=== PATIENT | male | born 1945 | race Caucasian/White ===

== ENCOUNTER → 2018-08-14 16:54 | Outpatient (CLI) | payer MEDICARE, OTHER, SELFPAY ==
--- NOTE | 2018-08-14 | IMM_PTH ---
PATIENT: JULISA CARSON LOC: [facility] U#:[id number] AGE/SX: 79/M ROOM: RE08/14/[address]: Dr. Steve Farmer MD : 1945 BED: DIS: SPEC #: [id number] RECD: 08/18/18 14:07 STATUS: ABDIAS CHATA #: [id number] DON: 08/14/18 00:[address]: Steve Farmer DEPT: IMMUNOHISTOCHEMISTRY RECD BY: Elinor Zarco Tissues: A - PROSTATE RIGHT B - PROSTATE RIGHT E - PROSTATE LEFT Procedures: 34BE12 (add) P40 (add) 34BE12 (initial) PHYSICIAN & [place] [id number] SPECIMEN INFORMATION: Tissue Source: A - Right prostate apex, B - Right prostate mid, E - Left prostate mid Clinical Info: Elevated PSA Specimen Number: [id number] A, B & E CPT code: 69900, 08006 x5 METHODOLOGY: Deparaffinized sections of prefer/formalin-fixed tissue or PAP/DQ stained slides are incubated with monoclonal/polyclonal antibodies/oligonucleotide probes. Localization is made via biotin free immunoperoxidase method. Appropriate controls are performed and reacted as expected. Results on target cell population are indicated in the following table: RESULTS: ANTIBODY / CLONE RESULT Block A P40 (BC28) positive 34BE12 (34BE12) positive Block B P40 (BC28) negative 34BE12 (34BE12) negative Block E P40 (BC28) positive 34BE12 (34BE12) positive These tests were developed and their performance characteristics determined by [facility]. They may not have been cleared or approved by the U.S. Food and Drug Administration. The FDA has determined that such clearance or approval is not necessary. INTERPRETATION: A. Right prostate, apex, core biopsy: Focal high-grade prostatic intraepithelial neoplasia (HGPIN). B. Right prostate, mid, core biopsy: Adenocarcinoma. E. Left prostate, mid, core biopsy: Focal high-grade prostatic intraepithelial neoplasia (HGPIN). AM:cadence 08/19/18
--- NOTE | 2018-08-14 | PROSBIL_PTH ---
PATIENT: JULISA CARSON LOC: [facility] U#:[id number] AGE/SX: 79/M ROOM: RE08/14/[address]: Dr. Steve Farmer MD : 1945 BED: DIS: SPEC #: [id number] RECD: 08/14/18 16:54 STATUS: ABDIAS CERVANT[place]olis #: [id number] DON: 08/14/18 00:[address]: Steve Farmer DEPT: SURGICAL PATHOLOGY RECD BY: Mayur Mcguire Tissues: A - PROSTATE RIGHT B - PROSTATE RIGHT C - PROSTATE RIGHT D - PROSTATE LEFT E - PROSTATE LEFT F - PROSTATE LEFT Procedures: PROSTATE BX HEADER OPERATION: Prostate biopsy PRE-OP DIAGNOSIS: Elevated PSA TISSUE SUBMITTED: A - Right apex, B - Right mid, C - Right base, D - Left apex, E - Left mid, F - Left base MICROSCOPIC DIAGNOSIS A. Right prostate, apex, core biopsy: Focal high-grade prostatic intraepithelial neoplasia (HGPIN). Mild glandular atrophy and minimal chronic inflammation. See comment. B. Right prostate, mid, core biopsy: Adenocarcinoma: [place] grade: 10 (5+5) Cores involved: 2 out of 2 Tissue involved: 50% Greatest tumor length: 9 mm Perineural invasion - present See comment. C. Right prostate, base, core biopsy: Adenocarcinoma: [place] grade: 9 (4+5) Cores involved: 2 out of 2 Tissue involved: 75% Greatest tumor length: 8 mm Perineural invasion - present D. Left prostate, apex, core biopsy: Glandular atrophy and mild chronic inflammation. E. Left prostate, mid, core biopsy: Focal high-grade prostatic intraepithelial neoplasia (HGPIN). Glandular atrophy and mild chronic inflammation. See comment. F. Left prostate, base, core biopsy: Focal high-grade prostatic intraepithelial neoplasia (HGPIN). Glandular atrophy and mild chronic inflammation. AM:cadence 08/18/18 COMMENT A, B & E - Immunohistochemistry ([id number]) supports the above diagnosis. MICROSCOPIC DESCRIPTION Slides are reviewed. GROSS DESCRIPTION A - Received is one container designated prostate, right apex. The specimen consists of two elongated fragments of light bowles-white soft tissue measuring 1.2 to 1.4 cm in length and 0.1 cm in diameter. The specimen is totally submitted in one cassette. B - Received is one container designated prostate, right mid. The specimen consists of two elongated fragments of light bowles-white soft tissue measuring 1.1 to 1.4 cm in length and 0.1 cm in diameter. The specimen is totally submitted in one cassette. C - Received is one container designated prostate, right base. The specimen consists of two elongated fragments of light bowles-white soft tissue measuring 1 to 1.4 cm in length and 0.1 cm in diameter. The specimen is totally submitted in one cassette. D - Received is one container designated prostate, left apex. The specimen consists of two elongated fragments of light bowles-white soft tissue measuring 1 to 1.1 cm in length and 0.1 cm in diameter. The specimen is totally submitted in one cassette. E - Received is one container designated prostate, left mid. The specimen consists of two elongated fragments of light bowles-white soft tissue measuring 1.2 to 1.5 cm in length and 0.1 cm in diameter. The specimen is totally submitted in one cassette. F - Received is one container designated prostate, left base. The specimen consists of two elongated fragments of light bowles-white soft tissue measuring 1.1 to 1.3 cm in length and 0.1 cm in diameter. The specimen is totally submitted in one cassette. / CE:cadence 08/15/18 TC:0 CPT: G0146
== END ==
PROVIDERS: Referring Provider Urology; Visit Provider Urology
DX: D07.5 Carcinoma in situ of prostate (principal); R97.20 Elevated prostate specific antigen [PSA]
CPT/HCPCS: 88305; 88341; 88342; G0416

== ENCOUNTER 2018-08-21 00:52 | Inpatient (IN) | payer MEDICARE, OTHER, SELFPAY ==
[2018-08-21] VITALS (45 sets, daily range): BP systolic 87–150; BP diastolic 38–61; PULSE 49–74; RESP 11–29; TEMP 36.6–38.8; O2SAT 95–100; BMI 23.2; BMI 60.0
--- NOTE | 2018-08-21 01:32 | PCM.HP.STD ---
Problem List (1) Acute on recurrent pancreatitis Status: Acute (2) Prostatic cancer Status: Chronic (3) Bladder outlet obstruction Status: Chronic (4) CHRONIC SMOKER Status: Chronic (5) GERD (gastroesophageal reflux disease) Status: Chronic History of Present Illness Date of Admission: 08/21/18 Chief Complaint: Severe abdominal pain The patient is a 72 year old M with history of recurrent pancreatitis for about 15 years had detailed evaluation in [facility] with MRCP and biliary stent about 10 years ago that was removed after 6 months came as direct admission from [facility] ER for acute on recurrent pancreatitis. Patient has severe epigastric abdominal pain, started about 3 days ago on 08/18 but got worse yesterday which led to ER visit. Patient had mild chills but no recorded fever. Patient has mild constipation for last 3 to 4 days. Denies GI bleed. Patient received 3 L of IV fluid normal saline bolus, 25 mcg fentanyl, IV Zosyn, and, vancomycin still blood pressure is 85/42. Heart rate is 71. Patient temperature in the ER 38.8. and was given Tylenol. Patient had right femoral central venous catheter inserted in the ER. As per the ER physician, patient CT scan does not show pancreatic edema/mass or abscess but there is no report in the medical record. Past Medical History Past Medical History (Chronic Problems): Chronic Problems Prostatic cancer (Chronic) Bladder outlet obstruction (Chronic) CHRONIC SMOKER (Chronic) GERD (gastroesophageal reflux disease) (Chronic) Allergies No Known Allergies Allergy (Verified 08/21/18 01:14) Home Medications: Ambulatory Orders Medication Instructions Recorded Lipase/Protease/Amylase [Creon Dr 1 each PO TID 03/02/13 24,000 Units Capsule] Sertraline HCl [Zoloft] 50 mg PO DAILY 03/02/13 Aspirin [Aspir 81] 81 mg PO DAILY 08/21/18 Finasteride 5 mg PO DAILY 08/21/18 Omeprazole 20 mg PO DAILY 08/21/18 Vitamin B12 1,000 mg PO DAILY 08/21/18 Smoking Status: Current every day smoker Tobacco Use: Cigarettes - He smokes about half pack per day started in the age of 19s - *Family History Sibling History Items: No pertinent history - No history of pink otitis in first-degree relative. Review of Systems Constitutional: Reports: Anorexia, Chills, Weakness HEENT: Denies: Head Aches, Sinus Congestion, Sinus Drainage Cardiovascular: Denies: Chest Pain, Palpitations Respiratory: Denies: Cough, Shortness of breath at rest, Sputum production Gastrointestinal: Reports: Abdominal Pain, Constipation, Nausea. Denies: Hematemesis, Hematochezia, Melena, Vomiting Genitourinary: Denies: Dysuria Musculoskeletal: Denies: Joint Pain, Joint Tenderness Skin: Denies: Rash, Wounds Neurological: Denies: Numbness, Tingling, Focal weakness Psychiatric: Denies: Anxiety, Depression, Homicidal Ideations, Suicidal Ideations Hematologic/ Lymphatic: Denies: Easy Bruising, Easy Bleeding VTE Information - Inpt Only VTE Present on Admission: No VTE Mechan Device Prophylaxis: None VTE Pharm Prophylaxis ordered?: Yes Patient Problems: Active and Suspected Problems Acute on recurrent pancreatitis (Acute) - Physical Exam General: Alert, Oriented x3, Cooperative HEENT: Atraumatic, PERRLA, EOMI, Normocephalic Neck: Supple, No JVD, Negative Carotid Bruits Lungs: Clear to auscultation, Normal air movement, No rhonchi, No wheeze, No rales Cardiovascular: Regular rate, Regular Rhythm, Normal S1, Normal S2, No murmurs Abdomen: Bowel Sounds Present, Soft, Tender - Tenderness present predominantly over epigastric and right upper quadrant region. Mild guarding present. Extremities: No edema, Capillary Refill Less than 3 Seconds Skin: No rashes, No breakdown Musculoskeletal: No Tenderness to Palpation of Joints or Extremities, Arthritic Changes Neurological: Cranial nerves II-XII grossly intact, Deep Tendon Reflexes 2+/4 and Symmetrical, Neuro grossly intact, Motor Exam 5/5 strength throughout Psych/Mental Status: Normal Affect, Appropriate Vital Signs Pulse 71 08/21/ 00:53 Weight: 171 lb 8.314 oz Body Mass Index (BMI) 23.2 Assessment/Plan All Active Problems Acute on recurrent pancreatitis (Acute) The patient is a 72 year old M with history of recurrent pancreatitis for about 15 years status post biliary stent about 10 years ago and subsequently removed is directly admitted from [facility] ER for severe abdominal pain, chills, hypotension and elevated lactic acid consistent with acute on recurrent pancreatitis. Patient blood pressure was 95/50 but dropped to 87/52 but no tachycardia or hypoxia even with adequate 3 L normal saline bolus. 1. Acute on recurrent pancreatitis, etiology unknown: Patient denies alcohol intake and had cholecystectomy in the past. We will try to get CT scan report from the [facility] ER. IV fluid normal saline, intake and output monitoring, pain control ordered. Patient has Salazar catheter. Right upper quadrant sonogram tomorrow morning. Repeat CBC, CMP and electrolytes tomorrow a.m. 2. Hypovolemic shock, predominantly from third spacing: Less likely septic shock: Patient is started on IV Levophed drip. [employer]ist consulted. Patient had empirically IV vancomycin and Zosyn department ER. Blood cultures x2 ordered. 3. Other chronic comorbidities include GERD, prostate cancer and chronic smoker: Smoking cessation advised. Patient is on PPI. Hold other oral medications including baby aspirin and finasteride. DVT prophylaxis: On Lovenox 40 mg subcu daily. Code Visit Inpatient E&M: 43828 Init Hosp L3
--- NOTE | 2018-08-21 01:41 | HP.PCM_ITS ---
Problem List (1) Acute on recurrent pancreatitis Status: Acute (2) Prostatic cancer Status: Chronic (3) Bladder outlet obstruction Status: Chronic (4) CHRONIC SMOKER Status: Chronic (5) GERD (gastroesophageal reflux disease) Status: Chronic History of Present Illness Date of Admission: 08/21/18 Chief Complaint: Severe abdominal pain The patient is a 72 year old M with history of recurrent pancreatitis for about 15 years had detailed evaluation in [facility] with MRCP and biliary stent about 10 years ago that was removed after 6 months came as direct admission from [facility] ER for acute on recurrent pancreatitis. Patient has severe epigastric abdominal pain, started about 3 days ago on 08/18 but got worse yesterday which led to ER visit. Patient had mild chills but no recorded fever. Patient has mild constipation for last 3 to 4 days. Denies GI bleed. Patient received 3 L of IV fluid normal saline bolus, 25 mcg fentanyl, IV Zosyn, and, vancomycin still blood pressure is 85/42. Heart rate is 71. Patient temperature in the ER 38.8. and was given Tylenol. Patient had right femoral central venous catheter inserted in the ER. As per the ER physician, patient CT scan does not show pancreatic edema/mass or abscess but there is no report in the medical record. Past Medical History Past Medical History (Chronic Problems): Chronic Problems Prostatic cancer (Chronic) Bladder outlet obstruction (Chronic) CHRONIC SMOKER (Chronic) GERD (gastroesophageal reflux disease) (Chronic) Allergies No Known Allergies Allergy (Verified 08/21/18 01:14) Home Medications: Ambulatory Orders Medication Instructions Recorded Lipase/Protease/Amylase [Creon Dr 1 each PO TID 03/02/13 24,000 Units Capsule] Sertraline HCl [Zoloft] 50 mg PO DAILY 03/02/13 Aspirin [Aspir 81] 81 mg PO DAILY 08/21/18 Finasteride 5 mg PO DAILY 08/21/18 Omeprazole 20 mg PO DAILY 08/21/18 Vitamin B12 1,000 mg PO DAILY 08/21/18 Smoking Status: Current every day smoker Tobacco Use: Cigarettes - He smokes about half pack per day started in the age of 19s - *Family History Sibling History Items: No pertinent history - No history of pink otitis in first-degree relative. Review of Systems Constitutional: Reports: Anorexia, Chills, Weakness HEENT: Denies: Head Aches, Sinus Congestion, Sinus Drainage Cardiovascular: Denies: Chest Pain, Palpitations Respiratory: Denies: Cough, Shortness of breath at rest, Sputum production Gastrointestinal: Reports: Abdominal Pain, Constipation, Nausea. Denies: Jc temesis, Hematochezia, Melena, Vomiting Genitourinary: Denies: Dysuria Musculoskeletal: Denies: Joint Pain, Joint Tenderness Skin: Denies: Rash, Wounds Neurological: Denies: Numbness, Tingling, Focal weakness Psychiatric: Denies: Anxiety, Depression, Homicidal Ideations, Suicidal Ideations Hematologic/ Lymphatic: Denies: Easy Bruising, Easy Bleeding VTE Information - Inpt Only VTE Present on Admission: No VTE Mechan Device Prophylaxis: None VTE Pharm Prophylaxis ordered?: Yes Patient Problems: Active and Suspected Problems Acute on recurrent pancreatitis (Acute) - Physical Exam General: Alert, Oriented x3, Cooperative HEENT: Atraumatic, PERRLA, EOMI, Normocephalic Neck: Supple, No JVD, Negative Carotid Bruits Lungs: Clear to auscultation, Normal air movement, No rhonchi, No wheeze, No rales Cardiovascular: Regular rate, Regular Rhythm, Normal S1, Normal S2, No murmurs Abdomen: Bowel Sounds Present, Soft, Tender - Tenderness present predominantly over epigastric and right upper quadrant region. Mild guarding present. Extremities: No edema, Capillary Refill Less than 3 Seconds Skin: No rashes, No breakdown Musculoskeletal: No Tenderness to Palpation of Joints or Extremities, Arthritic Changes Neurological: Cranial nerves II-XII grossly intact, Deep Tendon Reflexes 2+/4 and Symmetrical, Neuro grossly intact, Motor Exam 5/5 strength throughout Psych/Mental Status: Normal Affect, Appropriate Vital Signs Pulse 71 // 00:53 Weight: 171 lb 8.314 oz Body Mass Index (BMI) 23.2 Assessment/Plan All Active Problems Acute on recurrent pancreatitis (Acute) The patient is a 72 year old M with history of recurrent pancreatitis for about 15 years status post biliary stent about 10 years ago and subsequently removed is directly admitted from [facility] ER for severe abdominal pain, chills, hypotension and elevated lactic acid consistent with acute on recurrent pancreatitis. Patient blood pressure was 95/50 but dropped to 87/52 but no tachycardia or hypoxia even with adequate 3 L normal saline bolus. 1. Acute on recurrent pancreatitis, etiology unknown: Patient denies alcohol intake and had cholecystectomy in the past. We will try to get CT scan report from the [facility] ER. IV fluid normal saline, intake and output monitoring, pain control ordered. Patient has Salazar catheter. Right upper quadrant sonogram tomorrow morning. Repeat CBC, CMP and electrolytes tomorrow a.m. 2. Hypovolemic shock, predominantly from third spacing: Less likely septic shock: Patient is started on IV Levophed drip. Corn Miller consulted. Patient had empirically IV vancomycin and Zosyn department ER. Blood cultures x2 ordered. 3. Other chronic comorbidities include GERD, prostate cancer and chronic smoker: Smoking cessation advised. Patient is on PPI. Hold other oral med ications including baby aspirin and finasteride. DVT prophylaxis: On Lovenox 40 mg subcu daily. Code Visit Inpatient E&M: 09122 Init Hosp L3
--- NOTE | 2018-08-21 01:41 | RAD_ITS ---
STUDY: X-RAY CHEST REASON FOR EXAM: Male, 72 years old. Hypotension TECHNIQUE: 1 view COMPARISON: None. FINDINGS: The lungs are clear and expanded. There is no demonstrated pleural abnormality. Normal size heart. Normal mediastinum and huang. Normal visualized pulmonary arteries. Normal visualized aortic arch and descending thoracic aorta. Normal visualized thoracic spine. Normal visualized ribs, clavicles, and shoulders. There is no demonstrated abnormality of the visualized soft tissue structures of the upper abdomen. RAD/Chest 1 View (Portable) IMPRESSION: Normal x-ray examination of the chest. No acute findings in the lungs Electronically Signed: Ashok Vallecillo MD at 6:38 EDT Tel , Service support ,
[2018-08-21] MEDS: Enoxaparin 40 MG/0.4 ML Syringe SC (02:04)
[2018-08-21] MEDS: 0.9% Normal Saline 1,000 ML 150 ML IV (02:11)
[2018-08-21 02:15] LABS: Bedside Glucose 116 mg/dL (70-110)
[2018-08-21 02:35] LABS: Lactic Acid 1.1 mmol/L (0.4-2.0)
[2018-08-21 05:53] LABS: International Normalized Ratio 1.2; Prothrombin Time (Protime)PT. 15.3 SECONDS (11.7-14.9)
--- NOTE | 2018-08-21 05:55 | US_ITS ---
STUDY: ABDOMINAL ULTRASOUND - RIGHT UPPER QUADRANT REASON FOR VISIT: Male, 72 years old. Pancreatitis. TECHNIQUE: Ultrasound evaluation of the right upper quadrant was performed with real-time and static sandhu-scale imaging. TECHNICAL QUALITY: Adequate. COMPARISON: None. FINDINGS: Liver: The liver is enlarged and measures 20.4 cm. There is normal echogenicity of the liver. The bile ducts are within normal limits. There is hepatic color flow. The direction of portal flow is hepatopetal. There is no demonstrated mass lesion. Gallbladder: The patient is status post cholecystectomy. Common Bile Duct (C.B.D.): The common bile duct measures 3.0 mm. Pancreas: Normal size of the head, body and tail of the pancreas. There is increased echogenicity of the pancreas. There is no demonstrated pancreatic mass or cyst. Right Kidney: Normal size of the right kidney. The right kidney measures 11.8 cm x 6.3 cm x 4.6 cm. Normal renal cortex. The right cortex measures 1.2 cm. There is no demonstrated renal mass or cyst. There is no right hydronephrosis. US/Abdomen Limited IMPRESSION: Hepatomegaly. Status post cholecystectomy. Electronically Signed: Cabrera Kamara, at 13:12 EDT , Service support ,
[2018-08-21 06:10] LABS: ALB/GLOB Ratio 0.8 RATIO (0.9-2.4); AST(SGOT) 153 U/L (15-37); Alanine Aminotransfer ALT/SGPT 107 U/L (16-61); Albumin, Serum 2.4 g/dL (3.2-5.0); Alkaline Phosphatase 194 U/L (45-117); Anion Gap 6 (5-15); BUN 15 mg/dL (7-18); BUN/Creat Ratio 12.5 RATIO (10-20); Bilirubin, Direct 0.26 mg/dL (0.00-0.30); Chloride 111 mmol/L (98-107); EST Glomerular Filtration Rate 63 mL/min (>60); Est Glom Filt Rate - Afr Amer 76 mL/min (>60); Estimated Creatinine Clearance 60.18 ml/min; Globulin 3.2 g/dL (2.2-4.2); Glucose 106 mg/dL (74-106); Magnesium 1.5 mg/dL (1.6-2.6); Phosphorus 3.4 mg/dL (2.5-4.9); Potassium 3.5 mmol/L (3.5-5.1); Protein, Total 5.6 g/dL (6.4-8.2); Sodium Level 141 mmol/L (136-145); Thyroid Stim Hormone (TSH) 0.73 uIU/mL (0.358-3.74)
--- NOTE | 2018-08-21 07:02 | CON.PCM_ITS ---
Reason for Consult Date of Consultation: 08/21/18 Reason for Consultation: Acute on chronic pancreatitis History of Present Illness: The patient is a 72-year-old male, with a history as outlined below, who presented as a direct admit from [facility] ED, after initially presenting with complaints of abdominal pain. The patient has a history of chronic pancreatitis. The patient reports that he developed rather acute onset upper abdominal/epigastric pain, which was nonradiating in nature. The patient does have a smoking history of approximately 10 cigarettes/day. He does not currently utilize supplemental oxygen at his baseline, nor is he reliant on any baseline inhalers. He denies any nausea, vomiting or diarrhea. He denies feeling short of breath or experiencing a productive cough. On presentation to the outside hospital emergency department, the patient was noted to be afebrile with a blood pressure of 98/42 and 93% on room air. Initial laboratory evaluation revealed no evidence of a leukocytosis. There was evidence of normocytic anemia. Hepatic function profile revealed an elevated ALT to 155, AST of 376, alkaline phosphatase of 274 and total bili of 1.5. Lactate was initially elevated to 2.9. Initial lipase was only noted to be 22. Urinalysis was negative for leukocyte esterase and nitrites. Rapid influenza screen was negative. At the outside hospital emergency department, the patient was provided with supplemental IV fluid hydration and did receive both vancomycin and Zosyn. CT abdomen/pelvis with IV contrast only, dated August 20, revealed sequelae of chronic pancreatitis with chronic pancreatic duct dilation. There was mild periportal edema along with evidence of bladder outlet obstruction secondary to enlarged prostate. In total, the patient received 3 L of supplemental IV fluids at the outside emergency department. Prior to his transfer, a femoral central venous catheter was placed. Upon arrival to our ICU, the patient was started on levophed to maintain hemodynamic stability. The patient's antibiotics were discontinued on admission. Recent prostate biopsy (by Dr. 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 Past Medical History Past Medical History (Chronic Problems): Chronic Problems Prostatic cancer (Chronic) Bladder outlet obstruction (Chronic) CHRONIC SMOKER (Chronic) GERD (gastroesophageal reflux disease) (Chronic) Allergies No Known Allergies Allergy (Verified 08/21/18 01:14) Home Medications: Ambulatory Orders Medication Instructions Recorded Lipase/Protease/Amylase [Keven Rodriguez 1 each PO TID 03/02/13 24,000 Units Capsule] Sertraline HCl [Zoloft] 50 mg PO DAILY 03/02/13 Aspirin [Aspir 81] 81 mg PO DAILY 08/21/18 Finasteride 5 mg PO DAILY 08/21/18 Omeprazole 20 mg PO DAILY 08/21/18 Vitamin B12 1,000 mg PO DAILY 08/21/18 Smoking Status: Current every day smoker Tobacco Use: Cigarettes - He smokes about half pack per day started in the age of 19s - *Family History Sibling History Items: No pertinent history - No history of pink otitis in first-degree relative. Review of Systems Constitutional: Reports: Weight Change Eyes: Denies: Blurred vision, Double vision HEENT: Denies: Head Aches, Sinus Congestion, Sinus Drainage Cardiovascular: Denies: Chest Pain, Palpitations Respiratory: Denies: Cough, Shortness of breath at rest, Sputum production Gastrointestinal: Reports: Abdominal Pain. Denies: Diarrhea, Nausea, Vomiting Genitourinary: Denies: Dysuria Musculoskeletal: Denies: Joint Pain, Joint Tenderness Skin: Denies: Rash, Wounds Neurological: Denies: Numbness, Tingling, Focal weakness Psychiatric: Denies: Anxiety, Depression, Homicidal Ideations, Suicidal Ideations Hematologic/ Lymphatic: Reports: Anemia Patient Problems: Active and Suspected Problems Acute on recurrent pancreatitis (Acute) Objective: The patient's most recent lab work, culture data and imaging studies have all been personally reviewed. Blood cultures are currently pending. - Physical Exam General: Alert, Cooperative, No apparent distress HEENT: Atraumatic, PERRLA, Normocephalic Oral: No Gingival or Mucosal Lesions/ Ulcerations Neck: Supple, No Nodes, Trachea Midline Lungs: Normal air movement, No rhonchi, No wheeze, No rales Cardiovascular: Normal S1, Normal S2, No murmurs, Bradycardic Abdomen: Bowel Sounds Present, Soft, - - There is tenderness to palpation over the upper abdomen/epigastrium Extremities: No clubbing, No cyanosis, No edema Skin: No breakdown Musculoskeletal: No Tenderness to Palpation of Joints or Extremities Lymphatic: No Cervical, Supraclavicular, or Inguinal Adenopathy Neurological: Cranial nerves II-XII grossly intact, Neuro grossly intact Psych/Mental Status: Alert and oriented to time, place, person, mood and affect Vital Signs Temp Pulse Resp BP Pulse Ox 98.1 F 61 15 103/55 L 100 08/21/18 04:00 08/21/18 06:00 08/21/18 06:00 08/21/18 06:00 08/21/18 06:00 Oxygen Delivery Method Room Air Weight: 171 lb 8.314 oz Body Mass Index (BMI) 23.2 Intake and Output for Last 24 Hours 08/19/18 08/20/18 08/21/18 23:59 23:59 23:59 Intake Total 709.4 / 709.4 Output Total 750 / 750 Balance -40.6 / -40.6 Laboratory Tests Past 24 Hrs 08/21/18 08/21/18 08/21/18 01:55 05:30 05:30 WBC RBC Hgb Hct MCV MCH MCHC RDW RDW Differential Plt Count Neut % (Auto) Absolute Neuts (auto) Total Counted PT 15.3 H INR 1.2 Sodium 141 Potassium 3.5 Chloride 111 H Carbon Dioxide 24.0 Anion Gap 6 BUN 15 Creatinine 1.20 Estim Creat Clear Calc 60.18 Est GFR (MDRD) Af Amer 76 Est GFR (MDRD) Non-Af 63 BUN/Creatinine Ratio 12.5 Glucose 106 Lactic Acid 1.1 Calcium 7.0 L Phosphorus 3.4 Magnesium 1.5 L Total Bilirubin 1.20 H Direct Bilirubin 0.26 AST 153 H ALT 107 H Alkaline Phosphatase 194 H Total Protein 5.6 L Albumin 2.4 L Globulin 3.2 Albumin/Globulin Ratio 0.8 L TSH 0.73 08/21/18 06:35 WBC Pending RBC Pending Hgb Pending Hct Pending MCV Pending MCH Pending MCHC Pending RDW Pending RDW Differential Pending Plt Count Pending Neut % (Auto) Pending Absolute Neuts (auto) Pending Total Counted Pending PT INR Sodium Potassium Chloride Carbon Dioxide Anion Gap BUN Creatinine Estim Creat Clear Calc Est GFR (MDRD) Af Amer Est GFR (MDRD) Non-Af BUN/Creatinine Ratio Glucose Lactic Acid Calcium Phosphorus Magnesium Total Bilirubin Direct Bilirubin AST ALT Alkaline Phosphatase Total Protein Albumin Globulin Albumin/Globulin Ratio TSH POC Glucose 08/21/18 02:10 POC Glucose 116 H Clinical Impression(s) from Imaging Studies Chest X-Ray 08/21/18 01:41 IMPRESSION: Normal x-ray examination of the chest. No acute findings in the lungs Electronically Signed: Ashok Vallecillo MD at 6:38 EDT Tel , Service support , Assessment/Plan Active and Suspected Problems Acute on recurrent pancreatitis (Acute) RECOMMENDATIONS: 1. Remove femoral central venous catheter in place PICC line. 2. Resume empiric antimicrobials. Blood cultures are pending. Will check urine culture as well. 3. Abdominal ultrasound is pending. 4. Recheck lipase. 5. Transition from normal saline to lactated Ringer's for supplemental IV fluid hydration. 6. Obtain urology consultation. 7. Wean levophed to maintain a mean arterial pressure at or above 65 mmHg. 8. As needed pain control with morphine. IMPRESSIONS: 1. Septic shock Although the patient's antibiotics were discontinued upon admission to the ICU, I am concerned for underlying sepsis as compared to acute on chronic pancreatitis, as the patient has a normal lipase level and now has an elevated white blood cell count along with continued need for vasopressor support, despite adequate volume resuscitation. In addition, the patient's CT abdomen completed at the outside hospital prior to transfer only revealed sequelae of chronic pancreatitis. My concern would be for some form of intra-abdominal infectious process, potentially urinary (prostatitis) or biliary in nature. I did restart the patient's antibiotics this morning. We will plan to obtain a urine culture as well. Abdominal ultrasound is currently pending. The patient will be continued on vasopressor support in an attempt to maintain a mean arterial pressure at or above 65 mmHg. 2. Recently diagnosed prostate cancer CT abdomen did report concerns for bladder outlet obstruction. Therefore, I have asked that urology evaluate the patient as well. 3. Hypomagnesemia Aggressive electrolyte repletion as ordered. Recheck levels in the morning. 4. Personal history of chronic pancreatitis Continue IV fluid supplementation. We will hold off on advancing the patient's diet until the abdominal ultrasound has been completed. 5. Anemia/thrombocytopenia/GERD/tobacco dependency Complicates care, management, recovery and prognosis. Okay to continue PPI therapy. The patient does not wish to have any form of nicotine replacement therapy ordered. Smoking cessation is advisable. TIME: 45 minutes of critical care time, independent of procedures, was spent addressing the patient's septic shock, recently diagnosed prostate cancer, hypomagnesemia, chronic pancreatitis, review of all data and collaboration with the care team. ([id number]) Code Visit 9xxxx: [id number] Critical care first hour
[2018-08-21 07:06] LABS: Absolute Lymphocyte Count 0.86 X10^3/ul (0.83-4.51); Basophil# 0.02 X10^3/uL; Basophil% 0.1 % (0-1); Differential Indicated SCAN CRITERIA MET; Eosinophil# 0.03 X10^3/uL; Eosinophils% 0.1 % (0-5); Hematocrit 29.7 % (40-54); Hemoglobin 9.4 g/dl (13.0-16.5); Lymphocyte # 0.86 X10^3/ul (4.0); Lymphocyte % 3.9 % (19-41); Mean Corp Hgb Conc 31.6 g/gl (32-36); Mean Corpuscular Hgb 29.7 pg (27.0-32.0); Mean Platelet Vol. 13.2 fl (6.2-12.0); Monocyte# 0.84 X10^3/uL; Monocyte% 3.9 % (0-10); Neutrophil % 91.7 % (47-70); POSITIVE COUNT NO; POSITIVE DIFFERENTIAL NO; POSITIVE MORPHOLOGY YES; Platelet Count 141 K/mm3 (150-450); RBC Distribution Width CV 13.7 % (11.6-14.6); RBC Distribution Width SD 45.4 fl (35.1-43.9); Red Blood Count 3.16 M/mm3 (4.6-6.2); White Blood Count 21.8 K/mm3 (4.4-11.0)
[2018-08-21 07:23] LABS: Lipase 19 U/L (73-393)
[2018-08-21] MEDS: Morphine 2 MG/ML Syringe IV ×3 (08:13→17:38)
[2018-08-21] MEDS: 0.9% NaCl Peripheral Flush Adult/Peds IV ×3 (08:14→21:32)
--- NOTE | 2018-08-21 08:55 | PCM.PN.HOSP ---
Patient Problems: Active and Suspected Problems Acute on recurrent pancreatitis (Acute) Subjective: Patient is a 72-year-old male was admitted directly from [facility] ED after he presented there with a complaint of abdominal pain. He was found to have acute on chronic pancreatitis. He was also found to have severely low blood pressure requiring vasopressor administration. He is being managed for acute on chronic pancreatitis, and hypovolemic shock. Patient seen and examined. Abdominal pain had improved a bit. He denied any fever or chills, nausea vomiting or diarrhea. Review of systems otherwise negative. He is still on Levophed. Labs and vitals reviewed. Vitals/I&O's: Vital Signs Temp Pulse Resp BP Pulse Ox 97.8 F 52 L 18 110/51 L 100 08/21/18 08:00 08/21/18 08:00 08/21/18 08:00 08/21/18 08:00 08/21/18 08:00 Oxygen Delivery Method Room Air Weight: 171 lb 8.314 oz Body Mass Index (BMI) 23.2 Intake and Output for Last 24 Hours 08/19/18 08/20/18 08/21/18 23:59 23:59 23:59 Intake Total 709.4 / 709.4 Output Total 750 / 750 Balance -40.6 / -40.6 General: Alert, Oriented x3, Cooperative, No apparent distress HEENT: Atraumatic, PERRLA, EOMI, Normocephalic Oral: Dry Mucosa Neck: Supple, No JVD, Negative Carotid Bruits Lungs: Clear to auscultation, Normal air movement, No rhonchi, No wheeze, No rales Cardiovascular: Regular rate, Regular Rhythm, Normal S1, Normal S2, No murmurs Abdomen: Bowel Sounds Present, Soft, Tender - mild epigastric and RUQ tenderness, no guarding or rebound tenderness Extremities: No clubbing, No cyanosis, No edema, Capillary Refill Less than 3 Seconds Skin: No rashes, No breakdown Musculoskeletal: No Tenderness to Palpation of Joints or Extremities Lymphatic: No Cervical, Supraclavicular, or Inguinal Adenopathy Neurological: Cranial nerves II-XII grossly intact, Neuro grossly intact, Motor Exam 5/5 strength throughout Psych/Mental Status: Normal Affect, Appropriate, Alert and oriented to time, place, person, mood and affect Laboratory Results 08/21/18 01:55: Lactic Acid 1.1 08/21/18 02:10: POC Glucose 116 H 08/21/18 05:30: Sodium 141, Potassium 3.5, Chloride 111 H, Carbon Dioxide 24.0, Anion Gap 6, BUN 15, Creatinine 1.20, Estim Creat Clear Calc 60.18, Est GFR (MDRD) Af Amer 76, Est GFR (MDRD) Non-Af 63, BUN/Creatinine Ratio 12.5, Glucose 106, Calcium 7.0 L, Phosphorus 3.4, Magnesium 1.5 L, Total Bilirubin 1.20 H, Direct Bilirubin 0.26, AST 153 H, ALT 107 H, Alkaline Phosphatase 194 H, Total Protein 5.6 L, Albumin 2.4 L, Globulin 3.2, Albumin/Globulin Ratio 0.8 L, TSH 0.73 08/21/18 05:30: PT 15.3 H, INR 1.2 08/21/18 05:30: Lipase 19 L 08/21/18 06:35: WBC 21.8 H, RBC 3.16 L, Hgb 9.4 L, Hct 29.7 L, MCV 94.0, MCH 29.7, MCHC 31.6 L, RDW 13.7, RDW Differential 45.4 H, Plt Count 141 L, MPV 13.2 H, Immature Gran % (Auto) 0.300, Neut % (Auto) 91.7 H, Lymph % (Auto) 3.9 L, [place] % (Auto) 3.9, Eos % (Auto) 0.1, Baso % (Auto) 0.1, Absolute Neuts (auto) 20.0 H, Absolute Lymphs (auto) 0.86, Total Counted Not Reportable 08/21/18 08:20: MRSA (PCR) Pending Diagnostic Data Chest X-Ray 08/21/18 01:41 IMPRESSION: Normal x-ray examination of the chest. No acute findings in the lungs Electronically Signed: Ashok Vallecillo MD at 6:38 EDT Tel , Service support , Current Medications Dextrose (D50w Syringe) 0 gm IV X1 PRN; Protocol PRN Reason: Hypoglycemia Enoxaparin Sodium (Lovenox) 40 mg SC DAILY [facility] Last Admin: 08/21/18 02:04 Dose: 40 mg Glucagon () 1 mg IM .X1 PRN PRN Reason: Hypoglycemia Hydromorphone HCl (Dilaudid Inj) 1 mg IV Q4H PRN PRN PRN Reason: Severe pain (7-10/10) Sodium Chloride () 250 mls @ 15 mls/hr IV .[id number] PRN PRN Reason: SALINE FLUSH Pantoprazole Sodium 40 mg/ (Sodium Chloride) 110 mls @ 330 mls/hr IV Q24 TRUPTI Norepinephrine Bitartrate 8 mg (/ Sodium Chloride) 250 mls @ 9.38 mls/hr CONT INF .[id number] [facility] Last Admin: 08/21/18 02:04 Dose: 9.38 mls/hr Piperacillin Sod/Tazobactam (Sod 3.375 gm/ Sodium Chloride) 50 mls @ 12.5 mls/hr IV Q8 TRUPTI Magnesium Sulfate 2 gm/ Sodium (Chloride) 104 mls @ 52 mls/hr IV X1 ONE Stop: 08/21/18 10:30 Potassium Chloride 20 meq/ (Lactated Ringer's) 1,010 mls @ 150 mls/hr IV .[id number] [facility] Morphine Sulfate () 2 mg IV Q3H PRN PRN PRN Reason: Severe pain (7-10/10) Last Admin: 08/21/18 08:13 Dose: 2 mg Senna/Docusate Sodium (Senokot-S, [place]-Colace) 2 tablet PO BID PRN PRN PRN Reason: Constipation Sodium Chloride () 5 - 15 ml IV UD PRN PRN Reason: SALINE FLUSH Last Admin: 08/21/18 08:14 Dose: 10 ml Sodium Chloride () 10 - 40 ml IV UD PRN PRN Reason: MULTILUMEN/HICMAN CATH FLUSH Last Admin: 08/21/18 02:12 Dose: 30 ml Medical Necessity - Tobacco Use Smoking Status: Current every day smoker Tobacco Use: Cigarettes - He smokes about half pack per day started in the age of 19s Assessment/Plan All Active Problems Acute on recurrent pancreatitis (Acute) 1. Hypovolemic shock due to acute pancreatitis has had recurrent pancreatitis for the past 15 years; says no cause has been found he denies any alcohol intake and is s/p cholecystectomy. has no hyperlipidemia. I am not sure if he has been tested for autoimmune pancreatitis currently on IVF NS and levophed. 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 There is no clear source of infection, and I think the hypovolemic shock is due to hypovolemia. wbc is elevated, though this may be reactive on Creon 2. Acute on chronic pancreatitis as under 1. 3. Hypomagnesemia: Magnesium is 1.5 today. We will replace and monitor. 4.Elevated liver enzymes: total bilirubin is 1.2, AST/ALT is 153/107. ALP is 194 5. Asymptimatic bradycardia: HR is in the 50s. paitent is stable. Will monitor 6. Anemia: Hb is 9.4. no baseline available. Will hceck iron panel. In light of recent cancaer diagnosis, may be related to it. 7. Thrombocytopenia: Platelets are 141. WIll monitor 8. GERD: on IV pantoprazole 9. History of prostate cancer: to follow up with urology on outpatient basis 10. Nicotine abuse: counseled to quit DVT prophylaxis: lovenox Code Visit Inpatient E&M: 87530 Subs Hosp L3
--- NOTE | 2018-08-21 09:00 | PN_ITS ---
Patient Problems: Active and Suspected Problems Acute on recurrent pancreatitis (Acute) Subjective: Patient is a 72-year-old male was admitted directly from [facility] ED after he presented there with a complaint of abdominal pain. He was found to have acute on chronic pancreatitis. He was also found to have severely low blood pressure requiring vasopressor administration. He is being managed for acute on chronic pancreatitis, and hypovolemic shock. Patient seen and examined. Abdominal pain had improved a bit. He denied any fever or chills, nausea vomiting or diarrhea. Review of systems otherwise negative. He is still on Levophed. Labs and vitals reviewed. Vitals/I&O's: Vital Signs Temp Pulse Resp BP Pulse Ox 97.8 F 52 L 18 110/51 L 100 08/21/18 08:00 08/21/18 08:00 08/21/18 08:00 08/21/18 08:00 08/21/18 08:00 Oxygen Delivery Method Room Air Weight: 171 lb 8.314 oz Body Mass Index (BMI) 23.2 Intake and Output for Last 24 Hours 08/19/18 08/20/18 08/21/18 23:59 23:59 23:59 Intake Total 709.4 / 709.4 Output Total 750 / 750 Balance -40.6 / -40.6 General: Alert, Oriented x3, Cooperative, No apparent distress HEENT: Atraumatic, PERRLA, EOMI, Normocephalic Oral: Dry Mucosa Neck: Supple, No JVD, Negative Carotid Bruits Lungs: Clear to auscultation, Normal air movement, No rhonchi, No wheeze, No rales Cardiovascular: Regular rate, Regular Rhythm, Normal S1, Normal S2, No murmurs Abdomen: Bowel Sounds Present, Soft, Tender - mild epigastric and RUQ tenderness, no guarding or rebound tenderness Extremities: No clubbing, No cyanosis, No edema, Capillary Refill Less than 3 Seconds Skin: No rashes, No breakdown Musculoskeletal: No Tenderness to Palpation of Joints or Extremities Lymphatic: No Cervical, Supraclavicular, or Inguinal Adenopathy Neurological: Cranial nerves II-XII grossly intact, Neuro grossly intact, Motor Exam 5/5 strength throughout Psych/Mental Status: Normal Affect, Appropriate, Alert and oriented to time, place, person, mood and affect Laboratory Results 08/21/18 01:55: Lactic Acid 1.1 08/21/18 02:10: POC Glucose 116 H 08/21/18 05:30: Sodium 141, Potassium 3.5, Chloride 111 H, Carbon Dioxide 24.0, Anion Gap 6, BUN 15, Creatinine 1.20, Estim Creat Clear Calc 60.18, Est GFR (MDRD) Af Amer 76, Est GFR (MDRD) Non-Af 63, BUN/Creatinine Ratio 12.5, Glucose 106, Calcium 7.0 L, Phosphorus 3.4, Magnesium 1.5 L, Total Bilirubin 1.20 H, Direct Bilirubin 0.26, AST 153 H, ALT 107 H, Alkaline Phosphatase 194 H, Total Protein 5.6 L, Albumin 2.4 L, Globulin 3.2, Albumin/Globulin Ratio 0.8 L, TSH 0.73 08/21/18 05:30: PT 15.3 H, INR 1.2 08/21/18 05:30: Lipase 19 L 08/21/18 06:35: WBC 21.8 H, RBC 3.16 L, Hgb 9.4 L, Hct 29.7 L, MCV 94.0, MCH 29.7, MCHC 31.6 L, RDW 13.7, RDW Differential 45.4 H, Plt Count 141 L, MPV 13.2 H, Immature Gran % (Auto) 0.300, Neut % (Auto) 91.7 H, Lymph % (Auto) 3.9 L, [place] % (Auto) 3.9, Eos % (Auto) 0.1, Baso % (Auto) 0.1, Absolute Neuts (auto) 20.0 H, Absolute Lymphs (auto) 0.86, Total Counted Not Reportable 08/21/18 08:20: MRSA (PCR) Pending Diagnostic Data Chest X-Ray 08/21/18 01:41 IMPRESSION: Normal x-ray examination of the chest. No acute findings in the lungs Electronically Signed: Ashok Vallecillo MD at 6:38 EDT Tel , Service support , Current Medications Dextrose (D50w Syringe) 0 gm IV X1 PRN; Protocol PRN Reason: Hypoglycemia Enoxaparin Sodium (Lovenox) 40 mg SC DAILY [facility] Last Admin: 08/21/18 02:04 Dose: 40 mg Glucagon () 1 mg IM .X1 PRN PRN Reason: Hypoglycemia Hydromorphone HCl (Dilaudid Inj) 1 mg IV Q4H PRN PRN PRN Reason: Severe pain (7-10/10) Sodium Chloride () 250 mls @ 15 mls/hr IV .[id number] PRN PRN Reason: SALINE FLUSH Pantoprazole Sodium 40 mg/ (Sodium Chloride) 110 mls @ 330 mls/hr IV Q24 TRUPTI Norepinephrine Bitartrate 8 mg (/ Sodium Chloride) 250 mls @ 9.38 mls/hr CONT INF .[id number] [facility] Last Admin: 08/21/18 02:04 Dose: 9.38 mls/hr Piperacillin Sod/Tazobactam (Sod 3.375 gm/ Sodium Chloride) 50 mls @ 12.5 mls/hr IV Q8 TRUPTI Magnesium Sulfate 2 gm/ Sodium (Chloride) 104 mls @ 52 mls/hr IV X1 ONE Stop: 08/21/18 10:30 Potassium Chloride 20 meq/ (Lactated Ringer's) 1,010 mls @ 150 mls/hr IV .[id number] [facility] Morphine Sulfate () 2 mg IV Q3H PRN PRN PRN Reason: Severe pain (7-10/10) Last Admin: 08/21/18 08:13 Dose: 2 mg Senna/Docusate Sodium (Senokot-S, [place]-Colace) 2 tablet PO BID PRN PRN PRN Reason: Constipation Sodium Chloride () 5 - 15 ml IV UD PRN PRN Reason: SALINE FLUSH Last Admin: 08/21/18 08:14 Dose: 10 ml Sodium Chloride () 10 - 40 ml IV UD PRN PRN Reason: MULTILUMEN/HICMAN CATH FLUSH Last Admin: 08/21/18 02:12 Dose: 30 ml Medical Necessity - Tobacco Use Smoking Status: Current every day smoker Tobacco Use: Cigarettes - He smokes about half pack per day started in the age of 19s Assessment/Plan All Active Problems Acute on recurrent pancreatitis (Acute) 1. Hypovolemic shock due to acute pancreatitis * has had recurrent pancreatitis for the past 15 years; says no cause has been found * he denies any alcohol intake and is s/p cholecystectomy. has no hyperlipidemia. I am not sure if he has been tested for autoimmune pancreatitis * currently on IVF NS and levophed. 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 There is no clear source of infection, and I think the hypovolemic shock is due to hypovolemia. wbc is elevated, though this may be reactive * on Creon * 2. Acute on chronic pancreatitis * as under 1. * 3. Hypomagnesemia: Magnesium is 1.5 today. We will replace and monitor. 4.Elevated liver enzymes: total bilirubin is 1.2, AST/ALT is 153/107. ALP is 194 5. Asymptimatic bradycardia: HR is in the 50s. paitent is stable. Will monitor 6. Anemia: Hb is 9.4. no baseline available. Will hceck iron panel. In light of recent cancaer diagnosis, may be related to it. 7. Thrombocytopenia: Platelets are 141. WIll monitor 8. GERD: on IV pantoprazole 9. History of prostate cancer: to follow up with urology on outpatient basis 10. Nicotine abuse: counseled to quit DVT prophylaxis: lovenox Code Visit Inpatient E&M: 29097 Subs Hosp L3
[2018-08-21 09:49] LABS: M R Staph aureus DNA By PCR Negative (Negative)
[2018-08-21 09:50] LABS: Probe Check PASS; Specimen Processing Control PASS
--- NOTE | 2018-08-21 11:33 | EKG12_ITS ---
Test Reason : ARRYTHMIA Blood Pressure : / mmHG Vent. Rate : 054 BPM Atrial Rate : 054 BPM P-R Int : 176 ms QRS Dur : 092 ms QT Int : 452 ms P-R-T Axes : -15 -35 -09 degrees QTc Int : 428 ms Sinus bradycardia Left axis deviation Abnormal ECG No previous ECGs available Confirmed by GUERA ROOT ([id number]), clinical editor FELIZ MAZARIEGOS ([id number]) on 08/27/2018 12:55:07 PM Referred By: Noah Garber Confirmed By:RAFAEL ROOT
--- NOTE | 2018-08-21 12:40 | CASEMGMT ---
RN CM SHOP HELPER CM to room to meet with patient for initial transition planning/care coordination assessment. RN DWAIN introduced self and role at [facility]. Pt voices understanding and consents to assessment at this time. Pt resting in bed in no distress at this time. @ bedside. Pt is A/O at this time and answers all questions appropriately. Care providers, pharmacy, and demographics verified at this time. PCP: Donita Ramires Specialists: Marleny Andrade Pharmacy: [facility] Insurance: [facility], MMO Prescription Benefit: Yes Living Will/HPOA: states they have filled out paperwork for LW and HCPOA, but that they just need to get it notarized. Made aware SW can assist with completing paperwork if they need further help. LNOK: Living Arrangements: Lives with in one-story home. 2 steps to enter. Independent w/ADL's. and pt share home mgmt tasks. Transportation: Pt states drives self and states no transportation concerns at this time. able to drive pt home on d/c DME: Denies using any DME and denies needs. Has a cane and shower chair but do no use them. HHC/SNF: No history of either. No needs identified. Pt states does not feel that he will need any additional therapy or HHC. Pt wishes to return home and states has no concerns with going home at time of discharge. CM to follow for any discharge planning/needs. Pt voices no further concerns/needs at this time. Advised pt to ask for CM if any further questions/concerns/needs arise. Voices understanding. PLAN: Home w/spousal support and discharge plans in place. PT/OT evals pending. Keerthi MICHAUD RN, CM
[2018-08-21] MEDS: Acetaminophen 325 MG Tablet 650 MG PO (13:17)
--- NOTE | 2018-08-21 13:44 | CHAPLAIN ---
Type of Pastoral Visit _x__ Initial Visit ___ Follow-up Visit ___ On-call Visit ___ General Patient Visit ___ Spiritual Assessment ___ Family Conference ___ Bereavement ___ Rapid Response ___ Code Blue ___ Other (describe below) Pastoral Care Referral From _x__ Patient _x__ Family ___ Nurse ___ Physician ___ Animation Artist ___ Supreme Court Judge ___ Other (describe below) Sacrament/Intervention _x__ Active listening ___ Anointing ___ Pentecostal ___ Bereavement ___ Communion ___ [place] exploration ___ _x__ Life review _x__ Prayer ___ Reconciliation ___ Sacrament of Sick _x__ Supportive presence ___ Wedding ___ Other (describe below) Pastoral Comments
[2018-08-21] MEDS: Ibuprofen 400 MG Tablet PO (21:23)
[2018-08-21] MEDS: Vancomycin IV 500 MG/100 ML BAG 100 MG IV (21:29)
--- NOTE | 2018-08-21 21:34 | PCM.RX.CS ---
Consult Pharmacy has been consulted to manage selected antiobiotic: Vancomycin Type of Consult: New start Labs: Sodium 141 mmol/L (136-145) 08/21/18 05:30 Potassium 3.5 mmol/L (3.5-5.1) 08/21/18 05:30 Chloride 111 mmol/L (98-107) H 08/21/18 05:30 Carbon Dioxide 24.0 mmol/L (21.0-32.0) 08/21/18 05:30 Anion Gap 6 (5-15) 08/21/18 05:30 BUN 15 mg/dL (7-18) 08/21/18 05:30 Creatinine 1.20 mg/dL (0.70-1.30) 08/21/18 05:30 Est GFR (MDRD) Af Amer 76 mL/min (>60) 08/21/18 05:30 Est GFR (MDRD) Non-Af 63 mL/min (>60) 08/21/18 05:30 BUN/Creatinine Ratio 12.5 RATIO (10-20) 08/21/18 05:30 Glucose 106 mg/dL (74-106) 08/21/18 05:30 Weight used for dosin.8 kg Estimated Creatinine Clearance: 48.18 Goal Trough: 10-15 mcg/mL Pharmacy Plan for Drug Dosing: Pharmacy Service will continue to monitor and adjust dosing as required. Medications Vancomycin HCl () 500 mg in 100 mls @ 100 mls/hr IV Q12H [id number] Last Admin: 08/21/18 21:29 Dose: 100 mls/hr DOSE OF 1000MG GIVEN YESTERDAY AROUND 2100 Follow-Up Labs: Trough Vancomycin Labs to be done on [date and time ordered]: 08/23 @ 0900
[2018-08-22] VITALS (67 sets, daily range): BP systolic 77–155; BP diastolic 30–93; PULSE 46–81; RESP 13–29; TEMP 36.6–38.8; O2SAT 93–100
[2018-08-22] MEDS: Ibuprofen 400 MG Tablet PO ×2 (04:34→16:16)
[2018-08-22 04:37] LABS: Absolute Lymphocyte Count 0.43 X10^3/ul (0.83-4.51); Absolute Neutrophil Count 6.9 X10^3/uL (2.0-7.7); Basophil# 0.01 X10^3/uL; Basophil% 0.1 % (0-1); Eosinophil# 0.02 X10^3/uL; Eosinophils% 0.3 % (0-5); Hematocrit 26.4 % (40-54); Hemoglobin 8.6 g/dl (13.0-16.5); Lymphocyte # 0.43 X10^3/ul (4.0); Lymphocyte % 5.6 % (19-41); Mean Corp Hgb Conc 32.6 g/gl (32-36); Mean Corpuscular Hgb 30.6 pg (27.0-32.0); Monocyte# 0.21 X10^3/uL; Monocyte% 2.7 % (0-10); Neutrophil # 6.93 X10^3/uL (2.7-7.7); Neutrophil % 90.8 % (47-70); Platelet Count 70 K/mm3 (150-450); RBC Distribution Width CV 13.4 % (11.6-14.6); Red Blood Count 2.81 M/mm3 (4.6-6.2); White Blood Count 7.6 K/mm3 (4.4-11.0)
[2018-08-22 04:39] LABS: Differential Indicated SCAN CRITERIA MET; POSITIVE COUNT NO; POSITIVE DIFFERENTIAL YES; POSITIVE MORPHOLOGY NO
[2018-08-22 04:52] LABS: ALB/GLOB Ratio 0.7 RATIO (0.9-2.4); AST(SGOT) 48 U/L (15-37); Alanine Aminotransfer ALT/SGPT 70 U/L (16-61); Albumin, Serum 2.1 g/dL (3.2-5.0); Alkaline Phosphatase 142 U/L (45-117); Anion Gap 6 (5-15); BUN 12 mg/dL (7-18); BUN/Creat Ratio 11.7 RATIO (10-20); Calcium,Total 7.4 mg/dL (8.5-10.1); Chloride 112 mmol/L (98-107); Creatinine, Serum 1.03 mg/dL (0.70-1.30); EST Glomerular Filtration Rate 75 mL/min (>60); Est Glom Filt Rate - Afr Amer 91 mL/min (>60); Estimated Creatinine Clearance 70.11 ml/min; Glucose 101 mg/dL (74-106); Magnesium 1.8 mg/dL (1.6-2.6); Potassium 5.4 mmol/L (3.5-5.1); Protein, Total 5.1 g/dL (6.4-8.2); Sodium Level 140 mmol/L (136-145)
[2018-08-22] MEDS: Lactated Ringers 1,000 ML 150 ML IV (05:02)
--- NOTE | 2018-08-22 06:45 | PCM.PN.INT ---
Subjective: The patient was seen and examined at the bedside this morning. Events from the last 24 hours have been reviewed. The patient did develop fevers overnight. T-max was noted to be 101.9 ?F. I did speak personally with the overnight hospitalist regarding the patient's status. Vancomycin was added to his antibiotic regimen. His vasopressor requirement was able to be weaned off completely at 0330 this morning. Nevertheless, at 0700 his levophed had to be restarted due to hemodynamic instability. The patient has been tolerating clear liquids. Hemoglobin is down to 8.6 from 9.4 yesterday. The patient's platelet count has also dropped from 141,000 yesterday to 70,000 this morning. Potassium is a bit elevated at 5.4 this morning. All supplemental fluids were subsequently discontinued this morning. Transaminase levels and alkaline phosphatase are improving. The patient is currently overall net +1.8 L for the admission here at [facility]. The patient did receive 3 L of supplemental IV fluids prior to his transfer here. Evaluation by urology is still pending. The patient does report feeling relatively well this morning. He denies any significant abdominal pain, nausea or vomiting. Preliminary blood culture results from [facility], dated 08/20, were positive for gram negative rods. Objective: The patient's most recent lab work, culture data and imaging studies have all been personally reviewed. Blood and urine cultures are pending. General: Alert, Oriented x3, Cooperative, No apparent distress, - - Sitting in bedside recliner. HEENT: Atraumatic, PERRLA, Normocephalic Oral: No Gingival or Mucosal Lesions/ Ulcerations Neck: Supple, No Nodes, Trachea Midline Lungs: Normal air movement, No rhonchi, No wheeze, No rales Cardiovascular: Normal S1, Normal S2, No murmurs, Bradycardic Abdomen: Bowel Sounds Present, Soft, Non-Distended Extremities: No clubbing, No cyanosis, No edema Skin: - - No significant change from previous. Musculoskeletal: No Tenderness to Palpation of Joints or Extremities Lymphatic: No Cervical, Supraclavicular, or Inguinal Adenopathy Neurological: Cranial nerves II-XII grossly intact, Neuro grossly intact Psych/Mental Status: Alert and oriented to time, place, person, mood and affect Vital Signs Temp Pulse Resp BP Pulse Ox 101.0 F H 67 22 H 117/48 L 97 08/22/18 05:30 08/22/18 06:00 08/22/18 06:00 08/22/18 06:00 08/22/18 06:00 Oxygen Delivery Method Room Air Weight: 176 lb 9.444 oz Body Mass Index (BMI) 23.2 Intake and Output for Last 24 Hours 08/20/18 08/21/18 08/22/18 23:59 23:59 23:59 Intake Total 4091.1 / 4091.1 1629.3 / 1629.3 Output Total 2900 / 2900 1000 / 1000 Balance 1191.1 / 1191.1 629.3 / 629.3 Labs (Last 48 Hours) 08/21/18 08/21/18 08/21/18 01:55 02:10 05:30 WBC RBC Hgb Hct MCV MCH MCHC RDW RDW Differential Plt Count MPV Immature Gran % (Auto) Neut % (Auto) Lymph % (Auto) [place] % (Auto) Eos % (Auto) Baso % (Auto) Absolute Neuts (auto) Absolute Lymphs (auto) Total Counted PT INR Sodium 141 Potassium 3.5 Chloride 111 H Carbon Dioxide 24.0 Anion Gap 6 BUN 15 Creatinine 1.20 Estim Creat Clear Calc 60.18 Est GFR (MDRD) Af Amer 76 Est GFR (MDRD) Non-Af 63 BUN/Creatinine Ratio 12.5 Glucose 106 Lactic Acid 1.1 Calcium 7.0 L Phosphorus 3.4 Magnesium 1.5 L Total Bilirubin 1.20 H Direct Bilirubin 0.26 AST 153 H ALT 107 H Alkaline Phosphatase 194 H Total Protein 5.6 L Albumin 2.4 L Globulin 3.2 Albumin/Globulin Ratio 0.8 L Lipase TSH 0.73 MRSA (PCR) POC Glucose 116 H 08/21/18 08/21/18 08/21/18 05:30 05:30 06:35 WBC 21.8 H RBC 3.16 L Hgb 9.4 L Hct 29.7 L MCV 94.0 MCH 29.7 MCHC 31.6 L RDW 13.7 RDW Differential 45.4 H Plt Count 141 L MPV 13.2 H Immature Gran % (Auto) 0.300 Neut % (Auto) 91.7 H Lymph % (Auto) 3.9 L [place] % (Auto) 3.9 Eos % (Auto) 0.1 Baso % (Auto) 0.1 Absolute Neuts (auto) 20.0 H Absolute Lymphs (auto) 0.86 Total Counted Not Reportable PT 15.3 H INR 1.2 Sodium Potassium Chloride Carbon Dioxide Anion Gap BUN Creatinine Estim Creat Clear Calc Est GFR (MDRD) Af Amer Est GFR (MDRD) Non-Af BUN/Creatinine Ratio Glucose Lactic Acid Calcium Phosphorus Magnesium Total Bilirubin Direct Bilirubin AST ALT Alkaline Phosphatase Total Protein Albumin Globulin Albumin/Globulin Ratio Lipase 19 L TSH MRSA (PCR) POC Glucose 08/21/18 08/22/18 08/22/18 08:20 04:30 04:30 WBC 7.6 RBC 2.81 L Hgb 8.6 L Hct 26.4 L MCV 94.0 MCH 30.6 MCHC 32.6 RDW 13.4 RDW Differential 44.0 H Plt Count 70 L MPV 13.0 H Immature Gran % (Auto) 0.500 Neut % (Auto) 90.8 H Lymph % (Auto) 5.6 L [place] % (Auto) 2.7 Eos % (Auto) 0.3 Baso % (Auto) 0.1 Absolute Neuts (auto) 6.9 Absolute Lymphs (auto) 0.43 L Total Counted Not Reportable PT INR Sodium 140 Potassium 5.4 H Chloride 112 H Carbon Dioxide 22.0 Anion Gap 6 BUN 12 Creatinine 1.03 Estim Creat Clear Calc 70.11 Est GFR (MDRD) Af Amer 91 Est GFR (MDRD) Non-Af 75 BUN/Creatinine Ratio 11.7 Glucose 101 Lactic Acid Calcium 7.4 L Phosphorus Magnesium 1.8 Total Bilirubin 0.90 Direct Bilirubin AST 48 H ALT 70 H Alkaline Phosphatase 142 H Total Protein 5.1 L Albumin 2.1 L Globulin 3.0 Albumin/Globulin Ratio 0.7 L Lipase TSH MRSA (PCR) Negative POC Glucose Clinical Impression(s) from Imaging Studies Chest X-Ray 08/21/18 01:41 IMPRESSION: Normal x-ray examination of the chest. No acute findings in the lungs Electronically Signed: Ashok Vallecillo MD at 6:38 EDT Tel , Service support , Abdomen Ultrasound 08/21/18 05:55 IMPRESSION: Hepatomegaly. Status post cholecystectomy. Electronically Signed: Cabrera Kamara, at 13:12 EDT , Service support , Medical Necessity - Tobacco Use Smoking Status: Current every day smoker Tobacco Use: Cigarettes Assessment/Plan All Active Problems Acute on recurrent pancreatitis (Acute) RECOMMENDATIONS: 1. With fevers, will obtain repeat CXR this AM. 2. Continue broad spectrum antimicrobials. 3. Consultation placed to infectious diseases. 4. Continue levophed with goal to maintain a MAP greater than or equal to 65 mmHg. 5. Continue supplemental IV fluid hydration. 6. Send type and screen. 7. Monitor CBC daily. Transfuse if hemoglobin is less than 7 g/dL. 8. If platelet count continues to drop, will need to consider discontinuation of Lovenox. IMPRESSIONS: 1. Gram Negative Septic shock Although the patient's antibiotics were discontinued upon admission to the ICU, I was concerned for underlying sepsis as compared to acute on chronic pancreatitis, as the patient had a normal lipase level, along with an elevated white blood cell count and continued need for vasopressor support, despite adequate volume resuscitation. In addition, the patient's CT abdomen completed at the outside hospital prior to transfer only revealed sequelae of chronic pancreatitis. My concern would be for some form of intra-abdominal infectious process, potentially urinary (prostatitis given recent biopsy) or biliary in nature. Subsequent preliminary blood culture results from [facility], dated 08/20, were positive from gram negative rods. The patient was initially maintained on Zosyn monotherapy with vancomycin being added on the morning of August 22, due to fevers. Repeat cultures are pending. The patient will be continued on vasopressor support in an attempt to maintain a mean arterial pressure at or above 65 mmHg. Infectious diseases consultation is pending. 2. Recently diagnosed prostate cancer CT abdomen did report concerns for bladder outlet obstruction. Urology was consulted with only outpatient follow-up recommended. 3. Anemia/Thrombocytopenia Continue to monitor CBC daily. Send type and screen. Plan to transfuse for Hgb less than 7 g/dL. If platelet count continues to drop, will need to consider discontinuation of Lovenox. Iron studies are also currently pending. 4. Personal history of chronic pancreatitis Continue IV fluid supplementation. Abdominal ultrasound was largely unrevealing. The patient has been tolerating clear liquids without issue. 5. GERD/tobacco dependency Complicates care, management, recovery and prognosis. Okay to continue PPI therapy. The patient does not wish to have any form of nicotine replacement therapy ordered. Smoking cessation is advisable. TIME: 40 minutes of critical care time, independent of procedures, was spent addressing the patient's septic shock, recently diagnosed prostate cancer, anemia, thrombocytopenia, chronic pancreatitis, review of all data and collaboration with the care team. ([id number]) Code Visit 9xxxx: [id number] Critical care first hour
--- NOTE | 2018-08-22 06:49 | RAD_ITS ---
STUDY: X-RAY CHEST REASON FOR EXAM: Male, 72 years old. History of fever. TECHNIQUE: Single AP portable view of the chest. COMPARISON: Comparison is made with prior study dated August 21, 2018. FINDINGS: A right-sided PICC line catheter is seen with the tip at the junction of the superior vena cava and right atrium. EKG electrodes are seen. Mild increased markings in the left midlung as well as in the right infrahilar region. This may represent either atelectasis and/or early infiltrate. Follow-up is recommended. There is no demonstrated pleural abnormality. Normal size heart. Normal mediastinum and huang. Normal visualized pulmonary arteries. There is atherosclerotic calcification of the aortic arch with tortuosity. Normal visualized thoracic spine. Normal visualized ribs, clavicles, and shoulders. There is no demonstrated abnormality of the visualized soft tissue structures of the upper abdomen. RAD/Chest 1 View (Portable) IMPRESSION: Mild increased markings in the right frontal region and left midlung. Follow-up is recommended. Electronically Signed: Cabrera Kamara, at 8:17 EDT , Service support ,
--- NOTE | 2018-08-22 06:49 | PN_ITS ---
Subjective: The patient was seen and examined at the bedside this morning. Events from the last 24 hours have been reviewed. The patient did develop fevers overnight. T- max was noted to be 101.9 ?F. I did speak personally with the overnight hospitalist regarding the patient's status. Vancomycin was added to his antibiotic regimen. His vasopressor requirement was able to be weaned off completely at 0330 this morning. Nevertheless, at 0700 his levophed had to be restarted due to hemodynamic instability. The patient has been tolerating clear liquids. Hemoglobin is down to 8.6 from 9.4 yesterday. The patient's platelet count has also dropped from 141,000 yesterday to 70,000 this morning. Potassium is a bit elevated at 5.4 this morning. All supplemental fluids were subsequently discontinued this morning. Transaminase levels and alkaline phosphatase are improving. The patient is currently overall net +1.8 L for the admission here at [facility]. The patient did receive 3 L of supplemental IV fluids prior to his transfer here. Evaluation by urology is still pending. The patient does report feeling relatively well this morning. He denies any significant abdominal pain, nausea or vomiting. Preliminary blood culture results from [facility], dated 08/20, were positive for gram negative rods. Objective: The patient's most recent lab work, culture data and imaging studies have all been personally reviewed. Blood and urine cultures are pending. General: Alert, Oriented x3, Cooperative, No apparent distress, - - Sitting in bedside recliner. HEENT: Atraumatic, PERRLA, Normocephalic Oral: No Gingival or Mucosal Lesions/ Ulcerations Neck: Supple, No Nodes, Trachea Midline Lungs: Normal air movement, No rhonchi, No wheeze, No rales Cardiovascular: Normal S1, Normal S2, No murmurs, Bradycardic Abdomen: Bowel Sounds Present, Soft, Non-Distended Extremities: No clubbing, No cyanosis, No edema Skin: - - No significant change from previous. Musculoskeletal: No Tenderness to Palpation of Joints or Extremities Lymphatic: No Cervical, Supraclavicular, or Inguinal Adenopathy Neurological: Cranial nerves II-XII grossly intact, Neuro grossly intact Psych/Mental Status: Alert and oriented to time, place, person, mood and affect Vital Signs Temp Pulse Resp BP Pulse Ox 101.0 F H 67 22 H 117/48 L 97 08/22/18 05:30 08/22/18 06:00 08/22/18 06:00 08/22/18 06:00 08/22/18 06:00 Oxygen Delivery Method Room Air Weight: 176 lb 9.444 oz Body Mass Index (BMI) 23.2 Intake and Output for Last 24 Hours 08/20/18 08/21/18 08/22/18 23:59 23:59 23:59 Intake Total 4091.1 / 4091.1 1629.3 / 1629.3 Output Total 2900 / 2900 1000 / 1000 Balance 1191.1 / 1191.1 629.3 / 629.3 Labs (Last 48 Hours) 08/21/18 08/21/18 08/21/18 01:55 02:10 05:30 WBC RBC Hgb Hct MCV MCH MCHC RDW RDW Differential Plt Count MPV Immature Gran % (Auto) Neut % (Auto) Lymph % (Auto) [place] % (Auto) Eos % (Auto) Baso % (Auto) Absolute Neuts (auto) Absolute Lymphs (auto) Total Counted PT INR Sodium 141 Potassium 3.5 Chloride 111 H Carbon Dioxide 24.0 Anion Gap 6 BUN 15 Creatinine 1.20 Estim Creat Clear Calc 60.18 Est GFR (MDRD) Af Amer 76 Est GFR (MDRD) Non-Af 63 BUN/Creatinine Ratio 12.5 Glucose 106 Lactic Acid 1.1 Calcium 7.0 L Phosphorus 3.4 Magnesium 1.5 L Total Bilirubin 1.20 H Direct Bilirubin 0.26 AST 153 H ALT 107 H Alkaline Phosphatase 194 H Total Protein 5.6 L Albumin 2.4 L Globulin 3.2 Albumin/Globulin Ratio 0.8 L Lipase TSH 0.73 MRSA (PCR) POC Glucose 116 H 08/21/18 08/21/18 08/21/18 05:30 05:30 06:35 WBC 21.8 H RBC 3.16 L Hgb 9.4 L Hct 29.7 L MCV 94.0 MCH 29.7 MCHC 31.6 L RDW 13.7 RDW Differential 45.4 H Plt Count 141 L MPV 13.2 H Immature Gran % (Auto) 0.300 Neut % (Auto) 91.7 H Lymph % (Auto) 3.9 L [place] % (Auto) 3.9 Eos % (Auto) 0.1 Baso % (Auto) 0.1 Absolute Neuts (auto) 20.0 H Absolute Lymphs (auto) 0.86 Total Counted Not Reportable PT 15.3 H INR 1.2 Sodium Potassium Chloride Carbon Dioxide Anion Gap BUN Creatinine Estim Creat Clear Calc Est GFR (MDRD) Af Amer Est GFR (MDRD) Non-Af BUN/Creatinine Ratio Glucose Lactic Acid Calcium Phosphorus Magnesium Total Bilirubin Direct Bilirubin AST ALT Alkaline Phosphatase Total Protein Albumin Globulin Albumin/Globulin Ratio Lipase 19 L TSH MRSA (PCR) POC Glucose 08/21/18 08/22/18 08/22/18 08:20 04:30 04:30 WBC 7.6 RBC 2.81 L Hgb 8.6 L Hct 26.4 L MCV 94.0 MCH 30.6 MCHC 32.6 RDW 13.4 RDW Differential 44.0 H Plt Count 70 L MPV 13.0 H Immature Gran % (Auto) 0.500 Neut % (Auto) 90.8 H Lymph % (Auto) 5.6 L [place] % (Auto) 2.7 Eos % (Auto) 0.3 Baso % (Auto) 0.1 Absolute Neuts (auto) 6.9 Absolute Lymphs (auto) 0.43 L Total Counted Not Reportable PT INR Sodium 140 Potassium 5.4 H Chloride 112 H Carbon Dioxide 22.0 Anion Gap 6 BUN 12 Creatinine 1.03 Estim Creat Clear Calc 70.11 Est GFR (MDRD) Af Amer 91 Est GFR (MDRD) Non-Af 75 BUN/Creatinine Ratio 11.7 Glucose 101 Lactic Acid Calcium 7.4 L Phosphorus Magnesium 1.8 Total Bilirubin 0.90 Direct Bilirubin AST 48 H ALT 70 H Alkaline Phosphatase 142 H Total Protein 5.1 L Albumin 2.1 L Globulin 3.0 Albumin/Globulin Ratio 0.7 L Lipase TSH MRSA (PCR) Negative POC Glucose Clinical Impression(s) from Imaging Studies Chest X-Ray 08/21/18 01:41 IMPRESSION: Normal x-ray examination of the chest. No acute findings in the lungs Electronically Signed: Ashok Vallecillo MD at 6:38 EDT Tel , Service support , Abdomen Ultrasound 08/21/18 05:55 IMPRESSION: Hepatomegaly. Status post cholecystectomy. Electronically Signed: Cabrera Kamara, at 13:12 EDT , Service support , Medical Necessity - Tobacco Use Smoking Status: Current every day smoker Tobacco Use: Cigarettes Assessment/Plan All Active Problems Acute on recurrent pancreatitis (Acute) RECOMMENDATIONS: 1. With fevers, will obtain repeat CXR this AM. 2. Continue broad spectrum antimicrobials. 3. Consultation placed to infectious diseases. 4. Continue levophed with goal to maintain a MAP greater than or equal to 65 mmHg. 5. Continue supplemental IV fluid hydration. 6. Send type and screen. 7. Monitor CBC daily. Transfuse if hemoglobin is less than 7 g/dL. 8. If platelet count continues to drop, will need to consider discontinuation of Lovenox. IMPRESSIONS: 1. Gram Negative Septic shock Although the patient's antibiotics were discontinued upon admission to the ICU, I was concerned for underlying sepsis as compared to acute on chronic pancreatitis, as the patient had a normal lipase level, along with an elevated white blood cell count and continued need for vasopressor support, despite adequate volume resuscitation. In addition, the patient's CT abdomen completed at the outside hospital prior to transfer only revealed sequelae of chronic pancreatitis. My concern would be for some form of intra-abdominal infectious process, potentially urinary (prostatitis given recent biopsy) or biliary in nature. Subsequent preliminary blood culture results from [facility], dated 08/20, were positive from gram negative rods. The patient was initially maintained on Zosyn monotherapy with vancomycin being added on the morning of August 22, due to fevers. Repeat cultures are pending. The patient will be continued on vasopressor support in an attempt to maintain a mean arterial pressure at or above 65 mmHg. Infectious diseases consultation is pending. 2. Recently diagnosed prostate cancer CT abdomen did report concerns for bladder outlet obstruction. Urology was consulted with only outpatient follow-up recommended. 3. Anemia/Thrombocytopenia Continue to monitor CBC daily. Send type and screen. Plan to transfuse for Hgb less than 7 g/dL. If platelet count continues to drop, will need to consider discontinuation of Lovenox. Iron studies are also currently pending. 4. Personal history of chronic pancreatitis Continue IV fluid supplementation. Abdominal ultrasound was largely unrevealing. The patient has been tolerating clear liquids without issue. 5. GERD/tobacco dependency Complicates care, management, recovery and prognosis. Okay to continue PPI therapy. The patient does not wish to have any form of nicotine replacement therapy ordered. Smoking cessation is advisable. TIME: 40 minutes of critical care time, independent of procedures, was spent addr essing the patient's septic shock, recently diagnosed prostate cancer, anemia, thrombocytopenia, chronic pancreatitis, review of all data and collaboration with the care team. ([id number]) Code Visit [id number]: [id number] Critical care first hour
--- NOTE | 2018-08-22 07:44 | PCM.CONS.U ---
Reason for Consult Date of Consultation: 08/21/18 Reason for Consultation: Prostate cancer status post biopsy History of Present Illness: The patient is a 72 year old male with a history of chronic prostatitis who underwent a prostate biopsy in the office biopsy came back positive with Pickton 9 and Pickton 10 prostate cancer. I spoke to the patient the other day regarding the diagnosis. He has been set up for a bone scan and a CAT scan as an outpatient. He then presented to the hospital with worsening abdominal pain and re-flareup of his chronic prostatitis unclear if this is even related to the biopsy, could be coincidence?. Urine cultures and blood cultures are pending his white count was fairly elevated on admission now the white count back to normal. He is in the ICU but clinically stable. Past Medical History Past Medical History (Chronic Problems): Chronic Problems Prostatic cancer (Chronic) Bladder outlet obstruction (Chronic) CHRONIC SMOKER (Chronic) GERD (gastroesophageal reflux disease) (Chronic) Allergies No Known Allergies Allergy (Verified 08/21/18 01:14) Home Medications: Ambulatory Orders Medication Instructions Recorded Lipase/Protease/Amylase [Creon Dr 1 each PO TID 03/02/13 24,000 Units Capsule] Sertraline HCl [Zoloft] 50 mg PO DAILY 03/02/13 Aspirin [Aspir 81] 81 mg PO DAILY 08/21/18 Finasteride 5 mg PO DAILY 08/21/18 Omeprazole 20 mg PO DAILY 08/21/18 Vitamin B12 1,000 mg PO DAILY 08/21/18 Surgical History: no surgical history Smoking Status: Current every day smoker Tobacco Use: Cigarettes - He smokes about half pack per day started in the age of 19s - *Family History Sibling History Items: No pertinent history - No history of pink otitis in first-degree relative. Review of Systems Constitutional: Reports: Chills, Fever. Denies: Weight Change HEENT: Denies: Head Aches, Sinus Congestion, Sinus Drainage Cardiovascular: Denies: Chest Pain, Palpitations Respiratory: Denies: Cough, Shortness of breath at rest, Sputum production Gastrointestinal: Denies: Abdominal Pain, Nausea, Vomiting Genitourinary: Denies: Dysuria Musculoskeletal: Denies: Joint Pain, Joint Tenderness Skin: Denies: Rash, Wounds Neurological: Denies: Numbness, Tingling, Focal weakness Psychiatric: Denies: Anxiety, Depression, Homicidal Ideations, Suicidal Ideations Hematologic/ Lymphatic: Denies: Easy Bruising, Easy Bleeding Physical Exam - Physical Exam Vital Signs Temp 101.0 F H 08/22/18 05:30 Pulse 60 08/22/18 07:09 Resp 20 H 08/22/18 07:00 BP 77/32 L 08/22/18 07:15 Pulse Ox 97 08/22/18 07:00 Intake & Output 08/20/18 08/21/18 08/22/18 23:59 23:59 23:59 Intake Total 4091.1 / 4091.1 1629.3 / 1629.3 Output Total 2900 / 2900 1000 / 1000 Balance 1191.1 / 1191.1 629.3 / 629.3 Weight: 77.8 kg 80.1 kg Intake: Oral 810 / 810 640 / 640 IV fluid/meds 3281.1 / 3281.1 989.3 / 989.3 Output: Urine 2900 / 2900 1000 / 1000 General: Alert, Oriented x3 HEENT: Atraumatic Oral: Moist Mucosa Neck: Supple Lungs: Normal air movement Cardiovascular: Regular rate Laboratory Tests Past 24 Hrs 08/21/18 08/22/18 08/22/18 08:20 04:30 04:30 WBC 7.6 RBC 2.81 L Hgb 8.6 L Hct 26.4 L MCV 94.0 MCH 30.6 MCHC 32.6 RDW 13.4 RDW Differential 44.0 H Plt Count 70 L MPV 13.0 H Immature Gran % (Auto) 0.500 Neut % (Auto) 90.8 H Lymph % (Auto) 5.6 L [place] % (Auto) 2.7 Eos % (Auto) 0.3 Baso % (Auto) 0.1 Absolute Neuts (auto) 6.9 Absolute Lymphs (auto) 0.43 L Total Counted Not Reportable Sodium 140 Potassium 5.4 H Chloride 112 H Carbon Dioxide 22.0 Anion Gap 6 BUN 12 Creatinine 1.03 Estim Creat Clear Calc 70.11 Est GFR (MDRD) Af Amer 91 Est GFR (MDRD) Non-Af 75 BUN/Creatinine Ratio 11.7 Glucose 101 Calcium 7.4 L Magnesium 1.8 Total Bilirubin 0.90 AST 48 H ALT 70 H Alkaline Phosphatase 142 H Total Protein 5.1 L Albumin 2.1 L Globulin 3.0 Albumin/Globulin Ratio 0.7 L MRSA (PCR) Negative Assessment/Plan All Active Problems Acute on recurrent pancreatitis (Acute) I spoke to the patient regarding the treatment options for high risk prostate cancer, certainly a bone scan and a CAT scan will need to be performed to see if there is any metastatic disease he has a schedule as an outpatient he can continue with this as an outpatient when he is discharged he can follow-up in my office to further discuss the treatment options. Today we talked about the options of treatment which include radiation therapy to the prostate plus hormone deprivation therapy. Also we discussed the options of surgical removal of the prostate with radical prostatectomy. We talked about the risks of the surgery including incontinence lack of erections risk of anesthesia bleeding infection blood loss. Also we talked about the risk of radiation fistula formation rectal injury bladder injury ideation cystitis radiation proctitis inflammation severe pain, after all this was discussed with the patient I think we need further information before any definitive plans are made plus he is resolving from his chronic prostatitis flareup and he will follow-up with me as an outpatient, any question let me know
[2018-08-22] MEDS: 0.45% Normal Saline 1,000 ML 125 ML IV ×3 (07:56→20:59)
[2018-08-22 08:11] LABS: Ferritin 62 ng/mL (26-388); Iron 8 ug/dL (65-175); Iron Binding Capacity,Total 256 ug/dL (250-450); PERCENT IRON SATURATION 3.1 % (15.0-55.0)
--- NOTE | 2018-08-22 09:10 | CASEMGMT ---
NICOLAS PRAKASH NOTE: Received Preliminary Blood Culture results from [facility] showing Gram Negative Rods. Dr Ventura notified. Participated in inter-disciplinary rounds. Pt, , and daughter present. I.D. consult pending. PT/OT evals pending. CM to follow for discharge planning needs. Keerthi ANGN NICOLAS CM
--- NOTE | 2018-08-22 09:18 | PCM.PN.HOSP ---
Patient Problems: Active and Suspected Problems Acute on recurrent pancreatitis (Acute) Septic shock (Acute) Subjective: Patient seen and examined. He had no complaints and felt well. Review of systems otherwise negative. He was successfully weaned off Levophed overnight but had to be restarted on it this morning his blood pressure went low. Systolic went down to the 70s this morning. Hemoglobin also noted to have dropped from 9.4-8.6 today. He denies any melena like stools or any blood in his stools or coffee-ground emesis. He states he had a colonoscopy 5 years ago which was normal. Vitals/I&O's: Vital Signs Temp Pulse Resp BP Pulse Ox 101.0 F H 60 20 H 77/32 L 97 08/22/18 05:30 08/22/18 07:09 08/22/18 07:00 08/22/18 07:15 08/22/18 07:00 Oxygen Delivery Method Room Air Weight: 176 lb 9.444 oz Body Mass Index (BMI) 23.2 Intake and Output for Last 24 Hours 08/20/18 08/21/18 08/22/18 23:59 23:59 23:59 Intake Total 4091.1 / 4091.1 1629.3 / 1629.3 Output Total 2900 / 2900 1000 / 1000 Balance 1191.1 / 1191.1 629.3 / 629.3 General: Alert, Oriented x3, Cooperative, No apparent distress HEENT: Atraumatic, PERRLA, EOMI, Normocephalic Oral: Dry Mucosa Neck: Supple, No JVD, Negative Carotid Bruits Lungs: Clear to auscultation, Normal air movement, No rhonchi, No wheeze, No rales Cardiovascular: Regular rate, Regular Rhythm, Normal S1, Normal S2, No murmurs Abdomen: Bowel Sounds Present, Soft, Tender - mild epigastric and RUQ tenderness, no guarding or rebound tenderness Extremities: No clubbing, No cyanosis, No edema, Capillary Refill Less than 3 Seconds Skin: No rashes, No breakdown Musculoskeletal: No Tenderness to Palpation of Joints or Extremities Lymphatic: No Cervical, Supraclavicular, or Inguinal Adenopathy Neurological: Cranial nerves II-XII grossly intact, Neuro grossly intact, Motor Exam 5/5 strength throughout Psych/Mental Status: Normal Affect, Appropriate, Alert and oriented to time, place, person, mood and affect Laboratory Results 08/21/18 08:20: MRSA (PCR) Negative 08/22/18 04:30: WBC 7.6, RBC 2.81 L, Hgb 8.6 L, Hct 26.4 L, MCV 94.0, MCH 30.6, MCHC 32.6, RDW 13.4, RDW Differential 44.0 H, Plt Count 70 L, MPV 13.0 H, Immature Gran % (Auto) 0.500, Neut % (Auto) 90.8 H, Lymph % (Auto) 5.6 L, [place] % (Auto) 2.7, Eos % (Auto) 0.3, Baso % (Auto) 0.1, Absolute Neuts (auto) 6.9, Absolute Lymphs (auto) 0.43 L, Total Counted Not Reportable 08/22/18 04:30: Sodium 140, Potassium 5.4 H, Chloride 112 H, Carbon Dioxide 22.0, Anion Gap 6, BUN 12, Creatinine 1.03, Estim Creat Clear Calc 70.11, Est GFR (MDRD) Af Amer 91, Est GFR (MDRD) Non-Af 75, BUN/Creatinine Ratio 11.7, Glucose 101, Calcium 7.4 L, Magnesium 1.8, Total Bilirubin 0.90, AST 48 H, ALT 70 H, Alkaline Phosphatase 142 H, Total Protein 5.1 L, Albumin 2.1 L, Globulin 3.0, Albumin/Globulin Ratio 0.7 L 08/22/18 04:30: Iron 8 L, TIBC 256, Iron Saturation 3.1 L, Ferritin 62 08/22/18 07:45: Blood Type Pending, Antibody Screen Pending Current Medications Dextrose (D50w Syringe) 0 gm IV X1 PRN; Protocol PRN Reason: Hypoglycemia Enoxaparin Sodium (Lovenox) 40 mg SC DAILY [facility] Last Admin: 08/21/18 02:04 Dose: 40 mg Glucagon () 1 mg IM .X1 PRN PRN Reason: Hypoglycemia Sodium Chloride () 250 mls @ 15 mls/hr IV .[id number] PRN PRN Reason: SALINE FLUSH Pantoprazole Sodium 40 mg/ (Sodium Chloride) 110 mls @ 330 mls/hr IV Q24 [id number] Last Admin: 08/21/18 11:38 Dose: 330 mls/hr Norepinephrine Bitartrate 8 mg (/ Sodium Chloride) 250 mls @ 9.38 mls/hr CONT INF .[id number] [facility] Last Admin: 08/22/18 04:05 Dose: Not Given Piperacillin Sod/Tazobactam (Sod 3.375 gm/ Sodium Chloride) 50 mls @ 12.5 mls/hr IV Q8 [facility] Last Admin: 08/22/18 05:35 Dose: 12.5 mls/hr Vancomycin IV Pharmacy to Dose (1 ea/ Sodium Chloride) 500 mls @ 250 mls/hr IV DAILY PRN; Protocol Vancomycin HCl () 500 mg in 100 mls @ 100 mls/hr IV Q12H [facility] Last Admin: 08/21/18 21:29 Dose: 100 mls/hr Sodium Chloride () 1,000 mls @ 125 mls/hr IV .Q8H [facility] Last Admin: 08/22/18 07:56 Dose: 125 mls/hr Ibuprofen (Motrin) 400 mg PO Q6H PRN PRN PRN Reason: MILD PAIN (1-3/10) Last Admin: 08/22/18 04:34 Dose: 400 mg Morphine Sulfate () 2 mg IV Q3H PRN PRN PRN Reason: Severe pain (7-10/10) Last Admin: 08/21/18 17:38 Dose: 2 mg Senna/Docusate Sodium (Senokot-S, [place]-Colace) 2 tablet PO BID PRN PRN PRN Reason: Constipation Sodium Chloride () 5 - 15 ml IV UD PRN PRN Reason: SALINE FLUSH Last Admin: 08/21/18 21:32 Dose: 10 ml Sodium Chloride () 10 - 40 ml IV UD PRN PRN Reason: MULTILUMEN/HICMAN CATH FLUSH Last Admin: 08/22/18 05:35 Dose: 20 ml Medical Necessity - Tobacco Use Smoking Status: Current every day smoker Tobacco Use: Cigarettes Assessment/Plan All Active Problems Acute on recurrent pancreatitis (Acute) Septic shock (Acute) 1. Septic shock due to acute pancreatitis was weaned off levophed overnight, but had to be restarted on it again this morning. currently on IV lefophed shock originally thought to be due to hypovolemia from third spacing due to acute pancreatitis. 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 Tolerating clear diet; to advance as tolerated preliminary blood cultures from [facility] for gram negative rods (08/20/18) continue IV vancomycin adn zosyn. blood cultures pending from here. continue Creon 2. Acute on chronic pancreatitis as under 1. 3. Hypomagnesemia:resolved. 4. Hyperkalemia: likely due to potassium in fluids. IVF dc's. K is 5.4 today. Will monitor 4.Elevated liver enzymes: resolving. liver enzymes have trended down. 5. Asymptimatic bradycardia: HR goes into 50s during the night. Now stable. Will monitor. 6. Iron deficiency Anemia: Hb has dropped to 8.6, from 9,4 on admission. No baseline available, though says it was normal a few weeks ago. Iron panel shows iron deficiency anemia. last colonoscopy was in 2012, and was normal. Dr Laguerre consulted. Will await rec's 7. Thrombocytopenia: platelets dropped from 141 to 70. Will monitor very closely. IF there is any further drop, will stop lovenox. 8. GERD: on IV pantoprazole 9. History of prostate cancer: to follow up with urology on outpatient basis 10. Nicotine abuse: counseled to quit DVT prophylaxis: lovenox Code Visit Inpatient E&M: [id number] [facility] Hosp L3
--- NOTE | 2018-08-22 09:24 | PN_ITS ---
Patient Problems: Active and Suspected Problems Acute on recurrent pancreatitis (Acute) Septic shock (Acute) Subjective: Patient seen and examined. He had no complaints and felt well. Review of systems otherwise negative. He was successfully weaned off Levophed overnight but had to be restarted on it this morning his blood pressure went low. Systolic went down to the 70s this morning. Hemoglobin also noted to have dropped from 9.4-8.6 today. He denies any melena like stools or any blood in his stools or coffee-ground emesis. He states he had a colonoscopy 5 years ago which was normal. Vitals/I&O's: Vital Signs Temp Pulse Resp BP Pulse Ox 101.0 F H 60 20 H 77/32 L 97 08/22/18 05:30 08/22/18 07:09 08/22/18 07:00 08/22/18 07:15 08/22/18 07:00 Oxygen Delivery Method Room Air Weight: 176 lb 9.444 oz Body Mass Index (BMI) 23.2 Intake and Output for Last 24 Hours 08/20/18 08/21/18 08/22/18 23:59 23:59 23:59 Intake Total 4091.1 / 4091.1 1629.3 / 1629.3 Output Total 2900 / 2900 1000 / 1000 Balance 1191.1 / 1191.1 629.3 / 629.3 General: Alert, Oriented x3, Cooperative, No apparent distress HEENT: Atraumatic, PERRLA, EOMI, Normocephalic Oral: Dry Mucosa Neck: Supple, No JVD, Negative Carotid Bruits Lungs: Clear to auscultation, Normal air movement, No rhonchi, No wheeze, No rales Cardiovascular: Regular rate, Regular Rhythm, Normal S1, Normal S2, No murmurs Abdomen: Bowel Sounds Present, Soft, Tender - mild epigastric and RUQ tenderness, no guarding or rebound tenderness Extremities: No clubbing, No cyanosis, No edema, Capillary Refill Less than 3 Seconds Skin: No rashes, No breakdown Musculoskeletal: No Tenderness to Palpation of Joints or Extremities Lymphatic: No Cervical, Supraclavicular, or Inguinal Adenopathy Neurological: Cranial nerves II-XII grossly intact, Neuro grossly intact, Motor Exam 5/5 strength throughout Psych/Mental Status: Normal Affect, Appropriate, Alert and oriented to time, place, person, mood and affect Laboratory Results 08/21/18 08:20: MRSA (PCR) Negative 08/22/18 04:30: WBC 7.6, RBC 2.81 L, Hgb 8.6 L, Hct 26.4 L, MCV 94.0, MCH 30.6, MCHC 32.6, RDW 13.4, RDW Differential 44.0 H, Plt Count 70 L, MPV 13.0 H, Immature Gran % (Auto) 0.500, Neut % (Auto) 90.8 H, Lymph % (Auto) 5.6 L, [place] % (Auto) 2.7, Eos % (Auto) 0.3, Baso % (Auto) 0.1, Absolute Neuts (auto) 6.9, Absolute Lymphs (auto) 0.43 L, Total Counted Not Reportable 08/22/18 04:30: Sodium 140, Potassium 5.4 H, Chloride 112 H, Carbon Dioxide 22.0, Anion Gap 6, BUN 12, Creatinine 1.03, Estim Creat Clear Calc 70.11, Est GFR (MDRD) Af Amer 91, Est GFR (MDRD) Non-Af 75, BUN/Creatinine Ratio 11.7, Glucose 101, Calcium 7.4 L, Magnesium 1.8, Total Bilirubin 0.90, AST 48 H, ALT 70 H, Alkaline Phosphatase 142 H, Total Protein 5.1 L, Albumin 2.1 L, Globulin 3.0, Albumin/Globulin Ratio 0.7 L 08/22/18 04:30: Iron 8 L, TIBC 256, Iron Saturation 3.1 L, Ferritin 62 08/22/18 07:45: Blood Type Pending, Antibody Screen Pending Current Medications Dextrose (D50w Syringe) 0 gm IV X1 PRN; Protocol PRN Reason: Hypoglycemia Enoxaparin Sodium (Lovenox) 40 mg SC DAILY [facility] Last Admin: 08/21/18 02:04 Dose: 40 mg Glucagon () 1 mg IM .X1 PRN PRN Reason: Hypoglycemia Sodium Chloride () 250 mls @ 15 mls/hr IV .[id number] PRN PRN Reason: SALINE FLUSH Pantoprazole Sodium 40 mg/ (Sodium Chloride) 110 mls @ 330 mls/hr IV Q24 [id number] Last Admin: 08/21/18 11:38 Dose: 330 mls/hr Norepinephrine Bitartrate 8 mg (/ Sodium Chloride) 250 mls @ 9.38 mls/hr CONT INF .[id number] [facility] Last Admin: 08/22/18 04:05 Dose: Not Given Piperacillin Sod/Tazobactam (Sod 3.375 gm/ Sodium Chloride) 50 mls @ 12.5 mls/hr IV Q8 [facility] Last Admin: 08/22/18 05:35 Dose: 12.5 mls/hr Vancomycin IV Pharmacy to Dose (1 ea/ Sodium Chloride) 500 mls @ 250 mls/hr IV DAILY PRN; Protocol Vancomycin HCl () 500 mg in 100 mls @ 100 mls/hr IV Q12H [facility] Last Admin: 08/21/18 21:29 Dose: 100 mls/hr Sodium Chloride () 1,000 mls @ 125 mls/hr IV .Q8H [facility] Last Admin: 08/22/18 07:56 Dose: 125 mls/hr Ibuprofen (Motrin) 400 mg PO Q6H PRN PRN PRN Reason: MILD PAIN (1-3/10) Last Admin: 08/22/18 04:34 Dose: 400 mg Morphine Sulfate () 2 mg IV Q3H PRN PRN PRN Reason: Severe pain (7-10/10) Last Admin: 08/21/18 17:38 Dose: 2 mg Senna/Docusate Sodium (Senokot-S, [place]-Colace) 2 tablet PO BID PRN PRN PRN Reason: Constipation Sodium Chloride () 5 - 15 ml IV UD PRN PRN Reason: SALINE FLUSH Last Admin: 08/21/18 21:32 Dose: 10 ml Sodium Chloride () 10 - 40 ml IV UD PRN PRN Reason: MULTILUMEN/HICMAN CATH FLUSH Last Admin: 08/22/18 05:35 Dose: 20 ml Medical Necessity - Tobacco Use Smoking Status: Current every day smoker Tobacco Use: Cigarettes Assessment/Plan All Active Problems Acute on recurrent pancreatitis (Acute) Septic shock (Acute) 1. Septic shock due to acute pancreatitis * was weaned off levophed overnight, but had to be restarted on it again this morning. * currently on IV lefophed * shock originally thought to be due to hypovolemia from third spacing due to acute pancreatitis. 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 Tolerating clear diet; to advance as tolerated * preliminary blood cultures from [facility] for gram negative rods (08/20/18) * continue IV vancomycin adn zosyn. * blood cultures pending from here. * continue Creon * * 2. Acute on chronic pancreatitis * as under 1. * 3. Hypomagnesemia:resolved. 4. Hyperkalemia: likely due to potassium in fluids. IVF dc's. K is 5.4 today. Will monitor 4.Elevated liver enzymes: resolving. liver enzymes have trended down. 5. Asymptimatic bradycardia: HR goes into 50s during the night. Now stable. Will monitor. 6. Iron deficiency Anemia: * Hb has dropped to 8.6, from 9,4 on admission. No baseline available, though says it was normal a few weeks ago. * Iron panel shows iron deficiency anemia. * last colonoscopy was in 2012, and was normal. Dr Laguerre consulted. Will await rec's 7. Thrombocytopenia: platelets dropped from 141 to 70. Will monitor very closely. IF there is any further drop, will stop lovenox. 8. GERD: on IV pantoprazole 9. History of prostate cancer: to follow up with urology on outpatient basis 10. Nicotine abuse: counseled to quit DVT prophylaxis: lovenox Code Visit Inpatient E&M: [id number] [facility] Hosp L3
[2018-08-22] MEDS: Vancomycin IV 500 MG/100 ML BAG 100 MG IV (10:24)
[2018-08-22] MEDS: Enoxaparin 40 MG/0.4 ML Syringe SC (10:25)
--- NOTE | 2018-08-22 11:15 | PCM.HP.ID ---
Problem List (1) Septic shock Status: Acute Reason for Consult: septic shock Consulted by: Dr. Ventura History of Present Illness: The patient is a 72 year old M with chronic pancreatitis who presented yesterday with one day of severe constant upper abd pain, loss of appetite, nausea, confusion, fever, and rigors. Sx similar to past pancreatitis, but fever and shakes were new. He had prostate bx done by Dr. Farmer about 1.5 weeks ago, no issues after the procedure. Minimal blood in urine which cleared, no dysuria, no change in urine frequency. Came to [place] ED, bcx sent, UA done, CT abd/pelvis w/IV contrast done. Given vanc/zosyn, transferred to [place]. Abx initially held here, started on zosyn in AM, then vanc added in evening due to ongoing fever and shock. Currently remains on low dose pressor, feeling better, abd pain improved. Salazar in place. Full ROS performed and neg except as noted above. Family provided additional history. - Medical History Past Medical History (Chronic Problems): Chronic Problems Prostatic cancer (Chronic) Bladder outlet obstruction (Chronic) CHRONIC SMOKER (Chronic) GERD (gastroesophageal reflux disease) (Chronic) Allergies/Adverse Reactions: Allergies No Known Allergies Allergy (Verified 08/21/18 01:14) Home Medications: Ambulatory Orders Medication Instructions Recorded Lipase/Protease/Amylase [Keven Rodriguez 1 each PO TID 03/02/13 24,000 Units Capsule] Sertraline HCl [Zoloft] 50 mg PO DAILY 03/02/13 Aspirin [Aspir 81] 81 mg PO DAILY 08/21/18 Finasteride 5 mg PO DAILY 08/21/18 Omeprazole 20 mg PO DAILY 08/21/18 Vitamin B12 1,000 mg PO DAILY 08/21/18 - Social History Tobacco Use: cigarettes Vital Signs Temp Pulse Resp BP Pulse Ox 98.1 F 53 L 25 H 136/52 H 100 08/22/18 10:00 08/22/18 11:00 08/22/18 11:00 08/22/18 11:00 08/22/18 11:00 Oxygen Delivery Method Room Air Weight: 80.1 kg Body Mass Index (BMI) 23.2 Laboratory Tests Past 24 Hrs 08/22/18 08/22/18 08/22/18 04:30 04:30 04:30 WBC 7.6 RBC 2.81 L Hgb 8.6 L Hct 26.4 L MCV 94.0 MCH 30.6 MCHC 32.6 RDW 13.4 RDW Differential 44.0 H Plt Count 70 L MPV 13.0 H Immature Gran % (Auto) 0.500 Neut % (Auto) 90.8 H Lymph % (Auto) 5.6 L [place] % (Auto) 2.7 Eos % (Auto) 0.3 Baso % (Auto) 0.1 Absolute Neuts (auto) 6.9 Absolute Lymphs (auto) 0.43 L Total Counted Not Reportable Sodium 140 Potassium 5.4 H Chloride 112 H Carbon Dioxide 22.0 Anion Gap 6 BUN 12 Creatinine 1.03 Estim Creat Clear Calc 70.11 Est GFR (MDRD) Af Amer 91 Est GFR (MDRD) Non-Af 75 BUN/Creatinine Ratio 11.7 Glucose 101 Calcium 7.4 L Magnesium 1.8 Iron 8 L TIBC 256 Iron Saturation 3.1 L Ferritin 62 Total Bilirubin 0.90 AST 48 H ALT 70 H Alkaline Phosphatase 142 H Total Protein 5.1 L Albumin 2.1 L Globulin 3.0 Albumin/Globulin Ratio 0.7 L Blood Type Antibody Screen 08/22/18 07:45 WBC RBC Hgb Hct MCV MCH MCHC RDW RDW Differential Plt Count MPV Immature Gran % (Auto) Neut % (Auto) Lymph % (Auto) [place] % (Auto) Eos % (Auto) Baso % (Auto) Absolute Neuts (auto) Absolute Lymphs (auto) Total Counted Sodium Potassium Chloride Carbon Dioxide Anion Gap BUN Creatinine Estim Creat Clear Calc Est GFR (MDRD) Af Amer Est GFR (MDRD) Non-Af BUN/Creatinine Ratio Glucose Calcium Magnesium Iron TIBC Iron Saturation Ferritin Total Bilirubin AST ALT Alkaline Phosphatase Total Protein Albumin Globulin Albumin/Globulin Ratio Blood Type A NEGATIVE Antibody Screen NEGATIVE - Other Studies Radiology: [] reviewed Other Studies: [] Route of nutrition/ use of supplements: [] Nutritional Intake: [] IV Site: [] Salazar Catheter: [] - Physical Exam General: Alert, Oriented x3, Cooperative, No apparent distress HEENT: Atraumatic, PERRLA, EOMI Neck: Supple, No Nodes Lungs: Clear to auscultation, Normal air movement Cardiovascular: Regular Rhythm, No murmurs, Bradycardic Abdomen: Soft, Non-Distended, Tender - minimal RUQ tenderness Extremities: No edema IV Site: PICC, without redness Musculoskeletal: No Tenderness to Palpation of Joints or Extremities Neurological: Cranial nerves II-XII grossly intact - Assessment/Plan Antibiotics: [] Assessment/Plan: [] Active and Suspected Problems Acute on recurrent pancreatitis (Acute) septic shock due to GNR bacteremia from acute on chronic pancreatitis - had recent prostate bx done, but UA at [place] was neg and no new urinary/prostate sx that would indicate infection. CT did not show any abscess in prostate. Bcx x2 at [place] now showing GNR. Source seems consistent with pancreas given his symptoms. CT did not show any necrosis or abscess, so ok to continue with zosyn. Will stop vanc. If he worsens, would change zosyn to meropenem and check MRCP with contrast. Will follow, thank you, d/w Dr. Ventura.
--- NOTE | 2018-08-22 11:55 | PCM.CONS.B ---
- Consult Date of Consult: 08/22/18 - Reason for Consult Chief Complaint: acute pancreatitis with hypotensive sepsis, anemia History of Present Illness: I was asked to see patient by hospitalist service for consideration of GI workup for possible blood loss resulting in patient's anemia. 72 y/o WM admitted to hospital for abdominal pain. Found to have acute pancreatitis and presented with septic shock, has had multiple episodes of pancreatitis of unknown etiology. Has had workup for intermittent pancreatitis, s/p ERCP with sphincterotomy 2006. Still with recurrent bouts. On levophed drip to maintain BP. Was also noted to have Hgb of 8.6. Denies emesis. Has had occasional BRBPR, he states due to hemorrhoids, several episodes per week. I had done colonoscopy for screening for colon cancer in 2012. Patient recently diagnosed with prostate cancer, had prostate biopsy 08/14/18. Denies ETOH use, denies recent medication changes, denies chronic use of steroids. No colon cancer known in family. Past Medical History: prostate cancer - recently diagnosed Past Surgical History: Cholecystectomy 10 y ago Left hand surgery September 2017 Medications: Allergies: Has no known drug allergies Social history: TOB use Review of Systems: General - denies fevers, denies weight loss, denies anorexia Cardiovascular denies chest pain, denies history of heart attack Pulmonary denies shortness of breath, denies coughing up blood Gastrointestinal as per HPI, denies acid indigestion/heartburn, denies history of peptic ulcers, denies swallowing problems Neurological denies numbness/weakness of extremities, denies seizures, denies history of stroke Genitourinary denies burning with urination, denies blood in urine Hematological had normal CBC a couple of months ago, denies spontaneous/prolonged bleeding Skin denies open non healing wounds Musculoskeletal denies excessive use of NSAIDs Endocrine denies diabetes Psychological denies hallucinations Physical examination: Vital signs Temp 98.3F (was 101 earlier) BP 141/61 HR 53 RR 20 General WD/WN WM in no apparent distress, alert and oriented, not septic appearing HEENT Normocephalic. EOM intact with sclera clear and no icterus noted. Neck is supple with no jugular venous distention noted. Trachea is midline. Lungs clear to auscultation. Normal breath sounds in all lung benton. No rales/rhonchi/wheezing noted. No labored breathing noted, such as retractions. No cough heard. Heart normal S1 and S2 auscultated. No rubs/clicks/murmurs noted. Normal size and location by auscultation. Abdomen soft but tender in the hypogastrium, no peritoneal signs noted, hypoactive bowel sounds Extremities no calf tenderness noted. No pitting edema noted. Genitourinary/Rectal deferred Skin normal skin integrity. Neurological non focal. Psychological normal affect, patient is calm and appropriate Impression: anemia - rule out GI source Discussion/Plan: I have discussed the above with the patient. Recommend blood transfusions as you see fit. Given that he has had no major blood in stools and hematemesis, will plan for colon cleansing preparation for adequate visualization - would plan upper and lower endoscopy simultaneously. This can be scheduled for Saturday if patient is still inpatient. If patient is to be discharged this , I can schedule patient for outpatient upper and lower endoscopy next week. I have explained the procedure to the patient. I have counseled the patient as to the risks of the procedure, including but not limited to: infection, bleeding, injury to any intraabdominal organs such as liver/spleen, perforation of the GI tract, inability to complete the procedure, complications of anesthesia, etc. the patient understands. He agrees to proceed. I have answered all questions to the patient?s satisfaction and the patient has no further questions.
[2018-08-22] MEDS: Morphine 2 MG/ML Syringe IV (12:35)
[2018-08-22] MEDS: 0.9% NaCl Peripheral Flush Adult/Peds IV (12:35)
[2018-08-23] VITALS (47 sets, daily range): BP systolic 86–176; BP diastolic 33–84; PULSE 38–70; RESP 10–31; TEMP 36.6–38.8; O2SAT 90–100
[2018-08-23] MEDS: Morphine 2 MG/ML Syringe IV (02:11)
[2018-08-23] MEDS: Ibuprofen 400 MG Tablet PO ×3 (02:11→20:42)
[2018-08-23 04:41] LABS: Absolute Lymphocyte Count 0.27 X10^3/ul (0.83-4.51); Absolute Neutrophil Count 3.5 X10^3/uL (2.0-7.7); Basophil# 0.02 X10^3/uL; Basophil% 0.5 % (0-1); Eosinophil# 0.02 X10^3/uL; Eosinophils% 0.5 % (0-5); Hemoglobin 8.2 g/dl (13.0-16.5); Lymphocyte # 0.27 X10^3/ul (4.0); Lymphocyte % 6.9 % (19-41); Mean Corp Hgb Conc 31.5 g/gl (32-36); Mean Corpuscular Hgb 29.5 pg (27.0-32.0); Mean Corpuscular Volume 93.5 fL (80-94); Mean Platelet Vol. 13.9 fl (6.2-12.0); Monocyte% 2.6 % (0-10); Neutrophil # 3.49 X10^3/uL (2.7-7.7); Neutrophil % 89.5 % (47-70); Platelet Count 64 K/mm3 (150-450); RBC Distribution Width CV 13.8 % (11.6-14.6); RBC Distribution Width SD 45.6 fl (35.1-43.9); Red Blood Count 2.78 M/mm3 (4.6-6.2); White Blood Count 3.9 K/mm3 (4.4-11.0)
[2018-08-23 04:42] LABS: Differential Indicated SCAN CRITERIA MET; POSITIVE COUNT NO; POSITIVE DIFFERENTIAL YES; POSITIVE MORPHOLOGY NO
[2018-08-23 04:44] LABS: ALB/GLOB Ratio 0.7 RATIO (0.9-2.4); AST(SGOT) 19 U/L (15-37); Alanine Aminotransfer ALT/SGPT 48 U/L (16-61); Albumin, Serum 2.1 g/dL (3.2-5.0); Alkaline Phosphatase 116 U/L (45-117); Anion Gap 8 (5-15); BUN 8 mg/dL (7-18); BUN/Creat Ratio 6.2 RATIO (10-20); Calcium,Total 7.3 mg/dL (8.5-10.1); Chloride 111 mmol/L (98-107); Creatinine, Serum 1.28 mg/dL (0.70-1.30); EST Glomerular Filtration Rate 58 mL/min (>60); Est Glom Filt Rate - Afr Amer 71 mL/min (>60); Estimated Creatinine Clearance 56.41 ml/min; Globulin 3.1 g/dL (2.2-4.2); Glucose 206 mg/dL (74-106); Magnesium 1.8 mg/dL (1.6-2.6); Potassium 3.3 mmol/L (3.5-5.1); Protein, Total 5.2 g/dL (6.4-8.2); Sodium Level 141 mmol/L (136-145)
[2018-08-23] MEDS: 0.9% NaCl IVPB Med Flush (250 mL) 15 ML IV (05:26)
--- NOTE | 2018-08-23 06:48 | PCM.PN.INT ---
Subjective: The patient was seen and examined at the bedside this morning. Events from the last 24 hours have been reviewed. The patient was intermittently febrile overnight with a T-max of 101.9 ?F. While the patient was able to be weaned off of vasopressor support yesterday, he did have to be placed back on Levophed last evening from 1900 to 2300 hours. The patient was evaluated by infectious diseases yesterday. While upon my initial conversation with them they asked that a repeat CT abdomen/pelvis be obtained, upon their evaluation of the patient at the bedside, they indicated that repeat imaging would not be indicated. Therefore, orders for the patient's repeat CT abdomen were discontinued. Vancomycin was subsequently discontinued by ID. The patient remains on Zosyn. The patient is now pancytopenic with a platelet count this morning of 64,000. Potassium is low at 3.3. The patient's elevated transaminase and alkaline phosphatase level has normalized. The patient has been tolerating a regular diet. The patient has remained bradycardic with heart rates in the 40s. He is currently sitting upright in bed eating breakfast without complaints. Objective: The patient's most recent lab work, culture data and imaging studies have all been personally reviewed. Preliminary blood culture results from [facility], dated 08/20, were positive for gram negative rods. Urine culture has demonstrated no growth to date. Repeat blood cultures are currently pending. Stool for occult blood was negative. Abdominal ultrasound dated August 21 revealed hepatomegaly. General: Alert, Cooperative, No apparent distress HEENT: Atraumatic, PERRLA, Normocephalic Oral: No Gingival or Mucosal Lesions/ Ulcerations Neck: Supple, No Nodes, Trachea Midline Lungs: Normal air movement, No rhonchi, No wheeze, No rales Cardiovascular: Normal S1, Normal S2, No murmurs, Bradycardic Abdomen: Bowel Sounds Present, Soft, Non-Distended Extremities: No clubbing, No cyanosis, No edema Skin: No breakdown Musculoskeletal: No Tenderness to Palpation of Joints or Extremities Lymphatic: No Cervical, Supraclavicular, or Inguinal Adenopathy Neurological: Cranial nerves II-XII grossly intact, Neuro grossly intact Psych/Mental Status: Normal Affect, Appropriate Vital Signs Temp Pulse Resp BP Pulse Ox 98.6 F 49 L 14 102/51 L 98 08/23/18 04:00 08/23/18 06:00 08/23/18 06:00 08/23/18 06:00 08/23/18 06:00 Oxygen Delivery Method Room Air Weight: 177 lb 11.081 oz Body Mass Index (BMI) 23.2 Intake and Output for Last 24 Hours 08/21/18 08/22/18 08/23/18 23:59 23:59 23:59 Intake Total 4091.1 / 4091.1 4284.3 / 4284.3 2051 Output Total 2900 / 2900 3550 / 3550 2150 / 2150 Balance 1191.1 / 1191.1 734.3 / 734.3 -98 / -98 Labs (Last 48 Hours) 08/21/18 08/21/18 08/21/18 05:30 06:35 08:20 WBC 21.8 H RBC 3.16 L Hgb 9.4 L Hct 29.7 L MCV 94.0 MCH 29.7 MCHC 31.6 L RDW 13.7 RDW Differential 45.4 H Plt Count 141 L MPV 13.2 H Immature Gran % (Auto) 0.300 Neut % (Auto) 91.7 H Lymph % (Auto) 3.9 L Carver % (Auto) 3.9 Eos % (Auto) 0.1 Baso % (Auto) 0.1 Absolute Neuts (auto) 20.0 H Absolute Lymphs (auto) 0.86 Total Counted Not Reportable Sodium Potassium Chloride Carbon Dioxide Anion Gap BUN Creatinine Estim Creat Clear Calc Est GFR (MDRD) Af Amer Est GFR (MDRD) Non-Af BUN/Creatinine Ratio Glucose Calcium Magnesium Iron TIBC Iron Saturation Ferritin Total Bilirubin AST ALT Alkaline Phosphatase Total Protein Albumin Globulin Albumin/Globulin Ratio Lipase 19 L MRSA (PCR) Negative Blood Type Antibody Screen 08/22/18 08/22/18 08/22/18 04:30 04:30 04:30 WBC 7.6 RBC 2.81 L Hgb 8.6 L Hct 26.4 L MCV 94.0 MCH 30.6 MCHC 32.6 RDW 13.4 RDW Differential 44.0 H Plt Count 70 L MPV 13.0 H Immature Gran % (Auto) 0.500 Neut % (Auto) 90.8 H Lymph % (Auto) 5.6 L Carver % (Auto) 2.7 Eos % (Auto) 0.3 Baso % (Auto) 0.1 Absolute Neuts (auto) 6.9 Absolute Lymphs (auto) 0.43 L Total Counted Not Reportable Sodium 140 Potassium 5.4 H Chloride 112 H Carbon Dioxide 22.0 Anion Gap 6 BUN 12 Creatinine 1.03 Estim Creat Clear Calc 70.11 Est GFR (MDRD) Af Amer 91 Est GFR (MDRD) Non-Af 75 BUN/Creatinine Ratio 11.7 Glucose 101 Calcium 7.4 L Magnesium 1.8 Iron 8 L TIBC 256 Iron Saturation 3.1 L Ferritin 62 Total Bilirubin 0.90 AST 48 H ALT 70 H Alkaline Phosphatase 142 H Total Protein 5.1 L Albumin 2.1 L Globulin 3.0 Albumin/Globulin Ratio 0.7 L Lipase MRSA (PCR) Blood Type Antibody Screen 08/22/18 08/23/18 08/23/18 07:45 04:00 04:00 WBC 3.9 L RBC 2.78 L Hgb 8.2 L Hct 26.0 L MCV 93.5 MCH 29.5 MCHC 31.5 L RDW 13.8 RDW Differential 45.6 H Plt Count 64 L MPV 13.9 H Immature Gran % (Auto) 0.000 Neut % (Auto) 89.5 H Lymph % (Auto) 6.9 L Carver % (Auto) 2.6 Eos % (Auto) 0.5 Baso % (Auto) 0.5 Absolute Neuts (auto) 3.5 Absolute Lymphs (auto) 0.27 L Total Counted Not Reportable Sodium 141 Potassium 3.3 L Chloride 111 H Carbon Dioxide 22.0 Anion Gap 8 BUN 8 Creatinine 1.28 Estim Creat Clear Calc 56.41 Est GFR (MDRD) Af Amer 71 Est GFR (MDRD) Non-Af 58 L BUN/Creatinine Ratio 6.2 L Glucose 206 H Calcium 7.3 L Magnesium 1.8 Iron TIBC Iron Saturation Ferritin Total Bilirubin 0.50 AST 19 ALT 48 Alkaline Phosphatase 116 Total Protein 5.2 L Albumin 2.1 L Globulin 3.1 Albumin/Globulin Ratio 0.7 L Lipase MRSA (PCR) Blood Type A NEGATIVE Antibody Screen NEGATIVE Microbiology 08/22/18 13:00 Stool Stool Occult Blood (JAYDON) - Final 08/21/18 08:04 Urine Catheter - Salaazr Urine Culture - Preliminary Culture exhibits no growth. Clinical Impression(s) from Imaging Studies Chest X-Ray 08/21/18 01:41 IMPRESSION: Normal x-ray examination of the chest. No acute findings in the lungs Electronically Signed: Ashok Vallecillo MD at 6:38 EDT Tel , Service support , Abdomen Ultrasound 08/21/18 05:55 IMPRESSION: Hepatomegaly. Status post cholecystectomy. Electronically Signed: Cabrera Asad, at 13:12 EDT , Service support , Chest X-Ray 08/22/18 06:49 IMPRESSION: Mild increased markings in the right frontal region and left midlung. Follow-up is recommended. Electronically Signed: Cabrera Kamara, at 8:17 EDT , Service support , Medical Necessity - Tobacco Use Smoking Status: Current every day smoker Tobacco Use: Cigarettes Assessment/Plan All Active Problems Acute on recurrent pancreatitis (Acute) Septic shock (Acute) Bradycardia (Acute) RECOMMENDATIONS: 1. Discontinue morphine and supplemental IV fluids. 2. Recommend discontinuation of Lovenox. Place SCDs instead. 3. Continue antimicrobial coverage, per infectious diseases recommendations. If the patient does not improve clinically, broaden to meropenem. 4. Monitor CBC daily. Transfuse if hemoglobin is less than 7 g/dL. 5. Electrolyte repletion 6. Continue to monitor in ICU setting yet today. IMPRESSIONS: 1. Gram Negative Septic shock Although the patient's antibiotics were discontinued upon admission to the ICU, I was concerned for underlying sepsis as compared to acute on chronic pancreatitis, as the patient had a normal lipase level, along with an elevated white blood cell count and continued need for vasopressor support, despite adequate volume resuscitation. In addition, the patient's CT abdomen completed at the outside hospital prior to transfer only revealed sequelae of chronic pancreatitis. My concern would be for some form of intra-abdominal infectious process. Subsequent preliminary blood culture results from [facility], dated 08/20, were positive from gram negative rods. The patient has been maintained on Zosyn. The patient was evaluated by infectious diseases who recommended broadening to meropenem, if the patient decompensates clinically. 2. Recently diagnosed prostate cancer CT abdomen did report concerns for bladder outlet obstruction. Urology was consulted with only outpatient follow-up recommended. 3. Anemia/Thrombocytopenia Continue to monitor CBC daily. Plan to transfuse for Hgb less than 7 g/dL. Given that the patient's platelet count has continued to drop over the course of the hospital admission, we will plan to discontinue Lovenox and place him on SCDs. The patient was evaluated by general surgery due to iron deficiency anemia. There are plans for both upper and lower endoscopy early next week if the patient is still admitted to the hospital. 4. Personal history of chronic pancreatitis Abdominal ultrasound was largely unrevealing. The patient's diet has been advanced without issue. Continue Creon. 5. Hypokalemia Electrolyte repletion as ordered. Recheck levels in the morning. 6. GERD/tobacco dependency Complicates care, management, recovery and prognosis. Okay to continue PPI therapy. The patient does not wish to have any form of nicotine replacement therapy ordered. Smoking cessation is advisable. This note was generated with [employer] dictation software. It may contain incorrect words, spelling, and punctuation that were not noted in checking the note before signing. Code Visit Inpatient E&M: 78397 Subs Hosp L3
--- NOTE | 2018-08-23 06:53 | PN_ITS ---
Subjective: The patient was seen and examined at the bedside this morning. Events from the last 24 hours have been reviewed. The patient was intermittently febrile overnight with a T-max of 101.9 ?F. While the patient was able to be weaned off of vasopressor support yesterday, he did have to be placed back on Levophed last evening from 1900 to 2300 hours. The patient was evaluated by infectious diseases yesterday. While upon my initial conversation with them they asked that a repeat CT abdomen/pelvis be obtained, upon their evaluation of the patient at the bedside, they indicated that repeat imaging would not be indicated. Therefore, orders for the patient's repeat CT abdomen were discontinued. Vancomycin was subsequently discontinued by ID. The patient remains on Zosyn. The patient is now pancytopenic with a platelet count this morning of 64,000. Potassium is low at 3.3. The patient's elevated transaminase and alkaline phosphatase level has normalized. The patient has been tolerating a regular diet. The patient has remained bradycardic with heart rates in the 40s. He is currently sitting upright in bed eating breakfast without complaints. Objective: The patient's most recent lab work, culture data and imaging studies have all been personally reviewed. Preliminary blood culture results from [facility], dated 08/20, were positive for gram negative rods. Urine culture has demonstrated no growth to date. Repeat blood cultures are currently pending. Stool for occult blood was negative. Abdominal ultrasound dated August 21 revealed hepatomegaly. General: Alert, Cooperative, No apparent distress HEENT: Atraumatic, PERRLA, Normocephalic Oral: No Gingival or Mucosal Lesions/ Ulcerations Neck: Supple, No Nodes, Trachea Midline Lungs: Normal air movement, No rhonchi, No wheeze, No rales Cardiovascular: Normal S1, Normal S2, No murmurs, Bradycardic Abdomen: Bowel Sounds Present, Soft, Non-Distended Extremities: No clubbing, No cyanosis, No edema Skin: No breakdown Musculoskeletal: No Tenderness to Palpation of Joints or Extremities Lymphatic: No Cervical, Supraclavicular, or Inguinal Adenopathy Neurological: Cranial nerves II-XII grossly intact, Neuro grossly intact Psych/Mental Status: Normal Affect, Appropriate Vital Signs Temp Pulse Resp BP Pulse Ox 98.6 F 49 L 14 102/51 L 98 08/23/18 04:00 08/23/18 06:00 08/23/18 06:00 08/23/18 06:00 08/23/18 06:00 Oxygen Delivery Method Room Air Weight: 177 lb 11.081 oz Body Mass Index (BMI) 23.2 Intake and Output for Last 24 Hours 08/21/18 08/22/18 08/23/18 23:59 23:59 23:59 Intake Total 4091.1 / 4091.1 4284.3 / 4284.3 2051 Output Total 2900 / 2900 3550 / 3550 2150 / 2150 Balance 1191.1 / 1191.1 734.3 / 734.3 -98 / -98 Labs (Last 48 Hours) 08/21/18 08/21/18 08/21/18 05:30 06:35 08:20 WBC 21.8 H RBC 3.16 L Hgb 9.4 L Hct 29.7 L MCV 94.0 MCH 29.7 MCHC 31.6 L RDW 13.7 RDW Differential 45.4 H Plt Count 141 L MPV 13.2 H Immature Gran % (Auto) 0.300 Neut % (Auto) 91.7 H Lymph % (Auto) 3.9 L Ritchie % (Auto) 3.9 Eos % (Auto) 0.1 Baso % (Auto) 0.1 Absolute Neuts (auto) 20.0 H Absolute Lymphs (auto) 0.86 Total Counted Not Reportable Sodium Potassium Chloride Carbon Dioxide Anion Gap BUN Creatinine Estim Creat Clear Calc Est GFR (MDRD) Af Amer Est GFR (MDRD) Non-Af BUN/Creatinine Ratio Glucose Calcium Magnesium Iron TIBC Iron Saturation Ferritin Total Bilirubin AST ALT Alkaline Phosphatase Total Protein Albumin Globulin Albumin/Globulin Ratio Lipase 19 L MRSA (PCR) Negative Blood Type Antibody Screen 08/22/18 08/22/18 08/22/18 04:30 04:30 04:30 WBC 7.6 RBC 2.81 L Hgb 8.6 L Hct 26.4 L MCV 94.0 MCH 30.6 MCHC 32.6 RDW 13.4 RDW Differential 44.0 H Plt Count 70 L MPV 13.0 H Immature Gran % (Auto) 0.500 Neut % (Auto) 90.8 H Lymph % (Auto) 5.6 L Ritchie % (Auto) 2.7 Eos % (Auto) 0.3 Baso % (Auto) 0.1 Absolute Neuts (auto) 6.9 Absolute Lymphs (auto) 0.43 L Total Counted Not Reportable Sodium 140 Potassium 5.4 H Chloride 112 H Carbon Dioxide 22.0 Anion Gap 6 BUN 12 Creatinine 1.03 Estim Creat Clear Calc 70.11 Est GFR (MDRD) Af Amer 91 Est GFR (MDRD) Non-Af 75 BUN/Creatinine Ratio 11.7 Glucose 101 Calcium 7.4 L Magnesium 1.8 Iron 8 L TIBC 256 Iron Saturation 3.1 L Ferritin 62 Total Bilirubin 0.90 AST 48 H ALT 70 H Alkaline Phosphatase 142 H Total Protein 5.1 L Albumin 2.1 L Globulin 3.0 Albumin/Globulin Ratio 0.7 L Lipase MRSA (PCR) Blood Type Antibody Screen 08/22/18 08/23/18 08/23/18 07:45 04:00 04:00 WBC 3.9 L RBC 2.78 L Hgb 8.2 L Hct 26.0 L MCV 93.5 MCH 29.5 MCHC 31.5 L RDW 13.8 RDW Differential 45.6 H Plt Count 64 L MPV 13.9 H Immature Gran % (Auto) 0.000 Neut % (Auto) 89.5 H Lymph % (Auto) 6.9 L Ritchie % (Auto) 2.6 Eos % (Auto) 0.5 Baso % (Auto) 0.5 Absolute Neuts (auto) 3.5 Absolute Lymphs (auto) 0.27 L Total Counted Not Reportable Sodium 141 Potassium 3.3 L Chloride 111 H Carbon Dioxide 22.0 Anion Gap 8 BUN 8 Creatinine 1.28 Estim Creat Clear Calc 56.41 Est GFR (MDRD) Af Amer 71 Est GFR (MDRD) Non-Af 58 L BUN/Creatinine Ratio 6.2 L Glucose 206 H Calcium 7.3 L Magnesium 1.8 Iron TIBC Iron Saturation Ferritin Total Bilirubin 0.50 AST 19 ALT 48 Alkaline Phosphatase 116 Total Protein 5.2 L Albumin 2.1 L Globulin 3.1 Albumin/Globulin Ratio 0.7 L Lipase MRSA (PCR) Blood Type A NEGATIVE Antibody Screen NEGATIVE Microbiology 08/22/18 13:00 Stool Stool Occult Blood (JAYDON) - Final 08/21/18 08:04 Urine Catheter - Salazar Urine Culture - Preliminary Culture exhibits no growth. Clinical Impression(s) from Imaging Studies Chest X-Ray 08/21/18 01:41 IMPRESSION: Normal x-ray examination of the chest. No acute findings in the lungs Electronically Signed: Ashok Vallecillo MD at 6:38 EDT Tel , Service support , Abdomen Ultrasound 08/21/18 05:55 IMPRESSION: Hepatomegaly. Status post cholecystectomy. Electronically Signed: Cabrera Asad, at 13:12 EDT , Service support , Chest X-Ray 08/22/18 06:49 IMPRESSION: Mild increased markings in the right frontal region and left midlung. Follow-up is recommended. Electronically Signed: Cabrera Kamara, at 8:17 EDT , Service support , Medical Necessity - Tobacco Use Smoking Status: Current every day smoker Tobacco Use: Cigarettes Assessment/Plan All Active Problems Acute on recurrent pancreatitis (Acute) Septic shock (Acute) Bradycardia (Acute) RECOMMENDATIONS: 1. Discontinue morphine and supplemental IV fluids. 2. Recommend discontinuation of Lovenox. Place SCDs instead. 3. Continue antimicrobial coverage, per infectious diseases recommendations. If the patient does not improve clinically, broaden to meropenem. 4. Monitor CBC daily. Transfuse if hemoglobin is less than 7 g/dL. 5. Electrolyte repletion 6. Continue to monitor in ICU setting yet today. IMPRESSIONS: 1. Gram Negative Septic shock Although the patient's antibiotics were discontinued upon admission to the ICU, I was concerned for underlying sepsis as compared to acute on chronic pancreatitis, as the patient had a normal lipase level, along with an elevated white blood cell count and continued need for vasopressor support, despite adequate volume resuscitation. In addition, the patient's CT abdomen completed at the outside hospital prior to transfer only revealed sequelae of chronic pancreatitis. My concern would be for some form of intra-abdominal infectious process. Subsequent preliminary blood culture results from [facility], dated 08/20, were positive from gram negative rods. The patient has been maintained on Zosyn. The patient was evaluated by infectious diseases who recommended broadening to meropenem, if the patient decompensates clinically. 2. Recently diagnosed prostate cancer CT abdomen did report concerns for bladder outlet obstruction. Urology was consulted with only outpatient follow-up recommended. 3. Anemia/Thrombocytopenia Continue to monitor CBC daily. Plan to transfuse for Hgb less than 7 g/dL. Given that the patient's platelet count has continued to drop over the course of the hospital admission, we will plan to discontinue Lovenox and place him on SCDs. The patient was evaluated by general surgery due to iron deficiency anemia. There are plans for both upper and lower endoscopy early next week if the patient is still admitted to the hospital. 4. Personal history of chronic pancreatitis Abdominal ultrasound was largely unrevealing. The patient's diet has been advanced without issue. Continue Creon. 5. Hypokalemia Electrolyte repletion as ordered. Recheck levels in the morning. 6. GERD/tobacco dependency Complicates care, management, recovery and prognosis. Okay to continue PPI therapy. The patient does not wish to have any form of nicotine replacement therapy ordered. Smoking cessation is advisable. This note was generated with [employer] dictation software. It may contain incorrect words, spelling, and punctuation that were not noted in checking the note before signing. Code Visit Inpatient E&M: 63399 Subs Hosp L3
[2018-08-23] MEDS: Potassium Chloride 10mEq/100mL 10 MEQ/100 ML IV.SOLN. 100 MEQ IV BOLUS ×4 (08:17→11:45)
--- NOTE | 2018-08-23 09:23 | CM.UR ---
Participated in inter-disciplinary rounds. Pt, , and son present. PT evaluated yesterday. Walked 200 feet, slightly unsteady and guarded. Anticipating no additional need for therapy at DC. Patient is bradycardiac running in 50s. Dr. Ventura states he is dropping into 30s during sleep. Cardio consulted. Patient is asymptomatic. Plan is to return home. No need anticipated. Will remain in ICU another day in case need for levo returns. CM to continue to follow. Jessica Mason RN, CCM.
--- NOTE | 2018-08-23 09:26 | PCM.PN.HOSP ---
Patient Problems: Active and Suspected Problems Acute on recurrent pancreatitis (Acute) Septic shock (Acute) Subjective: Patient seen and examined. He had no complaints. Review of systems otherwise negative. Labs and vitals reviewed. Levophed was weaned off during the night. Blood pressure stable. Patient noted to be bradycardic down to the 30s overnight. He is totally asymptomatic. He was reviewed by general surgery yesterday on account of iron deficiency anemia and plan is for him to have EGD and colonoscopy on Saturday if he still in the hospital, or have it on an outpatient basis. Vitals/I&O's: Vital Signs Temp Pulse Resp BP Pulse Ox 98.6 F 49 L 16 97/44 L 100 08/23/18 04:00 08/23/18 09:00 08/23/18 09:00 08/23/18 09:00 08/23/18 09:00 Oxygen Delivery Method Room Air Weight: 177 lb 11.081 oz Body Mass Index (BMI) 23.2 Intake and Output for Last 24 Hours 08/21/18 08/22/18 08/23/18 23:59 23:59 23:59 Intake Total 4091.1 / 4091.1 4284.3 / 4284.3 2051 / 2051 Output Total 2900 / 2900 3550 / 3550 2150 / 2150 Balance 1191.1 / 1191.1 734.3 / 734.3 -98 / -98 General: Alert, Oriented x3, Cooperative, No apparent distress HEENT: Atraumatic, PERRLA, EOMI, Normocephalic Oral: moist mucosa Neck: Supple, No JVD, Negative Carotid Bruits Lungs: Clear to auscultation, Normal air movement, No rhonchi, No wheeze, No rales Cardiovascular: Regular rate, Regular Rhythm, Normal S1, Normal S2, No murmurs Abdomen: Bowel Sounds Present, Soft, nontender; no guarding or rebound tenderness Extremities: No clubbing, No cyanosis, No edema, Capillary Refill Less than 3 Seconds Skin: No rashes, No breakdown Musculoskeletal: No Tenderness to Palpation of Joints or Extremities Lymphatic: No Cervical, Supraclavicular, or Inguinal Adenopathy Neurological: Cranial nerves II-XII grossly intact, Neuro grossly intact, Motor Exam 5/5 strength throughout Psych/Mental Status: Normal Affect, Appropriate, Alert and oriented to time, place, person, mood and affect Microbiology Past 72 Hours 08/21/18 02:45 Blood Culture (Wb) - Left Forearm Blood Culture - Preliminary No growth in 48 hours. 08/21/18 02:35 Blood Culture (Wb) - Central Line Blood Culture - Preliminary No growth in 48 hours. 08/22/18 13:00 Stool Stool Occult Blood (JAYDON) - Final 08/21/18 08:04 Urine Catheter - Salazar Urine Culture - Preliminary Culture exhibits no growth. Laboratory Results 08/22/18 07:45: Blood Type A NEGATIVE, Antibody Screen NEGATIVE 08/23/18 04:00: WBC 3.9 L, RBC 2.78 L, Hgb 8.2 L, Hct 26.0 L, MCV 93.5, MCH 29.5, MCHC 31.5 L, RDW 13.8, RDW Differential 45.6 H, Plt Count 64 L, MPV 13.9 H, Immature Gran % (Auto) 0.000, Neut % (Auto) 89.5 H, Lymph % (Auto) 6.9 L, [place] % (Auto) 2.6, Eos % (Auto) 0.5, Baso % (Auto) 0.5, Absolute Neuts (auto) 3.5, Absolute Lymphs (auto) 0.27 L, Total Counted Not Reportable 08/23/18 04:00: Sodium 141, Potassium 3.3 L, Chloride 111 H, Carbon Dioxide 22.0, Anion Gap 8, BUN 8, Creatinine 1.28, Estim Creat Clear Calc 56.41, Est GFR (MDRD) Af Amer 71, Est GFR (MDRD) Non-Af 58 L, BUN/Creatinine Ratio 6.2 L, Glucose 206 H, Calcium 7.3 L, Magnesium 1.8, Total Bilirubin 0.50, AST 19, ALT 48, Alkaline Phosphatase 116, Total Protein 5.2 L, Albumin 2.1 L, Globulin 3.1, Albumin/Globulin Ratio 0.7 L Diagnostic Data Abdomen Ultrasound 08/21/18 05:55 IMPRESSION: Hepatomegaly. Status post cholecystectomy. Electronically Signed: Cabrera Kamara, at 13:12 EDT , Service support , Chest X-Ray 08/22/18 06:49 IMPRESSION: Mild increased markings in the right frontal region and left midlung. Follow-up is recommended. Electronically Signed: Cabrera Kamara, at 8:17 EDT , Service support , Current Medications Dextrose (D50w Syringe) 0 gm IV X1 PRN; Protocol PRN Reason: Hypoglycemia Glucagon () 1 mg IM .X1 PRN PRN Reason: Hypoglycemia Sodium Chloride () 250 mls @ 15 mls/hr IV .[id number] PRN PRN Reason: SALINE FLUSH Last Admin: 08/23/18 05:26 Dose: 15 mls/hr Pantoprazole Sodium 40 mg/ (Sodium Chloride) 110 mls @ 330 mls/hr IV Q24 TRUPTI Last Admin: 08/22/18 10:24 Dose: 330 mls/hr Piperacillin Sod/Tazobactam (Sod 3.375 gm/ Sodium Chloride) 50 mls @ 12.5 mls/hr IV Q8 TRUPTI Last Admin: 08/23/18 05:26 Dose: 12.5 mls/hr Potassium Chloride () 10 meq in 100 mls @ 100 mls/hr IV BOLUS Q1H TRUPTI Stop: 08/23/18 10:59 Last Admin: 08/23/18 08:17 Dose: 100 mls/hr Ibuprofen (Motrin) 400 mg PO Q6H PRN PRN PRN Reason: MILD PAIN (1-3/10) Last Admin: 08/23/18 02:11 Dose: 400 mg Pancrelipase (Creon Dr 12,000 Unit Capsule) 2 capsule PO TIDCM TRUPTI Last Admin: 08/23/18 08:16 Dose: 2 capsule Senna/Docusate Sodium (Senokot-S, [place]-Colace) 2 tablet PO BID PRN PRN PRN Reason: Constipation Sodium Chloride () 5 - 15 ml IV UD PRN PRN Reason: SALINE FLUSH Last Admin: 08/22/18 12:35 Dose: 10 ml Sodium Chloride () 10 - 40 ml IV UD PRN PRN Reason: MULTILUMEN/HICMAN CATH FLUSH Last Admin: 08/22/18 05:35 Dose: 20 ml Medical Necessity - Tobacco Use Smoking Status: Current every day smoker Tobacco Use: Cigarettes Assessment/Plan All Active Problems Acute on recurrent pancreatitis (Acute) Septic shock (Acute) 1. Septic shock due to acute pancreatitis was weaned off levophed overnight, shock originally thought to be due to hypovolemia from third spacing due to acute pancreatitis. However, with positive preliminary blood cultures, it fits the picture of septic shock . Tolerating clear diet; to advance as tolerated preliminary blood cultures from [facility] for gram negative rods (08/20/18) continue IV vancomycin adn zosyn. blood cultures here negative x 48 hours continue Creon 2. Acute on chronic pancreatitis as under 1. 3. Bradycardia HR went down to 30s overnight, and has been in 40s mainly patient is asymptomatic will consult cardiology 2D echo 4. Hypomagnesemia:resolved. 5. Hyperkalemia: resolved. 6. Hypokalemia: K is 3.3 today; will replace and monitor. l 7.Elevated liver enzymes: resolving. liver enzymes have trended down. 8. Iron deficiency Anemia: Hb has dropped to 8.2 from 9,4 on admission. No baseline available, though says it was normal a few weeks ago. Iron panel shows iron deficiency anemia. last colonoscopy was in 2012, and was normal. Dr Laguerre consulted- to have EGD and colonoscopy on Saturday if patient is still in hospital; if otherwise, to follow-up with general surgery in outpatient basis. 9. Thrombocytopenia and leucocytosis platelets dropped from 141 to 64 today; platelets were 70 yesterday. has picture of pancytopenia; cause not clear, though this could be related to his cancer. Will dc lovenox and start SCDs and monitor platelets. If platelets fall some more or patient becomes symptomatic, will screen for HIT. 10. GERD: on IV pantoprazole 9. History of prostate cancer: recently diagnosed. to follow up with urology on outpatient basis 10. Nicotine abuse: counseled to quit DVT prophylaxis:SCDs Code Visit Inpatient E&M: 95888 Subs Hosp L3
--- NOTE | 2018-08-23 09:30 | PN_ITS ---
Patient Problems: Active and Suspected Problems Acute on recurrent pancreatitis (Acute) Septic shock (Acute) Subjective: Patient seen and examined. He had no complaints. Review of systems otherwise negative. Labs and vitals reviewed. Levophed was weaned off during the night. Blood pressure stable. Patient noted to be bradycardic down to the 30s overnight. He is totally asymptomatic. He was reviewed by general surgery yesterday on account of iron deficiency anemia and plan is for him to have EGD and colonoscopy on Saturday if he still in the hospital, or have it on an outpatient basis. Vitals/I&O's: Vital Signs Temp Pulse Resp BP Pulse Ox 98.6 F 49 L 16 97/44 L 100 08/23/18 04:00 08/23/18 09:00 08/23/18 09:00 08/23/18 09:00 08/23/18 09:00 Oxygen Delivery Method Room Air Weight: 177 lb 11.081 oz Body Mass Index (BMI) 23.2 Intake and Output for Last 24 Hours 08/21/18 08/22/18 08/23/18 23:59 23:59 23:59 Intake Total 4091.1 / 4091.1 4284.3 / 4284.3 2051 / 2051 Output Total 2900 / 2900 3550 / 3550 2150 / 2150 Balance 1191.1 / 1191.1 734.3 / 734.3 -98 / -98 General: Alert, Oriented x3, Cooperative, No apparent distress HEENT: Atraumatic, PERRLA, EOMI, Normocephalic Oral: moist mucosa Neck: Supple, No JVD, Negative Carotid Bruits Lungs: Clear to auscultation, Normal air movement, No rhonchi, No wheeze, No rales Cardiovascular: Regular rate, Regular Rhythm, Normal S1, Normal S2, No murmurs Abdomen: Bowel Sounds Present, Soft, nontender; no guarding or rebound tenderness Extremities: No clubbing, No cyanosis, No edema, Capillary Refill Less than 3 Seconds Skin: No rashes, No breakdown Musculoskeletal: No Tenderness to Palpation of Joints or Extremities Lymphatic: No Cervical, Supraclavicular, or Inguinal Adenopathy Neurological: Cranial nerves II-XII grossly intact, Neuro grossly intact, Motor Exam 5/5 strength throughout Psych/Mental Status: Normal Affect, Appropriate, Alert and oriented to time, place, person, mood and affect Microbiology Past 72 Hours 08/21/18 02:45 Blood Culture (Wb) - Left Forearm Blood Culture - Preliminary No growth in 48 hours. 08/21/18 02:35 Blood Culture (Wb) - Central Line Blood Culture - Preliminary No growth in 48 hours. 08/22/18 13:00 Stool Stool Occult Blood (JAYDON) - Final 08/21/18 08:04 Urine Catheter - Salazar Urine Culture - Preliminary Culture exhibits no growth. Laboratory Results 08/22/18 07:45: Blood Type A NEGATIVE, Antibody Screen NEGATIVE 08/23/18 04:00: WBC 3.9 L, RBC 2.78 L, Hgb 8.2 L, Hct 26.0 L, MCV 93.5, MCH 29.5, MCHC 31.5 L, RDW 13.8, RDW Differential 45.6 H, Plt Count 64 L, MPV 13.9 H , Immature Gran % (Auto) 0.000, Neut % (Auto) 89.5 H, Lymph % (Auto) 6.9 L, [place] % (Auto) 2.6, Eos % (Auto) 0.5, Baso % (Auto) 0.5, Absolute Neuts (auto) 3.5, Absolute Lymphs (auto) 0.27 L, Total Counted Not Reportable 08/23/18 04:00: Sodium 141, Potassium 3.3 L, Chloride 111 H, Carbon Dioxide 22.0, Anion Gap 8, BUN 8, Creatinine 1.28, Estim Creat Clear Calc 56.41, Est GFR (MDRD) Af Amer 71, Est GFR (MDRD) Non-Af 58 L, BUN/Creatinine Ratio 6.2 L, Glucose 206 H, Calcium 7.3 L, Magnesium 1.8, Total Bilirubin 0.50, AST 19, ALT 48, Alkaline Phosphatase 116, Total Protein 5.2 L, Albumin 2.1 L, Globulin 3.1, Albumin/Globulin Ratio 0.7 L Diagnostic Data Abdomen Ultrasound 08/21/18 05:55 IMPRESSION: Hepatomegaly. Status post cholecystectomy. Electronically Signed: Cabrera Kamara, at 13:12 EDT , Service support , Chest X-Ray 08/22/18 06:49 IMPRESSION: Mild increased markings in the right frontal region and left midlung. Follow-up is recommended. Electronically Signed: Cabrera Kamara, at 8:17 EDT , Service support , Current Medications Dextrose (D50w Syringe) 0 gm IV X1 PRN; Protocol PRN Reason: Hypoglycemia Glucagon () 1 mg IM .X1 PRN PRN Reason: Hypoglycemia Sodium Chloride () 250 mls @ 15 mls/hr IV .[id number] PRN PRN Reason: SALINE FLUSH Last Admin: 08/23/18 05:26 Dose: 15 mls/hr Pantoprazole Sodium 40 mg/ (Sodium Chloride) 110 mls @ 330 mls/hr IV Q24 TRUPTI Last Admin: 08/22/18 10:24 Dose: 330 mls/hr Piperacillin Sod/Tazobactam (Sod 3.375 gm/ Sodium Chloride) 50 mls @ 12.5 mls/hr IV Q8 TRUPTI Last Admin: 08/23/18 05:26 Dose: 12.5 mls/hr Potassium Chloride () 10 meq in 100 mls @ 100 mls/hr IV BOLUS Q1H TRUPTI Stop: 08/23/18 10:59 Last Admin: 08/23/18 08:17 Dose: 100 mls/hr Ibuprofen (Motrin) 400 mg PO Q6H PRN PRN PRN Reason: MILD PAIN (1-3/10) Last Admin: 08/23/18 02:11 Dose: 400 mg Pancrelipase (Creon Dr 12,000 Unit Capsule) 2 capsule PO TIDCM TRUPTI Last Admin: 08/23/18 08:16 Dose: 2 capsule Senna/Docusate Sodium (Senokot-S, [place]-Colace) 2 tablet PO BID PRN PRN PRN Reason: Constipation Sodium Chloride () 5 - 15 ml IV UD PRN PRN Reason: SALINE FLUSH Last Admin: 08/22/18 12:35 Dose: 10 ml Sodium Chloride () 10 - 40 ml IV UD PRN PRN Reason: MULTILUMEN/HICMAN CATH FLUSH Last Admin: 08/22/18 05:35 Dose: 20 ml Medical Necessity - Tobacco Use Smoking Status: Current every day smoker Tobacco Use: Cigarettes Assessment/Plan All Active Problems Acute on recurrent pancreatitis (Acute) Septic shock (Acute) 1. Septic shock due to acute pancreatitis * was weaned off levophed overnight, * shock originally thought to be due to hypovolemia from third spacing due to acute pancreatitis. However, with positive preliminary blood cultures, it fits the picture of septic shock * . Tolerating clear diet; to advance as tolerated * preliminary blood cultures from [facility] for gram negative rods (08/20/18) * continue IV vancomycin adn zosyn. * blood cultures here negative x 48 hours * continue Creon * * 2. Acute on chronic pancreatitis * as under 1. * 3. Bradycardia * HR went down to 30s overnight, and has been in 40s mainly * patient is asymptomatic * will consult cardiology * 2D echo * 4. Hypomagnesemia:resolved. 5. Hyperkalemia: resolved. 6. Hypokalemia: K is 3.3 today; will replace and monitor. l 7.Elevated liver enzymes: resolving. liver enzymes have trended down. 8. Iron deficiency Anemia: * Hb has dropped to 8.2 from 9,4 on admission. No baseline available, though says it was normal a few weeks ago. * Iron panel shows iron deficiency anemia. * last colonoscopy was in 2012, and was normal. * Dr Laguerre consulted- to have EGD and colonoscopy on Saturday if patient is still in hospital; if otherwise, to follow-up with general surgery in outpatient basis. 9. Thrombocytopenia and leucocytosis * platelets dropped from 141 to 64 today; platelets were 70 yesterday. * has picture of pancytopenia; cause not clear, though this could be related to his cancer. * Will dc lovenox and start SCDs and monitor platelets. * If platelets fall some more or patient becomes symptomatic, will screen for HIT. * 10. GERD: on IV pantoprazole 9. History of prostate cancer: recently diagnosed. to follow up with urology on outpatient basis 10. Nicotine abuse: counseled to quit DVT prophylaxis:SCDs Code Visit Inpatient E&M: 37935 Subs Hosp L3
[2018-08-23 10:14] LABS: LDH 184 U/L (87-241)
--- NOTE | 2018-08-23 12:02 | PCM.PN.SRG ---
Patient Problems: Active and Suspected Problems Acute on recurrent pancreatitis (Acute) Septic shock (Acute) Subjective: Patient with still slight abdominal pain, but he feels improved has not had a bowel movement, has not had emesis since hospitalization - Physical Exam General: Alert, Oriented x3 HEENT: Atraumatic Oral: Moist Mucosa Neck: Supple Lungs: Normal air movement Abdomen: Soft Vital Signs Temp Pulse Resp BP Pulse Ox 97.9 F 48 L 20 H 86/33 L 99 08/23/18 10:00 08/23/18 11:00 08/23/18 11:00 08/23/18 11:00 08/23/18 11:00 Oxygen Delivery Method Room Air Weight: 80.6 kg Body Mass Index (BMI) 23.2 Intake and Output for Last 24 Hours 08/21/18 08/22/18 08/23/18 23:59 23:59 23:59 Intake Total 4091.1 / 4091.1 4284.3 / 4284.3 2051 / 2051 Output Total 2900 / 2900 3550 / 3550 2150 / 2150 Balance 1191.1 / 1191.1 734.3 / 734.3 -98 / -98 Microbiology Past 72 Hours 08/21/18 08:04 Urine Culture - Final Urine Catheter - Salazar Culture exhibits no growth. 08/21/18 02:45 Blood Culture - Preliminary Blood Culture (Wb) - Left Forearm No growth in 48 hours. 08/21/18 02:35 Blood Culture - Preliminary Blood Culture (Wb) - Central Line No growth in 48 hours. 08/22/18 13:00 Stool Occult Blood (JAYDON) - Final Stool Laboratory Tests Past 24 Hrs 08/23/18 08/23/18 08/23/18 04:00 04:00 04:00 WBC 3.9 L RBC 2.78 L Hgb 8.2 L Hct 26.0 L MCV 93.5 MCH 29.5 MCHC 31.5 L RDW 13.8 RDW Differential 45.6 H Plt Count 64 L MPV 13.9 H Immature Gran % (Auto) 0.000 Neut % (Auto) 89.5 H Lymph % (Auto) 6.9 L [place] % (Auto) 2.6 Eos % (Auto) 0.5 Baso % (Auto) 0.5 Absolute Neuts (auto) 3.5 Absolute Lymphs (auto) 0.27 L Total Counted Not Reportable Differential Comment Sodium 141 Potassium 3.3 L Chloride 111 H Carbon Dioxide 22.0 Anion Gap 8 BUN 8 Creatinine 1.28 Estim Creat Clear Calc 56.41 Est GFR (MDRD) Af Amer 71 Est GFR (MDRD) Non-Af 58 L BUN/Creatinine Ratio 6.2 L Glucose 206 H Calcium 7.3 L Magnesium 1.8 Total Bilirubin 0.50 AST 19 ALT 48 Alkaline Phosphatase 116 Lactate Dehydrogenase 184 Total Protein 5.2 L Albumin 2.1 L Globulin 3.1 Albumin/Globulin Ratio 0.7 L Medical Necessity - Tobacco Use Smoking Status: Current every day smoker Tobacco Use: Cigarettes Assessment/Plan All Active Problems Acute on recurrent pancreatitis (Acute) Septic shock (Acute) Impression: episode of septic shock Plan: with regard to GI evaluation for anemia, this can be done as an outpatient and I will set up patient for this. His Hgb has been relatively stable, and he has not had bowel movements or emesis that would indicate ongoing GIB
--- NOTE | 2018-08-23 13:16 | PCM.CONS.C ---
Problem List (1) Bradycardia Status: Acute Reason for Consult Date of Consultation: 08/23/18 History of Present Illness: The patient is a 72 year old M with history of recurrent pancreatitis. He has been admitted this time again with an acute flareup of his pancreatitis. He was also noted to be hypotensive on admission with septic shock. His shock subsequently improved and his vasopressor medications was discontinued. Last night he was noted to have sinus bradycardia while he was asleep. We have been asked for evaluation. Patient denies any previous cardiac history. Denies any history of palpitations. Denies any history of lightheadedness or dizziness. He recalls one syncopal episode about 2 years ago where and he was changing clothes and then passed out. No other details available. No symptoms of lightheadedness dizziness syncope or presyncope since then. [] Past Medical History Allergies/Adverse Reactions: Allergies No Known Allergies Allergy (Verified 08/21/18 01:14) Home Medications: Ambulatory Orders Medication Instructions Recorded Lipase/Protease/Amylase [Creon Dr 1 each PO TID 03/02/13 24,000 Units Capsule] Sertraline HCl [Zoloft] 50 mg PO DAILY 03/02/13 Aspirin [Aspir 81] 81 mg PO DAILY 08/21/18 Finasteride 5 mg PO DAILY 08/21/18 Omeprazole 20 mg PO DAILY 08/21/18 Vitamin B12 1,000 mg PO DAILY 08/21/18 Past Medical History (Chronic Problems): Chronic Problems Prostatic cancer (Chronic) Bladder outlet obstruction (Chronic) CHRONIC SMOKER (Chronic) GERD (gastroesophageal reflux disease) (Chronic) Surgical History: no surgical history - *Family History Sibling History Items: No pertinent history - No history of pink otitis in first-degree relative. Smoking Status: Current every day smoker Tobacco Use: Cigarettes Review of Systems - Review of Systems Cardiovascular: Reports: Shortness of Breath, Syncope - See history of presenting illness. Denies: Chest Discomfort, Chest Discomfort at Rest, Chest Discomfort with Exertion, Shortness of Breath at Rest, Shortness of Breath with Exertion, Orthopnea, PND, Peripheral Edema, Palpitations, Lightheadedness, Dizziness, Near Syncope Respiratory: Denies: Cough Gastrointestinal: Reports: Abdominal Discomfort Neurological: Denies: History of TIA, History of CVA Hematologic/ Lymphatic: Denies: Easy Brusing, Easy Bleeding Subjectve: Appears sick. Sitting up in a recliner Objective: Vital Signs Temp Pulse Resp BP Pulse Ox 97.9 F 56 L 23 H 121/48 H 100 08/23/18 10:00 08/23/18 12:45 08/23/18 12:45 08/23/18 12:45 08/23/18 12:45 Oxygen Delivery Method Room Air Weight: 80.6 kg Body Mass Index (BMI) 23.2 Intake and Output for Last 24 Hours 08/21/18 08/22/18 08/23/18 23:59 23:59 23:59 Intake Total 4091.1 / 4091.1 4284.3 / 4284.3 3255 / 3255 Output Total 2900 / 2900 3550 / 3550 2700 / 2700 Balance 1191.1 / 1191.1 734.3 / 734.3 555 / 555 General: Awake, Alert, Oriented x 3, Cooperative, Lethargic HEENT: Atraumatic Oral: Moist Mucosa Neck: Supple Lungs: Clear to auscultation Cardiovascular: Regular Rhythm, Normal S1, Normal S2, No Murmurs Abdomen: Soft Extremities: No edema Neurological: No Focal Motor or Sensory Deficit, CN II-XII Intact Psych/Mental Status: Appropriate 08/23/18 04:00: WBC 3.9 L, RBC 2.78 L, Hgb 8.2 L, Hct 26.0 L, MCV 93.5, MCH 29.5, MCHC 31.5 L, RDW 13.8, RDW Differential 45.6 H, Plt Count 64 L, MPV 13.9 H, Immature Gran % (Auto) 0.000, Neut % (Auto) 89.5 H, Lymph % (Auto) 6.9 L, [place] % (Auto) 2.6, Eos % (Auto) 0.5, Baso % (Auto) 0.5, Absolute Neuts (auto) 3.5, Total Counted Not Reportable 08/23/18 04:00: Sodium 141, Potassium 3.3 L, Chloride 111 H, Carbon Dioxide 22.0, Anion Gap 8, BUN 8, Creatinine 1.28, Est GFR (MDRD) Af Amer 71, Est GFR (MDRD) Non-Af 58 L, BUN/Creatinine Ratio 6.2 L, Glucose 206 H, Calcium 7.3 L, Magnesium 1.8, Total Bilirubin 0.50 Rhythm: Normal sinus rhythm presently. Telemetry strips from last night shows sinus bradycardia at 30/min EKG: Normal sinus rhythm. ECHO: Stress Test: Cardiac Cath: PCI: CT Surgery: Holter monitor: EPS: PPM: CXR: Chest CT Scan: Assessment/Plan 1. Episode of sinus bradycardia without hemodynamic compromise during sleep. Continue to monitor. Avoid negative chronotropic agents. Next 2. Admitted with acute pancreatitis. Improving. 3. Septic shock resolved. 4. Thrombocytopenia with anemia. Pancytopenia. 5. Hypokalemia. Potassium replaced by hospitalist.
[2018-08-23 15:40] LABS: Lactic Acid 1.8 mmol/L (0.4-2.0)
[2018-08-24] VITALS (27 sets, daily range): BP systolic 100–148; BP diastolic 37–62; PULSE 36–59; RESP 13–26; TEMP 36.3–36.6; O2SAT 96–100
[2018-08-24 04:22] LABS: Absolute Lymphocyte Count 0.61 X10^3/ul (0.83-4.51); Absolute Neutrophil Count 1.9 X10^3/uL (2.0-7.7); Eosinophil# 0.15 X10^3/uL; Eosinophils% 5.2 % (0-5); Hematocrit 25.9 % (40-54); Hemoglobin 8.5 g/dl (13.0-16.5); Lymphocyte # 0.61 X10^3/ul (4.0); Lymphocyte % 21.1 % (19-41); Mean Corp Hgb Conc 32.8 g/gl (32-36); Mean Corpuscular Hgb 30.4 pg (27.0-32.0); Mean Corpuscular Volume 92.5 fL (80-94); Mean Platelet Vol. 13.4 fl (6.2-12.0); Monocyte# 0.23 X10^3/uL; Neutrophil # 1.89 X10^3/uL (2.7-7.7); Neutrophil % 65.4 % (47-70); Platelet Count 68 K/mm3 (150-450); RBC Distribution Width SD 47.4 fl (35.1-43.9); White Blood Count 2.9 K/mm3 (4.4-11.0)
[2018-08-24 04:27] LABS: POSITIVE COUNT NO; POSITIVE DIFFERENTIAL NO; POSITIVE MORPHOLOGY NO
[2018-08-24 04:36] LABS: ALB/GLOB Ratio 0.6 RATIO (0.9-2.4); AST(SGOT) 17 U/L (15-37); Alanine Aminotransfer ALT/SGPT 41 U/L (16-61); Alkaline Phosphatase 105 U/L (45-117); Anion Gap 5 (5-15); BUN 6 mg/dL (7-18); BUN/Creat Ratio 6.9 RATIO (10-20); Calcium,Total 7.6 mg/dL (8.5-10.1); Chloride 116 mmol/L (98-107); Creatinine, Serum 0.87 mg/dL (0.70-1.30); EST Glomerular Filtration Rate 91 mL/min (>60); Est Glom Filt Rate - Afr Amer 110 mL/min (>60); Globulin 3.3 g/dL (2.2-4.2); Glucose 98 mg/dL (74-106); Potassium 3.7 mmol/L (3.5-5.1); Protein, Total 5.3 g/dL (6.4-8.2); Sodium Level 145 mmol/L (136-145)
[2018-08-24] MEDS: Ibuprofen 400 MG Tablet PO ×3 (05:26→21:26)
--- NOTE | 2018-08-24 06:39 | PCM.PN.INT ---
Subjective: The patient was seen and examined at the bedside this morning. Events from the last 24 hours have been reviewed. The patient was last noted to be febrile last evening with a temperature of 100.4 ?F. He once again became hypotensive yesterday afternoon, requiring the need to restart levophed. However, the patient's vasopressor support was able to be weaned off at 930 last evening. The patient remains hemodynamically stable this morning on room air. The patient remains pancytopenic. Due to the need to restart the patient's vasopressor support yesterday, his Zosyn was discontinued and he was broadened to meropenem. This morning, the patient reports feeling well. He only reports a mild degree of residual abdominal pain. Objective: The patient's most recent lab work, culture data and imaging studies have all been personally reviewed. Preliminary blood culture results from [facility], dated 08/20, were positive for gram negative rods. Urine culture has demonstrated no growth to date. Repeat blood cultures are currently pending. Stool for occult blood was negative. Abdominal ultrasound dated August 21 revealed hepatomegaly. General: Alert, Oriented x3, Cooperative, No apparent distress HEENT: Atraumatic, PERRLA, Normocephalic Oral: No Gingival or Mucosal Lesions/ Ulcerations Neck: Supple, No Nodes, Trachea Midline Lungs: Normal air movement, No rhonchi, No wheeze, No rales Cardiovascular: Normal S1, Normal S2, No murmurs, Bradycardic Abdomen: Bowel Sounds Present, Soft, - - Mild abdominal tenderness. No rebound, guarding or rigidity. Extremities: No clubbing, No cyanosis, No edema Skin: No breakdown Musculoskeletal: No Tenderness to Palpation of Joints or Extremities Lymphatic: No Cervical, Supraclavicular, or Inguinal Adenopathy Neurological: Cranial nerves II-XII grossly intact, Neuro grossly intact Psych/Mental Status: Alert and oriented to time, place, person, mood and affect Vital Signs Temp Pulse Resp BP Pulse Ox 97.9 F 39 L 14 121/50 H 99 08/24/18 02:00 08/24/18 06:00 08/24/18 06:00 08/24/18 06:00 08/24/18 06:00 Oxygen Delivery Method Room Air Weight: 177 lb 14.609 oz Body Mass Index (BMI) 23.2 Intake and Output for Last 24 Hours 08/22/18 08/23/18 08/24/18 23:59 23:59 23:59 Intake Total 4284.3 / 4284.3 3471 / 3471 860.1 / 860.1 Output Total 3550 / 3550 3100 / 3100 1600 / 1600 Balance 734.3 / 734.3 371 / 371 -739.9 / -739.9 Labs (Last 48 Hours) 08/22/18 08/22/18 08/23/18 04:30 07:45 04:00 WBC 3.9 L RBC 2.78 L Hgb 8.2 L Hct 26.0 L MCV 93.5 MCH 29.5 MCHC 31.5 L RDW 13.8 RDW Differential 45.6 H Plt Count 64 L MPV 13.9 H Immature Gran % (Auto) 0.000 Neut % (Auto) 89.5 H Lymph % (Auto) 6.9 L [place] % (Auto) 2.6 Eos % (Auto) 0.5 Baso % (Auto) 0.5 Absolute Neuts (auto) 3.5 Absolute Lymphs (auto) 0.27 L Total Counted Not Reportable Differential Comment Sodium Potassium Chloride Carbon Dioxide Anion Gap BUN Creatinine Estim Creat Clear Calc Est GFR (MDRD) Af Amer Est GFR (MDRD) Non-Af BUN/Creatinine Ratio Glucose Lactic Acid Calcium Magnesium Iron 8 L TIBC 256 Iron Saturation 3.1 L Ferritin 62 Total Bilirubin AST ALT Alkaline Phosphatase Lactate Dehydrogenase Total Protein Albumin Globulin Albumin/Globulin Ratio Blood Type A NEGATIVE Antibody Screen NEGATIVE 08/23/18 08/23/18 08/23/18 04:00 04:00 14:55 WBC RBC Hgb Hct MCV MCH MCHC RDW RDW Differential Plt Count MPV Immature Gran % (Auto) Neut % (Auto) Lymph % (Auto) [place] % (Auto) Eos % (Auto) Baso % (Auto) Absolute Neuts (auto) Absolute Lymphs (auto) Total Counted Differential Comment Sodium 141 Potassium 3.3 L Chloride 111 H Carbon Dioxide 22.0 Anion Gap 8 BUN 8 Creatinine 1.28 Estim Creat Clear Calc 56.41 Est GFR (MDRD) Af Amer 71 Est GFR (MDRD) Non-Af 58 L BUN/Creatinine Ratio 6.2 L Glucose 206 H Lactic Acid 1.8 Calcium 7.3 L Magnesium 1.8 Iron TIBC Iron Saturation Ferritin Total Bilirubin 0.50 AST 19 ALT 48 Alkaline Phosphatase 116 Lactate Dehydrogenase 184 Total Protein 5.2 L Albumin 2.1 L Globulin 3.1 Albumin/Globulin Ratio 0.7 L Blood Type Antibody Screen 08/24/18 08/24/18 04:05 04:05 WBC 2.9 L RBC 2.80 L Hgb 8.5 L Hct 25.9 L MCV 92.5 MCH 30.4 MCHC 32.8 RDW 14.0 RDW Differential 47.4 H Plt Count 68 L MPV 13.4 H Immature Gran % (Auto) 0.300 Neut % (Auto) 65.4 Lymph % (Auto) 21.1 [place] % (Auto) 8.0 Eos % (Auto) 5.2 H Baso % (Auto) 0.0 Absolute Neuts (auto) 1.9 L Absolute Lymphs (auto) 0.61 L Total Counted Not Reportable Differential Comment Sodium 145 Potassium 3.7 Chloride 116 H Carbon Dioxide 24.0 Anion Gap 5 BUN 6 L Creatinine 0.87 Estim Creat Clear Calc 83.00 Est GFR (MDRD) Af Amer 110 Est GFR (MDRD) Non-Af 91 BUN/Creatinine Ratio 6.9 L Glucose 98 Lactic Acid Calcium 7.6 L Magnesium 2.0 Iron TIBC Iron Saturation Ferritin Total Bilirubin 0.40 AST 17 ALT 41 Alkaline Phosphatase 105 Lactate Dehydrogenase Total Protein 5.3 L Albumin 2.0 L Globulin 3.3 Albumin/Globulin Ratio 0.6 L Blood Type Antibody Screen Microbiology 08/21/18 08:04 Urine Catheter - Salazar Urine Culture - Final Culture exhibits no growth. 08/21/18 02:45 Blood Culture (Wb) - Left Forearm Blood Culture - Preliminary No growth in 48 hours. 08/21/18 02:35 Blood Culture (Wb) - Central Line Blood Culture - Preliminary No growth in 48 hours. 08/22/18 13:00 Stool Stool Occult Blood (JAYDON) - Final Clinical Impression(s) from Imaging Studies Chest X-Ray 08/21/18 01:41 IMPRESSION: Normal x-ray examination of the chest. No acute findings in the lungs Electronically Signed: Ashok Vallecillo MD at 6:38 EDT Tel , Service support , Abdomen Ultrasound 08/21/18 05:55 IMPRESSION: Hepatomegaly. Status post cholecystectomy. Electronically Signed: Cabrera Kamara, at 13:12 EDT , Service support , Chest X-Ray 08/22/18 06:49 IMPRESSION: Mild increased markings in the right frontal region and left midlung. Follow-up is recommended. Electronically Signed: Cabrera Kamara, at 8:17 EDT , Service support , Medical Necessity - Tobacco Use Smoking Status: Current every day smoker Tobacco Use: Cigarettes Assessment/Plan All Active Problems Acute on recurrent pancreatitis (Acute) Septic shock (Acute) Bradycardia (Acute) RECOMMENDATIONS: 1. Continue lower extremity SCDs, in lieu of heparin containing products, given thrombocytopenia. 2. Continue meropenem as ordered. 3. If the patient once again requires vasopressor support in the next 24 hours, would need to consider obtaining MRCP per ID recommendations. 4. Continue to monitor CBC daily, with plans to transfuse if hemoglobin is less than 7 g/dL. 5. Continue to monitor in the intensive care setting yet today. IMPRESSIONS: 1. Gram Negative Septic shock Although the patient's antibiotics were discontinued upon admission to the ICU, I was concerned for underlying sepsis as compared to acute on chronic pancreatitis, as the patient had a normal lipase level, along with an elevated white blood cell count and continued need for vasopressor support, despite adequate volume resuscitation. In addition, the patient's CT abdomen completed at the outside hospital prior to transfer only revealed sequelae of chronic pancreatitis. My concern would be for some form of intra-abdominal infectious process. Subsequent preliminary blood culture results from [facility], dated 08/20, were positive from gram negative rods. The patient has been maintained on antibiotics with the assistance of infectious diseases. 2. Recently diagnosed prostate cancer CT abdomen did report concerns for bladder outlet obstruction. Urology was consulted with only outpatient follow-up recommended. 3. Anemia/Thrombocytopenia Continue to monitor CBC daily. Plan to transfuse for Hgb less than 7 g/dL. Given that the patient's platelet count dropped over the course of the hospital admission, his Lovenox was discontinued and he was placed on SCDs. The patient was evaluated by general surgery due to iron deficiency anemia. There are plans for both upper and lower endoscopy early next week if the patient is still admitted to the hospital. 4. Personal history of chronic pancreatitis Abdominal ultrasound was largely unrevealing. The patient's diet has been advanced without issue. Continue Creon. 5. GERD/tobacco dependency Complicates care, management, recovery and prognosis. Okay to continue PPI therapy. The patient does not wish to have any form of nicotine replacement therapy ordered. Smoking cessation is advisable. This note was generated with [employer] dictation software. It may contain incorrect words, spelling, and punctuation that were not noted in checking the note before signing. Code Visit Inpatient E&M: 12068 Subs Hosp L3
--- NOTE | 2018-08-24 06:42 | PN_ITS ---
Subjective: The patient was seen and examined at the bedside this morning. Events from the last 24 hours have been reviewed. The patient was last noted to be febrile last evening with a temperature of 100.4 ?F. He once again became hypotensive yesterday afternoon, requiring the need to restart levophed. However, the patient's vasopressor support was able to be weaned off at 930 last evening. The patient remains hemodynamically stable this morning on room air. The patient remains pancytopenic. Due to the need to restart the patient's vasopressor support yesterday, his Zosyn was discontinued and he was broadened to meropenem. This morning, the patient reports feeling well. He only reports a mild degree of residual abdominal pain. Objective: The patient's most recent lab work, culture data and imaging studies have all been personally reviewed. Preliminary blood culture results from [facility], dated 08/20, were positive for gram negative rods. Urine culture has demonstrated no growth to date. Repeat blood cultures are currently pending. Stool for occult blood was negative. Abdominal ultrasound dated August 21 revealed hepatomegaly. General: Alert, Oriented x3, Cooperative, No apparent distress HEENT: Atraumatic, PERRLA, Normocephalic Oral: No Gingival or Mucosal Lesions/ Ulcerations Neck: Supple, No Nodes, Trachea Midline Lungs: Normal air movement, No rhonchi, No wheeze, No rales Cardiovascular: Normal S1, Normal S2, No murmurs, Bradycardic Abdomen: Bowel Sounds Present, Soft, - - Mild abdominal tenderness. No rebound, guarding or rigidity. Extremities: No clubbing, No cyanosis, No edema Skin: No breakdown Musculoskeletal: No Tenderness to Palpation of Joints or Extremities Lymphatic: No Cervical, Supraclavicular, or Inguinal Adenopathy Neurological: Cranial nerves II-XII grossly intact, Neuro grossly intact Psych/Mental Status: Alert and oriented to time, place, person, mood and affect Vital Signs Temp Pulse Resp BP Pulse Ox 97.9 F 39 L 14 121/50 H 99 08/24/18 02:00 08/24/18 06:00 08/24/18 06:00 08/24/18 06:00 08/24/18 06:00 Oxygen Delivery Method Room Air Weight: 177 lb 14.609 oz Body Mass Index (BMI) 23.2 Intake and Output for Last 24 Hours 08/22/18 08/23/18 08/24/18 23:59 23:59 23:59 Intake Total 4284.3 / 4284.3 3471 / 3471 860.1 / 860.1 Output Total 3550 / 3550 3100 / 3100 1600 / 1600 Balance 734.3 / 734.3 371 / 371 -739.9 / -739.9 Labs (Last 48 Hours) 08/22/18 08/22/18 08/23/18 04:30 07:45 04:00 WBC 3.9 L RBC 2.78 L Hgb 8.2 L Hct 26.0 L MCV 93.5 MCH 29.5 MCHC 31.5 L RDW 13.8 RDW Differential 45.6 H Plt Count 64 L MPV 13.9 H Immature Gran % (Auto) 0.000 Neut % (Auto) 89.5 H Lymph % (Auto) 6.[address] [place] % (Auto) 2.6 Eos % (Auto) 0.5 Baso % (Auto) 0.5 Absolute Neuts (auto) 3.5 Absolute Lymphs (auto) 0.27 L Total Counted Not Reportable Differential Comment Sodium Potassium Chloride Carbon Dioxide Anion Gap BUN Creatinine Estim Creat Clear Calc Est GFR (MDRD) Af Amer Est GFR (MDRD) Non-Af BUN/Creatinine Ratio Glucose Lactic Acid Calcium Magnesium Iron 8 L TIBC 256 Iron Saturation 3.1 L Ferritin 62 Total Bilirubin AST ALT Alkaline Phosphatase Lactate Dehydrogenase Total Protein Albumin Globulin Albumin/Globulin Ratio Blood Type A NEGATIVE Antibody Screen NEGATIVE 08/23/18 08/23/18 08/23/18 04:00 04:00 14:55 WBC RBC Hgb Hct MCV MCH MCHC RDW RDW Differential Plt Count MPV Immature Gran % (Auto) Neut % (Auto) Lymph % (Auto) [place] % (Auto) Eos % (Auto) Baso % (Auto) Absolute Neuts (auto) Absolute Lymphs (auto) Total Counted Differential Comment Sodium 141 Potassium 3.3 L Chloride 111 H Carbon Dioxide 22.0 Anion Gap 8 BUN 8 Creatinine 1.28 Estim Creat Clear Calc 56.41 Est GFR (MDRD) Af Amer 71 Est GFR (MDRD) Non-Af 58 L BUN/Creatinine Ratio 6.2 L Glucose 206 H Lactic Acid 1.8 Calcium 7.3 L Magnesium 1.8 Iron TIBC Iron Saturation Ferritin Total Bilirubin 0.50 AST 19 ALT 48 Alkaline Phosphatase 116 Lactate Dehydrogenase 184 Total Protein 5.2 L Albumin 2.1 L Globulin 3.1 Albumin/Globulin Ratio 0.7 L Blood Type Antibody Screen 08/24/18 08/24/18 04:05 04:05 WBC 2.9 L RBC 2.80 L Hgb 8.5 L Hct 25.9 L MCV 92.5 MCH 30.4 MCHC 32.8 RDW 14.0 RDW Differential 47.4 H Plt Count 68 L MPV 13.4 H Immature Gran % (Auto) 0.300 Neut % (Auto) 65.4 Lymph % (Auto) 21.1 [place] % (Auto) 8.0 Eos % (Auto) 5.2 H Baso % (Auto) 0.0 Absolute Neuts (auto) 1.9 L Absolute Lymphs (auto) 0.61 L Total Counted Not Reportable Differential Comment Sodium 145 Potassium 3.7 Chloride 116 H Carbon Dioxide 24.0 Anion Gap 5 BUN 6 L Creatinine 0.87 Estim Creat Clear Calc 83.00 Est GFR (MDRD) Af Amer 110 Est GFR (MDRD) Non-Af 91 BUN/Creatinine Ratio 6.9 L Glucose 98 Lactic Acid Calcium 7.6 L Magnesium 2.0 Iron TIBC Iron Saturation Ferritin Total Bilirubin 0.40 AST 17 ALT 41 Alkaline Phosphatase 105 Lactate Dehydrogenase Total Protein 5.3 L Albumin 2.0 L Globulin 3.3 Albumin/Globulin Ratio 0.6 L Blood Type Antibody Screen Microbiology 08/21/18 08:04 Urine Catheter - Salazar Urine Culture - Final Culture exhibits no growth. 08/21/18 02:45 Blood Culture (Wb) - Left Forearm Blood Culture - Preliminary No growth in 48 hours. 08/21/18 02:35 Blood Culture (Wb) - Central Line Blood Culture - Preliminary No growth in 48 hours. 08/22/18 13:00 Stool Stool Occult Blood (JAYDON) - Final Clinical Impression(s) from Imaging Studies Chest X-Ray 08/21/18 01:41 IMPRESSION: Normal x-ray examination of the chest. No acute findings in the lungs Electronically Signed: Ashok Vallecillo MD at 6:38 EDT Tel , Service support , Abdomen Ultrasound 08/21/18 05:55 IMPRESSION: Hepatomegaly. Status post cholecystectomy. Electronically Signed: Cabrera Kamara, at 13:12 EDT , Service support , Chest X-Ray 08/22/18 06:49 IMPRESSION: Mild increased markings in the right frontal region and left midlung. Follow-up is recommended. Electronically Signed: Cabrera Kamara, at 8:17 EDT , Service support , Medical Necessity - Tobacco Use Smoking Status: Current every day smoker Tobacco Use: Cigarettes Assessment/Plan All Active Problems Acute on recurrent pancreatitis (Acute) Septic shock (Acute) Bradycardia (Acute) RECOMMENDATIONS: 1. Continue lower extremity SCDs, in lieu of heparin containing products, given thrombocytopenia. 2. Continue meropenem as ordered. 3. If the patient once again requires vasopressor support in the next 24 hours, would need to consider obtaining MRCP per ID recommendations. 4. Continue to monitor CBC daily, with plans to transfuse if hemoglobin is less than 7 g/dL. 5. Continue to monitor in the intensive care setting yet today. IMPRESSIONS: 1. Gram Negative Septic shock Although the patient's antibiotics were discontinued upon admission to the ICU, I was concerned for underlying sepsis as compared to acute on chronic pancreatitis, as the patient had a normal lipase level, along with an elevated white blood cell count and continued need for vasopressor support, despite adequate volume resuscitation. In addition, the patient's CT abdomen completed at the outside hospital prior to transfer only revealed sequelae of chronic pancreatitis. My concern would be for some form of intra-abdominal infectious process. Subsequent preliminary blood culture results from [facility] 08[facility], were positive from gram negative rods. The patient has been maintained on antibiotics with the assistance of infectious diseases. 2. Recently diagnosed prostate cancer CT abdomen did report concerns for bladder outlet obstruction. Urology was consulted with only outpatient follow-up recommended. 3. Anemia/Thrombocytopenia Continue to monitor CBC daily. Plan to transfuse for Hgb less than 7 g/dL. Given that the patient's platelet count dropped over the course of the hospital admission, his Lovenox was discontinued and he was placed on SCDs. The patient was evaluated by general surgery due to iron deficiency anemia. There are plans for both upper and lower endoscopy early next week if the patient is still admitted to the hospital. 4. Personal history of chronic pancreatitis Abdominal ultrasound was largely unrevealing. The patient's diet has been advanced without issue. Continue Creon. 5. GERD/tobacco dependency Complicates care, management, recovery and prognosis. Okay to continue PPI therapy. The patient does not wish to have any form of nicotine replacement therapy ordered. Smoking cessation is advisable. This note was generated with [employer] dictation software. It may contain incorrect words, spelling, and punctuation that were not noted in checking the note before signing. Code Visit Inpatient E&M: 79817 Subs Hosp L3
--- NOTE | 2018-08-24 09:33 | PCM.PN.HOSP ---
Patient Problems: Active and Suspected Problems Acute on recurrent pancreatitis (Acute) Septic shock (Acute) Bradycardia (Acute) Subjective: Patient seen and examined. He had no complaints. REview of systems was otherwise negative. Labs and vitals reviewed. Patient noted to be bradycardic and heart rate goes down as low as the 30s. He is asymptomatic though he must be stated that he has pretty much been lying in bed since he was admitted. Cartilage on board. He had to go back on Levophed last night and had a bit of fever so antibiotics were broadened to IV meropenem. He is now off of Levophed. Vitals/I&O's: Vital Signs Temp Pulse Resp BP Pulse Ox 97.8 F 43 L 17 116/52 L 97 08/24/18 08:00 08/24/18 08:00 08/24/18 08:00 08/24/18 08:00 08/24/18 08:00 Oxygen Delivery Method Room Air Weight: 177 lb 14.609 oz Body Mass Index (BMI) 23.2 Intake and Output for Last 24 Hours 08/22/18 08/23/18 08/24/18 23:59 23:59 23:59 Intake Total 4284.3 / 4284.3 3471 / 3471 860.1 / 860.1 Output Total 3550 / 3550 3100 / 3100 1600 / 1600 Balance 734.3 / 734.3 371 / 371 -739.9 / -739.9 General: Alert, Oriented x3, Cooperative, No apparent distress HEENT: Atraumatic, PERRLA, EOMI, Normocephalic Oral: moist mucosa Neck: Supple, No JVD, Negative Carotid Bruits Lungs: Clear to auscultation, Normal air movement, No rhonchi, No wheeze, No rales Cardiovascular: Regular Rhythm, bradycardia Normal S1, Normal S2, No murmurs Abdomen: Bowel Sounds Present, Soft, nontender; no guarding or rebound tenderness Extremities: No clubbing, No cyanosis, No edema, Capillary Refill Less than 3 Seconds Skin: No rashes, No breakdown Musculoskeletal: No Tenderness to Palpation of Joints or Extremities; PICC line in RUE Lymphatic: No Cervical, Supraclavicular, or Inguinal Adenopathy Neurological: Cranial nerves II-XII grossly intact, Neuro grossly intact, Motor Exam 5/5 strength throughout Psych/Mental Status: Normal Affect, Appropriate, Alert and oriented to time, place, person, mood and affect Microbiology Past 72 Hours 08/21/18 08:04 Urine Catheter - Salazar Urine Culture - Final Culture exhibits no growth. 08/21/18 02:45 Blood Culture (Wb) - Left Forearm Blood Culture - Preliminary No growth in 48 hours. 08/21/18 02:35 Blood Culture (Wb) - Central Line Blood Culture - Preliminary No growth in 48 hours. 08/22/18 13:00 Stool Stool Occult Blood (JAYDON) - Final Laboratory Results 08/23/18 04:00: Differential Comment 08/23/18 04:00: Lactate Dehydrogenase 184 08/23/18 14:55: Lactic Acid 1.8 08/24/18 04:05: WBC 2.9 L, RBC 2.80 L, Hgb 8.5 L, Hct 25.9 L, MCV 92.5, MCH 30.4, MCHC 32.8, RDW 14.0, RDW Differential 47.4 H, Plt Count 68 L, MPV 13.4 H, Immature Gran % (Auto) 0.300, Neut % (Auto) 65.4, Lymph % (Auto) 21.1, [place] % (Auto) 8.0, Eos % (Auto) 5.2 H, Baso % (Auto) 0.0, Absolute Neuts (auto) 1.9 L, Absolute Lymphs (auto) 0.61 L, Total Counted Not Reportable 08/24/18 04:05: Sodium 145, Potassium 3.7, Chloride 116 H, Carbon Dioxide 24.0, Anion Gap 5, BUN 6 L, Creatinine 0.87, Estim Creat Clear Calc 83.00, Est GFR (MDRD) Af Amer 110, Est GFR (MDRD) Non-Af 91, BUN/Creatinine Ratio 6.9 L, Glucose 98, Calcium 7.6 L, Magnesium 2.0, Total Bilirubin 0.40, AST 17, ALT 41, Alkaline Phosphatase 105, Total Protein 5.3 L, Albumin 2.0 L, Globulin 3.3, Albumin/Globulin Ratio 0.6 L Current Medications Dextrose (D50w Syringe) 0 gm IV X1 PRN; Protocol PRN Reason: Hypoglycemia Glucagon () 1 mg IM .X1 PRN PRN Reason: Hypoglycemia Sodium Chloride () 250 mls @ 15 mls/hr IV .[id number] PRN PRN Reason: SALINE FLUSH Last Admin: 08/23/18 05:26 Dose: 15 mls/hr Pantoprazole Sodium 40 mg/ (Sodium Chloride) 110 mls @ 330 mls/hr IV Q24 [facility] Last Admin: 08/24/18 09:27 Dose: 330 mls/hr Meropenem 1 gm/ Sodium (Chloride) 120 mls @ 33 mls/hr IV Q8 [facility] Last Admin: 08/24/18 05:25 Dose: 33 mls/hr Norepinephrine Bitartrate 8 mg (/ Sodium Chloride) 250 mls @ 9.38 mls/hr CONT INF .[id number] [facility] Last Admin: 08/23/18 22:57 Dose: Not Given Ibuprofen (Motrin) 400 mg PO Q6H PRN PRN PRN Reason: MILD PAIN (1-3) Last Admin: 08/24/18 05:26 Dose: 400 mg Pancrelipase (Creon Dr 12,000 Unit Capsule) 2 capsule PO TIDCM [facility] Last Admin: 08/24/18 08:39 Dose: 2 capsule Senna/Docusate Sodium (Senokot-S, [place]-Colace) 2 tablet PO BID PRN PRN PRN Reason: Constipation Sodium Chloride () 5 - 15 ml IV UD PRN PRN Reason: SALINE FLUSH Last Admin: 08/22/18 12:35 Dose: 10 ml Sodium Chloride () 10 - 40 ml IV UD PRN PRN Reason: MULTILUMEN/HICMAN CATH FLUSH Last Admin: 08/22/18 05:35 Dose: 20 ml Medical Necessity - Tobacco Use Smoking Status: Current every day smoker Tobacco Use: Cigarettes Assessment/Plan All Active Problems Acute on recurrent pancreatitis (Acute) Septic shock (Acute) Bradycardia (Acute) 1. Septic shock due to acute pancreatitis had to go back on levophed last night; now off levophed this morning antibiotics broadened to IV meropenem preliminary blood cultures from [facility] for gram negative rods (08/20/18) continue IV vancomycin adn zosyn. blood cultures here negative x 48 hours continue Creon repeat blood cultures pending 2. Acute on chronic pancreatitis as under 1. 3. Sinus Bradycardia HR has remained down in 40s and 30s cardiology consulted. Per cadrdiology rec's, since patient is asymptomatic, to monitor closely. patient is asymptomatic will consult cardiology 4. Hypomagnesemia:resolved. 5. Hyperkalemia: resolved. 6. Hypokalemia: resolved. 7.Elevated liver enzymes: resolving. liver enzymes have trended down. 8. Iron deficiency Anemia: Hb dropped to 8.2 from 9,4 on admission. Hb is now 8.5. Has remained stable. No baseline available, though says it was normal a few weeks ago. Iron panel shows iron deficiency anemia. last colonoscopy was in 2012, and was normal. Dr Laguerre consulted- to have EGD and colonoscopy on Saturday if patient is still in hospital; if otherwise, to follow-up with general surgery in outpatient basis. 9. Pancytopenia anemia as under 8. Platelets are 68 today, and wbc is down to 2.9 will monitor. On SCDs. 10. GERD: on IV pantoprazole 9. History of prostate cancer: recently diagnosed. to follow up with urology on outpatient basis 10. Nicotine abuse: counseled to quit DVT prophylaxis:SCDs Code Visit Inpatient E&M: 93400 Subs Hosp L3
--- NOTE | 2018-08-24 09:39 | PN_ITS ---
Patient Problems: Active and Suspected Problems Acute on recurrent pancreatitis (Acute) Septic shock (Acute) Bradycardia (Acute) Subjective: Patient seen and examined. He had no complaints. REview of systems was otherwise negative. Labs and vitals reviewed. Patient noted to be bradycardic and heart rate goes down as low as the 30s. He is asymptomatic though he must be stated that he has pretty much been lying in bed since he was admitted. Cartilage on board. He had to go back on Levophed last night and had a bit of fever so antibiotics were broadened to IV meropenem. He is now off of Levophed. Vitals/I&O's: Vital Signs Temp Pulse Resp BP Pulse Ox 97.8 F 43 L 17 116/52 L 97 08/24/18 08:00 08/24/18 08:00 08/24/18 08:00 08/24/18 08:00 08/24/18 08:00 Oxygen Delivery Method Room Air Weight: 177 lb 14.609 oz Body Mass Index (BMI) 23.2 Intake and Output for Last 24 Hours 08/22/18 08/23/18 08/24/18 23:59 23:59 23:59 Intake Total 4284.3 / 4284.3 3471 / 3471 860.1 / 860.1 Output Total 3550 / 3550 3100 / 3100 1600 / 1600 Balance 734.3 / 734.3 371 / 371 -739.9 / -739.9 General: Alert, Oriented x3, Cooperative, No apparent distress HEENT: Atraumatic, PERRLA, EOMI, Normocephalic Oral: moist mucosa Neck: Supple, No JVD, Negative Carotid Bruits Lungs: Clear to auscultation, Normal air movement, No rhonchi, No wheeze, No rales Cardiovascular: Regular Rhythm, bradycardia Normal S1, Normal S2, No murmurs Abdomen: Bowel Sounds Present, Soft, nontender; no guarding or rebound tenderness Extremities: No clubbing, No cyanosis, No edema, Capillary Refill Less than 3 Seconds Skin: No rashes, No breakdown Musculoskeletal: No Tenderness to Palpation of Joints or Extremities; PICC line in RUE Lymphatic: No Cervical, Supraclavicular, or Inguinal Adenopathy Neurological: Cranial nerves II-XII grossly intact, Neuro grossly intact, Motor Exam 5/5 strength throughout Psych/Mental Status: Normal Affect, Appropriate, Alert and oriented to time, place, person, mood and affect Microbiology Past 72 Hours 08/21/18 08:04 Urine Catheter - Salazar Urine Culture - Final Culture exhibits no growth. 08/21/18 02:45 Blood Culture (Wb) - Left Forearm Blood Culture - Preliminary No growth in 48 hours. 08/21/18 02:35 Blood Culture (Wb) - Central Line Blood Culture - Preliminary No growth in 48 hours. 08/22/18 13:00 Stool Stool Occult Blood (JAYDON) - Final Laboratory Results 08/23/18 04:00: Differential Comment 08/23/18 04:00: Lactate Dehydrogenase 184 08/23/18 14:55: Lactic Acid 1.8 08/24/18 04:05: WBC 2.9 L, RBC 2.80 L, Hgb 8.5 L, Hct 25.9 L, MCV 92.5, MCH 30.4, MCHC 32.8, RDW 14.0, RDW Differential 47.4 H, Plt Count 68 L, MPV 13.4 H, Immature Gran % (Auto) 0.300, Neut % (Auto) 65.4, Lymph % (Auto) 21.1, [place] % (Auto) 8.0, Eos % (Auto) 5.2 H, Baso % (Auto) 0.0, Absolute Neuts (auto) 1.9 L, Absolute Lymphs (auto) 0.61 L, Total Counted Not Reportable 08/24/18 04:05: Sodium 145, Potassium 3.7, Chloride 116 H, Carbon Dioxide 24.0, Anion Gap 5, BUN 6 L, Creatinine 0.87, Estim Creat Clear Calc 83.00, Est GFR (MDRD) Af Amer 110, Est GFR (MDRD) Non-Af 91, BUN/Creatinine Ratio 6.9 L, Glucose 98, Calcium 7.6 L, Magnesium 2.0, Total Bilirubin 0.40, AST 17, ALT 41, Alkaline Phosphatase 105, Total Protein 5.3 L, Albumin 2.0 L, Globulin 3.3, Albumin/Globulin Ratio 0.6 L Current Medications Dextrose (D50w Syringe) 0 gm IV X1 PRN; Protocol PRN Reason: Hypoglycemia Glucagon () 1 mg IM .X1 PRN PRN Reason: Hypoglycemia Sodium Chloride () 250 mls @ 15 mls/hr IV .[id number] PRN PRN Reason: SALINE FLUSH Last Admin: 08/23/18 05:26 Dose: 15 mls/hr Pantoprazole Sodium 40 mg/ (Sodium Chloride) 110 mls @ 330 mls/hr IV Q24 [facility] [place] Last Admin: 08/24/18 09:27 Dose: 330 mls/hr Meropenem 1 gm/ Sodium (Chloride) 120 mls @ 33 mls/hr IV Q8 [facility] Last Admin: 08/24/18 05:25 Dose: 33 mls/hr Norepinephrine Bitartrate 8 mg (/ Sodium Chloride) 250 mls @ 9.38 mls/hr CONT INF .[id number] [facility] [place] Last Admin: 08/23/18 22:57 Dose: Not Given Ibuprofen (Motrin) 400 mg PO Q6H PRN PRN PRN Reason: MILD PAIN (1-310) Last Admin: 08/24/18 05:26 Dose: 400 mg Pancrelipase (Creon Dr 12,000 Unit Capsule) 2 capsule PO TIDCM [facility] [place] Last Admin: 08/24/18 08:39 Dose: 2 capsule Senna/Docusate Sodium (Senokot-S, [place]-Colace) 2 tablet PO BID PRN PRN PRN Reason: Constipation Sodium Chloride () 5 - 15 ml IV UD PRN PRN Reason: SALINE FLUSH Last Admin: 08/22/18 12:35 Dose: 10 ml Sodium Chloride () 10 - 40 ml IV UD PRN PRN Reason: MULTILUMEN/HICMAN CATH FLUSH Last Admin: 08/22/18 05:35 Dose: 20 ml Medical Necessity - Tobacco Use Smoking Status: Current every day smoker Tobacco Use: Cigarettes Assessment/Plan All Active Problems Acute on recurrent pancreatitis (Acute) Septic shock (Acute) Bradycardia (Acute) 1. Septic shock due to acute pancreatitis * had to go back on levophed last night; now off levophed this morning * antibiotics broadened to IV meropenem * preliminary blood cultures from [facility] for gram negative rods (08/20/18) * continue IV vancomycin adn zosyn. * blood cultures here negative x 48 hours * continue Creon * repeat blood cultures pending * 2. Acute on chronic pancreatitis * as under 1. * 3. Sinus Bradycardia * HR has remained down in 40s and 30s * cardiology consulted. Per cadrdiology rec's, since patient is asymptomatic, to monitor closely. * patient is asymptomatic * will consult cardiology * 4. Hypomagnesemia:resolved. 5. Hyperkalemia: resolved. 6. Hypokalemia: resolved. 7.Elevated liver enzymes: resolving. liver enzymes have trended down. 8. Iron deficiency Anemia: * Hb dropped to 8.2 from 9,4 on admission. Hb is now 8.5. Has remained stable. No baseline available, though says it was normal a few weeks ago. * Iron panel shows iron deficiency anemia. * last colonoscopy was in 2012, and was normal. * Dr Laguerre consulted- to have EGD and colonoscopy on Saturday if patient is still in hospital; if otherwise, to follow-up with general surgery in outpatient basis. 9. Pancytopenia * anemia as under 8. Platelets are 68 today, and wbc is down to 2.9 * will monitor. On SCDs. * 10. GERD: on IV pantoprazole 9. History of prostate cancer: recently diagnosed. to follow up with urology on outpatient basis 10. Nicotine abuse: counseled to quit DVT prophylaxis:SCDs Code Visit Inpatient E&M: 97371 Subs Hosp L3
--- NOTE | 2018-08-24 12:51 | PCM.PN.BLA ---
Progress Note Heart rate in the high 30s last night while asleep. Presently in the high 40s to 50s. Sinus bradycardia. Continue to monitor. Check 2D echocardiogram with Doppler. If patient remains in sinus bradycardia, will recommend 48-hour Holter after discharge home.
--- NOTE | 2018-08-24 12:53 | ECHOD_ITS ---
Reason For Study: Arrhythmia Procedure This was a 2D Doppler, Color Flow transthoracic echocardiogram. Exam performed portable in ICU/CCU. Left Ventricle Normal LV size. Left ventricular systolic function is normal. The estimated ejection fraction is 55 %. Stage 1 diastolic dysfunction. No regional wall motion abnormalities noted. Right Ventricle Normal RV size. Normal systolic function. Atria Normal left atrium. The right atrium is mildly enlarged. Mitral Valve Normal mitral valve. Mild (1+) eccentric mitral valve insufficiency. Tricuspid Valve Normal tricuspid valve. Mild tricuspid valve insufficiency. Aortic Valve Normal aortic valve. Trisinus/trileaflet aortic valve. Mild (1+) aortic valve insufficiency. Pulmonic Valve Normal pulmonic valve. Great Vessels Normal aortic root. The pulmonary artery is normal size. Normal inferior vena cava. Pericardium/Pleural No pericardial effusion. MMode/2D Measurements & Calculations LVIDd: 4.9 cm IVSd: 1.2 cm Ao root diam: 3.7 cm LVIDs: 2.9 cm LVPWd: 1.1 cm RVDd: 3.8 cm FS: 41.7 % LAV(MOD-bp): 48.9 ml LVAd ap4: 38.5 cm2 SV(MOD-sp4): 87.9 ml LAV(MOD-bp) Indexed: 24.1 ml/m2 EDV(MOD-sp4): 135.0 ml LAV(MOD-sp2): 44.9 ml EDV(sp4-el): 139.2 ml LAV(MOD-sp4): 49.9 ml LVAs ap4: 20.7 cm2 ESV(MOD-sp4): 47.0 ml ESV(sp4-el): 47.9 ml EF(MOD-sp4): 65.2 % EF(sp4-el): 65.6 % SV(sp4-el): 91.3 ml LA A4 area: 19.5 cm2 LA dimension(2D): 3.3 cm RA A4 area: 22.5 cm2 Doppler Measurements & Calculations MV E max lane: 90.7 cm/sec Lat Peak E' Lane: 12.2 cm/sec Med Peak E' Lane: 9.8 cm/sec MV A max lane: 109.5 cm/sec E/E' lat: 7.4 E/E' med: 9.3 MV E/A: 0.83 Ao V2 max: 137.7 cm/sec AI max lane: 354.1 cm/sec LV V1 max: 124.2 cm/sec Ao max P.6 mmHg AI max P.2 mmHg LV V1 max P.2 mmHg AI dec slope: 138.8 cm/sec2 AI P1/2t: 747.3 msec PA V2 max: 121.2 cm/sec Interpretation Summary Normal LV size. Left ventricular systolic function is normal. The estimated ejection fraction is 55 %. No regional wall motion abnormalities noted. Stage 1 diastolic dysfunction. Mild (1+) eccentric mitral valve insufficiency. Mild (1+) aortic valve insufficiency. Ordering Physician: Solo Estrada Referring Physician: Noah Garber Performed By: Esperanza Pulliam RDCS
[2018-08-24] MEDS: 0.9% NaCl IVPB Med Flush (250 mL) 15 ML IV (21:27)
[2018-08-25] VITALS (19 sets, daily range): BP systolic 112–150; BP diastolic 44–67; PULSE 41–64; RESP 10–26; TEMP 36.2–37.4; O2SAT 96–100
[2018-08-25] MEDS: MELATONIN 3 MG TABLET PO (02:03)
[2018-08-25] MEDS: Alteplase 2 MG/2 ML Vial IV (02:06)
--- NOTE | 2018-08-25 02:25 | NURSING ---
Cathflo instilled into clogged lumen at 2:10.
--- NOTE | 2018-08-25 06:40 | PN_ITS ---
Subjective: Patient did well overnight. No acute issues were reported. Patient reports abdominal pain, but states this is not significantly different from previous episodes of pancreatitis. Patient denies any nausea or vomiting. Patient able to sit in the bedside chair without difficulty. General: Alert, Oriented x3, Cooperative, No apparent distress, Well developed, Well nourished, - - No conversational dyspnea. HEENT: Atraumatic, PERRLA, EOMI, Normocephalic, - - No scleral icterus or injection noted. Oral: Moist Mucosa, No Gingival or Mucosal Lesions/ Ulcerations Neck: Supple, No JVD, No Nodes, Trachea Midline Lungs: No rhonchi, No wheeze, No rales, Diminished, - - Symmetric expansion. No dullness to percussion. Cardiovascular: Regular rate, Regular Rhythm, Normal S1, Normal S2, No murmurs, No rub noted, No Gallop Abdomen: Bowel Sounds Present, Soft, Non Tender, Non-Distended Extremities: No clubbing, No cyanosis, No edema, Capillary Refill Less than 3 Seconds Skin: No rashes, No breakdown Musculoskeletal: No Tenderness to Palpation of Joints or Extremities Lymphatic: No Cervical, Supraclavicular, or Inguinal Adenopathy Neurological: Cranial nerves II-XII grossly intact, Neuro grossly intact, Motor Exam 5/5 strength throughout Psych/Mental Status: Alert and oriented to time, place, person, mood and affect Vital Signs Temp Pulse Resp BP Pulse Ox 36.5 C L 48 L 13 128/64 H 98 08/25/18 04:00 08/25/18 06:00 08/25/18 06:00 08/25/18 06:00 08/25/18 06:00 Oxygen Delivery Method Room Air Weight: 80.2 kg Body Mass Index (BMI) 23.2 Intake and Output for Last 24 Hours 08/23/18 08/24/18 08/25/18 23:59 23:59 23:59 Intake Total 3471 / 3471 2089.1 / 2089.1 78.1 / 78.1 Output Total 3100 / 3100 1900 / 1900 200 / 200 Balance 371 / 371 189.1 / 189.1 -121.9 / -121.9 Labs (Last 48 Hours) 08/23/18 08/23/18 08/23/18 04:00 04:00 14:55 WBC RBC Hgb Hct MCV MCH MCHC RDW RDW Differential Plt Count MPV Immature Gran % (Auto) Neut % (Auto) Lymph % (Auto) [place] % (Auto) Eos % (Auto) Baso % (Auto) Absolute Neuts (auto) Absolute Lymphs (auto) Total Counted Differential Comment Sodium Potassium Chloride Carbon Dioxide Anion Gap BUN Creatinine Estim Creat Clear Calc Est GFR (MDRD) Af Amer Est GFR (MDRD) Non-Af BUN/Creatinine Ratio Glucose Lactic Acid 1.8 Calcium Magnesium Total Bilirubin AST ALT Alkaline Phosphatase Lactate Dehydrogenase 184 Total Protein Albumin Globulin Albumin/Globulin Ratio 08/24/18 08/24/18 04:05 04:05 WBC 2.9 L RBC 2.80 L Hgb 8.5 L Hct 25.9 L MCV 92.5 MCH 30.4 MCHC 32.8 RDW 14.0 RDW Differential 47.4 H Plt Count 68 L MPV 13.4 H Immature Gran % (Auto) 0.300 Neut % (Auto) 65.4 Lymph % (Auto) 21.1 [place] % (Auto) 8.0 Eos % (Auto) 5.2 H Baso % (Auto) 0.0 Absolute Neuts (auto) 1.9 L Absolute Lymphs (auto) 0.61 L Total Counted Not Reportable Differential Comment Sodium 145 Potassium 3.7 Chloride 116 H Carbon Dioxide 24.0 Anion Gap 5 BUN 6 L Creatinine 0.87 Estim Creat Clear Calc 83.00 Est GFR (MDRD) Af Amer 110 Est GFR (MDRD) Non-Af 91 BUN/Creatinine Ratio 6.9 L Glucose 98 Lactic Acid Calcium 7.6 L Magnesium 2.0 Total Bilirubin 0.40 AST 17 ALT 41 Alkaline Phosphatase 105 Lactate Dehydrogenase Total Protein 5.3 L Albumin 2.0 L Globulin 3.3 Albumin/Globulin Ratio 0.6 L Microbiology 08/21/18 08:04 Urine Catheter - Salazar Urine Culture - Final Culture exhibits no growth. 08/21/18 02:45 Blood Culture (Wb) - Left Forearm Blood Culture - Preliminary No growth in 48 hours. 08/21/18 02:35 Blood Culture (Wb) - Central Line Blood Culture - Preliminary No growth in 48 hours. Medical Necessity - Tobacco Use Smoking Status: Current every day smoker Tobacco Use: Cigarettes Assessment/Plan All Active Problems Acute on recurrent pancreatitis (Acute) Septic shock (Acute) Bradycardia (Acute) RECOMMENDATIONS: 1. Continue lower extremity SCDs, in lieu of heparin containing products, given thrombocytopenia. 2. Continue meropenem as ordered until evaluated by infectious disease 3. Okay to leave the intensive care unit from my perspective 4. Continue to monitor CBC daily, with plans to transfuse if hemoglobin is less than 7 g/dL. 5. Defer to infectious disease on MRCP. IMPRESSIONS: 1. Gram Negative Septic shock Patient appears to have responded well over the last 24 hours. No pressors have been required. Patient does currently receive meropenem, but cultures have been negative to this point. Some concern for spontaneous bacterial peritonitis. Patient reportedly did have gram-negative rods noted in blood culture at outside facility. We will continue with current antibiotics until seen by infectious disease. 2. Recently diagnosed prostate cancer CT abdomen did report concerns for bladder outlet obstruction. Urology was consulted with only outpatient follow-up recommended. 3. Anemia/Thrombocytopenia Continue to monitor CBC daily. Plan to transfuse for Hgb less than 7 g/dL. Given that the patient's platelet count dropped over the course of the hospital admission, his Lovenox was discontinued and he was placed on SCDs. The patient was evaluated by general surgery due to iron deficiency anemia. There are plans for both upper and lower endoscopy early next week if the patient is still admitted to the hospital. 4. Personal history of chronic pancreatitis Abdominal ultrasound was largely unrevealing. The patient's diet has been advanced without issue. Continue Creon. 5. GERD/tobacco dependency Complicates care, management, recovery and prognosis. Okay to continue PPI therapy. The patient does not wish to have any form of nicotine replacement therapy ordered. Smoking cessation is advisable. Code Visit Inpatient E&M: 12087 Subs Hosp L2
[2018-08-25 07:57] LABS: Absolute Lymphocyte Count 0.69 X10^3/ul (0.83-4.51); Absolute Neutrophil Count 2.3 X10^3/uL (2.0-7.7); Basophil# 0.01 X10^3/uL; Basophil% 0.3 % (0-1); Eosinophil# 0.14 X10^3/uL; Hematocrit 28.2 % (40-54); Hemoglobin 8.9 g/dl (13.0-16.5); Lymphocyte # 0.69 X10^3/ul (4.0); Lymphocyte % 19.8 % (19-41); Mean Corp Hgb Conc 31.6 g/gl (32-36); Mean Corpuscular Hgb 29.4 pg (27.0-32.0); Mean Corpuscular Volume 93.1 fL (80-94); Mean Platelet Vol. 12.7 fl (6.2-12.0); Monocyte# 0.32 X10^3/uL; Monocyte% 9.2 % (0-10); Neutrophil # 2.31 X10^3/uL (2.7-7.7); Neutrophil % 66.1 % (47-70); Platelet Count 88 K/mm3 (150-450); RBC Distribution Width CV 13.8 % (11.6-14.6); RBC Distribution Width SD 45.1 fl (35.1-43.9); Red Blood Count 3.03 M/mm3 (4.6-6.2); White Blood Count 3.5 K/mm3 (4.4-11.0)
[2018-08-25 08:03] LABS: POSITIVE COUNT NO; POSITIVE DIFFERENTIAL NO; POSITIVE MORPHOLOGY NO
[2018-08-25 08:13] LABS: ALB/GLOB Ratio 0.7 RATIO (0.9-2.4); AST(SGOT) 16 U/L (15-37); Alanine Aminotransfer ALT/SGPT 34 U/L (16-61); Albumin, Serum 2.2 g/dL (3.2-5.0); Alkaline Phosphatase 103 U/L (45-117); Anion Gap 5 (5-15); BUN 8 mg/dL (7-18); BUN/Creat Ratio 9.4 RATIO (10-20); Calcium,Total 7.9 mg/dL (8.5-10.1); Chloride 111 mmol/L (98-107); Creatinine, Serum 0.85 mg/dL (0.70-1.30); EST Glomerular Filtration Rate 94 mL/min (>60); Est Glom Filt Rate - Afr Amer 114 mL/min (>60); Estimated Creatinine Clearance 84.95 ml/min; Globulin 3.3 g/dL (2.2-4.2); Glucose 90 mg/dL (74-106); Potassium 3.7 mmol/L (3.5-5.1); Protein, Total 5.5 g/dL (6.4-8.2); Sodium Level 141 mmol/L (136-145)
--- NOTE | 2018-08-25 09:08 | PCM.PN.HOSP ---
Patient Problems: Active and Suspected Problems Acute on recurrent pancreatitis (Acute) Septic shock (Acute) Bradycardia (Acute) Subjective: Patient seen and examined. He had no complaints this morning. He still remains bradycardic especially at night. Review of systems otherwise negative. Labs and vitals reviewed. He is to have EGD and colonoscopy tomorrow. He has been off levophed since 08/23/18. Vitals/I&O's: Vital Signs Temp Pulse Resp BP Pulse Ox 97.7 F L 48 L 13 128/64 H 98 08/25/18 04:00 08/25/18 06:00 08/25/18 06:00 08/25/18 06:00 08/25/18 06:00 Oxygen Delivery Method Room Air Weight: 176 lb 12.972 oz Body Mass Index (BMI) 23.2 Intake and Output for Last 24 Hours 08/23/18 08/24/18 08/25/18 23:59 23:59 23:59 Intake Total 3471 / 3471 2089.1 / 2089.1 78.1 / 78.1 Output Total 3100 / 3100 1900 / 1900 200 / 200 Balance 371 / 371 189.1 / 189.1 -121.9 / -121.9 General: Alert, Oriented x3, Cooperative, No apparent distress HEENT: Atraumatic, PERRLA, EOMI, Normocephalic Oral: moist mucosa Neck: Supple, No JVD, Negative Carotid Bruits Lungs: Clear to auscultation, Normal air movement, No rhonchi, No wheeze, No rales Cardiovascular: Regular Rhythm, bradycardia Normal S1, Normal S2, No murmurs Abdomen: Bowel Sounds Present, Soft, nontender; no guarding or rebound tenderness Extremities: No clubbing, No cyanosis, No edema, Capillary Refill Less than 3 Seconds Skin: No rashes, No breakdown Musculoskeletal: No Tenderness to Palpation of Joints or Extremities; PICC line in RUE Lymphatic: No Cervical, Supraclavicular, or Inguinal Adenopathy Neurological: Cranial nerves II-XII grossly intact, Neuro grossly intact, Motor Exam 5/5 strength throughout Psych/Mental Status: Normal Affect, Appropriate, Alert and oriented to time, place, person, mood and affect Microbiology Past 72 Hours 08/21/18 08:04 Urine Catheter - Salazar Urine Culture - Final Culture exhibits no growth. 08/21/18 02:45 Blood Culture (Wb) - Left Forearm Blood Culture - Preliminary No growth in 48 hours. 08/21/18 02:35 Blood Culture (Wb) - Central Line Blood Culture - Preliminary No growth in 48 hours. 08/22/18 13:00 Stool Stool Occult Blood (JAYDON) - Final Laboratory Results 08/25/18 07:50: WBC 3.5 L, RBC 3.03 L, Hgb 8.9 L, Hct 28.2 L, MCV 93.1, MCH 29.4, MCHC 31.6 L, RDW 13.8, RDW Differential 45.1 H, Plt Count 88 L, MPV 12.7 H, Immature Gran % (Auto) 0.600, Neut % (Auto) 66.1, Lymph % (Auto) 19.8, [place] % (Auto) 9.2, Eos % (Auto) 4.0, Baso % (Auto) 0.3, Absolute Neuts (auto) 2.3, Absolute Lymphs (auto) 0.69 L, Total Counted Not Reportable 08/25/18 07:50: Sodium 141, Potassium 3.7, Chloride 111 H, Carbon Dioxide 25.0, Anion Gap 5, BUN 8, Creatinine 0.85, Estim Creat Clear Calc 84.95, Est GFR (MDRD) Af Amer 114, Est GFR (MDRD) Non-Af 94, BUN/Creatinine Ratio 9.4 L, Glucose 90, Calcium 7.9 L, Total Bilirubin 0.40, AST 16, ALT 34, Alkaline Phosphatase 103, Total Protein 5.5 L, Albumin 2.2 L, Globulin 3.3, Albumin/Globulin Ratio 0.7 L Current Medications Dextrose (D50w Syringe) 0 gm IV X1 PRN; Protocol PRN Reason: Hypoglycemia Glucagon () 1 mg IM .X1 PRN PRN Reason: Hypoglycemia Sodium Chloride () 250 mls @ 15 mls/hr IV .[id number] PRN PRN Reason: SALINE FLUSH Last Admin: 08/24/18 21:27 Dose: 15 mls/hr Pantoprazole Sodium 40 mg/ (Sodium Chloride) 110 mls @ 330 mls/hr IV Q24 [id number] Last Admin: 08/24/18 09:27 Dose: 330 mls/hr Meropenem 1 gm/ Sodium (Chloride) 120 mls @ 33 mls/hr IV Q8 [facility] Last Admin: 08/25/18 06:46 Dose: 33 mls/hr Norepinephrine Bitartrate 8 mg (/ Sodium Chloride) 250 mls @ 9.38 mls/hr CONT INF .[id number] [facility] Last Admin: 08/24/18 21:42 Dose: Not Given Ibuprofen (Motrin) 400 mg PO Q6H PRN PRN PRN Reason: MILD PAIN (1-3/10) Last Admin: 08/24/18 21:26 Dose: 400 mg Melatonin (Melatonin) 3 mg PO QHS PRN PRN PRN Reason: SLEEP Last Admin: 08/25/18 02:03 Dose: 3 mg Pancrelipase (Creon Dr 12,000 Unit Capsule) 2 capsule PO TIDCM [facility] Last Admin: 08/25/18 07:57 Dose: 2 capsule Senna/Docusate Sodium (Senokot-S, [place]-Colace) 2 tablet PO BID PRN PRN PRN Reason: Constipation Sodium Chloride () 5 - 15 ml IV UD PRN PRN Reason: SALINE FLUSH Last Admin: 08/22/18 12:35 Dose: 10 ml Sodium Chloride () 10 - 40 ml IV UD PRN PRN Reason: MULTILUMEN/HICMAN CATH FLUSH Last Admin: 08/22/18 05:35 Dose: 20 ml Medical Necessity - Tobacco Use Smoking Status: Current every day smoker Tobacco Use: Cigarettes Assessment/Plan All Active Problems Acute on recurrent pancreatitis (Acute) Septic shock (Acute) Bradycardia (Acute) 1. Septic shock due to gram negative bacteremia off levophed since 08/23/18 on IV meropenem preliminary blood cultures from [facility] for gram negative rods (08/20/18) blood cultures here negative x 48 hours continue Creon repeat blood cultures pending ID consulted; await rec's 2. Acute on chronic pancreatitis as under 1. 3. Sinus Bradycardia HR has remained down in 40s and 30s cardiology consulted. Per cadrdiology rec's, since patient is asymptomatic, to monitor closely. for 2D echo today 4. Hypomagnesemia:resolved. 5. Hyperkalemia: resolved. 6. Hypokalemia: resolved. 7.Elevated liver enzymes: resolved. liver enzymes have trended down. 8. Iron deficiency Anemia: Hb is 8.9 today. Iron panel shows iron deficiency anemia. last colonoscopy was in 2012, and was normal. Dr Laguerre consulted- to have EGD and colonoscopy on Saturday if patient is still in hospital; if otherwise, to follow-up with general surgery in outpatient basis. will keep NPO past midnight today 9. Pancytopenia anemia as under 8. Platelets are up to 88 today. wbc is now up to 3.5. will monitor. On SCDs. 10. GERD: on IV pantoprazole 9. History of prostate cancer: recently diagnosed. to follow up with urology on outpatient basis 10. Nicotine abuse: counseled to quit DVT prophylaxis:SCDs Disposition: transfer to PCU today Code Visit Inpatient E&M: 65052 Subs Hosp L3
--- NOTE | 2018-08-25 09:12 | PN_ITS ---
Patient Problems: Active and Suspected Problems Acute on recurrent pancreatitis (Acute) Septic shock (Acute) Bradycardia (Acute) Subjective: Patient seen and examined. He had no complaints this morning. He still remains bradycardic especially at night. Review of systems otherwise negative. Labs and vitals reviewed. He is to have EGD and colonoscopy tomorrow. He has been off levophed since 08/23/18. Vitals/I&O's: Vital Signs Temp Pulse Resp BP Pulse Ox 97.7 F L 48 L 13 128/64 H 98 08/25/18 04:00 08/25/18 06:00 08/25/18 06:00 08/25/18 06:00 08/25/18 06:00 Oxygen Delivery Method Room Air Weight: 176 lb 12.972 oz Body Mass Index (BMI) 23.2 Intake and Output for Last 24 Hours 08/23/18 08/24/18 08/25/18 23:59 23:59 23:59 Intake Total 3471 / 3471 2089.1 / 2089.1 78.1 / 78.1 Output Total 3100 / 3100 1900 / 1900 200 / 200 Balance 371 / 371 189.1 / 189.1 -121.9 / -121.9 General: Alert, Oriented x3, Cooperative, No apparent distress HEENT: Atraumatic, PERRLA, EOMI, Normocephalic Oral: moist mucosa Neck: Supple, No JVD, Negative Carotid Bruits Lungs: Clear to auscultation, Normal air movement, No rhonchi, No wheeze, No rales Cardiovascular: Regular Rhythm, bradycardia Normal S1, Normal S2, No murmurs Abdomen: Bowel Sounds Present, Soft, nontender; no guarding or rebound tenderness Extremities: No clubbing, No cyanosis, No edema, Capillary Refill Less than 3 Seconds Skin: No rashes, No breakdown Musculoskeletal: No Tenderness to Palpation of Joints or Extremities; PICC line in RUE Lymphatic: No Cervical, Supraclavicular, or Inguinal Adenopathy Neurological: Cranial nerves II-XII grossly intact, Neuro grossly intact, Motor Exam 5/5 strength throughout Psych/Mental Status: Normal Affect, Appropriate, Alert and oriented to time, place, person, mood and affect Microbiology Past 72 Hours 08/21/18 08:04 Urine Catheter - Salazar Urine Culture - Final Culture exhibits no growth. 08/21/18 02:45 Blood Culture (Wb) - Left Forearm Blood Culture - Preliminary No growth in 48 hours. 08/21/18 02:35 Blood Culture (Wb) - Central Line Blood Culture - Preliminary No growth in 48 hours. 08/22/18 13:00 Stool Stool Occult Blood (JAYDON) - Final Laboratory Results 08/25/18 07:50: WBC 3.5 L, RBC 3.03 L, Hgb 8.9 L, Hct 28.2 L, MCV 93.1, MCH 29.4, MCHC 31.6 L, RDW 13.8, RDW Differential 45.1 H, Plt Count 88 L, MPV 12.7 H , Immature Gran % (Auto) 0.600, Neut % (Auto) 66.1, Lymph % (Auto) 19.8, [place] % (Auto) 9.2, Eos % (Auto) 4.0, Baso % (Auto) 0.3, Absolute Neuts (auto) 2.3, Absolute Lymphs (auto) 0.69 L, Total Counted Not Reportable 08/25/18 07:50: Sodium 141, Potassium 3.7, Chloride 111 H, Carbon Dioxide 25.0, Anion Gap 5, BUN 8, Creatinine 0.85, Estim Creat Clear Calc 84.95, Est GFR (MDRD) Af Amer 114, Est GFR (MDRD) Non-Af 94, BUN/Creatinine Ratio 9.4 L, Glucose 90, Calcium 7.9 L, Total Bilirubin 0.40, AST 16, ALT 34, Alkaline Phosphatase 103, Total Protein 5.5 L, Albumin 2.2 L, Globulin 3.3, Albumin/Globulin Ratio 0.7 L Current Medications Dextrose (D50w Syringe) 0 gm IV X1 PRN; Protocol PRN Reason: Hypoglycemia Glucagon () 1 mg IM .X1 PRN PRN Reason: Hypoglycemia Sodium Chloride () 250 mls @ 15 mls/hr IV .[id number] PRN PRN Reason: SALINE FLUSH Last Admin: 08/24/18 21:27 Dose: 15 mls/hr Pantoprazole Sodium 40 mg/ (Sodium Chloride) 110 mls @ 330 mls/hr IV Q24 TRUPTI Last Admin: 08/24/18 09:27 Dose: 330 mls/hr Meropenem 1 gm/ Sodium (Chloride) 120 mls @ 33 mls/hr IV Q8 [facility] Last Admin: 08/25/18 06:46 Dose: 33 mls/hr Norepinephrine Bitartrate 8 mg (/ Sodium Chloride) 250 mls @ 9.38 mls/hr CONT INF .[id number] [facility] Last Admin: 08/24/18 21:42 Dose: Not Given Ibuprofen (Motrin) 400 mg PO Q6H PRN PRN PRN Reason: MILD PAIN (1-310) Last Admin: 08/24/18 21:26 Dose: 400 mg Melatonin (Melatonin) 3 mg PO QHS PRN PRN PRN Reason: SLEEP Last Admin: 08/25/18 02:03 Dose: 3 mg Pancrelipase (Creon Dr 12,000 Unit Capsule) 2 capsule PO TIDCM [facility] Last Admin: 08/25/18 07:57 Dose: 2 capsule Senna/Docusate Sodium (Senokot-S, [place]-Colace) 2 tablet PO BID PRN PRN PRN Reason: Constipation Sodium Chloride () 5 - 15 ml IV UD PRN PRN Reason: SALINE FLUSH Last Admin: 08/22/18 12:35 Dose: 10 ml Sodium Chloride () 10 - 40 ml IV UD PRN PRN Reason: MULTILUMEN/HICMAN CATH FLUSH Last Admin: 08/22/18 05:35 Dose: 20 ml Medical Necessity - Tobacco Use Smoking Status: Current every day smoker Tobacco Use: Cigarettes Assessment/Plan All Active Problems Acute on recurrent pancreatitis (Acute) Septic shock (Acute) Bradycardia (Acute) 1. Septic shock due to gram negative bacteremia * off levophed since 08/23/18 * on IV meropenem * preliminary blood cultures from [facility] for gram negative rods (08/20/18) * blood cultures here negative x 48 hours * continue Creon * repeat blood cultures pending * ID consulted; await rec's * 2. Acute on chronic pancreatitis * as under 1. * 3. Sinus Bradycardia * HR has remained down in 40s and 30s * cardiology consulted. Per cadrdiology rec's, since patient is asymptomatic, to monitor closely. * for 2D echo today 4. Hypomagnesemia:resolved. 5. Hyperkalemia: resolved. 6. Hypokalemia: resolved. 7.Elevated liver enzymes: resolved. liver enzymes have trended down. 8. Iron deficiency Anemia: * Hb is 8.9 today. * Iron panel shows iron deficiency anemia. * last colonoscopy was in 2012, and was normal. * Dr Laguerre consulted- to have EGD and colonoscopy on Saturday if patient is still in hospital; if otherwise, to follow-up with general surgery in outpatient basis. * will keep NPO past midnight today 9. Pancytopenia * anemia as under 8. Platelets are up to 88 today. wbc is now up to 3.5. * will monitor. On SCDs. * 10. GERD: on IV pantoprazole 9. History of prostate cancer: recently diagnosed. to follow up with urology on outpatient basis 10. Nicotine abuse: counseled to quit DVT prophylaxis:SCDs Disposition: transfer to PCU today Code Visit Inpatient E&M: 98520 Subs Hosp L3
[2018-08-25] MEDS: 0.9% NaCl Peripheral Flush Adult/Peds IV ×2 (14:34→22:37)
[2018-08-25] MEDS: Electrolyte Solution/Peg's 4000 ML 2000 ML PO (17:13)
[2018-08-26] VITALS (13 sets, daily range): BP systolic 114–157; BP diastolic 55–70; PULSE 42–55; RESP 14–18; TEMP 36.6–37.4; O2SAT 97–100; BMI 23.8
--- NOTE | 2018-08-26 | IMM_PTH ---
PATIENT: JULISA CARSON LOC: [facility] U#:[id number] AGE/SX: 72/M ROOM: [facility] RE08/21/[address]: Dr. Zully Ferreira MD : [id number] BED: 1 DIS: 08/27/2018 SPEC #: [id number] RECD: 08/28/18 10:43 STATUS: SOUNidia REQ #: [id number] DON: 08/26/18 00:[address]: Mariah Laguerre DEPT: IMMUNOHISTOCHEMISTRY RECD BY: Elinor Zarco ENTERED: 08/28/18 10:44 SP TYPE: IMMUNO OTHR DR: MD Dr. Ricki Zavala DO Dr. Juan Miguel Proano, MD Dr. Nana Yaa Koram, MD Dr. Prakash Chand, MD Dr. Robert Leininger, MD Jessica Witmer, [employer]-C Tissues: A - Stomach, NOS Procedures: H Pylori (initial) PHYSICIAN & [address] [address] SPECIMEN INFORMATION: Tissue Source: A - Fundus of stomach biopsy Clinical Info: Dav Specimen Number: [id number] CPT code: 16670 METHODOLOGY: Deparaffinized sections of prefer/formalin-fixed tissue or PAP/DQ stained slides are incubated with monoclonal/polyclonal antibodies/oligonucleotide probes. Localization is made via biotin free immunoperoxidase method. Appropriate controls are performed and reacted as expected. Results on target cell population are indicated in the following table: RESULTS: ANTIBODY / CLONE RESULT Block A H Pylori (polyclonal) negative These tests were developed and their performance characteristics determined by [facility]. They may not have been cleared or approved by the U.S. Food and Drug Administration. The FDA has determined that such clearance or approval is not necessary. INTERPRETATION: Fundus of stomach, biopsy: Negative for Helicobacter pylori organisms. AM:cadence 08/29/18
[2018-08-26] MEDS: Electrolyte Solution/Peg's 4000 ML 2000 ML PO (05:12)
[2018-08-26] MEDS: 0.9% NaCl Peripheral Flush Adult/Peds IV ×3 (05:20→05:22)
[2018-08-26 05:50] LABS: ALB/GLOB Ratio 0.6 RATIO (0.9-2.4); AST(SGOT) 16 U/L (15-37); Alanine Aminotransfer ALT/SGPT 33 U/L (16-61); Albumin, Serum 2.2 g/dL (3.2-5.0); Alkaline Phosphatase 105 U/L (45-117); Anion Gap 7 (5-15); BUN 7 mg/dL (7-18); BUN/Creat Ratio 8.3 RATIO (10-20); Calcium,Total 7.9 mg/dL (8.5-10.1); Chloride 110 mmol/L (98-107); Creatinine, Serum 0.84 mg/dL (0.70-1.30); EST Glomerular Filtration Rate 95 mL/min (>60); Est Glom Filt Rate - Afr Amer 115 mL/min (>60); Estimated Creatinine Clearance 85.97 ml/min; Globulin 3.5 g/dL (2.2-4.2); Glucose 94 mg/dL (74-106); Potassium 3.6 mmol/L (3.5-5.1); Protein, Total 5.7 g/dL (6.4-8.2); Sodium Level 144 mmol/L (136-145)
[2018-08-26 06:27] LABS: Absolute Lymphocyte Count 1.07 X10^3/ul (0.83-4.51); Absolute Neutrophil Count 2.5 X10^3/uL (2.0-7.7); Basophil# 0.02 X10^3/uL; Basophil% 0.5 % (0-1); Eosinophil# 0.14 X10^3/uL; Eosinophils% 3.4 % (0-5); Hematocrit 27.8 % (40-54); Lymphocyte # 1.07 X10^3/ul (4.0); Lymphocyte % 26.2 % (19-41); Mean Corp Hgb Conc 32.4 g/gl (32-36); Mean Corpuscular Hgb 29.9 pg (27.0-32.0); Mean Corpuscular Volume 92.4 fL (80-94); Mean Platelet Vol. 13.2 fl (6.2-12.0); Monocyte# 0.35 X10^3/uL; Monocyte% 8.6 % (0-10); Neutrophil # 2.46 X10^3/uL (2.7-7.7); Neutrophil % 60.1 % (47-70); Platelet Count 106 K/mm3 (150-450); RBC Distribution Width CV 13.6 % (11.6-14.6); RBC Distribution Width SD 44.4 fl (35.1-43.9); Red Blood Count 3.01 M/mm3 (4.6-6.2); White Blood Count 4.1 K/mm3 (4.4-11.0)
[2018-08-26 06:32] LABS: Differential Indicated SCAN CRITERIA MET; POSITIVE COUNT NO; POSITIVE DIFFERENTIAL NO; POSITIVE MORPHOLOGY YES
[2018-08-26 07:09] LABS: Differential Comment SCANNED
--- NOTE | 2018-08-26 08:00 | PN_ITS ---
Subjective: Patient transferred out of the intensive care unit. Patient continues to do well on room air. No pressors or fluid boluses were required overnight. Patient is denying any new pain. Patient still has dull abdominal pain, which he states is expected after exacerbations. General: Alert, Oriented x3, Cooperative, No apparent distress, Well developed, Well nourished, - - Speaking in full sentences. HEENT: Atraumatic, PERRLA, EOMI, Normocephalic, - - No scleral icterus or injection noted. Oral: Moist Mucosa, No Gingival or Mucosal Lesions/ Ulcerations Neck: Supple, No JVD, No Nodes, Trachea Midline Lungs: No rhonchi, No wheeze, No rales, Diminished, - - Symmetric expansion. No dullness to percussion. Cardiovascular: Regular Rhythm, Normal S1, Normal S2, No murmurs, Bradycardic, No rub noted, No Gallop Abdomen: Bowel Sounds Present, Soft, Non Tender, Non-Distended Extremities: No clubbing, No cyanosis, No edema Skin: No rashes, No breakdown Lymphatic: No Cervical, Supraclavicular, or Inguinal Adenopathy Neurological: Cranial nerves II-XII grossly intact, Neuro grossly intact, Motor Exam 5/5 strength throughout Psych/Mental Status: Alert and oriented to time, place, person, mood and affect Vital Signs Temp Pulse Resp BP Pulse Ox 37.0 C 42 L 16 114/70 97 08/26/18 03:00 08/26/18 06:58 08/26/18 03:00 08/26/18 03:00 08/26/18 03:00 Oxygen Delivery Method Room Air Weight: 80 kg Body Mass Index (BMI) 23.2 Intake and Output for Last 24 Hours 08/24/18 08/25/18 08/26/18 23:59 23:59 23:59 Intake Total 2089.1 / 2089.1 738.1 / 738.1 117.7 / 117.7 Output Total 1900 / 1900 1200 / 1200 Balance 189.1 / 189.1 -461.9 / -461.9 117.7 / 117.7 Labs (Last 48 Hours) 08/25/18 08/25/18 08/26/18 07:50 07:50 05:20 WBC 3.5 L 4.1 L RBC 3.03 L 3.01 L Hgb 8.9 L 9.0 L Hct 28.2 L 27.8 L MCV 93.1 92.4 MCH 29.4 29.9 MCHC 31.6 L 32.4 RDW 13.8 13.6 RDW Differential 45.1 H 44.4 H Plt Count 88 L 106 L MPV 12.7 H 13.2 H Immature Gran % (Auto) 0.600 1.200 H Neut % (Auto) 66.1 60.1 Lymph % (Auto) 19.8 26.2 [place] % (Auto) 9.2 8.6 Eos % (Auto) 4.0 3.4 Baso % (Auto) 0.3 0.5 Absolute Neuts (auto) 2.3 2.5 Absolute Lymphs (auto) 0.69 L 1.07 Total Counted Not Reportable Not Reportable Differential Comment SCANNED Sodium 141 Potassium 3.7 Chloride 111 H Carbon Dioxide 25.0 Anion Gap 5 BUN 8 Creatinine 0.85 Estim Creat Clear Calc 84.95 Est GFR (MDRD) Af Amer 114 Est GFR (MDRD) Non-Af 94 BUN/Creatinine Ratio 9.4 L Glucose 90 Calcium 7.9 L Total Bilirubin 0.40 AST 16 ALT 34 Alkaline Phosphatase 103 Total Protein 5.5 L Albumin 2.2 L Globulin 3.3 Albumin/Globulin Ratio 0.7 L 08/26/18 05:20 WBC RBC Hgb Hct MCV MCH MCHC RDW RDW Differential Plt Count MPV Immature Gran % (Auto) Neut % (Auto) Lymph % (Auto) [place] % (Auto) Eos % (Auto) Baso % (Auto) Absolute Neuts (auto) Absolute Lymphs (auto) Total Counted Differential Comment Sodium 144 Potassium 3.6 Chloride 110 H Carbon Dioxide 27.0 Anion Gap 7 BUN 7 Creatinine 0.84 Estim Creat Clear Calc 85.97 Est GFR (MDRD) Af Amer 115 Est GFR (MDRD) Non-Af 95 BUN/Creatinine Ratio 8.3 L Glucose 94 Calcium 7.9 L Total Bilirubin 0.40 AST 16 ALT 33 Alkaline Phosphatase 105 Total Protein 5.7 L Albumin 2.2 L Globulin 3.5 Albumin/Globulin Ratio 0.6 L Microbiology 08/21/18 02:35 Blood Culture (Wb) - Central Line Blood Culture - Final No growth in 5 days. 08/21/18 02:45 Blood Culture (Wb) - Left Forearm Blood Culture - Final No growth in 5 days. 08/23/18 14:55 Blood Culture (Wb) - Pic Blood Culture - Preliminary No growth in 48 hours. Medical Necessity - Tobacco Use Smoking Status: Current every day smoker Tobacco Use: Cigarettes Assessment/Plan All Active Problems Acute on recurrent pancreatitis (Acute) Septic shock (Acute) Bradycardia (Acute) RECOMMENDATIONS: 1. Continue lower extremity SCDs, in lieu of heparin containing products, given thrombocytopenia. 2. Continue meropenem as ordered until evaluated by infectious disease 3. Hemodynamically stable on room air. Will sign off from a critical care perspective. 4. Continue to monitor CBC daily, with plans to transfuse if hemoglobin is less than 7 g/dL. 5. Defer to infectious disease on MRCP. IMPRESSIONS: 1. Gram Negative Septic shock Patient appears to have responded well over the last 24 hours. No pressors have been required. Patient does currently receive meropenem, but cultures have been negative to this point. Some concern for spontaneous bacterial peritonitis, but infectious disease is following. Patient reportedly did have gram-negative rods noted in blood culture at outside facility. Continue with current antibiotics until seen by infectious disease. 2. Recently diagnosed prostate cancer CT abdomen did report concerns for bladder outlet obstruction. Urology was consulted with only outpatient follow-up recommended. 3. Anemia/Thrombocytopenia Continue to monitor CBC daily. Plan to transfuse for Hgb less than 7 g/dL. Given that the patient's platelet count dropped over the course of the hospital admission, his Lovenox was discontinued and he was placed on SCDs. The patient was evaluated by general surgery due to iron deficiency anemia. There are plans for both upper and lower endoscopy early next week if the patient is still admitted to the hospital. 4. Personal history of chronic pancreatitis Abdominal ultrasound was largely unrevealing. The patient's diet has been advanced without issue. Continue Creon. 5. GERD/tobacco dependency Complicates care, management, recovery and prognosis. Okay to continue PPI therapy. The patient does not wish to have any form of nicotine replacement therapy ordered. Smoking cessation is advisable. Patient can be evaluated as an outpatient for COPD if requested. Code Visit Inpatient E&M: 96440 Subs Hosp L2
[2018-08-26] MEDS: 0.9% NaCl IVPB Med Flush (250 mL) 15 ML IV (10:50)
--- NOTE | 2018-08-26 11:26 | PN.ID_ITS ---
Patient Problems: Active and Suspected Problems Acute on recurrent pancreatitis (Acute) Septic shock (Acute) Bradycardia (Acute) Subjective: Feeling better, no fever, out of icu, no abd pain, no n/v/d. - Physical Exam General: Alert, Cooperative, No apparent distress Lungs: Clear to auscultation, Normal air movement Cardiovascular: Regular rate, Regular Rhythm Abdomen: Soft, Non Tender, Non-Distended Skin: No rashes Vital Signs Temp Pulse Resp BP Pulse Ox 98.2 F 45 L 14 126/56 H 98 08/26/18 08:00 08/26/18 08:00 08/26/18 08:00 08/26/18 08:00 08/26/18 08:00 Oxygen Delivery Method Room Air Weight: 80 kg Body Mass Index (BMI) 23.2 Intake and Output for Last 24 Hours 08/24/18 08/25/18 08/26/18 23:59 23:59 23:59 Intake Total 2089.1 / 2089.1 738.1 / 738.1 117.7 / 117.7 Output Total 1900 / 1900 1200 / 1200 Balance 189.1 / 189.1 -461.9 / -461.9 117.7 / 117.7 Microbiology Past 72 Hours 08/21/18 02:35 Blood Culture - Final Blood Culture (Wb) - Central Line No growth in 5 days. 08/21/18 02:45 Blood Culture - Final Blood Culture (Wb) - Left Forearm No growth in 5 days. 08/23/18 14:55 Blood Culture - Preliminary Blood Culture (Wb) - Pic No growth in 48 hours. 08/21/18 08:04 Urine Culture - Final Urine Catheter - Salazar Culture exhibits no growth. Laboratory Tests Past 24 Hrs 08/26/18 08/26/18 05:20 05:20 WBC 4.1 L RBC 3.01 L Hgb 9.0 L Hct 27.8 L MCV 92.4 MCH 29.9 MCHC 32.4 RDW 13.6 RDW Differential 44.4 H Plt Count 106 L MPV 13.2 H Immature Gran % (Auto) 1.200 H Neut % (Auto) 60.1 Lymph % (Auto) 26.2 [place] % (Auto) 8.6 Eos % (Auto) 3.4 Baso % (Auto) 0.5 Absolute Neuts (auto) 2.5 Absolute Lymphs (auto) 1.07 Total Counted Not Reportable Differential Comment SCANNED Sodium 144 Potassium 3.6 Chloride 110 H Carbon Dioxide 27.0 Anion Gap 7 BUN 7 Creatinine 0.84 Estim Creat Clear Calc 85.97 Est GFR (MDRD) Af Amer 115 Est GFR (MDRD) Non-Af 95 BUN/Creatinine Ratio 8.3 L Glucose 94 Calcium 7.9 L Total Bilirubin 0.40 AST 16 ALT 33 Alkaline Phosphatase 105 Total Protein 5.7 L Albumin 2.2 L Globulin 3.5 Albumin/Globulin Ratio 0.6 L Medical Necessity - Tobacco Use Smoking Status: Current every day smoker Tobacco Use: Cigarettes Route of nutrition/ use of supplements: [] Nutritional Intake: [] IV Site: [] Salazar Catheter: [] - Assessment/Plan Antibiotics: [] Assessment/Plan: [] Active and Suspected Problems Acute on recurrent pancreatitis (Acute) septic shock due to ecoli bacteremia from acute on chronic pancreatitis - had recent prostate bx done, but UA at [facility] was neg and no new urinary/prostate sx that would indicate infection. CT did not show any abscess in prostate. Bcx x2 at [facility] with ecoli, R to ampicillin and bactrim, I to cefazolin. Overall much improved, out of icu, off pressors, abd pain resolved. Narrow meropenem to unasyn, ok for d/c home on augmentin 875mg bid po for 4 more days. Will follow, d/w Dr. Paez
--- NOTE | 2018-08-26 13:29 | PCM.PN.HOSP ---
Patient Problems: Active and Suspected Problems Acute on recurrent pancreatitis (Acute) Septic shock (Acute) Bradycardia (Acute) Subjective: Patient seen and examined. He has no complaints. Review of systems otherwise negative. Labs and vitals reviewed. Vitals/I&O's: Vital Signs Temp Pulse Resp BP Pulse Ox 98.3 F 48 L 14 129/69 H 98 08/26/18 12:50 08/26/18 12:50 08/26/18 12:50 08/26/18 12:50 08/26/18 12:50 Oxygen Delivery Method Room Air Weight: 176 lb 5.917 oz Body Mass Index (BMI) 23.8 Intake and Output for Last 24 Hours 08/24/18 08/25/18 08/26/18 23:59 23:59 23:59 Intake Total 2089.1 / 2089.1 738.1 / 738.1 365.7 / 365.7 Output Total 1900 / 1900 1200 / 1200 Balance 189.1 / 189.1 -461.9 / -461.9 365.7 / 365.7 General: Alert, Oriented x3, Cooperative, No apparent distress HEENT: Atraumatic, PERRLA, EOMI, Normocephalic Oral: moist mucosa Neck: Supple, No JVD, Negative Carotid Bruits Lungs: Clear to auscultation, Normal air movement, No rhonchi, No wheeze, No rales Cardiovascular: Regular Rhythm, bradycardia Normal S1, Normal S2, No murmurs Abdomen: Bowel Sounds Present, Soft, nontender; no guarding or rebound tenderness Extremities: No clubbing, No cyanosis, No edema, Capillary Refill Less than 3 Seconds Skin: No rashes, No breakdown Musculoskeletal: No Tenderness to Palpation of Joints or Extremities; PICC line in RUE Lymphatic: No Cervical, Supraclavicular, or Inguinal Adenopathy Neurological: Cranial nerves II-XII grossly intact, Neuro grossly intact, Motor Exam 5/5 strength throughout Psych/Mental Status: Normal Affect, Appropriate, Alert and oriented to time, place, person, mood and affect Microbiology Past 72 Hours 08/21/18 02:35 Blood Culture (Wb) - Central Line Blood Culture - Final No growth in 5 days. 08/21/18 02:45 Blood Culture (Wb) - Left Forearm Blood Culture - Final No growth in 5 days. 08/23/18 14:55 Blood Culture (Wb) - Pic Blood Culture - Preliminary No growth in 48 hours. 08/21/18 08:04 Urine Catheter - Salazar Urine Culture - Final Culture exhibits no growth. Laboratory Results 08/26/18 05:20: WBC 4.1 L, RBC 3.01 L, Hgb 9.0 L, Hct 27.8 L, MCV 92.4, MCH 29.9, MCHC 32.4, RDW 13.6, RDW Differential 44.4 H, Plt Count 106 L, MPV 13.2 H, Immature Gran % (Auto) 1.200 H, Neut % (Auto) 60.1, Lymph % (Auto) 26.2, [place] % (Auto) 8.6, Eos % (Auto) 3.4, Baso % (Auto) 0.5, Absolute Neuts (auto) 2.5, Absolute Lymphs (auto) 1.07, Total Counted Not Reportable, Differential Comment SCANNED 08/26/18 05:20: Sodium 144, Potassium 3.6, Chloride 110 H, Carbon Dioxide 27.0, Anion Gap 7, BUN 7, Creatinine 0.84, Estim Creat Clear Calc 85.97, Est GFR (MDRD) Af Amer 115, Est GFR (MDRD) Non-Af 95, BUN/Creatinine Ratio 8.3 L, Glucose 94, Calcium 7.9 L, Total Bilirubin 0.40, AST 16, ALT 33, Alkaline Phosphatase 105, Total Protein 5.7 L, Albumin 2.2 L, Globulin 3.5, Albumin/Globulin Ratio 0.6 L Current Medications Dextrose (D50w Syringe) 0 gm IV X1 PRN; Protocol PRN Reason: Hypoglycemia Glucagon () 1 mg IM .X1 PRN PRN Reason: Hypoglycemia Sodium Chloride () 250 mls @ 15 mls/hr IV .[id number] PRN PRN Reason: SALINE FLUSH Last Admin: 08/26/18 10:50 Dose: 15 mls/hr Pantoprazole Sodium 40 mg/ (Sodium Chloride) 110 mls @ 330 mls/hr IV Q24 TRUPTI Last Admin: 08/26/18 10:51 Dose: 330 mls/hr Ampicillin Sodium/Sulbactam (Sodium 3 gm/ Sodium Chloride) 112 mls @ 150 mls/hr IV Q8 TRUPTI Melatonin (Melatonin) 3 mg PO QHS PRN PRN PRN Reason: SLEEP Last Admin: 08/25/18 02:03 Dose: 3 mg Pancrelipase (Keven Rodriguez 12,000 Unit Capsule) 2 capsule PO TIDCM TRUPTI Last Admin: 08/26/18 08:39 Dose: 2 capsule Senna/Docusate Sodium (Senokot-S, [place]-Colace) 2 tablet PO BID PRN PRN PRN Reason: Constipation Sodium Chloride () 5 - 15 ml IV UD PRN PRN Reason: SALINE FLUSH Last Admin: 08/26/18 05:22 Dose: 10 ml Sodium Chloride () 10 - 40 ml IV UD PRN PRN Reason: MULTILUMEN/HICMAN CATH FLUSH Last Admin: 08/26/18 05:22 Dose: 10 ml Medical Necessity - Tobacco Use Smoking Status: Current every day smoker Tobacco Use: Cigarettes Assessment/Plan All Active Problems Acute on recurrent pancreatitis (Acute) Septic shock (Acute) Bradycardia (Acute) 1. Septic shock due to gram negative bacteremia off levophed since 08/23/18 on IV meropenem; ID reviewed today and narrowed to IV unasyn preliminary blood cultures from [facility] for gram negative rods (08/20/18) blood cultures here negative x 48 hours continue Creon repeat blood cultures negative. Per ID, can go home on 4 more days of PO augmentin ID consulted; await rec's 2. Acute on chronic pancreatitis as under 1. 3. Sinus Bradycardia HR has remained down in 40s and 30s cardiology consulted. Per cadrdiology rec's, since patient is asymptomatic, to monitor closely. f2D echo: Normal left ventricular size and systolic function and estimated EF of 55% with stage I diastolic function no regional wall motion abnormalities. 4. Iron deficiency Anemia: Hb is 9 today. Iron panel shows iron deficiency anemia. last colonoscopy was in 2012, and was normal. Dr Laguerre on board: for EGD and colonoscopy today. will keep NPO past midnight today 5. Pancytopenia anemia as under 8. Platelets are up to 106 today. wbc is now up to 4.1. will monitor. On SCDs. 6. GERD: on IV pantoprazole 7. History of prostate cancer: recently diagnosed. to follow up with urology on outpatient basis 8. Nicotine abuse: counseled to quit DVT prophylaxis:SCDs Code Visit Inpatient E&M: 91371 Subs Hosp L2
--- NOTE | 2018-08-26 13:33 | PN_ITS ---
Patient Problems: Active and Suspected Problems Acute on recurrent pancreatitis (Acute) Septic shock (Acute) Bradycardia (Acute) Subjective: Patient seen and examined. He has no complaints. Review of systems otherwise negative. Labs and vitals reviewed. Vitals/I&O's: Vital Signs Temp Pulse Resp BP Pulse Ox 98.3 F 48 L 14 129/69 H 98 08/26/18 12:50 08/26/18 12:50 08/26/18 12:50 08/26/18 12:50 08/26/18 12:50 Oxygen Delivery Method Room Air Weight: 176 lb 5.917 oz Body Mass Index (BMI) 23.8 Intake and Output for Last 24 Hours 08/24/18 08/25/18 08/26/18 23:59 23:59 23:59 Intake Total 2089.1 / 2089.1 738.1 / 738.1 365.7 / 365.7 Output Total 1900 / 1900 1200 / 1200 Balance 189.1 / 189.1 -461.9 / -461.9 365.7 / 365.7 General: Alert, Oriented x3, Cooperative, No apparent distress HEENT: Atraumatic, PERRLA, EOMI, Normocephalic Oral: moist mucosa Neck: Supple, No JVD, Negative Carotid Bruits Lungs: Clear to auscultation, Normal air movement, No rhonchi, No wheeze, No rales Cardiovascular: Regular Rhythm, bradycardia Normal S1, Normal S2, No murmurs Abdomen: Bowel Sounds Present, Soft, nontender; no guarding or rebound tenderness Extremities: No clubbing, No cyanosis, No edema, Capillary Refill Less than 3 Seconds Skin: No rashes, No breakdown Musculoskeletal: No Tenderness to Palpation of Joints or Extremities; PICC line in RUE Lymphatic: No Cervical, Supraclavicular, or Inguinal Adenopathy Neurological: Cranial nerves II-XII grossly intact, Neuro grossly intact, Motor Exam 5/5 strength throughout Psych/Mental Status: Normal Affect, Appropriate, Alert and oriented to time, place, person, mood and affect Microbiology Past 72 Hours 08/21/18 02:35 Blood Culture (Wb) - Central Line Blood Culture - Final No growth in 5 days. 08/21/18 02:45 Blood Culture (Wb) - Left Forearm Blood Culture - Final No growth in 5 days. 08/23/18 14:55 Blood Culture (Wb) - Pic Blood Culture - Preliminary No growth in 48 hours. 08/21/18 08:04 Urine Catheter - Salazar Urine Culture - Final Culture exhibits no growth. Laboratory Results 08/26/18 05:20: WBC 4.1 L, RBC 3.01 L, Hgb 9.0 L, Hct 27.8 L, MCV 92.4, MCH 29.9, MCHC 32.4, RDW 13.6, RDW Differential 44.4 H, Plt Count 106 L, MPV 13.2 H, Immature Gran % (Auto) 1.200 H, Neut % (Auto) 60.1, Lymph % (Auto) 26.2, Carver % (Auto) 8.6, Eos % (Auto) 3.4, Baso % (Auto) 0.5, Absolute Neuts (auto) 2.5, Absolute Lymphs (auto) 1.07, Total Counted Not Reportable, Differential Comment SCANNED 08/26/18 05:20: Sodium 144, Potassium 3.6, Chloride 110 H, Carbon Dioxide 27.0, Anion Gap 7, BUN 7, Creatinine 0.84, Estim Creat Clear Calc 85.97, Est GFR (MDRD) Af Amer 115, Est GFR (MDRD) Non-Af 95, BUN/Creatinine Ratio 8.3 L, Glucose 94, Calcium 7.9 L, Total Bilirubin 0.40, AST 16, ALT 33, Alkaline Phosphatase 105, Total Protein 5.7 L, Albumin 2.2 L, Globulin 3.5, Albumin/Globulin Ratio 0.6 L Current Medications Dextrose (D50w Syringe) 0 gm IV X1 PRN; Protocol PRN Reason: Hypoglycemia Glucagon () 1 mg IM .X1 PRN PRN Reason: Hypoglycemia Sodium Chloride () 250 mls @ 15 mls/hr IV .[id number] PRN PRN Reason: SALINE FLUSH Last Admin: 08/26/18 10:50 Dose: 15 mls/hr Pantoprazole Sodium 40 mg/ (Sodium Chloride) 110 mls @ 330 mls/hr IV Q24 TRUPTI Last Admin: 08/26/18 10:51 Dose: 330 mls/hr Ampicillin Sodium/Sulbactam (Sodium 3 gm/ Sodium Chloride) 112 mls @ 150 mls/hr IV Q8 TRUPTI Melatonin (Melatonin) 3 mg PO QHS PRN PRN PRN Reason: SLEEP Last Admin: 08/25/18 02:03 Dose: 3 mg Pancrelipase (Keven Rodriguez 12,000 Unit Capsule) 2 capsule PO TIDCM TRUPTI Last Admin: 08/26/18 08:39 Dose: 2 capsule Senna/Docusate Sodium (Senokot-S, [place]-Colace) 2 tablet PO BID PRN PRN PRN Reason: Constipation Sodium Chloride () 5 - 15 ml IV UD PRN PRN Reason: SALINE FLUSH Last Admin: 08/26/18 05:22 Dose: 10 ml Sodium Chloride () 10 - 40 ml IV UD PRN PRN Reason: MULTILUMEN/HICMAN CATH FLUSH Last Admin: 08/26/18 05:22 Dose: 10 ml Medical Necessity - Tobacco Use Smoking Status: Current every day smoker Tobacco Use: Cigarettes Assessment/Plan All Active Problems Acute on recurrent pancreatitis (Acute) Septic shock (Acute) Bradycardia (Acute) 1. Septic shock due to gram negative bacteremia * off levophed since 08/23/18 * on IV meropenem; ID reviewed today and narrowed to IV unasyn * preliminary blood cultures from [facility] for gram negative rods (08/20/18) * blood cultures here negative x 48 hours * continue Creon * repeat blood cultures negative. * Per ID, can go home on 4 more days of PO augmentin * ID consulted; await rec's * 2. Acute on chronic pancreatitis * as under 1. * 3. Sinus Bradycardia * HR has remained down in 40s and 30s * cardiology consulted. Per cadrdiology rec's, since patient is asymptomatic, to monitor closely. * f2D echo: Normal left ventricular size and systolic function and estimated EF of 55% with stage I diastolic function no regional wall motion abnormalities. 4. Iron deficiency Anemia: * Hb is 9 today. * Iron panel shows iron deficiency anemia. * last colonoscopy was in 2012, and was normal. * Dr Laguerre on board: for EGD and colonoscopy today. * will keep NPO past midnight today 5. Pancytopenia * anemia as under 8. Platelets are up to 106 today. wbc is now up to 4.1. * will monitor. On SCDs. * 6. GERD: on IV pantoprazole 7. History of prostate cancer: recently diagnosed. to follow up with urology on outpatient basis 8. Nicotine abuse: counseled to quit DVT prophylaxis:SCDs Code Visit Inpatient E&M: 46735 Subs Hosp L2
--- NOTE | 2018-08-26 14:53 | CHAPLAIN ---
Type of Pastoral Visit ___ Initial Visit _x__ Follow-up Visit ___ On-call Visit ___ General Patient Visit ___ Spiritual Assessment ___ Family Conference ___ Bereavement ___ Rapid Response ___ Code Blue ___ Other (describe below) Pastoral Care Referral From _x__ Patient _x__ Family ___ Nurse ___ Physician ___ Dumbwaiter Operator ___ Pipeline Inspector ___ Other (describe below) Sacrament/Intervention _x__ Active listening ___ Anointing ___ Jain ___ Bereavement ___ Communion _x__ [place]boo exploration ___ _x__ Life review _x__ Prayer ___ Reconciliation ___ Sacrament of Sick _x__ Supportive presence ___ Wedding ___ Other (describe below) Pastoral Comments
--- NOTE | 2018-08-26 15:30 | EGD_PTH ---
PATIENT: JULISA CARSON LOC: [facility] U#:[id number] AGE/SX: 72/M ROOM: [facility] RE08/21/[address]: Dr. Zully Ferreira MD : [id number] BED: 1 DIS: 08/27/2018 SPEC #: [id number] RECD: 08/26/18 16:46 STATUS: ABDIAS RE #: [id number] DON: 08/26/18 15:[address]: Mariah Laguerre DEPT: SURGICAL PATHOLOGY RECD BY: Jone Yadav ENTERED: 08/27/18 09:08 SP TYPE: EGD BIOPSY OTHR DR: MD Dr. Ricki Zavala DO Dr. Juan Miguel Proano, MD Dr. Nana Yaa Koram, MD Dr. Prakash Chand, MD Dr. Robert Leininger, MD Jessica Witmer, FEED MANAGER-C Tissues: A - Stomach, NOS B - SPLENIC FLEXURE Procedures: Surgery Specimen Level IV HEADER OPERATION: Colonoscopy, EGD ([place]) PRE-OP DIAGNOSIS: Anemia TISSUE SUBMITTED: A - Fundus of stomach biopsy, B - Splenic flexure polyp biopsy MICROSCOPIC DIAGNOSIS A. Gastric fundus, biopsy: Mild chronic inflammation. See comment. B. Colonic polyp at hepatic flexure, biopsy: Fragments of tubular adenoma. AM:cadence 08/28/18 COMMENT A. The results of immunohistochemistry for Helicobacter pylori will be reported separately ([id number]). MICROSCOPIC DESCRIPTION Slides are reviewed. GROSS DESCRIPTION A - Received in fixative is one container labeled with the patient's name and designated fundus of stomach biopsy. The specimen consists of one irregular fragment of light bowles soft tissue that measures 0.2 x 0.2 x 0.1 cm. The specimen is totally submitted in one cassette. B - Received in fixative is one container labeled with the patient's name and designated splenic flexure polyp biopsy. The specimen consists of four irregular fragments of bowles-red soft tissue that in aggregate measure 0.4 x 0.1 x 0.1 cm. The specimen is totally submitted in one cassette. / CE:cadence 08/27/18 TC:5 CPT: 48489 x2
--- NOTE | 2018-08-26 16:13 | OP.ENDO_ITS ---
08/26/2018 Donita Ramires Re : Upper GI endoscopy procedure for Jacob Zavala Dear Ike This procedure was performed on Sunday, August 26, 2018. My impressions and recommendations are as follows: Impressions : - Normal first portion of the duodenum and second portion of the duodenum. - Granular gastric mucosa. Biopsied. - Small hiatal hernia. Recommendations : - Discharge patient to home (ambulatory). - Resume previous diet. - Continue present medications. - Await pathology results. - My office will telephone with pathology results in 1-2 weeks My findings are described in the full procedure note, which is enclosed. If I can be of further assistance, please feel free to contact me at Doctor phone number(s): , Work: . Sincerely, MD Mariah Teran MD 08/26/2018 4:13:34 PM This report has been signed electronically.
--- NOTE | 2018-08-26 16:16 | OP.ENDO_ITS ---
08/26/2018 Donita Ramires Re : Colonoscopy procedure for Jacob Zavala Dear Ike This procedure was performed on Sunday, August 26, 2018. My impressions and recommendations are as follows: Impressions : - Non-bleeding external and internal hemorrhoids. - Diverticulosis in the sigmoid colon. - One 5 to 10 mm polyp at the splenic flexure, removed with a cold biopsy forceps. Resected and retrieved. Recommendations : - Repeat colonoscopy date to be determined after pending pathology results are reviewed for surveillance based on pathology results. - My office will telephone with pathology results in 1-2 weeks - Continue present medications. My findings are described in the full procedure note, which is enclosed. If I can be of further assistance, please feel free to contact me at Doctor phone number(s): , Work: . Sincerely, MD Mariah Teran MD 08/26/2018 4:15:52 PM This report has been signed electronically.
--- NOTE | 2018-08-26 16:16 | PCM.PN.BLA ---
Progress Note Upper and lower endoscopy done No sign of ulcers or cancers - no evidence of GI site of bleeding Small polyp, < 1 cm noted in colon, benign. Patient with significant hemorrhoidal disease Follow up with me as outpatient to discuss above.
[2018-08-27] MEDS: Hydrocortisone 25 MG Suppository RECTAL (02:44)
[2018-08-27 03:00] VITALS: BP 123/64; PULSE 42; PULSE 46; RESP 18; TEMP 36.9; O2SAT 98
[2018-08-27] MEDS: 0.9% NaCl Peripheral Flush Adult/Peds IV ×2 (05:16→05:17)
[2018-08-27 05:34] LABS: Absolute Lymphocyte Count 1.24 X10^3/ul (0.83-4.51); Absolute Neutrophil Count 4.1 X10^3/uL (2.0-7.7); Basophil# 0.03 X10^3/uL; Basophil% 0.5 % (0-1); Eosinophil# 0.15 X10^3/uL; Eosinophils% 2.5 % (0-5); Hematocrit 27.1 % (40-54); Hemoglobin 8.8 g/dl (13.0-16.5); Lymphocyte # 1.24 X10^3/ul (4.0); Mean Corp Hgb Conc 32.5 g/gl (32-36); Mean Corpuscular Hgb 29.9 pg (27.0-32.0); Mean Corpuscular Volume 92.2 fL (80-94); Mean Platelet Vol. 12.5 fl (6.2-12.0); Monocyte# 0.35 X10^3/uL; Monocyte% 5.9 % (0-10); Neutrophil # 4.05 X10^3/uL (2.7-7.7); Neutrophil % 68.7 % (47-70); Platelet Count 152 K/mm3 (150-450); RBC Distribution Width CV 13.9 % (11.6-14.6); RBC Distribution Width SD 46.5 fl (35.1-43.9); Red Blood Count 2.94 M/mm3 (4.6-6.2); White Blood Count 5.9 K/mm3 (4.4-11.0)
[2018-08-27 05:36] LABS: POSITIVE COUNT NO; POSITIVE DIFFERENTIAL NO; POSITIVE MORPHOLOGY NO
[2018-08-27 05:45] LABS: ALB/GLOB Ratio 0.6 RATIO (0.9-2.4); AST(SGOT) 16 U/L (15-37); Alanine Aminotransfer ALT/SGPT 25 U/L (16-61); Albumin, Serum 2.2 g/dL (3.2-5.0); Alkaline Phosphatase 102 U/L (45-117); Anion Gap 7 (5-15); BUN 8 mg/dL (7-18); BUN/Creat Ratio 9.7 RATIO (10-20); Calcium,Total 8.1 mg/dL (8.5-10.1); Chloride 109 mmol/L (98-107); Creatinine, Serum 0.83 mg/dL (0.70-1.30); EST Glomerular Filtration Rate 97 mL/min (>60); Est Glom Filt Rate - Afr Amer 117 mL/min (>60); Globulin 3.4 g/dL (2.2-4.2); Glucose 92 mg/dL (74-106); Potassium 3.6 mmol/L (3.5-5.1); Protein, Total 5.6 g/dL (6.4-8.2); Sodium Level 145 mmol/L (136-145)
[2018-08-27 07:19] VITALS: PULSE 40
[2018-08-27 08:11] VITALS: BP 115/59; PULSE 54; RESP 15; TEMP 37.2; O2SAT 97
[2018-08-27 11:04] VITALS: PULSE 45
--- NOTE | 2018-08-27 11:09 | PCM.DC ---
- Discharge Diagnoses Current Active Problems: Current Active and Chronic Problems Acute on recurrent pancreatitis (Acute) Prostatic cancer (Chronic) Bladder outlet obstruction (Chronic) CHRONIC SMOKER (Chronic) GERD (gastroesophageal reflux disease) (Chronic) Septic shock (Acute) Bradycardia (Acute) You will use the following diet at home:: Cardiac Your food should be the consistency of: Regular Your liquids should be the consistency of: Regular/Thin Discharge Activity: Return to Normal Activity Weight Bearing Status: Weight bearing as tolerated Call your doctor if you observe: Fever of 101 or Higher, Shortness of breath, Dizziness, Fainting spells, Swelling in the ankles, Chest pain Instructions: Understanding Sepsis, Sepsis, ED Bradycardia Additional Instructions: to wear 48 hour Holter monitor; to be read by Dr Bush Allergies/Adverse Reactions: Allergies No Known Allergies Allergy (Verified 08/21/18 01:14) Medications to take at Discharge Lipase/Protease/Amylase [Keven Rodriguez 24,000 Units Capsule] 1 each PO TID 03/02/13 Sertraline HCl [Zoloft] 50 mg PO DAILY 03/02/13 Aspirin [Aspir 81] 81 mg PO DAILY 08/21/18 Finasteride 5 mg PO DAILY 08/21/18 Omeprazole 20 mg PO DAILY 08/21/18 Vitamin B12 1,000 mg PO DAILY 08/21/18 Amox/Clavulanate Tablet [Augmentin Tablet] 875 mg PO Q12H 4 Days #8 tablet 08/27/18 The following prescriptions were given: Amox/Clavulanate Tablet [Augmentin Tablet] 875 mg PO Q12H 4 Days #8 tablet Primary Care Physician: Donita Ramires, LOAD MANAGER-C [Primary Care Provider] - Please follow up with your Primary Care Physician in: one week Test Results: Test results from this visit will be discussed in further detail at your follow-up appointment, if applicable. Please Follow Up With: Ruddy Bush MD When: one week Please Follow Up With: Silas Clay MD When: 1-2 weeks Please Follow Up With: Lane Paez MD When: 1-2 weeks Proposed Discharge Date: 08/27/18
--- NOTE | 2018-08-27 11:11 | DS.PCM_ITS ---
Discharge Date and Diagnosis Date of Admission: 08/21/18 Date of Discharge: 08/27/18 - Primary Discharge Diagnosis Active and Suspected Problems Acute on recurrent pancreatitis (Acute) Septic shock (Acute) Bradycardia (Acute) - Secondary Discharge Diagnosis Chronic Problems Prostatic cancer (Chronic) Bladder outlet obstruction (Chronic) CHRONIC SMOKER (Chronic) GERD (gastroesophageal reflux disease) (Chronic) Hospital Course and Treatment Imaging Results: Diagnostic Data Abdomen Ultrasound 08/21/18 05:55 IMPRESSION: Hepatomegaly. Status post cholecystectomy. Electronically Signed: Cabrera Kamara, at 13:12 EDT , Service support , Chest X-Ray 08/22/18 06:49 IMPRESSION: Mild increased markings in the right frontal region and left midlung. Follow-up is recommended. Electronically Signed: Cabrera Kamara, at 8:17 EDT , Service support , Shoulder X-Ray 08/27/18 13:04 IMPRESSION: The tip of the PICC line is in the right axillary region. Electronically Signed: Cabrera Kamara, at 13:42 EDT , Service support , critical care- Dr Ventura cardiology- Dr Cifuentes general surgery- Dr Laguerre Operations: None Procedures: Colonoscopy Summary of Care Provided: The patient is a 72 year old M with a PMH as listed below who was admitted directly from [facility] ED after he presented there with a complaint of abdominal pain. He was managed for acute on chronic pancreatitis. He was stared on IVF and levophed on account of persistent hypotension which was not responsive to fluids. Done with IV contrast showed mild periportal edema with normal liver and atrophic pancreas with numerous calcifications and chronic pancreatic duct dilatation with an enlarged prostate. He was initially started on IV antibiotics but this was DC'd as was thought he just had acute on chronic pancreatitis. Patient's antibiotics were subsequently restarted. Of note, patient had also been recently diagnosed with prostate cancer and was reviewed by urology. Urology decided to follow him on outpatient basis. Patient stay was complicated by persistent septic shock which required broadening of antibiotics as he also spiked fever. Blood cultures from [facility] was noted to be growing gram-negative rods which were likely the cause of his shock. Blood cultures done in [facility] were negative. Infecctious disease was subsequently consulted. Patient was also noted to have worsening anemia and was found to be iron deficient. General surgery was consulted. Patient was gradually weaned off of Levophed and remained off of it. Of note, patient was noted to have significant bradycardia with his heart rate going down to the 30s during the night and remain in the 40s and 50s during the day. Cardiology was consulted. 2D echo done showed EF of 55% with stage I diastolic dysfunction and normal left ventricular size and systolic function with no regional wall motion abnormalities. He was transferred to the regular nursing floor. He had EGD and colonoscopy on 08/18/2018 which were negative. Patient remained stable and IV antibiotics was the escalated to Unasyn. During the stay, Lovenox was discontinued for DVT prophylaxis on account of worsening thrombocytopenia and he eventually even developed pancytopenia. I have a platelet count and white cell count gradually improved. He remained stable and was discharged home with p.o. Augmentin 8 7 5 mg twice daily for 4 days on 08/27/2017. He is follow-up with his primary care doctor, with the surgeon and with urology. He was discharged with a 48-hour Holter monitor to be read by cardiology- Dr Bsuh, to determine if there was any need for any further work-up for bradycardia. Patient seen and examined prior to discharge. He had no complaints and felt well. Review of systems otherwise negative. Labs and vitals reviewed. Home medication reviewed and reconciled. o/e: Vital Signs Height 6 ft 0.05 in Weight: 168 lb 6.931 oz Weight in Pounds 168.4 lbs Pulse Ox 96 Temperature 98.8 F Pulse Rate 51 Respiratory Rate 16 Blood Pressure [BP] 112/44 Blood Pressure 112/57 Blood Pressure Position [BP] Sitting Blood Pressure Position Supine [] General: Alert, Oriented x3, Cooperative, No apparent distress HEENT: Atraumatic, PERRLA, EOMI, Normocephalic Oral: moist mucosa Neck: Supple, No JVD, Negative Carotid Bruits Lungs: Clear to auscultation, Normal air movement, No rhonchi, No wheeze, No rales Cardiovascular: Regular Rhythm, bradycardia Normal S1, Normal S2, No murmurs Abdomen: Bowel Sounds Present, Soft, nontender; no guarding or rebound tenderness Extremities: No clubbing, No cyanosis, No edema, Capillary Refill Less than 3 Seconds Skin: No rashes, No breakdown Musculoskeletal: No Tenderness to Palpation of Joints or Extremities; PICC line in RUE Lymphatic: No Cervical, Supraclavicular, or Inguinal Adenopathy Neurological: Cranial nerves II-XII grossly intact, Neuro grossly intact, Motor Exam 5/5 strength throughout Psych/Mental Status: Normal Affect, Appropriate, Alert and oriented to time, place, person, mood and affect Plan as above. - Physical Exam Vital Signs Temp Pulse Resp BP Pulse Ox 98.9 F 45 L 15 115/59 L 97 08/27/18 08:11 08/27/18 11:04 08/27/18 08:11 08/27/18 08:11 08/27/18 08:11 Oxygen Delivery Method Room Air Weight: 168 lb 6.931 oz Body Mass Index (BMI) 23.8 Intake and Output for Last 24 Hours 08/25/18 08/26/18 08/27/18 23:59 23:59 23:59 Intake Total 738.1 / 738.1 2068.7 / 2068.7 89.2 / 89.2 Output Total 1200 / 1200 650 / 650 Balance -461.9 / -461.9 1418.7 / 1418.7 89.2 / 89.2 Microbiology Past 72 Hours 08/21/18 02:35 Blood Culture - Final Blood Culture (Wb) - Central Line No growth in 5 days. 08/21/18 02:45 Blood Culture - Final Blood Culture (Wb) - Left Forearm No growth in 5 days. 08/23/18 14:55 Blood Culture - Preliminary Blood Culture (Wb) - Pic No growth in 48 hours. Laboratory Tests Past 24 Hrs 08/27/18 08/27/18 05:15 05:15 WBC 5.9 RBC 2.94 L Hgb 8.8 L Hct 27.1 L MCV 92.2 MCH 29.9 MCHC 32.5 RDW 13.9 RDW Differential 46.5 H Plt Count 152 MPV 12.5 H Immature Gran % (Auto) 1.400 H Neut % (Auto) 68.7 Lymph % (Auto) 21.0 [place] % (Auto) 5.9 Eos % (Auto) 2.5 Baso % (Auto) 0.5 Absolute Neuts (auto) 4.1 Absolute Lymphs (auto) 1.24 Total Counted Not Reportable Sodium 145 Potassium 3.6 Chloride 109 H Carbon Dioxide 29.0 Anion Gap 7 BUN 8 Creatinine 0.83 Estim Creat Clear Calc 87.00 Est GFR (MDRD) Af Amer 117 Est GFR (MDRD) Non-Af 97 BUN/Creatinine Ratio 9.7 L Glucose 92 Calcium 8.1 L Total Bilirubin 0.40 AST 16 ALT 25 Alkaline Phosphatase 102 Total Protein 5.6 L Albumin 2.2 L Globulin 3.4 Albumin/Globulin Ratio 0.6 L Discharge Diet: Low fat/ Low Cholesterol Discharge Activity: Return to Normal Activity Weight Bearing Status: Weight bearing as tolerated Call your doctor if you observe: Fever of 101 or Higher, Shortness of breath, Dizziness, Fainting spells, Swelling in the ankles, Chest pain Home Medications: Medications to take at Discharge RX: Lipase/Protease/Amylase [Creon Dr 24,000 Units Capsule] 1 each PO TID 03/02/13 RX: Sertraline HCl [Zoloft] 50 mg PO DAILY 03/02/13 RX: Aspirin [Aspir 81] 81 mg PO DAILY 08/21/18 RX: Finasteride 5 mg PO DAILY 08/21/18 RX: Omeprazole 20 mg PO DAILY 08/21/18 Vitamin B12 1,000 mg PO DAILY 08/21/18 Amox/Clavulanate Tablet [Augmentin Tablet] 875 mg PO Q12H 4 Days #8 tablet 08/27/18 Following Prescrptions Were Given to Patient: Amox/Clavulanate Tablet [Augmentin Tablet] 875 mg PO Q12H 4 Days #8 tablet Primary Care Physician: Donita Ramires NP-C [Primary Care Provider] - Please follow up with your Primary Care Physician in: one week Please Follow Up With: Ruddy Bush MD When: one week Please Follow Up With: Silas Clay MD When: 1-2 weeks Please Follow Up With: Lane Paez MD When: 1-2 weeks Patient Instructions: Sepsis, Understanding Sepsis, ED Bradycardia Disposition: Home Minutes spent on discharge:: 40 Patient Condition:: Stable Medical Necessity - Tobacco Use Smoking Status: Current every day smoker Tobacco Use: Cigarettes Meaningful Use Info Meaningful Use Diagnoses (Choose all that apply): None applicable Code Visit Inpatient E&M: 56367 Disch Hosp
--- NOTE | 2018-08-27 11:55 | NURSING ---
Attempted to DC line at 1130. Met resistance. Continued to resist after multuple attempts to reposition. Opsite placed. Will attempt again after allowing patient to rest.
--- NOTE | 2018-08-27 12:09 | PHA.DC.MC ---
Pharmacy Service has performed discharge medication reconciliation and counseling for this patient. The patient's discharge medication list was reviewed for discrepancies and discrepancies were resolved. The patient was counseled on the following discharge medications and changes in medications for homegoing were reviewed. 1. AUGMENTIN 875: 1T PO BID X8 DOSES The Reason for Use, instructions for use, and potential side effects were reviewed for all new medications. The patient's questions regarding all of their medications were answered. The patient was able to verbally demonstrate an understanding of their discharge medications. Home Medications Lipase/Protease/Amylase [[place] Dr 24,000 Units Capsule] 1 each PO TID 03/02/13 Sertraline HCl [Zoloft] 50 mg PO DAILY 03/02/13 Aspirin [Aspir 81] 81 mg PO DAILY 08/21/18 Finasteride 5 mg PO DAILY 08/21/18 Omeprazole 20 mg PO DAILY 08/21/18 Vitamin B12 1,000 mg PO DAILY 08/21/18 Amox/Clavulanate Tablet [Augmentin Tablet] 875 mg PO Q12H 4 Days #8 tablet 08/27/18
--- NOTE | 2018-08-27 13:04 | RAD_ITS ---
STUDY: X-RAY - RIGHT SHOULDER REASON FOR EXAM: Male, 72 years old. PICC line placement. TECHNIQUE: Single frontal view(s) of the shoulder. COMPARISON: None. FINDINGS: The tip of the right-sided PICC line catheter is in the axillary region. No guidewire is seen. RAD/Shoulder One View IMPRESSION: The tip of the PICC line is in the right axillary region. Electronically Signed: Cabrera Kamara, at 13:42 EDT , Service support ,
--- NOTE | 2018-08-27 13:34 | NURSING ---
Reattempted to remove PICC at 1300 without success. notified. Shoulder Xray ordered.
--- NOTE | 2018-08-27 14:13 | NURSING ---
Warm compress applied to RUE @ 1330
[2018-08-27 14:32] VITALS: BP 112/57; PULSE 51; RESP 16; TEMP 37.1; O2SAT 96
--- NOTE | 2018-08-27 15:18 | PCM.PN.ID ---
Subjective: Feeling well, no fever, no abd pain, no n/v. - Physical Exam General: Alert, Cooperative, No apparent distress Lungs: Clear to auscultation, Normal air movement Cardiovascular: Regular rate, Regular Rhythm Abdomen: Soft, Non Tender, Non-Distended Skin: No rashes Vital Signs Temp Pulse Resp BP Pulse Ox 98.8 F 51 L 16 112/57 L 96 08/27/18 14:32 08/27/18 14:32 08/27/18 14:32 08/27/18 14:32 08/27/18 14:32 Oxygen Delivery Method Room Air Weight: 76.4 kg Body Mass Index (BMI) 23.8 Intake and Output for Last 24 Hours 08/25/18 08/26/18 08/27/18 23:59 23:59 23:59 Intake Total 738.1 / 738.1 2068.7 / 2068.7 979.2 / 979.2 Output Total 1200 / 1200 650 / 650 Balance -461.9 / -461.9 1418.7 / 1418.7 979.2 / 979.2 Microbiology Past 72 Hours 08/21/18 02:35 Blood Culture - Final Blood Culture (Wb) - Central Line No growth in 5 days. 08/21/18 02:45 Blood Culture - Final Blood Culture (Wb) - Left Forearm No growth in 5 days. 08/23/18 14:55 Blood Culture - Preliminary Blood Culture (Wb) - Pic No growth in 48 hours. Laboratory Tests Past 24 Hrs 08/27/18 08/27/18 05:15 05:15 WBC 5.9 RBC 2.94 L Hgb 8.8 L Hct 27.1 L MCV 92.2 MCH 29.9 MCHC 32.5 RDW 13.9 RDW Differential 46.5 H Plt Count 152 MPV 12.5 H Immature Gran % (Auto) 1.400 H Neut % (Auto) 68.7 Lymph % (Auto) 21.0 Kings % (Auto) 5.9 Eos % (Auto) 2.5 Baso % (Auto) 0.5 Absolute Neuts (auto) 4.1 Absolute Lymphs (auto) 1.24 Total Counted Not Reportable Sodium 145 Potassium 3.6 Chloride 109 H Carbon Dioxide 29.0 Anion Gap 7 BUN 8 Creatinine 0.83 Estim Creat Clear Calc 87.00 Est GFR (MDRD) Af Amer 117 Est GFR (MDRD) Non-Af 97 BUN/Creatinine Ratio 9.7 L Glucose 92 Calcium 8.1 L Total Bilirubin 0.40 AST 16 ALT 25 Alkaline Phosphatase 102 Total Protein 5.6 L Albumin 2.2 L Globulin 3.4 Albumin/Globulin Ratio 0.6 L Medical Necessity - Tobacco Use Smoking Status: Current every day smoker Tobacco Use: Cigarettes Route of nutrition/ use of supplements: [] Nutritional Intake: [] IV Site: [] Salazar Catheter: [] - Assessment/Plan Antibiotics: [] Assessment/Plan: [] Active and Suspected Problems Acute on recurrent pancreatitis (Acute) septic shock due to ecoli bacteremia from acute on chronic pancreatitis - had recent prostate bx done, but UA at [facility] [facility] was neg and no new urinary/prostate sx that would indicate infection. CT did not show any abscess in prostate. Bcx x2 at [facility] [facility] with ecoli, R to ampicillin and bactrim, I to cefazolin. Overall much improved, out of icu, off pressors, abd pain resolved. Narrowed meropenem to anel vann for d/c home on augmentin 875mg bid po for 4 more days. Will follow as needed
== END 2018-08-27 14:46 | disposition home or self-care (01) | DRG 871 ==
LOC: ICU 08-22 07:16 → PCU 08-26 07:13 → ICU 08-27 07:39
PROVIDERS: Internal Medicine Critical Care Medicine; Surgery; Admitting Provider Internal Medicine; Family Provider Nurse Practitioner Primary Care; PCP Nurse Practitioner Primary Care; Referring Provider Internal Medicine; Visit Provider Student in an Organized Health Care Education/Training Program
PROC: 0DJD8ZZ Inspection of Lower Intestinal Tract, Via Natural or Artificial Opening Endoscopic (ICD-10-PCS; CPT 45378; principal; 2018-08-26 15:25)
DX: A41.50 Gram-negative sepsis, unspecified (principal); R65.21 Severe sepsis with septic shock; K85.90 Acute pancreatitis without necrosis or infection, unspecified; K86.1 Other chronic pancreatitis; D61.818 Other pancytopenia; E87.6 Hypokalemia; E87.5 Hyperkalemia; K21.9 Gastro-esophageal reflux disease without esophagitis; E83.42 Hypomagnesemia; D64.9 Anemia, unspecified; D69.6 Thrombocytopenia, unspecified; R00.1 Bradycardia, unspecified; D50.9 Iron deficiency anemia, unspecified; C61 Malignant neoplasm of prostate; F17.210 Nicotine dependence, cigarettes, uncomplicated; K44.9 Diaphragmatic hernia without obstruction or gangrene; N32.0 Bladder-neck obstruction; Z90.49 Acquired absence of other specified parts of digestive tract; Z79.899 Other long term (current) drug therapy; Z79.82 Long term (current) use of aspirin; K57.30 Diverticulosis of large intestine without perforation or abscess without bleeding; K64.8 Other hemorrhoids
CPT/HCPCS: 36569; 71045; 73020; 76705; 80053; 82248; 82274; 82728; 82962; 83540; 83550; 83605; 83615; 83690; 83735; 84100; 84443; 85025; 85610; 86850; 86900; 87040; 87086; 87641; 88305; 88342; 93005; 93306; 97161; 97165; 97530; 97802; 99406; J2185; J2997; J7030; J7050; J7120; A4216; J0295

== ENCOUNTER → 2018-08-27 14:52 | Outpatient (CLI) | payer MEDICARE, OTHER, SELFPAY ==
[2018-08-27 14:52] VITALS: BMI 23.2
== END ==
PROVIDERS: Family Provider Nurse Practitioner Primary Care; PCP Nurse Practitioner Primary Care; Referring Provider Student in an Organized Health Care Education/Training Program; Visit Provider Student in an Organized Health Care Education/Training Program
DX: R00.1 Bradycardia, unspecified (principal)
CPT/HCPCS: 93225; 93226

== ENCOUNTER → 2018-09-02 10:19 | Outpatient (CLI) | payer MEDICARE, OTHER, SELFPAY ==
[2018-08-27 14:52] VITALS: BMI 23.2
--- NOTE | 2018-09-02 10:23 | NM_ITS ---
CLINICAL: 72-year-old male with recent diagnosis of primary prostate carcinoma and apparent orthopedic hardware placement involving the left hindfoot. WHOLE BODY 99m Tc MDP RADIONUCLIDE BONE SCINTIGRAPHY COMPARISON: None available FINDINGS: Following the intravenous administration of 25.7 mCi of 99m Tc MDP, whole body bone images reveal: 1. Increased radiopharmaceutical concentration is identified in the acromioclavicular and sternoclavicular compartments of both shoulders, the left wrist, mid cervical spine posteriorly on the left and right, upper thoracic spine posteriorly in the midline, seventh thoracic vertebra posteriorly on the right, left midfoot. 2. Facilitated tracer distribution is demonstrated in the plantar posterior aspect of the left hindfoot. 3. The remaining skeletal structures are scintigraphically unremarkable with normal-appearing renal images and urinary bladder activity identified. An increase in radiotracer uptake is visualized in the bilateral maxilla and right mandible most consistent with periodontal disease and or periostitis. NM/Bone Scan Whole Body IMPRESSION: 1. The increased radiopharmaceutical concentration identified in the bilateral shoulders, left wrist, cervical and thoracic spine, the left midfoot is most consistent with degenerative arthritis. 2. Enhanced radiotracer uptake visualized in the left hindfoot is most consistent with postsurgical change. If an infectious etiology is a diagnostic consideration, correlation with labeled leukocyte imaging is recommended. 3. There is no definitive scintigraphic evidence of skeletal metastatic disease on the current examination. Electronically Signed: Denys Lee DO at 10:12 EDT Tel , Service support ,
== END ==
PROVIDERS: Family Provider Nurse Practitioner Primary Care; PCP Nurse Practitioner Primary Care; Referring Provider Urology; Visit Provider Urology
DX: C61 Malignant neoplasm of prostate (principal)
CPT/HCPCS: 78306

== ENCOUNTER 2018-10-01 06:41 | Day surgery (SDC) | payer MEDICARE, OTHER, SELFPAY ==
[2018-09-10 08:53] VITALS: BMI 22.6
[2018-10-01 07:01] VITALS: BP 112/65; PULSE 51; RESP 18; TEMP 36.9; O2SAT 99; BMI 21.9
--- NOTE | 2018-10-01 08:04 | DCINST_ITS ---
Discharge Diet: Light diet - advance as tolerated Discharge Activity: Return to Normal Activity Suture Line Care: Avoid Pulling/Pushing, Avoid Pinching/Bending Allergies/Adverse Reactions: Allergies No Known Allergies Allergy (Verified 09/10/18 08:53) Medications to take at Discharge Lipase/Protease/Amylase [Creon Dr 24,000 Units Capsule] 1 ea PO TID 03/02/13 Sertraline HCl [Zoloft] 50 mg PO DAILY 03/02/13 Finasteride 5 mg PO DAILY 08/21/18 Omeprazole 20 mg PO DAILY 08/21/18 Vitamin B12 1,000 mg PO DAILY 08/21/18 tamsulosin 0.4 mg capsule 0.4 mg PO QHS 30 Days #30 cap 09/10/18 Primary Care Physician: Donita Ramires NP-C [Primary Care Provider] - Test Results: Test results from this visit will be discussed in further detail at your follow- up appointment, if applicable. Please Follow Up With: Steve Farmer MD When: please call to make an appointment.
[2018-10-01] MEDS: Cefazolin 2 GM in 0.9% Normal Saline 100 ML IV (08:12)
--- NOTE | 2018-10-01 08:42 | PCM.OPRPT ---
Report of Operation Date of Procedure: 10/01/18 Pre-Operative Diagnosis: Prostate cancer Post-Operative Diagnosis: The same Surgery/Procedure Performed:: Placement of gold fiducial markers in the prostate, placement of spacer O AR hydrogel between the rectum and the prostate Description of Surgical Findings:: 73-year-old male was taken back to the operating room after smooth induction of general anesthesia he was placed in dorsolithotomy position, the perineum testicles and penis were prepped and draped in usual sterile fashion, we dried the area, I then used a IO proband to retract the testicle and penis out of the perineal field. I then placed the brachytherapy template on the table and adjusted it for the patient. We then placed a biplanar ultrasound probe into the rectum and performed ultrasonography of the prostate. Found a very large prostate and found the center of the prostate we found the space between the rectum and the prostate with the and identied denovias fascia identified on ultrasound. I then guided 3 gold markers of the prostate the first marker was in the right base this was placed under ultrasound guidance of the prostate, with second marker was in the left apex and the third marker was in the right mid prostate. After placing the 3 gold markers for fiducial markers for radiation treatment planning we then prepared the spacer O AR gel in the back table, first mixing the blue mixture, so we prepared the accelerator and the diluent in the injector in the back table per vamp strap ironer's instruction, we then marked the needle on the finder needle level side down, we then used ultrasonography both biplanar and sagittal and transverse view on the prostate to guide the needle into the fascia below the prostate above the rectum once it appeared to be in the proper position sterile saline was injected into the area to confirm location and we could see the space dilated nicely a little bit more on the patient's right side and the left side. Once we confirm the location of the needle in the proper place in the below denovieas fascia above the rectum the spacer O AR gel was then injected over the course of 10 seconds into the space is created a nice separation of the rectum from the prostate. After completion of the injection into the space we then pulled out the needle. The patient was then cleaned prepped and anesthesia was reversed back to PACU in good condition he will then proceed with radiation treatment planning to complete radiation treatment. Type of Anesthesia:: General Drains: none - Admit VTE Documentation VTE Present on Admission: No VTE Mechan Device Prophylaxis: SCD's
[2018-10-01 08:53] VITALS: BP 110/66; BP 112/65; PULSE 55; RESP 16; TEMP 36.6; O2SAT 99
[2018-10-01 09:00] VITALS: BP 112/65; BP 122/63; PULSE 55; RESP 16; O2SAT 98
[2018-10-01 09:15] VITALS: BP 112/65; BP 127/65; PULSE 55; RESP 16; O2SAT 98
[2018-10-01 09:25] VITALS: BP 112/65; BP 128/71; PULSE 58; RESP 16; TEMP 36.2; O2SAT 99
[2018-10-01 10:05] VITALS: BP 112/65; BP 124/59; PULSE 60; RESP 18; TEMP 36.4; O2SAT 97
== END 2018-10-01 10:08 | disposition home or self-care (01) ==
LOC: SDC 06:42 → AC 06:43
PROVIDERS: Family Provider Nurse Practitioner Primary Care; PCP Nurse Practitioner Primary Care; Referring Provider Urology; Visit Provider Urology
PROC: (CPT 55874; principal; 2018-10-01 08:10)
DX: C61 Malignant neoplasm of prostate (principal); K21.9 Gastro-esophageal reflux disease without esophagitis; F32.9 Major depressive disorder, single episode, unspecified; F17.200 Nicotine dependence, unspecified, uncomplicated; N40.1 Benign prostatic hyperplasia with lower urinary tract symptoms; N40.2 Nodular prostate without lower urinary tract symptoms; Z79.82 Long term (current) use of aspirin; Z79.899 Other long term (current) drug therapy
CPT/HCPCS: 55876; 76942; 51702; 99283; J7120; J2405

== ENCOUNTER 2018-10-01 16:35 | Emergency (ER) | payer MEDICARE, OTHER, SELFPAY ==
[2018-10-01 07:01] VITALS: BMI 21.9
[2018-10-01 16:35] VITALS: BP 140/69; PULSE 60; RESP 16; TEMP 36.6; O2SAT 99; BMI 22.4
--- NOTE | 2018-10-01 16:50 | ED.DCSUM_ITS ---
- ER Visit Summary Date of Service: 10/01/18 Chief Complaint: Urinary retention] History of Present Illness: The patient is a 73 M [presents to the emergency department with difficulty voiding. Patient states that he had procedure with this morning where he had bladder markers placed. Patient was under anesthesia. Patient states that he was initially able to void prior to discharge. Patient went home and then started having increased difficulty voiding and now unable to void at all. Patient describes lower abdominal discomfort. He denies any fevers. He said no vomiting. Patient has history of bladder cancer as well as history of chronic pancreatitis. Patient continues to smoke.] Physical Examination: [HEENT-PERRLA, EOMI. Cranial nerves II through XII grossly intact. TMs clear. Mucous membranes moist. No adenopathy. Cardiovascular-regular rate and rhythm without murmur or ectopy Lungs-clear to auscultation, chest wall stable without crepitus or subcu emphysema Abdomen-normoactive bowel sounds, soft. Patient has tenderness over the suprapubic region with guarding. There is no rebound, rigidity, cranial signs. Extremities-intact ?4, normal range of motion, normal pulses, atraumatic] Test Results: [None indicated] Emergency Department Course and Treatment: [Patient had a Salazar catheter placed and almost thousand cc of urine immediately returned and appeared relatively clear. There were no blood clots noted.] Treatment Plan: [Patient to follow-up with his urologist within the next 2 to 3 days to have the catheter removed. Patient is currently on an antibiotic and has enough pills to get him through tomorrow.] Disposition: [Discharged home in stable condition. Patient advised to return if catheter does not drain or if he should start having increased abdominal loading and discomfort.] Impression: [Urinary retention] This note was generated with [employer] dictation software. It may contain incorrect words, spelling, and punctuation that were not noted in review of the chart prior to signing ED Disposition - Plan for ED Patient: Referrals: Donita Ramires NP-C [Primary Care Provider] -
--- NOTE | 2018-10-01 17:14 | ED.DEP ---
ED Disposition - Plan for ED Patient: Instructions: URINARY RETENTION, Male Referrals: Donita Ramires NP-C [Primary Care Provider] - Steve Farmer MD [STAFF PHYSICIAN] - 2 Days
== END 2018-10-01 17:34 | disposition home or self-care (01) ==
LOC: ED 17:18
PROVIDERS: Emergency Provider Emergency Medicine; Family Provider Nurse Practitioner Primary Care; PCP Nurse Practitioner Primary Care
DX: R33.9 Retention of urine, unspecified (principal); K86.1 Other chronic pancreatitis; Z72.0 Tobacco use; Z85.46 Personal history of malignant neoplasm of prostate; Z85.51 Personal history of malignant neoplasm of bladder
CPT/HCPCS: 51702; 99283

== ENCOUNTER 2018-10-03 18:15 | Emergency (ER) | payer MEDICARE, OTHER, SELFPAY ==
[2018-10-03 18:16] VITALS: BP 123/72; PULSE 64; RESP 15; TEMP 36.4; O2SAT 99; BMI 21.9
--- NOTE | 2018-10-03 18:53 | ED.VISSUMM ---
- ER Visit Summary Date of Service: 10/03/18 Chief Complaint: No Salazar output History of Present Illness: The patient is a 73 M with a history of prostate cancer. He had markers placed 2 days ago in the morning and then a catheter placed later that evening for urinary retention. He is denying any bleeding or clots but he does get intermittent sharp pain and leakage. Physical Examination: Afebrile and vital signs unremarkable. Abdomen soft and nontender. Catheter is in place and appears unremarkable. Patient is having intermittent sharp pains during the exam. Otherwise exam unremarkable. Test Results: None performed Emergency Department Course and Treatment: Patient is having signs and symptoms of bladder spasms. He was treated with a B&O suppository. Dr. Farmer was notified. No further orders. Treatment Plan: B&O suppositories. Follow-up with urology. Disposition: Discharge Impression: 1. Bladder spasms This note was generated with [employer] dictation software. It may contain incorrect words, spelling, and punctuation that were not noted in review of the chart prior to signing ED Disposition - Plan for ED Patient: Referrals: Donita Ramires, WENDY-C [Primary Care Provider] -
--- NOTE | 2018-10-03 18:57 | ED.DEP ---
ED Disposition - Plan for ED Patient: Instructions: Salazar Catheter, Care Prescriptions: Opium/Belladonna Alkaloids [Belladonna-Opium 16.2-60 Supp] 1 ea NC DAILY 3 Days #3 supp.rect Prescription Printed Oxybutynin [Ditropan] 5 mg PO BID #10 tab Prescription Printed Referrals: Steve Farmer MD [STAFF PHYSICIAN] -
[2018-10-03 19:37] VITALS: BP 133/67; PULSE 56; RESP 18; O2SAT 98
== END 2018-10-03 19:38 | disposition home or self-care (01) ==
LOC: ED 19:23
PROVIDERS: Emergency Provider Emergency Medicine; Family Provider Nurse Practitioner Primary Care; PCP Nurse Practitioner Primary Care
DX: N32.89 Other specified disorders of bladder (principal); Z85.46 Personal history of malignant neoplasm of prostate; Z72.0 Tobacco use
CPT/HCPCS: 99282

== ENCOUNTER → 2018-10-14 | Outpatient (CLI) | payer MEDICARE, OTHER, SELFPAY ==
[2018-10-03 18:16] VITALS: BMI 21.9
[2018-10-14 14:31] LABS: Absolute Lymphocyte Count 1.67 X10^3/uL (0.83-4.51); Absolute Neutrophil Count 5.1 X10^3/uL (2.0-7.7); Basophil# 0.06 X10^3/uL; Basophil% 0.8 % (0-1); Eosinophil# 0.11 X10^3/uL; Eosinophils% 1.5 % (0-5); Hematocrit 34.3 % (40-54); Lymphocyte # 1.67 X10^3/ul (4.0); Lymphocyte % 22.5 % (19-41); Mean Corp Hgb Conc 32.1 g/dL (32-36); Mean Corpuscular Volume 90.5 fL (80-94); Mean Platelet Vol. 12.6 fl (6.2-12.0); Monocyte# 0.41 X10^3/uL; Monocyte% 5.5 % (0-10); NRBC Flagged by Analyzer 0 % (0-5); Neutrophil # 5.13 X10^3/uL (2.7-7.7); Neutrophil % 69.2 % (47-70); Platelet Count 205 K/mm3 (150-450); RBC Distribution Width CV 13.6 % (11.6-14.6); RBC Distribution Width SD 45.3 fl (35.1-43.9); Red Blood Count 3.79 M/mm3 (4.6-6.2); White Blood Count 7.4 K/mm3 (4.4-11.0)
[2018-10-14 14:58] LABS: EST Glomerular Filtration Rate 57 mL/min (>60); Est Glom Filt Rate - Afr Amer 69 mL/min (>60); PSA,Total- Diagnostic 0.97 ng/mL (0.0-4.0)
== END | disposition home or self-care (01) ==
LOC: LAB 13:44
PROVIDERS: Family Provider Nurse Practitioner Primary Care; PCP Nurse Practitioner Primary Care; Referring Provider Radiology Radiation Oncology; Visit Provider Radiology Radiation Oncology
DX: Z01.818 Encounter for other preprocedural examination (principal); C61 Malignant neoplasm of prostate
CPT/HCPCS: 36415; 82565; 84153; 85025

== ENCOUNTER → 2018-10-15 12:46 | Outpatient (CLI) | payer MEDICARE, OTHER, SELFPAY ==
[2018-10-03 18:16] VITALS: BMI 21.9
--- NOTE | 2018-10-15 12:51 | CT_ITS ---
STUDY: CT PELVIS WITH CONTRAST REASON FOR EXAM: Male, 73 years old. Radiation treatment planning examination for prostate cancer. RADIATION DOSAGE (If Supplied By Facility): CTDIvol = ( 24.62 ) mGy, DLP = ( 708.76 ) mGycm TECHNIQUE: Transaxial imaging of the pelvis was performed without oral contrast. 100 IV/Oral Isovue 300 was administered intravenously. Individualized dose optimization techniques were used for this CT. COMPARISON: None. FINDINGS: Normal urinary bladder. The prostate is enlarged. It measures 5.5 cm x 5.8 cm. This causes indentation at the bladder base. There is enlargement of the seminal vesicles bilaterally. Radiation seeds are seen within the prostate. Normal visualized small intestine. Normal visualized colon. There is no pelvic fluid. There is no pelvic lymphadenopathy or mass lesion. There is diffuse atherosclerotic calcification of the pelvic arteries. Normal abdominal wall. Normal osseous structures. CT/CT Pelvis W/CONT Therapy IMPRESSION: Prostatic enlargement with indentation of the bladder base. Radiation seeds are seen within the prostate. Electronically Signed: Cabrera Kamara, at 12:26 EDT , Service support ,
== END ==
PROVIDERS: Family Provider Nurse Practitioner Primary Care; PCP Nurse Practitioner Primary Care; Referring Provider Radiology Radiation Oncology; Visit Provider Radiology Radiation Oncology
DX: C61 Malignant neoplasm of prostate (principal)
CPT/HCPCS: 51600; 72193; Q9967

== ENCOUNTER → 2018-11-13 09:53 | Outpatient (CLI) | payer MEDICARE, OTHER, SELFPAY ==
[2018-11-13 10:18] LABS: Absolute Neutrophil Count 3.3 X10^3/uL (2.0-7.7); Basophil# 0.03 X10^3/uL; Basophil% 0.7 % (0-1); Eosinophil# 0.09 X10^3/uL; Eosinophils% 2.1 % (0-5); Hematocrit 31.4 % (40-54); Hemoglobin 10.1 g/dL (13.0-16.5); Lymphocyte % 13.8 % (19-41); Mean Corp Hgb Conc 32.2 g/dL (32-36); Mean Corpuscular Hgb 29.4 pg (27.0-32.0); Mean Corpuscular Volume 91.3 fL (80-94); Mean Platelet Vol. 11.1 fl (6.2-12.0); Monocyte# 0.33 X10^3/uL; Monocyte% 7.6 % (0-10); NRBC Flagged by Analyzer 0 % (0-5); Neutrophil # 3.26 X10^3/uL (2.7-7.7); Neutrophil % 75.1 % (47-70); POSITIVE DIFFERENTIAL YES; Platelet Count 149 K/mm3 (150-450); RBC Distribution Width SD 56.7 fl (35.1-43.9); Red Blood Count 3.44 M/mm3 (4.6-6.2); White Blood Count 4.3 K/mm3 (4.4-11.0)
[2018-11-13 10:19] LABS: Differential Indicated SCAN CRITERIA MET
[2018-11-13 14:37] LABS: Pathologist Review Reviewed
== END ==
PROVIDERS: Family Provider Nurse Practitioner Primary Care; PCP Nurse Practitioner Primary Care; Referring Provider Radiology Radiation Oncology; Visit Provider Radiology Radiation Oncology
DX: C61 Malignant neoplasm of prostate (principal)
CPT/HCPCS: 36415; 85025

== ENCOUNTER → 2018-12-03 09:44 | Outpatient (CLI) | payer MEDICARE, OTHER, SELFPAY ==
[2018-12-03 10:45] LABS: Absolute Lymphocyte Count 0.56 X10^3/uL (0.83-4.51); Absolute Neutrophil Count 3.9 X10^3/uL (2.0-7.7); Basophil# 0.04 X10^3/uL; Basophil% 0.8 % (0-1); Hematocrit 32.2 % (40-54); Hemoglobin 10.4 g/dL (13.0-16.5); Lymphocyte # 0.56 X10^3/ul (4.0); Lymphocyte % 11.2 % (19-41); Mean Corp Hgb Conc 32.3 g/dL (32-36); Mean Corpuscular Hgb 29.7 pg (27.0-32.0); Mean Platelet Vol. 11.5 fl (6.2-12.0); Monocyte# 0.41 X10^3/uL; Monocyte% 8.2 % (0-10); NRBC Flagged by Analyzer 0 % (0-5); Neutrophil # 3.88 X10^3/uL (2.7-7.7); Neutrophil % 77.2 % (47-70); POSITIVE DIFFERENTIAL YES; Platelet Count 202 K/mm3 (150-450); RBC Distribution Width CV 17.9 % (11.6-14.6); RBC Distribution Width SD 60.9 fl (35.1-43.9)
[2018-12-03 10:48] LABS: Differential Indicated SCAN CRITERIA MET
== END ==
PROVIDERS: Family Provider Nurse Practitioner Primary Care; PCP Nurse Practitioner Primary Care; Referring Provider Radiology Radiation Oncology; Visit Provider Radiology Radiation Oncology
DX: C61 Malignant neoplasm of prostate (principal)
CPT/HCPCS: 36415; 85025

== ENCOUNTER → 2019-03-30 08:46 | Outpatient (CLI) | payer MEDICARE, OTHER, SELFPAY ==
[2019-03-30 09:36] LABS: PSA,Total- Diagnostic 0.18 ng/mL (0.0-4.0)
== END ==
PROVIDERS: Family Provider Nurse Practitioner Primary Care; PCP Nurse Practitioner Primary Care; Referring Provider Urology; Visit Provider Urology
DX: C61 Malignant neoplasm of prostate (principal)
CPT/HCPCS: 36415; 84153

== ENCOUNTER → 2019-07-13 09:20 | Outpatient (CLI) | payer MEDICARE, OTHER, SELFPAY | PROVIDERS: PCP Nurse Practitioner Primary Care; Referring Provider Urology; Visit Provider Urology | DX: C61 Malignant neoplasm of prostate (principal) | CPT/HCPCS: 36415; 84153 ==

== ENCOUNTER → 2019-10-08 13:17 | Outpatient (CLI) | payer MEDICARE, OTHER, SELFPAY ==
[2019-10-08 15:09] LABS: PSA,Total- Diagnostic 0.08 ng/mL (0.0-4.0)
== END ==
PROVIDERS: PCP Nurse Practitioner Primary Care; Referring Provider Urology; Visit Provider Urology
DX: C61 Malignant neoplasm of prostate (principal)
CPT/HCPCS: 36415; 84153

== ENCOUNTER 2019-11-27 07:25 | Day surgery (SDC) | payer MEDICARE, OTHER, SELFPAY ==
--- NOTE | 2019-11-19 06:57 | EKG12_ITS ---
Test Reason : PREOP Blood Pressure : / mmHG Vent. Rate : 049 BPM Atrial Rate : 049 BPM P-R Int : 172 ms QRS Dur : 094 ms QT Int : 472 ms P-R-T Axes : 002 -59 023 degrees QTc Int : 426 ms Sinus bradycardia Left anterior fascicular block Abnormal ECG Confirmed by IVETT ALBERTO, GUERA ([id number]), non linear editor NALLELY LAFLEUR ([id number]) on 11/20/2019 2:42:45 PM Referred By: Steve Farmer Confirmed By:RAFAEL ROOT MD
[2019-11-19 07:09] LABS: Hematocrit 36.8 % (40-54); Hemoglobin 11.8 g/dL (13.0-16.5); Mean Corp Hgb Conc 32.1 g/dL (32-36); Mean Corpuscular Hgb 31.6 pg (27.0-32.0); Mean Corpuscular Volume 98.7 fL (80-94); Mean Platelet Vol. 11.8 fl (6.2-12.0); Platelet Count 176 K/mm3 (150-450); RBC Distribution Width CV 12.9 % (11.6-14.6); RBC Distribution Width SD 46.4 fl (35.1-43.9); Red Blood Count 3.73 M/mm3 (4.6-6.2); White Blood Count 5.9 K/mm3 (4.4-11.0)
[2019-11-27] VITALS (18 sets, daily range): BP systolic 98–147; BP diastolic 49–85; PULSE 50–73; RESP 14–18; TEMP 35.8–36.9; O2SAT 93–100; BMI 21.3
--- NOTE | 2019-11-27 | PROS_PTH ---
PATIENT: JULISA CARSON LOC: [facility] – [place] U#:[id number] AGE/SX: 74/M ROOM: RE11/27/[address]: Dr. Steve Farmer MD : 1945 BED: DIS: 11/28/2019 SPEC #: [id number] RECD: 11/27/19 13:46 STATUS: ABDIAS CHATA #: [id number] DON: 11/27/19 00:[address]: Steve Farmer DEPT: SURGICAL PATHOLOGY RECD BY: Mayur Mcguire ENTERED: 11/27/19 13:47 SP TYPE: TURP BRAXTON DR: Donita Ramires, SUNGLASS CLIP ATTACHER-C Tissues: Prostate, NOS Procedures: Surgery Specimen Level IV HEADER OPERATION: Cysto, TUR prostate, Olympus PRE-OP DIAGNOSIS: BPH with obstruction TISSUE SUBMITTED: Prostate chips MICROSCOPIC DIAGNOSIS Prostate, transurethral resection: Benign nodular stromal and basal cell hyperplasia. Mild chronic inflammation. Reactive epithelial changes consistent with therapy. No evidence of carcinoma. See comment. AM:cadence 12/01/19 COMMENT Immunohistochemistry ([id number]) supports the above diagnosis. Reference is made to the patient's prostate needle core biopsies from 2019 ([id number]) in which Dylon grade 10 adenocarcinoma was identified. Case has been reviewed in consultation with Dr. Ruano who concurs with the above diagnosis. IDC:SJ MICROSCOPIC DESCRIPTION Slides are reviewed. GROSS DESCRIPTION Received is one container labeled with the patient's name and designated prostate tissue. The specimen consists of multiple irregular fragments of pink-bowles, rubbery, soft tissue that in aggregate weigh 19.8 gm and measure in aggregate 7.5 x 7.5 x 0.6 cm. The specimen is totally submitted in 20 cassettes. / AM:cadence 11/27/19 TC:3 CPT: 10514
--- NOTE | 2019-11-27 | IMM_PTH ---
PATIENT: JULISA CARSON LOC: [facility] – [place] U#:[id number] AGE/SX: 74/M ROOM: RE11/27/[address]: Dr. Steve Farmer MD : 1945 BED: DIS: 11/28/2019 SPEC #: [id number] RECD: 12/01/19 14:14 STATUS: ABDIAS RESolis #: [id number] DON: 11/27/19 00:[address]: Steve Farmer DEPT: IMMUNOHISTOCHEMISTRY RECD BY: Elinor Zarco ENTERED: 12/01/19 14:16 SP TYPE: IMMUNO OTHR DR: Donita Ramires, OIL WELL FISHING TOOL OPERATOR-C Tissues: Prostate, NOS Procedures: P40 (add) 34BE12 (initial) PHYSICIAN & INSTITUTION [place] [id number] SPECIMEN INFORMATION: Tissue Source: Prostate chips Clinical Info: BPH with obstruction Specimen Number: [id number] #13 CPT code: 97165, 31908 METHODOLOGY: Deparaffinized sections of prefer/formalin-fixed tissue or PAP/DQ stained slides are incubated with monoclonal/polyclonal antibodies/oligonucleotide probes. Localization is made via biotin free immunoperoxidase method. Appropriate controls are performed and reacted as expected. Results on target cell population are indicated in the following table: RESULTS: ANTIBODY / CLONE RESULT Block 13 34BE12 (34BE12) positive P40 (BC28) positive These tests were developed and their performance characteristics determined by [facility]. They may not have been cleared or approved by the U.S. Food and Drug Administration. The FDA has determined that such clearance or approval is not necessary. The above immunohistochemical/dualISH markers are ordered and reviewed by the Pathologist. INTERPRETATION: Prostate tissue, transurethral resection: No evidence of carcinoma. AM:cadence 12/02/19 Case has been reviewed in consultation with Dr. Ruano who concurs with the above diagnosis. IDC:WILLIS
[2019-11-27] MEDS: Lactated Ringers 1,000 ML 100 ML IV ×2 (08:00→12:55)
[2019-11-27] MEDS: Cefazolin 2 GM in 0.9% Normal Saline 100 ML IV (08:55)
--- NOTE | 2019-11-27 08:56 | HP.PCM_ITS ---
History of Present Illness Date of Admission: 11/27/19 Chief Complaint: BPH with obstruction The patient is a 74 year old male with a history of prostate cancer treated by radiation in the past has been having difficulty with urination and cystoscopy was found to have a large prostate and significant obstruction organ to proceed with a transurethral resection of the prostate. He has an AUA symptom score of 29 Past Medical History Medical History: Medical History (Last Reviewed 11/27/19 @ 08:[address] Steve Farmer MD) Bladder outlet obstruction N32.0 GERD (gastroesophageal reflux disease) K21.9 Nicotine dependence F17.200 Pancreatitis K85.90 Prostate cancer C61 Pancytopenia D61.818 Septic shock Onset Date: 07/2018 A41.9, R65.21 ecoli bacteremia from acute on chronic pancreatitis Allergies No Known Allergies Allergy (Verified 11/27/19 07:38) Home Medications: Ambulatory Orders Medication Instructions Recorded Lipase/Protease/Amylase [Creon Dr 1 ea PO TID 03/02/13 24,000 Units Capsule] Sertraline HCl [Zoloft] 50 mg PO DAILY 03/02/13 Finasteride 5 mg PO DAILY 08/21/18 Omeprazole 20 mg PO DAILY 08/21/18 tamsulosin 0.4 mg capsule 0.4 mg PO QHS 30 Days #30 cap 09/10/18 Cyanocobalamin (Vitamin B-12) 1,000 mcg PO DAILY 10/01/18 [Vitamin B-12] Cholecalciferol (VIT D3) [Vitamin 1,000 unit PO .3X'S WEEKLY 11/18/19 D] Oxycodone HCl/Acetaminophen 1 ea PO PRN PRN 11/18/19 [Percocet 5-325 mg Tablet] Surgical History: Surgical History (Last Reviewed 09/10/18 @ 09:[address] Ruddy Bush MD) H/O prostate biopsy Z98.890 H/O rectal polypectomy Onset Date: 07/2018 Z98.890, Z87.19 History of inguinal hernia repair Z98.890, Z87.19 History of open reduction and internal fixation (ORIF) procedure Z98.890 left calcaneus fx History of sphincterotomy of sphincter of Oddi Z98.890 History of tonsillectomy Z90.89 Hx of cholecystectomy Z90.49 Surgical History: no surgical history Smoking Status: Current every day smoker Tobacco Use: Cigarettes - *Family History Sibling Family History: Family History (Last Reviewed 09/10/18 @ 09:[address] Ruddy Bush MD) Father Cancer Mother Hypertension Brother Diabetes History Items: No pertinent history Review of Systems Constitutional: Denies: Chills, Fever, Weight Change HEENT: Denies: Head Aches, Sinus Congestion, Sinus Drainage Cardiovascular: Denies: Chest Pain, Palpitations Respiratory: Denies: Cough, Shortness of breath at rest, Sputum production Gastrointestinal: Denies: Abdominal Pain, Nausea, Vomiting Genitourinary: Denies: Dysuria Musculoskeletal: Denies: Joint Pain, Joint Tenderness Skin: Denies: Rash, Wounds Neurological: Denies: Numbness, Tingling, Focal weakness Psychiatric: Denies: Anxiety, Depression, Homicidal Ideations, Suicidal Ideations Hematologic/ Lymphatic: Denies: Easy Bruising, Easy Bleeding VTE Information - Inpt Only VTE Present on Admission: No VTE Mechan Device Prophylaxis: SCD's - Physical Exam Vitals/I&O's: Vital Signs Temp Pulse Resp BP Pulse Ox 97.8 F 56 L 15 106/56 L 95 11/27/19 07:42 11/27/19 07:42 11/27/19 07:42 11/27/19 07:42 11/27/19 07:42 Oxygen Delivery Method Room Air Weight: 71.3 kg Body Mass Index (BMI) 21.3 General: Alert, Oriented x3, Cooperative HEENT: Atraumatic, PERRLA, EOMI, Normocephalic Neck: Supple, No JVD, Negative Carotid Bruits Lungs: Clear to auscultation, Normal air movement Cardiovascular: Regular rate, No murmurs Abdomen: Bowel Sounds Present, Soft, Non Tender Extremities: No edema, Capillary Refill Less than 3 Seconds Skin: No rashes, No breakdown Musculoskeletal: No Tenderness to Palpation of Joints or Extremities Neurological: Cranial nerves II-XII grossly intact Psych/Mental Status: Normal Affect, Appropriate Current Medications Lactated Ringer's () 1,000 mls @ 100 mls/hr IV .Q10H [facility] Last Admin: 11/27/19 08:00 Dose: 100 mls/hr Documented by: Assessment/Plan 74-year-old male with a history of prostate cancer significant BPH and obstruction today were to proceed with transurethral resection of the prostate prior to surgery I discussed with the patient and his the risk of incontinence will make sure that we resect very carefully down to the apex of the prostate but he understands that have to be very careful that he could also experience urinary incontinence due to prior radiation could weaken the bladder and the sphincter area so on the resection and be conservative around the sphincter make sure you get a nice smooth resection. After discussing with this patient extensively he signed a consent form again to proceed with a transurethral section of the prostate.
--- NOTE | 2019-11-27 09:03 | DCINST_ITS ---
Discharge Diet: Light diet - advance as tolerated Discharge Activity: Return to Normal Activity Call your doctor if your incision/area has: Sudden Increased Bleeding Call your doctor if you observe: Fever of 101 or Higher Suture Line Care: Avoid Pulling/Pushing, Avoid Pinching/Bending Allergies/Adverse Reactions: Allergies No Known Allergies Allergy (Verified 11/27/19 07:38) Medications to take at Discharge Lipase/Protease/Amylase [Creon Dr 24,000 Units Capsule] 1 ea PO TID 03/02/13 Sertraline HCl [Zoloft] 50 mg PO DAILY 03/02/13 Finasteride 5 mg PO DAILY 08/21/18 Omeprazole 20 mg PO DAILY 08/21/18 tamsulosin 0.4 mg capsule 0.4 mg PO QHS 30 Days #30 cap 09/10/18 Cyanocobalamin (Vitamin B-12) [Vitamin B-12] 1,000 mcg PO DAILY 10/01/18 Cholecalciferol (VIT D3) [Vitamin D] 1,000 unit PO .3X'S WEEKLY 11/18/19 Oxycodone HCl/Acetaminophen [Percocet 5-325 mg Tablet] 1 ea PO PRN PRN 11/18/19 Primary Care Physician: Donita Ramires NP-C [Primary Care Provider] - Test Results: Test results from this visit will be discussed in further detail at your follow- up appointment, if applicable. Please Follow Up With: Steve Farmer MD When: in 2 weeks, please call to make an appointment.
--- NOTE | 2019-11-27 09:59 | OP.PCM_ITS ---
Report of Operation Date of Procedure: 11/27/19 Pre-Operative Diagnosis: BPH with obstruction Post-Operative Diagnosis: Same Surgery/Procedure Performed:: Transurethral resection of the prostate Description of Surgical Findings:: 74-year-old male was taken back to the operating room at the smooth induction of general anesthesia he was placed in dorsolithotomy position the penis and testicles were prepped and draped in usual sterile fashion I went in the bladder with a 21 Latvian rigid cystourethroscope he had a obstructive prostate and a very large median lobe lateral tissue was also causing obstruction. I then put in a 24 Latvian noncontinuous flow resectoscope and started working on the prostate and first took down the median lobe made sure to identify the left and right ureteral orifice these were uninjured during the resection of the median lobe and these were clear and patent. I then resected back to the verumontanum I then resected the right lobe of the prostate and then resect the left lobe the prostate and then made sure a resected the apical apical tissue very carefully the roof of the prostate was resected to catch any flapping tissue at the end of the procedure had a nice wide open channel all the way from the verumontanum all the way into the bladder that a flow test had a wide open flow checked back behind the verumontanum and checked forward and again there is no flapping tissue no obstruction nice open channel. The sphincter was intact. Ellik out all the chips I obtain good hemostasis with the catheter and on continuous bladder irrigation and the patient anesthetic is currently being reversed we will send off all the tissue to check for cancer he does have a history of cancer was treated with radiation therapy about a year ago. Type of Anesthesia:: General Drains: 3 way kenyon - Admit VTE Documentation VTE Present on Admission: No VTE Mechan Device Prophylaxis: SCD's
[2019-11-27] MEDS: 0.9% Normal Saline 1,000 ML 75 ML IV ×2 (11:23→20:17)
[2019-11-27] MEDS: Ondansetron 4 MG/2 ML Vial IV (13:17)
--- NOTE | 2019-11-27 14:06 | OP.PCM_ITS ---
Report of Operation Date of Procedure: 11/27/19 Pre-Operative Diagnosis: Bladder spasms nonworking catheter Surgery/Procedure Performed:: Cystoscopy evacuation of blood clots cauterization of bleeding Description of Surgical Findings:: 74-year-old male who underwent a TURP earlier this morning I was called to the floor and patient was having severe abdominal pain we change the catheter we could not flush it it was a concerned that he that he had a bladder problem or clots or retained fragments is causing obstruction could not clear the catheter on the floor the patient was extremely painful so decided to take the patient back to the operating room for an evacuation and is exploratory with a cystoscopy. He was taken back to the operating room in emergency fashion, he underwent general anesthesia I went into the bladder with a 21 Albanian rigid cystoscope entire length the urethra was normal the prostate sphincter was intact inside the prostatic channel there was some blood clots and inside the bladder there were no tumor chips no prostate chips under some blood clots. I then switched over to the 24 Albanian noncontinuous flow resectoscope I evacuate out all these blood clots I cauterized the prostate some more to obtain hemostasis and then I placed a new 22 Albanian catheter into the bladder and continuous irrigation and also he was given a BNO suppository prior to surgery. Findings were just a few small blood clots no significant hemorrhage most likely blood clots and spasms are causing the pain will continue to manage with BNO suppositories and Dilaudid for pain control. Type of Anesthesia:: General Drains: 22fr 3 way. - Admit VTE Documentation VTE Present on Admission: No VTE Mechan Device Prophylaxis: SCD's
--- NOTE | 2019-11-27 16:55 | PCM.PN.BLA ---
Progress Note post op check this afternoon had to take patient back to surgery in urgent fashion found some bleeding and blood clots evacuated and bleeding cauterized now he is doing well no more pain, comfortable, urine clear. STROKE Vital Signs/Narrative: Vital Signs Temp Pulse Resp BP Pulse Ox 11/27/19 15:52 97.5 F L 56 L 14 134/68 H 98 11/27/19 15:15 97.3 F L 65 16 126/67 H 93 11/27/19 15:00 70 16 132/64 H 95 11/27/19 14:45 68 16 141/60 H 97 11/27/19 14:30 71 16 144/69 H 95 11/27/19 14:27 97.3 F L 73 16 132/63 H 95 11/27/19 13:19 96.9 F L 54 L 14 147/72 H
[2019-11-27] MEDS: Tolterodine Tartrate 4 MG CAP.SA PO (18:03)
[2019-11-27] MEDS: oxyCODONE 5 MG Tablet PO (20:16)
[2019-11-27] MEDS: Acetaminophen 325 MG Tablet PO (20:16)
[2019-11-27] MEDS: Docusate Sodium 100 MG Capsule PO (21:24)
[2019-11-27] MEDS: Tamsulosin HCl 0.4 MG Capsule PO (21:24)
[2019-11-27] MEDS: Ciprofloxacin 400 MG/200 ML BAG 200 MG IV (21:24)
[2019-11-28 02:06] VITALS: BP 98/47; PULSE 64; RESP 18; TEMP 37.4; O2SAT 94
[2019-11-28 07:45] LABS: Hemoglobin 10.1 g/dL (13.0-16.5); Mean Corp Hgb Conc 32.6 g/dL (32-36); Mean Corpuscular Hgb 32.2 pg (27.0-32.0); Mean Corpuscular Volume 98.7 fL (80-94); Mean Platelet Vol. 12.4 fl (6.2-12.0); Platelet Count 118 K/mm3 (150-450); RBC Distribution Width CV 12.9 % (11.6-14.6); RBC Distribution Width SD 46.6 fl (35.1-43.9); Red Blood Count 3.14 M/mm3 (4.6-6.2); White Blood Count 6.3 K/mm3 (4.4-11.0)
[2019-11-28 07:54] LABS: Anion Gap 3 (5-15); BUN 13 mg/dL (7-18); BUN/Creat Ratio 11.7 RATIO (10-20); Calcium,Total 7.5 mg/dL (8.5-10.1); Chloride 109 mmol/L (98-107); Creatinine, Serum 1.11 mg/dL (0.70-1.30); EST Glomerular Filtration Rate 69 mL/min (>60); Est Glom Filt Rate - Afr Amer 83 mL/min (>60); Estimated Creatinine Clearance 57.99 ml/min; Glucose 105 mg/dL (74-106); Sodium Level 141 mmol/L (136-145)
[2019-11-28] MEDS: Acetaminophen 325 MG Tablet PO (07:55)
[2019-11-28 08:10] VITALS: BP 102/48; PULSE 55; RESP 18; TEMP 37.5; O2SAT 96
[2019-11-28] MEDS: 0.9% Normal Saline 1,000 ML 75 ML IV (09:53)
[2019-11-28] MEDS: Tolterodine Tartrate 4 MG CAP.SA PO (10:12)
[2019-11-28] MEDS: Docusate Sodium 100 MG Capsule PO (10:12)
[2019-11-28] MEDS: Sertraline 50 MG Tablet PO (10:12)
[2019-11-28] MEDS: Finasteride 5 MG Tablet PO (10:12)
[2019-11-28] MEDS: Ciprofloxacin 400 MG/200 ML BAG 200 MG IV (10:12)
[2019-11-28] MEDS: Pantoprazole Sodium 40 MG Tablet PO (10:12)
[2019-11-28] MEDS: oxyCODONE 5 MG Tablet PO (10:16)
[2019-11-28 13:44] VITALS: BP 94/48; PULSE 56; RESP 18; TEMP 37.2; O2SAT 95
== END 2019-11-28 13:26 | disposition home or self-care (01) ==
LOC: SDC 07:26 → AC 07:26 → MS3 10:10
PROVIDERS: Anesthesiology; PCP Nurse Practitioner Primary Care; Referring Provider Urology; Visit Provider Urology
PROC: (CPT 52001; principal; 2019-11-27 09:15)
DX: N40.1 Benign prostatic hyperplasia with lower urinary tract symptoms (principal); N32.89 Other specified disorders of bladder; Z82.49 Family history of ischemic heart disease and other diseases of the circulatory system; Z92.3 Personal history of irradiation; Z85.46 Personal history of malignant neoplasm of prostate; K21.9 Gastro-esophageal reflux disease without esophagitis; F17.210 Nicotine dependence, cigarettes, uncomplicated; N13.8 Other obstructive and reflux uropathy
CPT/HCPCS: 00914; 52001; 52601; 36415; 80048; 85027; 87635; 88305; 88341; 88342; 93005; 94799; 99251; 99406; J7030; J7120; G0463; J0744; J2405; U0003

== ENCOUNTER → 2020-05-05 09:44 | Outpatient (CLI) | payer MEDICARE, OTHER, SELFPAY ==
[2019-11-27 13:27] VITALS: BMI 21.3
[2020-05-05 11:18] LABS: PSA,Total- Diagnostic 0.06 ng/mL (0.0-4.0)
== END ==
PROVIDERS: PCP Nurse Practitioner Primary Care; Referring Provider Urology; Visit Provider Urology
DX: C61 Malignant neoplasm of prostate (principal)
CPT/HCPCS: 36415; 84153

== ENCOUNTER → 2020-08-05 10:37 | Outpatient (CLI) | payer MEDICARE, OTHER, SELFPAY ==
[2019-11-27 13:27] VITALS: BMI 21.3
[2020-08-05 11:47] LABS: PSA,Total- Diagnostic 0.04 ng/mL (0.0-4.0)
== END ==
PROVIDERS: PCP Nurse Practitioner Primary Care; Visit Provider Urology
DX: C61 Malignant neoplasm of prostate (principal)
CPT/HCPCS: 36415; 84153

== ENCOUNTER → 2020-11-11 13:33 | Outpatient (CLI) | payer MEDICARE, OTHER, SELFPAY ==
[2019-11-27 13:27] VITALS: BMI 21.3
[2020-11-11 16:15] LABS: PSA,Total- Diagnostic 0.03 ng/mL (0.0-4.0)
== END ==
PROVIDERS: PCP Nurse Practitioner Primary Care; Visit Provider Urology
DX: C61 Malignant neoplasm of prostate (principal)
CPT/HCPCS: 36415; 84153

== ENCOUNTER → 2021-02-14 15:32 | Outpatient (CLI) | payer MEDICARE, OTHER, SELFPAY ==
--- NOTE | 2021-02-14 15:36 | CT_ITS ---
STUDY: LOW DOSE CT LUNG CANCER SCREENING REASON FOR EXAM: Male, 75 years old. History of smoking one half pack per day x52 years RADIATION DOSAGE (If Supplied By Facility): CTDIvol = ( 3.02 ) mGy, DLP = ( 112.12 ) mGycm TECHNIQUE: No contrast was administered. Low dose technique was utilized (average mAS-38 and kVp 120). 1.25 mm axial source images with a slice interval of 1.25-mm were reconstructed in lung windows. 2.5 mm axial source images with a slice interval of 2.5-mm were reconstructed in lung windows. 5.0 mm axial source images with a slice interval of 5.0-mm were reconstructed in soft tissue windows. Nodule measured using lung windows on PACS and/or independent workstation with automated measurement of minimum and maximum diameter. Nodule measurement reported as average diameter rounded to the nearest whole number. Growth is defined as an increase ins size of greater than 1.5 mm. COMPARISON: Previous plain films FINDINGS: Lung windows show the lungs to be normally expanded, there are mild interstitial changes in both lung benton. No organized infiltrate or suspicious ground glass opacifications, there are small subcentimeter pleural-based noncalcified nodules in the right middle lobe on axial image 119 measuring 3.7 mm and another in the right lower lobe on axial image 159 measuring 1.9 mm. There is dependent atelectasis. Soft tissue windows show normal-appearing thyroid gland. No suspicious axillary, mediastinal or perihilar adenopathy. There are calcified coronary vessels. No pleural or pericardial effusions. Bony structures show degenerative change. CT/Low Dose CT Lung Screening IMPRESSION: Lung-RADS category 3 - Continue screening with LDCT in 6 months. IMPORTANT NOTES FOR USE: ACR Lung-RADS Version 1.1 Assessment Categories Release Date: 2018 Category: Coded 0-4 bases on nodule(s) with highest degree of suspicion. Negative screen is defined as categories 1 and 2; a positive screen is defined as categories 3 and 4. Category 3 and 4A nodules that are unchanged on interval CT should be coded as category 2, and individuals returned to screening in 12 months. Category 4X: Category 3 or 4 nodules with additional imaging findings that increase the suspicion of lung cancer, such as spiculation, GGN that doubles in size in 1 year, enlarged lymph notes, etc. Category Modifiers: S (significant finding unrelated to lung cancer) Electronically Signed: Lucas Appiah MD at 17:00 EST , Service support ,
== END ==
PROVIDERS: PCP Nurse Practitioner Primary Care; Referring Provider Radiology Radiation Oncology; Visit Provider Radiology Radiation Oncology
DX: Z12.2 Encounter for screening for malignant neoplasm of respiratory organs (principal); R63.4 Abnormal weight loss; Z87.891 Personal history of nicotine dependence
CPT/HCPCS: 71271

== ENCOUNTER → 2021-02-21 12:16 | Outpatient (CLI) | payer MEDICARE, OTHER, SELFPAY ==
[2021-02-21 13:59] LABS: PSA,Total- Diagnostic 0.04 ng/mL (0.0-4.0)
== END ==
PROVIDERS: PCP Nurse Practitioner Primary Care; Referring Provider Urology; Visit Provider Urology
DX: C61 Malignant neoplasm of prostate (principal)
CPT/HCPCS: 36415; 84153

== ENCOUNTER 2021-04-24 22:22 | Inpatient (IN) | payer MEDICARE, OTHER, SELFPAY ==
[2021-04-24 15:57] VITALS: O2SAT 100; BMI 20.2
[2021-04-24 16:00] VITALS: BP 126/57; PULSE 66; RESP 18; TEMP 38.4; O2SAT 100
--- NOTE | 2021-04-24 16:07 | HP.PCM.HOS_ITS ---
HPI - General General Date of Admission: 04/24/21 Date of Service: 04/24/21 Chief Complaint: Abdominal pain HPI Narrative JULISA CARSON, is a 75 M who presented to [facility] emergency department with severe left/central lower abdominal pain that started about 6 PM the day prior. The patient indicates that he has intermittent abdominal pain but nothing to the severity in the past. He has a history of chronic pancreatitis for which he takes Creon. He does not drink any alcohol he states he quit in December 1967. He has a history of prostate cancer for which he has seen Dr. Farmer in the past. It appears that his most recent encounter with Dr. Farmer was in 11/27/2019. Per this document he did have radiation in the past and he underwent a TURP at that time. He states his last bowel movement was yesterday and he had been passing flatus up until yesterday although he states he is not had any flatus or bowel movement today. His bowel sounds are currently good. He has had some associated nausea but no vomiting and states that he was presyncopal at home secondary to all the pain he was having. He was given pain medication at [facility] that has decreased his pain from a 20 out of 10 to a 5-6 out of 10 at this time. It is documented that he required multiple doses of Dilaudid to get comfortable prior to transfer. The patient states that he is a current smoker and smokes approximately 1/2 pack/day. While at [facility] a CT of his abdomen pelvis was performed given his abdominal pain and he was found to have a biliary dilation that was concerning for potential biliary obstruction and moderate right-sided hydronephrosis with a large mass at the right posterior lateral bladder that extended into the right ureteral insertion in the distal ureter. A CTA of his chest was also performed and showed multiple pulmonary nodules with the largest being 6 mm. With his current bladder mass this would be concerning for metastatic disease. Given these findings and the lack of GI/urology availability at [facility] transfer was requested and the patient was transferred to [facility] in stable condition. He was found to be febrile at the time of admission here with a T-max of 101.2, but his vital signs otherwise have been stable. His oxygen saturation is 100% on room air. His CBC at [facility] showed a mildly elevated white count of 10.9 with a hemoglobin of 11.5 and a platelet count of 204. He did have a left shift with a neutrophil percent of 91.2. His BMP showed normal electrolytes but an elevated BUN and creatinine with a serum creatinine of 2.08. The most recent serum creatinine we have in our EMR is from 11/28/2019 at that time he had a serum creatinine of 1.11. LFTs were also performed and were completely normal with an AST of 14 and ALT of 18 and alk phos of 86 and a total bilirubin of 0.8. His lipase was 21 and a lactic acid was 1.2. A UA was obtained and showed a specific gravity of 1.02 indicating mild dehydration but was negative for nitrites or leuk esterase and no RBCs were seen. [facility] Medical History (Updated 04/24/21 @ 17:[address] Carmella Khalil DO) Bladder outlet obstruction Dilated bile duct GERD (gastroesophageal reflux disease) Nicotine dependence Pancreatic duct dilated Pancreatitis Pancytopenia Prostate cancer Septic shock (07/2018) Home Medications [id number] 24,000 PO TIDCM 03/02/13 [History Last Taken 04/24/21 0800] sertraline 50 mg PO DAILY 03/02/13 [History Last Taken 04/24/21] omeprazole 20 mg PO DAILY 08/21/18 [History Last Taken 04/24/21 08] cyanocobalamin (vitamin B-12) 1,000 mcg PO DAILY 10/01/18 [History Last Taken 04/24/21] cholecalciferol (vitamin D3) 1,000 unit PO QODAY 11/18/19 [History Last Taken 04/24/21 08] oxycodone-acetaminophen 1 ea PO Q4H PRN PRN 11/18/19 [History Last Taken Unknown] oxybutynin chloride 15 mg PO DAILY 04/24/21 [History Last Taken Unknown] Allergy/AdvReac Type Severity Reaction Status Date / Time No Known Allergies Allergy Verified 11/27/19 07:38 Family History Father Cancer Mother Hypertension Brother Diabetes Surgical History (Updated 04/24/21 @ 16:[address] Carmella Khalil DO) H/O prostate biopsy H/O rectal polypectomy (07/2018) History of inguinal hernia repair History of open reduction and internal fixation (ORIF) procedure History of sphincterotomy of sphincter of Oddi History of tonsillectomy Hx of cholecystectomy S/P TURP Social History (Updated 04/24/21 @ 16:[address] Carmella Khalil, DO) Smoking Status: Current every day smoker tobacco type: cigarettes Smoking packs per day: 0.5 Smoking cigarettes per day: 10.0 alcohol intake: former details: Quit in December 1968 substance use type: does not use ROS Constitutional Constitutional: Denies anorexia, change in weight, chills, fatigue, fever(s), malaise, night sweats, weakness or other Eyes Eyes: Denies blurry vision, change in eye color, change in vision, discharge from eye(s), double vision, erythema, eye pain, loss of vision or other ENT HEENT: Denies abnormal hearing, dysphagia, ear pain, epistaxis, headache(s), hearing loss, nasal congestion, nasal discharge, post nasal drip, sinus pressure, sore throat or other Cardiovascular Cardiovascular: Denies chest pain, claudication, dyspnea on exertion, edema, lightheadedness, orthopnea, palpitations, paroxysmal nocturnal dyspnea, rapid heart rate, syncope or other Respiratory/Chest Respiratory/Chest: Denies cough, dyspnea, excessive phlegm production, hemoptysis, productive cough, shortness of breath at rest, shortness of breath with exertion, wheezing or other Gastrointestinal Gastrointestinal: Reports abdominal pain, constipation and nausea; Denies coffee ground emesis, diarrhea, dyspepsia, hematemesis, hematochezia, loose stools, melena, vomiting or other Genitourinary Genitourinary: Denies burning urination, difficulty urinating, dysuria, hematuria, nocturia, urinary frequency, urinary hesitancy, urinary incontinence, urinary urgency or other Musculoskeletal Musculoskeletal: Denies arthralgias, back pain, joint pain, joint stiffness, joint swelling, myalgias, neck pain or other Neurologic Neurologic: Denies abnormal gait, abnormal speech, confusion, disequilibrium, dizziness, focal weakness, headache(s), numbness, paresthesias, seizure-like activity, seizures, syncope, tingling, tremor(s) or other Psychiatric Psychiatric: Denies anxiety, depression, homicidal ideation, suicidal ideation or other Endocrine Endocrinology: Denies change in body appearance, cold intolerance, excessive sweating, heat intolerance, polydipsia, polyuria or other Hematologic/Lymphatic Hematologic/Lymphatic: Denies anemia, easy bleeding, easy bruising, lymphadenopathy or other Allergic/Immunologic Allergic/Immunologic: Denies rhinitis, hives, eczemia, asthma or other Physical Exam Const alert, oriented x3, no apparent distress and average body habitus Constitutional Narrative: Thin, older white male sitting up in bed, nursing at bedside, patient appears comfortable at this time, nursing at bedside, patient is nontoxic, patient does smell of tobacco General Appearance: cooperative HEENT normocephalic, head/scalp atraumatic, hearing grossly normal bilaterally and moist oral mucous membranes HEENT Narrative: Poor dentition, mucous membranes are slightly dry, no thrush, Mallampati 2 Eyes PERRL, EOMs intact bilaterally and conjunctivae normal Eyes Narrative: No scleral icterus Neck no lymphadenopathy, supple, no JVD and no carotid bruits Neck Narrative: Trachea midline, no thyroid enlargement Resp normal respiratory effort, no retractions, no use of accessory muscles and clear to auscultation bilaterally Resp Narrative: Diffusely diminished but clear Auscultation: Negative for crackles, rales, rhonchi or wheezes Cardio regular rate, regular rhythm, S1 normal heart sound, S2 normal heart sound, no murmurs, no rub, no gallops, no clicks and no JVD GI normal to inspection, nondistended, normoactive bowel sounds, soft to palpation and non-distended GI Narrative: Currently only mild tenderness however patient states earlier it was exquisitely tender in this area Palpation: tender LLQ and suprapubic and guarding; Negative for hernia Extremity Extremity Narrative: Bilateral clubbing with no cyanosis or edema Peripheral Pulses: Yes pulses 2+ throughout Skin no wounds, skin turgor normal, no jaundice, no petechiae and no mottling Skin Narrative: Sebaceous cyst noted x2 on his back Neuro oriented x3, CN's II-XII intact bilaterally, moves all extremities and no focal motor deficits Sensorium / Orientation: awake and alert Speech: speech normal Motor Exam: strength 5/5 throughout Psych affect normal Results Lab / Micro Data Attestation: I reviewed the patient's lab results. Assessment & Plan Assessment/Plan (1) Abdominal pain: (2) Bladder mass: (3) Fever: (4) FRAN (acute kidney injury): (5) Hydronephrosis: (6) Leukocytosis: PLAN: Abdominal pain -No current pain on exam -Continue as needed Dilaudid -Continue bowel regimen -Okay for p.o. diet until midnight -IV fluids as ordered -Does not exactly correlate with his bladder mass or hydronephrosis as his pain seems to be mostly suprapubic and left-sided and his bladder mass is right-sided as is his hydronephrosis Fever/leukocytosis -T-max was 101.2 on admission -Mildly elevated white count at outside hospital with significant left shift -Check blood cultures -History of E. coli bacteremia of unknown origin -Start Zosyn -UA is not suggestive of infection Hydronephrosis with bladder mass -CT of abdomen pelvis shows right sided bladder mass with extension into the ureter as well as significant right-sided hydronephrosis from obstruction--> CT was suggestive of transitional cell carcinoma -Consult urology -IV fluids -N.p.o. after midnight for possible surgical intervention -UA shows no blood FRAN -No recent serum creatinine in the last 12 months but per our EMR his last serum creatinine in 2019 was 1.11 -Current serum creatinine is 2.08 -Suspect related to decreased p.o. intake and acute hydronephrosis -IV fluids at 70 cc/h -Avoid nephrotoxins -Consult urology for management of obstruction in the bladder -Repeat BMP in a.m. Dilated biliary and pancreatic ducts -This appears to be chronic when information from 2019 is reviewed -LFTs are completely normal -Right upper quadrant ultrasound is pending for comparison -Suspect this may be related to his chronic pancreatitis -Discussed case with GI and will refer to outpatient GI for possible MRCP since patient is asymptomatic and has no laboratory abnormalities with regards to this at this time Chronic pancreatitis -Continue Creon GERD -Continue omeprazole Vitamin D deficiency -Continue vitamin D cholecalciferol supplementation 1000 units every other day Depression -Continue sertraline Urinary incontinence -Hold oxybutynin History of prostate cancer -Has undergone treatment previously with radiation -TURP performed 11/27/2019 -No current issues Tobacco abuse -Ongoing 1/2 pack/day -Suspect patient likely has COPD at baseline although not formally diagnosed -As needed albuterol -Patient denies need for nicotine replacement DVT prophylaxis -Heparin 5000 units 3 times daily -SCDs CODE STATUS -Full code as discussed with the patient on admission. Charges/Coding Visit Charges Inpatient E&M: 80459 Init Hosp L3
--- NOTE | 2021-04-24 16:09 | US_ITS ---
STUDY: ABDOMINAL ULTRASOUND - RIGHT UPPER QUADRANT REASON FOR VISIT: Male, 75 years old elevated LFTs TECHNIQUE: Ultrasound evaluation of the right upper quadrant was performed with real-time and static sandhu-scale imaging. TECHNICAL QUALITY: Limited. Examination limited by bowel gas. COMPARISON: None. FINDINGS: Liver: The liver measures 18.3 cm. There is normal echogenicity of the liver. The bile ducts are dilated, but this is consistent with previous cholecystectomy. There is hepatic color flow. The direction of portal flow is hepatopetal. There is no demonstrated mass lesion. Gallbladder: The patient is status post cholecystectomy. Common Bile Duct (C.B.D.): The common bile duct measures 9 mm. Pancreas: Visualized pancreas is echogenic Right Kidney: Normal size of the right kidney. The right kidney measures 10.9 x 4.1 x 5.7 cm. Normal renal cortex. There are multiple simple and septated cysts, largest measures 2.9 cm. No discrete solid lesion. There is moderate right hydronephrosis of uncertain etiology, there is a nonobstructing 4 mm stone. US/Abdomen Limited IMPRESSION: Moderate right hydronephrosis of uncertain etiology. There is a nonobstructing 4 mm right renal stone. Multiple simple and septated right renal cysts, no specific follow-up needed. Previous cholecystectomy Electronically Signed: Lucas Appiah MD at 18:04 EST , Service support ,
--- NOTE | 2021-04-24 17:14 | NURSING ---
zosyn not available yet for pt administration
[2021-04-24] MEDS: Lactated Ringers 1,000 ML 70 ML IV (17:15)
[2021-04-24] MEDS: Piperacil/Tazobactam 3.375 GM Q12 PREMIX IV (17:33)
[2021-04-24] MEDS: Ondansetron 4 MG/2 ML Vial IV (18:00)
[2021-04-24] MEDS: HYDROmorphone 1 MG/ML Syringe IV ×2 (18:00→23:44)
[2021-04-24 18:52] VITALS: BP 117/59; PULSE 65; RESP 18; TEMP 37.8; O2SAT 98
--- NOTE | 2021-04-24 19:20 | PCS.PANDOC ---
PANDEMIC DOCUMENTATION INITIATED: Date: 04/24/2021 Time: 1900
[2021-04-24] MEDS: Acetaminophen 325 MG Tablet 650 MG PO (20:13)
[2021-04-24 21:15] LABS: Anion Gap 5 (5-15); BUN 23 mg/dL (7-18); BUN/Creat Ratio 12.3 RATIO (10-20); Calcium,Total 8.5 mg/dL (8.5-10.1); Chloride 111 mmol/L (98-107); Creatinine, Serum 1.87 mg/dL (0.70-1.30); EST Glomerular Filtration Rate 37 mL/min (>60); Est Glom Filt Rate - Afr Amer 45 mL/min (>60); Estimated Creatinine Clearance 32.09 ml/min; Glucose 88 mg/dL (74-106); Potassium 4.3 mmol/L (3.5-5.1); Sodium Level 141 mmol/L (136-145)
--- NOTE | 2021-04-24 21:17 | NURSING ---
The patient has a consult for Urology but there was a text sent out to DR Khalil about if we needed to put in a Surgical consult for a possible ERCP of MRCP due to dilated biliary and pancreatic ducts. She had contacted GI and they determined there was need for an MRCP or ERCP right now because the Dilations are chronic.
[2021-04-24 22:39] VITALS: BP 107/51; PULSE 58; RESP 18; TEMP 36.8; O2SAT 96
[2021-04-24] MEDS: Heparin Injection (Vial) 5,000 UNIT/ML VIAL 5000 UNIT SC (22:57)
[2021-04-24] MEDS: 0.9% Saline Lock 10 ML Syringe IV (23:44)
[2021-04-25] MEDS: Acetaminophen 325 MG Tablet 650 MG PO ×2 (03:03→23:51)
[2021-04-25 03:06] VITALS: BP 136/66; PULSE 58; RESP 16; TEMP 36.6; O2SAT 100
[2021-04-25] MEDS: 0.9% Saline Lock 10 ML Syringe IV ×2 (05:32→05:44)
[2021-04-25] MEDS: HYDROmorphone 1 MG/ML Syringe IV ×6 (05:32→22:46)
[2021-04-25] MEDS: Ketorolac 15 MG/ML Vial IV (06:20)
[2021-04-25] MEDS: Lactated Ringers 1,000 ML 70 ML IV ×2 (06:20→20:36)
[2021-04-25 06:22] LABS: Absolute Lymphocyte Count 0.47 X10^3/uL (0.83-4.51); Absolute Neutrophil Count 4.8 X10^3/uL (2.0-7.7); Basophil# 0.04 X10^3/uL; Basophil% 0.7 % (0-1); Eosinophil# 0.08 X10^3/uL; Eosinophils% 1.4 % (0-5); Hemoglobin 9.3 g/dL (13.0-16.5); Lymphocyte # 0.47 X10^3/ul (0.83-4.51); Mean Corp Hgb Conc 32.1 g/dL (32-36); Mean Corpuscular Hgb 31.6 pg (27.0-32.0); Mean Corpuscular Volume 98.6 fL (80-94); Mean Platelet Vol. 12.9 fl (6.2-12.0); Monocyte# 0.47 X10^3/uL; NRBC Flagged by Analyzer 0 % (0-5); Neutrophil # 4.78 X10^3/uL (2.7-7.7); Neutrophil % 81.6 % (47-70); POSITIVE DIFFERENTIAL YES; Platelet Count 125 K/mm3 (150-450); RBC Distribution Width CV 13.3 % (11.6-14.6); RBC Distribution Width SD 47.8 fl (35.1-43.9); Red Blood Count 2.94 M/mm3 (4.6-6.2); White Blood Count 5.9 K/mm3 (4.4-11.0)
[2021-04-25 06:25] LABS: Differential Indicated SCAN CRITERIA MET
[2021-04-25 07:01] LABS: ALB/GLOB Ratio 0.7 RATIO (0.9-2.4); AST(SGOT) 23 U/L (15-37); Alanine Aminotransfer ALT/SGPT 20 U/L (16-61); Albumin, Serum 2.4 g/dL (3.2-5.0); Alkaline Phosphatase 82 U/L (45-117); Anion Gap 4 (5-15); BUN 26 mg/dL (7-18); BUN/Creat Ratio 13.3 RATIO (10-20); Chloride 108 mmol/L (98-107); Creatinine, Serum 1.96 mg/dL (0.70-1.30); EST Glomerular Filtration Rate 36 mL/min (>60); Est Glom Filt Rate - Afr Amer 43 mL/min (>60); Estimated Creatinine Clearance 30.61 ml/min; Globulin 3.3 g/dL (2.2-4.2); Glucose 94 mg/dL (74-106); Magnesium 1.9 mg/dL (1.6-2.6); Phosphorus 3.8 mg/dL (2.5-4.9); Potassium 4.6 mmol/L (3.5-5.1); Protein, Total 5.7 g/dL (6.4-8.2); Sodium Level 136 mmol/L (136-145)
[2021-04-25 08:20] VITALS: BP 108/56; PULSE 53; RESP 18; TEMP 36.8; O2SAT 100
--- NOTE | 2021-04-25 10:01 | NURSING ---
Salazar catheter inserted without difficulty. pt tolerated well. clear yellow urine out.
--- NOTE | 2021-04-25 10:10 | CASEMGMT ---
NICOLAS PRAKASH Assessment: Face to Face with pt for initial transition planning/care coordination assessment. RN DWAIN introduced self and role at [facility], pt voices understanding and consents to assessment. Pt is drowsy but O x4 and answers all questions appropriately at this time. Pt at bedside. Care providers, pharmacy, and demographics verified/updated. Admitting Dx: bladder mass, hydronephrosis PCP:Donita Ramires DIRECTOR OF CARDIOPULMONARY SERVICES Specialists:Marleny, matheus Preferred Pharmacy: [facility] Insurance: [facility], [place] Prescription Benefit: yes LW/HPOA: Pt denies having a LW/DPOA and denies need for info regarding AD. LNOK: Vita Zavala, Living Arrangements: Pt lives with in a single story house with 3 steps to enter with a rail. Pt reports he is I in ADL's and denies concerns at home. Transportation: Pt drives self and denies concerns with transportation. DME/HHC/SNF: Pt has cane and crutches at home but does not use any AD. Pt denies hx of HHC or SNF stays. Pt states no concerns with going home at time of dc. Pt states no further concerns/needs. CM to follow as pt has catheter in presently. Advised pt to ask CM if any further question/concerns/needs arise, voices understanding. Pt Goal: Home Plan: Home
--- NOTE | 2021-04-25 10:36 | CON.PCM.UR_ITS ---
Assessment & Plan Assessment/Plan (1) Hydronephrosis: (2) Bladder mass: (3) Abdominal pain: (4) Prostate cancer: HPI Consult Data Date of Consult: 04/25/21 HPI Narrative HPI Narrative: JULISA CARSON, is a 75 M who presents to an outside emergency room with right hydronephrosis severe with a large mass in the bladder on the right side he has a history of prostate cancer status post radiation therapy and on hormone deprivation therapy he had a TURP about 2 years ago. Admitted because of the new obstruction of the right kidney Salazar catheter is in place spoke to the patient today regarding the findings possibility that this mass could be prostate cancer could also be bladder cancer. Plan to taken the surgery tomorrow for transurethral section of the large bladder mass possible stent placement on the right side and retrograde pyelogram he understands is possible he may need a right nephrostomy tube if I am not able to place a stent in the right kidney. All his questions were answered. [facility] Medical History (Updated 04/25/21 @ 10:[address] Steve Farmer MD) Bladder outlet obstruction Dilated bile duct GERD (gastroesophageal reflux disease) Nicotine dependence Pancreatic duct dilated Pancreatitis Pancytopenia Prostate cancer Septic shock (07/2018) Home Medications [id number]-[id number] 24,000 PO TIDCM 03/02/13 [History Last Taken 04/24/21 0800] sertraline 50 mg PO DAILY 03/02/13 [History Last Taken 04/24/21] omeprazole 20 mg PO DAILY 08/21/18 [History Last Taken 04/24/21 0800] cyanocobalamin (vitamin B-12) 1,000 mcg PO DAILY 10/01/18 [History Last Taken 04/24/21] cholecalciferol (vitamin D3) 1,000 unit PO QODAY 11/18/19 [History Last Taken 04/24/21 0800] oxycodone-acetaminophen 1 ea PO Q4H PRN PRN 11/18/19 [History Last Taken Unknown] oxybutynin chloride 15 mg PO DAILY 04/24/21 [History Last Taken Unknown] Allergy/AdvReac Type Severity Reaction Status Date / Time No Known Allergies Allergy Verified 11/27/19 07:38 Family History Father Cancer Mother Hypertension Brother Diabetes Surgical History (Updated 04/24/21 @ 16:[address] Carmella Khalil DO) H/O prostate biopsy H/O rectal polypectomy (07/2018) History of inguinal hernia repair History of open reduction and internal fixation (ORIF) procedure History of sphincterotomy of sphincter of Oddi History of tonsillectomy Hx of cholecystectomy S/P TURP Social History (Updated 04/24/21 @ 16:[address] Carmella Khalil DO) Smoking Status: Current every day smoker tobacco type: cigarettes Smoking packs per day: 0.5 Smoking cigarettes per day: 10.0 alcohol intake: former details: Quit in December 1968 substance use type: does not use ROS Constitutional Constitutional: Denies chills, fever(s) or malaise Eyes Eyes: Denies blurry vision or change in vision ENT HEENT: Reports none Cardiovascular Cardiovascular: Denies chest pain or palpitations Respiratory/Chest Respiratory/Chest: Denies cough or shortness of breath with exertion Gastrointestinal Gastrointestinal: Denies abdominal pain, constipation or diarrhea Musculoskeletal Musculoskeletal: Denies back pain, joint stiffness or joint swelling Integumentary Integumentary: Denies dry skin, jaundice, lesions or rash Neurologic Neurologic: Denies confusion, syncope or weakness Psychiatric Psychiatric: Reports none; Denies anxiety or depression Endocrine Endocrinology: Denies excessive sweating, fatigue or flushing Hematologic/Lymphatic Hematologic/Lymphatic: Denies anemia, easy bleeding or easy bruising Physical Exam Const alert and oriented x3 General Appearance: cooperative HEENT normocephalic, head/scalp atraumatic, EAC's normal and TM's normal bilaterally Eyes PERRL and EOMs intact bilaterally Pupil: sluggish Neck no lymphadenopathy, supple and no JVD General: trachea midline Lymph Lymphatic: no lymphadenopathy noted, lymphedema and lymphadenopathy Resp normal respiratory effort, normal air movement and clear to auscultation bilaterally Cardio regular rate, regular rhythm and peripheral pulses 2+ throughout GI soft to palpation, non-tender and non-distended Extremity normal capillary refill and no clubbing, cyanosis or edema General Extremity: no tenderness to palpation of joints or extremities Skin no rashes or lesions noted General Skin Exam: turgor normal Lesions: no lesions Rashes: no rashes Neuro CN's II-XII intact bilaterally Speech: speech normal Motor Exam: strength 5/5 throughout; Negative for general weakness Psych thought process normal, cooperative and affect normal Appearance: appropriate Lab / Micro Data Result Diagrams: 04/25/21 04:49 04/25/21 04:49 Labs: Laboratory Results - last 24 hr 04/24/21 17:33: Sodium 141, Potassium 4.3, Chloride 111 H, Carbon Dioxide 25.0, Anion Gap 5, BUN 23 H, Creatinine 1.87 H, Estim Creat Clear Calc 32.09, Est GFR (MDRD) Af Amer 45 L, Est GFR (MDRD) Non-Af 37 L, BUN/Creatinine Ratio 12.3, Glucose 88, Calcium 8.5 04/25/21 04:49: WBC 5.9, RBC 2.94 L, Hgb 9.3 L, Hct 29.0 L, MCV 98.6 H, MCH 31.6, MCHC 32.1, RDW Std Deviation 47.8 H, RDW Coeff of Kylie 13.3, Plt Count 125 L, MPV 12.9 H, Immature Gran % (Auto) 0.300, Neut % (Auto) 81.6 H, Lymph % (Auto) 8.0 L, [place] % (Auto) 8.0, Eos % (Auto) 1.4, Baso % (Auto) 0.7, Absolute Neuts (auto) 4.8, Absolute Lymphs (auto) 0.47 L, Nucleated RBC % 0 04/25/21 04:49: Sodium 136, Potassium 4.6, Chloride 108 H, Carbon Dioxide 24.0, Anion Gap 4 L, BUN 26 H, Creatinine 1.96 H, Estim Creat Clear Calc 30.61, Est GFR (MDRD) Af Amer 43 L, Est GFR (MDRD) Non-Af 36 L, BUN/Creatinine Ratio 13.3, Glucose 94, Calcium 8.0 L, Phosphorus 3.8, Magnesium 1.9, Total Bilirubin 0.60, AST 23, ALT 20, Alkaline Phosphatase 82, Total Protein 5.7 L, Albumin 2.4 L, Globulin 3.3, Albumin/Globulin Ratio 0.7 L, TSH 3.20 Radiology Impression Abdomen Ultrasound 04/24/21 16:09 IMPRESSION: Moderate right hydronephrosis of uncertain etiology. There is a nonobstructing 4 mm right renal stone. Multiple simple and septated right renal cysts, no specific follow-up needed. Previous cholecystectomy Electronically Signed: Lucas Appiah MD at 18:04 EST , Service support ,
--- NOTE | 2021-04-25 10:53 | PN.HOSP_ITS ---
Documented by User: John RAMÍREZ 04/25/21 11:08 Subjective Subjective Patient is a 75-year-old male lying in bed, alert and orient x3. Patient still reporting significant abdominal pain about the left lower quadrant and only reports mild improvement on current pain regimen. Denies development of any new symptoms overnight. Objective Data Objective Data Vital Signs: Vital Signs Temp Pulse Resp BP Pulse Ox 98.3 F 53 L 18 108/56 L 100 04/25/21 08:20 04/25/21 08:20 04/25/21 08:20 04/25/21 08:20 04/25/21 08:20 Oxygen Delivery Method Room Air Weight: 148 lb 12.992 oz Body Mass Index (BMI) 20.2 Intake & Output: Intake and Output for Last 24 Hours 04/23/21 04/24/21 04/25/21 23:59 23:59 23:59 Intake Total 200 / 200 915.83 / 915.83 Output Total 400 / 400 Balance -200 / -200 915.83 / 915.83 Lab / Micro Data Result Diagrams: 04/25/21 04:49 04/25/21 04:49 Labs: Laboratory Results - last 24 hr 04/24/21 17:33: Sodium 141, Potassium 4.3, Chloride 111 H, Carbon Dioxide 25.0, Anion Gap 5, BUN 23 H, Creatinine 1.87 H, Estim Creat Clear Calc 32.09, Est GFR (MDRD) Af Amer 45 L, Est GFR (MDRD) Non-Af 37 L, BUN/Creatinine Ratio 12.3, Glucose 88, Calcium 8.5 04/25/21 04:49: WBC 5.9, RBC 2.94 L, Hgb 9.3 L, Hct 29.0 L, MCV 98.6 H, MCH 31.6, MCHC 32.1, RDW Std Deviation 47.8 H, RDW Coeff of Kylie 13.3, Plt Count 125 L, MPV 12.9 H, Immature Gran % (Auto) 0.300, Neut % (Auto) 81.6 H, Lymph % (Auto) 8.0 L, [place] % (Auto) 8.0, Eos % (Auto) 1.4, Baso % (Auto) 0.7, Absolute Neuts (auto) 4.8, Absolute Lymphs (auto) 0.47 L, Nucleated RBC % 0 04/25/21 04:49: Sodium 136, Potassium 4.6, Chloride 108 H, Carbon Dioxide 24.0, Anion Gap 4 L, BUN 26 H, Creatinine 1.96 H, Estim Creat Clear Calc 30.61, Est GFR (MDRD) Af Amer 43 L, Est GFR (MDRD) Non-Af 36 L, BUN/Creatinine Ratio 13.3, Glucose 94, Calcium 8.0 L, Phosphorus 3.8, Magnesium 1.9, Total Bilirubin 0.60, AST 23, ALT 20, Alkaline Phosphatase 82, Total Protein 5.7 L, Albumin 2.4 L, Globulin 3.3, Albumin/Globulin Ratio 0.7 L, TSH 3.20 Radiography Diagnostic Testing: Radiology Impression Abdomen Ultrasound 04/24/21 16:09 IMPRESSION: Moderate right hydronephrosis of uncertain etiology. There is a nonobstructing 4 mm right renal stone. Multiple simple and septated right renal cysts, no specific follow-up needed. Previous cholecystectomy Electronically Signed: Lucas Appiah MD at 18:04 EST , Service support , Physical Exam Const alert, oriented x3 and no apparent distress HEENT head/scalp atraumatic and moist oral mucous membranes Head and Scalp: normocephalic Eyes PERRL, EOMs intact bilaterally and conjunctivae normal Neck no lymphadenopathy, supple and no JVD Resp normal respiratory effort, no retractions, no use of accessory muscles and clear to auscultation bilaterally Cardio regular rate, regular rhythm, no murmurs and no JVD GI normal to inspection, nondistended, normoactive bowel sounds, soft to palpation and non-tender Extremity normal to inspection, full ROM and no clubbing, cyanosis or edema Skin no rashes or lesions noted, no wounds and skin turgor normal Neuro CN's II-XII intact bilaterally Psych affect normal Assessment & Plan Assessment/Plan (1) Abdominal pain: (2) Bladder mass: (3) Fever: (4) FRAN (acute kidney injury): (5) Hydronephrosis: (6) Leukocytosis: PLAN: Day 1 Discharge planning: To be determined. 1) hydronephrosis and bladder mass CT of the abdomen and pelvis on admission demonstrated right-sided bladder mass with extension into the ureter and right-sided hydronephrosis. Urology consulted; current plan is for patient to undergo transurethral resection of the large bladder mass with possible stent placement and retrograde pyelogram on 04/26/2021. Management per urology, continue Zosyn and initiate Salazar catheter. 2) abdominal pain Patient still with ongoing suprapubic and left lower quadrant pain. Unclear etiology at this time as patient's mass and obstruction are on the right side. We will continue fluids and increase hydromorphone regimen to every 2 hours as needed. 3) fever/leukocytosis Fever has resolved, current temperature is 98.3. WBC this morning currently 5.9, likely reactionary. UA unremarkable. We will continue Zosyn. 4) FRAN Creatinine currently 1.96, baseline appears around 1. Likely related to #1. We will continue LR fluids and continue to monitor BMP, avoid nephrotoxic's. 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 LFTs are within normal limits. Case was discussed with GI on admission, current plan is for patient to follow-up as an outpatient for possible MRCP 6) chronic pancreatitis Continue Creon. 7) GERD Continue PPI. 8) depression/anxiety Continue sertraline. 9) BPH Continue oxybutynin. 10) history of prostate cancer has undergone Known to Dr. Farmer, last underwent radiation treatment and TURP in October 2019. Chronic pancreatitis -Continue Creon DVT prophylaxis -heparin + SCDs Patient seen by John Jacobson PA-C, under the supervision of Dr. Ferreira. Documented by User: Dr. Zully Ferreira MD 04/25/21 15:33 Objective Data Lab / Micro Data Result Diagrams: 04/25/21 04:49 04/25/21 04:49 Charges/Coding Addendum Addendum: Patient seen by John Jacobson PA-C under my supervision Patient seen and examined. Was complaining of lower abdominal pain. He denied any fever, chills, nausea or vomiting. Review of systems otherwise negative. He is awaiting urology evaluation. O/E: Const alert, oriented x3 and no apparent distress HEENT head/scalp atraumatic and moist oral mucous membranes Head and Scalp: normocephalic Eyes PERRL, EOMs intact bilaterally and conjunctivae normal Neck no lymphadenopathy, supple and no JVD Resp normal respiratory effort, no retractions, no use of accessory muscles and clear to auscultation bilaterally Cardio regular rate, regular rhythm, no murmurs and no JVD GI normal to inspection, soft, moderate suprapubic tenderness, no guarding or rebound tenderness Extremity normal to inspection, full ROM and no clubbing, cyanosis or edema Skin no rashes or lesions noted, no wounds and skin turgor normal Neuro CN's II-XII intact bilaterally Psych affect normal Assessment and plan #Bladder mass with right sided hydronephrosis * CT of the abdomen and pelvis showed right-sided bladder mass with extension into the ureter right-sided hydronephrosis * Urology reviewed patient and plan is for patient to have transurethral resection of the large bladder mass tomorrow with possible stent placement and retrograde pyelogram. * Insert Salazar catheter and continue IV Zosyn * Dilaudid increased to 2 mg every 2 hours as needed for pain as patient still in significant pain * #Dilated biliary and pancreatic duct * Similar to previous imaging from 2019. Per GI who ED discussed case with when patient was admitted, plan is for patient to follow-up on outpatient basis for MRCP * #Chronic pancreatitis: On Creon #FRAN: * Likely postrenal due to right-sided hydronephrosis. * Creatinine is 1.96 with baseline around 1. * Patient be hydrated with IV fluid. * Avoid nephrotoxic medication. * Trend creatinine. Consider nephrology consult if kidney function worsens. #GERD: On PPI #Depression and anxiety: On sertraline #BPH: On oxybutynin #History of prostate cancer: S/p TURP and radiation treatment. Follows with oncology on outpatient basis. DVT prophylaxis: Heparin Patient seen by DESIREE Jacobson and myself. Total time spent on evaluation and care of patient is 35 minutes, and I personally spent 23 minutes on the total management of the patient. Visit Charges Inpatient E&M: 51696 Subs Hosp L3
[2021-04-25] MEDS: Creon 24,000 unit DR Capsule 1 CAP PO ×2 (11:25→16:31)
[2021-04-25] MEDS: Pantoprazole Sodium 20 MG Tablet PO (11:26)
[2021-04-25] MEDS: Sertraline 50 MG Tablet PO (11:26)
[2021-04-25] MEDS: Cyanocobalamin 500 MCG Tablet 1000 MCG PO (11:26)
[2021-04-25] MEDS: Heparin Injection (Vial) 5,000 UNIT/ML VIAL 5000 UNIT SC ×2 (11:26→20:36)
[2021-04-25 13:02] VITALS: O2SAT 100
--- NOTE | 2021-04-25 16:25 | CHAPLAIN ---
Type of Pastoral Visit _x__ Initial Visit ___ Follow-up Visit ___ On-call Visit ___ General Patient Visit ___ Spiritual Assessment ___ Family Conference ___ Bereavement ___ Rapid Response ___ Code Blue ___ Other (describe below) Pastoral Care Referral From _x__ Patient x Family ___ Nurse ___ Physician ___ Method Consultant ___ Optical Goods Worker ___ Other (describe below) Sacrament/Intervention _x__ Active listening ___ Anointing ___ Gnosticism ___ Bereavement ___ Communion ___ [place] exploration ___ _x__ Life review _x__ Prayer ___ Reconciliation ___ Sacrament of Sick _x__ Supportive presence ___ Wedding ___ Other (describe below) Pastoral Comments patient and family are known to this network systems consultant; updates and explanations are given by patient and spouse; both seek spiritual care support and prayers; offer of future support given as surgery is expected tomorrow and further length of stay
[2021-04-25 17:00] VITALS: BP 110/57; PULSE 55; RESP 18; TEMP 36.8; O2SAT 100
[2021-04-25 19:40] VITALS: BP 101/55; PULSE 55; RESP 18; TEMP 37.5; O2SAT 99
[2021-04-26] VITALS (17 sets, daily range): BP systolic 100–153; BP diastolic 47–91; PULSE 52–96; RESP 10–18; TEMP 36.6–36.9; O2SAT 60–100; BMI 20.2
--- NOTE | 2021-04-26 | IMM_PTH ---
PATIENT: JULISA CARSON LOC: MS3 U#:[id number] AGE/SX: 75/M [place] [facility] [place]24[place]: Dr. Zully Ferreira MD : 1945 BED: 1 DIS: 04/30/2021 SPEC #: [id number] RECD: 04/27/21 12:28 STATUS: ABDIAS RESolis #: [id number] DON: 04/26/21 00:[address]: Steve Farmer DEPT: IMMUNOHISTOCHEMISTRY RECD BY: Elinor Zarco ENTERED: 04/27/21 12:30 SP TYPE: IMMUNO OTHR DR: Dr. Carmella Khalil, MD [address] COUNTY JUDGE-C Tissues: Urinary bladder, NOS Procedures: CK20 (add) CK7 (add) CK8 (add) KI-67 (add) P53 (add) Pankeratin (initial) CD44 (add) PSAP (add) PHYSICIAN & [address] [address] SPECIMEN INFORMATION: Tissue Source: Bladder mass Clinical Info: Hydronephrosis, bladder mass, abdominal pain, prostate cancer Specimen Number: [id number] #1 CPT code: 02791, 84785 x7 METHODOLOGY: Deparaffinized sections of prefer/formalin-fixed tissue or PAP/DQ stained slides are incubated with monoclonal/polyclonal antibodies/oligonucleotide probes. Localization is made via biotin free immunoperoxidase method. Appropriate controls are performed and reacted as expected. Results on target cell population are indicated in the following table: RESULTS: ANTIBODY / CLONE RESULT Block 1 AE1-3 (AE1/AE3/PCK26) positive, focal CK7 (OV-TL12/30) positive CK8 (95kqgkL92) positive CK20 (KS20.8) negative PSAP (PASE/4LJ) positive, rare cells anti-CD44 (SP37) positive P53 (DO-7) positive, focal Ki-67 (30-9) positive, low to moderate These tests were developed and their performance characteristics determined by [facility]. They may not have been cleared or approved by the U.S. Food and Drug Administration. The FDA has determined that such clearance or approval is not necessary. The above immunohistochemical/dualISH markers are ordered and reviewed by the Pathologist. INTERPRETATION: Mass of bladder, TUR: Invasive poorly differentiated carcinoma, favor urothelial primary. This case has been reviewed in consultation with Dr. Moss who concurs with the above diagnosis. SJ:cadence 04/28/2021
[2021-04-26] MEDS: HYDROmorphone 1 MG/ML Syringe IV ×3 (01:05→18:31)
[2021-04-26 05:50] LABS: Absolute Lymphocyte Count 0.44 X10^3/uL (0.83-4.51); Absolute Neutrophil Count 3.9 X10^3/uL (2.0-7.7); Basophil# 0.02 X10^3/uL; Basophil% 0.4 % (0-1); Eosinophil# 0.07 X10^3/uL; Eosinophils% 1.5 % (0-5); Hematocrit 25.7 % (40-54); Hemoglobin 8.4 g/dL (13.0-16.5); Lymphocyte # 0.44 X10^3/ul (0.83-4.51); Lymphocyte % 9.4 % (19-41); Mean Corp Hgb Conc 32.7 g/dL (32-36); Mean Corpuscular Hgb 31.8 pg (27.0-32.0); Mean Corpuscular Volume 97.3 fL (80-94); Mean Platelet Vol. 12.6 fl (6.2-12.0); Monocyte# 0.28 X10^3/uL; NRBC Flagged by Analyzer 0 % (0-5); Neutrophil # 3.86 X10^3/uL (2.7-7.7); Neutrophil % 82.5 % (47-70); POSITIVE DIFFERENTIAL YES; Platelet Count 112 K/mm3 (150-450); RBC Distribution Width CV 13.2 % (11.6-14.6); RBC Distribution Width SD 46.7 fl (35.1-43.9); Red Blood Count 2.64 M/mm3 (4.6-6.2); White Blood Count 4.7 K/mm3 (4.4-11.0)
--- NOTE | 2021-04-26 05:55 | EKG12_ITS ---
Test Reason : PRE-OP Blood Pressure : / mmHG Vent. Rate : 048 BPM Atrial Rate : 048 BPM P-R Int : 180 ms QRS Dur : 090 ms QT Int : 448 ms P-R-T Axes : -15 -38 -06 degrees QTc Int : 400 ms Marked sinus bradycardia Left axis deviation Abnormal ECG When compared with ECG of 19-NOV-2019 07:12, No significant change was found Confirmed by COLIN ALBERTO, HAYLEY ([id number]), supervising editor news reel VALENTÍN TRIPP ([id number]) on 04/27/2021 9:20:36 AM Referred By: CHELSEA Confirmed By:HAYLEY SHAW MD
[2021-04-26 05:59] LABS: Differential Indicated SCAN CRITERIA MET
[2021-04-26 06:07] LABS: Partial Thromboplast Time 42.3 Seconds (24.1-36.2)
[2021-04-26 07:14] LABS: Anion Gap 3 (5-15); BUN 27 mg/dL (7-18); BUN/Creat Ratio 13.6 RATIO (10-20); Calcium,Total 7.8 mg/dL (8.5-10.1); Chloride 108 mmol/L (98-107); Creatinine, Serum 1.99 mg/dL (0.70-1.30); EST Glomerular Filtration Rate 35 mL/min (>60); Est Glom Filt Rate - Afr Amer 42 mL/min (>60); Estimated Creatinine Clearance 30.15 ml/min; Glucose 119 mg/dL (74-106); Potassium 4.6 mmol/L (3.5-5.1); Sodium Level 135 mmol/L (136-145)
[2021-04-26 10:46] LABS: Iron 15 ug/dL (65-175); Iron Binding Capacity,Total 271 ug/dL (250-450); PERCENT IRON SATURATION 5.5 % (15.0-55.0)
--- NOTE | 2021-04-26 10:55 | BLB_PTH ---
PATIENT: JULISA CARSON LOC: MS3 U#:[id number] AGE/SX: 75/M [place] [facility] [place]/24/[address]: Dr. Zully Ferreira MD : 1945 BED: 1 DIS: 04/30/2021 SPEC #: [id number] RECD: 04/26/21 12:49 STATUS: ABDIAS RESolis #: [id number] DON: 04/26/21 10:[address]: Steve Farmer DEPT: SURGICAL PATHOLOGY RECD BY: Kathy Ken ENTERED: 04/26/21 13:39 SP TYPE: TURB OTHR DR: MD Dr. Carmella Jones, MD [address] CMV DRIVER-C Tissues: Urinary bladder, NOS Procedures: Surgery Specimen Level V Comments: @ Ordering doctor for SUV edited from to @ by ALICIA at 04/26/21 1447 @ Submitting doctor edited from to @ by RGOOD at 04/26/21 1447 HEADER OPERATION: Cysto, transurethral resection bladder, Olympus, retrograde pyelogram PRE-OP DIAGNOSIS: Hydronephrosis, bladder mass, abdominal pain, prostate cancer TISSUE SUBMITTED: Mass of bladder MICROSCOPIC DIAGNOSIS Mass of bladder, TUR: Invasive poorly differentiated carcinoma, favor urothelial primary. Chronic inflammation. See comment. WILLIS:cadence 04/28/2021 COMMENT BLADDER CANCER (TUR) SUMMARY Procedure: Transurethral resection of bladder (TURBT) Tumor site: not identified. Histologic type: urothelial carcinoma, invasive Histologic grade: High grade (3/3) Tumor configuration: Invasive Muscularis propria presence: Muscularis propria (detrusor muscle) is present and involved by tumor. Lymphvascular invasion: Not identified Tumor extension: tumor invades muscularis propria. Additional pathologic findings: Chronic inflammation and mild urothelial atypia. The above summary is in compliance with [employer] [place] [employer] (CAP) Cancer Protocols Checklist and [place] Joint Committee on Cancer (AJCC), Staging Manual, 8th Ed. Immunohistochemistry ([id number]) supports the above diagnosis. Please make reference to previous specimens ([id number]) prostate, transurethral resection with diagnosis of ?benign nodular stromal and basal cell hyperplasia? and ([id number]) right prostate, needle core biopsy with diagnosis of ?adenocarcinoma, Dylon score 9 (4+5).? Case has been reviewed in consultation with Dr. Moss who concurs with the above diagnosis. IDC:AM MICROSCOPIC DESCRIPTION Slides are reviewed. GROSS DESCRIPTION Received in fixative is one container labeled with the patient's name and designated mass of bladder. The specimen consists of multiple pieces of bowles, indurated tissue that in aggregate measure 5 x 3 x 0.3 cm. The entire specimen is submitted in two cassettes. / SJ:rg 04/26/2021 TC:0 CPT: 88477 ADDENDUM ADDENDUM ADDENDUM ADDENDUM ADDENDUM ADDENDUM ADDENDUM ADDENDUM ADDENDUM ADDENDUM ADDENDUM 06/28/2021 11:03 ADDENDUM 06/28/2021 11:03 ADDENDUM 06/28/2021 11:03 ADDENDUM 06/28/2021 11:03 ADDENDUM 06/28/2021 11:03 This addendum is added to incorporate an outside pathology consultation report. The case was examined at [facility] (#[id number]) and the following diagnosis was rendered. Mass of bladder, transurethral resection: Invasive high-grade urothelial carcinoma with invasion into muscular tissue. Stromal hyperplasia of prostate. Please see complete above mentioned consultation report in EMR
--- NOTE | 2021-04-26 11:27 | PCM.OPRPT ---
Report of Operation Date of Procedure: 04/26/21 Pre-Operative Diagnosis: History of prostate cancer, large mass in the bladder causing obstruction of the right kidney with hydronephrosis Post-Operative Diagnosis: Same Surgery/Procedure Performed:: Transurethral resection of a large mass in the bladder, cystoscopy right retrograde pyelogram interpretation fluoroscopic images and right stent placement Description of Surgical Findings:: Indication this is a 75-year-old gentleman who has history of prostate cancer presents to [facility] to transfer from outside emergency room with new abdominal pain mostly on the left side. He does have right severe hydronephrosis. He has a history of prostate cancer, advanced. New mass in the bladder causing hydronephrosis and obstruction of the right kidney so plan to take him to surgery today for transurethral resection of this mass and place a stent on the right side, I spoke to the patient at preoperative setting regarding the procedure he understands I will not be able to completely remove this mass transurethrally the goal of the surgery will be to get a diagnostic tissue as to what this masses as whether its recurrent prostate cancer or a new malignant process. Also plan to place a stent on the right side where the has severe right hydronephrosis. He understands is possible but I may not be able to place a stent and he may need an nephrostomy tube. Patient was taken back to the operating room and underwent general anesthesia with endotracheal intubation and paralysis. He was placed in dorsolithotomy position make sure all the pressure points were padded. The penis and testicles were prepped and draped in usual sterile fashion, I then dilated the meatus and inch produced a 26 [place] continuous-flow Olympus bipolar resectoscope I was able to go into the urethra quite easily past the sphincter identified the verumontanum and he had a wide open channel from a prior TURP about 2 years ago but then within the prostate and the bladder it was very abnormal anatomy had a very large mass that was pulling up from the base up on the right side and beyond this there was a dilated bladder. I could not identify the left ureteral orifice but on CAT scan he did not have any hydronephrosis in the left side and the right side was occupied with his very large mass. I then proceeded with resection of this mass working on the trigone on my way to the right side until I was fortunate enough to identify a circular muscular structures and the ureteral opening as I cut through it. Once the ureteral orifice was identified and this was identified by cutting the mass off the top of the ureter and off the lateral wall. I then removed the resectoscope and put in a 30 degree 21 [place] Island[place] cystoscope Olympus, and used a Pollick catheter, 5 [place] open-ended catheter and an angled tip 0.038 Glidewire I was able to cannulate the opening of the ureteral orifice and advanced it up into the kidney once through that opening then I advanced the Pollack catheter over the wire and performed a retrograde pyelogram and interpreted the fluoroscopic images myself personally, I then saw contrast go up the ureter dilate through the dilated ureter and go up to the hydronephrotic kidney, then through the a 5 [place] open-ended catheter advanced a straight tipped Glidewire 0.038 and then coiled the wire up in the kidney once the wire was coiled in the kidney then over the wire I advanced a 6 [place] by 26 cm length stent, the stent went over the wire and up the wire I advanced the stent and once the stent was coiled in the kidney and in the bladder then I pulled the wire and the stent coiled in the kidney and bladder in good position I then used the resectoscope to continue resecting the mass but really did not go too deep as it got fairly bloody very quickly and as I resected enough tissue to get diagnosis then I used electrocautery to cauterize extensively along the resection site but as I cauterized more more bleeding would happen and eventually cauterized enough of the tumor to slow down the bleeding I then placed a 20 [place] catheter into the bladder, as he was waking up there was a lot of pressure in the catheter though it clotted off so I took out the catheter we resedated the patient and put in a 22 [place] continuous-flow three-way catheter to help control bleeding. Surgeon: zaid Type of Anesthesia: General Drains: 22fr [address] way Admit VTE Documentation VTE Present on Admission: No VTE Mechan Device Prophylaxis: SCD's VTE Pharm Prophylaxis ordered?: No
[2021-04-26] MEDS: Lidocaine Jelly 2% 20 ML Syringe (URO-JET) 1 APPLIC (11:36)
--- NOTE | 2021-04-26 12:07 | PN.HOSP_ITS ---
Documented by User: John RAMÍREZ 04/26/21 12:16 Subjective Subjective Patient is a 75-year-old male comfortably resting in bed, alert and oriented x3. Patient reports improvement in his left lower quadrant abdominal pain, although does report that he is been using his Dilaudid rather regularly. Denies development of any new symptoms overnight. Does not appear in acute distress. Objective Data Objective Data Vital Signs: Vital Signs Temp Pulse Resp BP Pulse Ox 98.1 F 55 L 18 121/73 H 99 04/26/21 08:21 04/26/21 08:21 04/26/21 08:21 04/26/21 08:21 04/26/21 08:21 Oxygen Delivery Method Room Air Weight: 148 lb 12.992 oz Body Mass Index (BMI) 20.2 Intake & Output: Intake and Output for Last 24 Hours 04/24/21 04/25/21 04/26/21 23:59 23:59 23:59 Intake Total 200 / 200 2254.50 / 2254.50 100 / 100 Output Total 400 / 400 700 / 700 1250 / 1250 Balance -200 / -200 1554.50 / 1554.50 -1150 / -1150 Lab / Micro Data Result Diagrams: 04/26/21 05:10 04/26/21 05:10 Labs: Laboratory Results - last 24 hr 04/26/21 05:10: WBC 4.7, RBC 2.64 L, Hgb 8.4 L, Hct 25.7 L, MCV 97.3 H, MCH 31.8, MCHC 32.7, RDW Std Deviation 46.7 H, RDW Coeff of Kylie 13.2, Plt Count 112 L, MPV 12.6 H, Immature Gran % (Auto) 0.200, Neut % (Auto) 82.5 H, Lymph % (Auto) 9.4 L, [place] % (Auto) 6.0, Eos % (Auto) 1.5, Baso % (Auto) 0.4, Absolute Neuts (auto) 3.9, Absolute Lymphs (auto) 0.44 L, Nucleated RBC % 0 04/26/21 05:10: Sodium 135 L, Potassium 4.6, Chloride 108 H, Carbon Dioxide 24.0, Anion Gap 3 L, BUN 27 H, Creatinine 1.99 H, Estim Creat Clear Calc 30.15, Est GFR (MDRD) Af Amer 42 L, Est GFR (MDRD) Non-Af 35 L, BUN/Creatinine Ratio 13.6, Glucose 119 H, Calcium 7.8 L 04/26/21 05:10: APTT 42.3 H 04/26/21 05:10: Iron 15 L, TIBC 271, Iron Saturation 5.5 L Physical Exam Const alert, oriented x3 and no apparent distress HEENT head/scalp atraumatic and moist oral mucous membranes Head and Scalp: normocephalic Eyes PERRL, EOMs intact bilaterally and conjunctivae normal Neck no lymphadenopathy, supple and no JVD Resp normal respiratory effort, no retractions, no use of accessory muscles and clear to auscultation bilaterally Cardio no murmurs and no JVD Rate: bradycardia Rhythm: regular rhythm GI normal to inspection, nondistended, normoactive bowel sounds, soft to palpation and non-tender Extremity normal to inspection, full ROM and no clubbing, cyanosis or edema Skin no rashes or lesions noted, no wounds and skin turgor normal Neuro CN's II-XII intact bilaterally Psych affect normal Assessment & Plan Assessment/Plan (1) Abdominal pain: (2) Bladder mass: (3) Fever: (4) FRAN (acute kidney injury): (5) Hydronephrosis: (6) Leukocytosis: PLAN: Day 2 Discharge planning: Current plan is for patient to discharge home when medically ready. Likely be ready for discharge on 04/27. 1) hydronephrosis and bladder mass CT of the abdomen and pelvis on admission demonstrated right-sided bladder mass with extension into the ureter and right-sided hydronephrosis. Urology consulted; patient underwent transurethral resection of the large bladder mass with possible stent placement and retrograde pyelogram on 04/26/2021, no complications noted. Management per urology, continue Zosyn and and Salazar catheter, will observe overnight for any postsurgical complications and plan on discharge for 04/27. 2) abdominal pain Patient reports significant improvement in his left lower quadrant abdominal pain, although does report using his hydromorphone fairly regularly. Patient encouraged to wean off pain medications as tolerated. Unclear etiology at this time as patient's mass and obstruction are on the right side. Continue fluids and pain regimen. 3) fever/leukocytosis Fever has resolved, current temperature is 98.3. WBC this morning currently 5.9, likely reactionary. UA unremarkable. We will continue Zosyn. 4) FRAN Creatinine currently 1.99, baseline appears around 1. Likely related to #1. We will continue LR fluids and continue to monitor BMP, avoid nephrotoxic's. 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 LFTs are within normal limits. Case was discussed with GI on admission, current plan is for patient to follow-up as an outpatient for possible MRCP 6) chronic pancreatitis Continue Creon. 7) GERD Continue PPI. 8) depression/anxiety Continue sertraline. 9) BPH Continue oxybutynin. 10) history of prostate cancer has undergone Known to Dr. Farmer, last underwent radiation treatment and TURP in October 2019. DVT prophylaxis -heparin + SCDs Patient seen by John Jacobson PA-C, under the supervision of Dr. Ferreira. Time spent on patient care: 9 minutes. Documented by User: Dr. Zully Ferreira MD 04/26/21 13:40 Objective Data Lab / Micro Data Result Diagrams: 04/26/21 05:10 04/26/21 05:10 Charges/Coding Addendum Addendum: Patient seen by John Jacobson PA-C under my supervision Patient seen and examined. He states the lower abdominal pain is better today. He had no other complaints. He denied any nausea or vomiting, fever or chills no shortness of breath. Review of systems otherwise negative. He is for surgery by urology today. O/E: Const alert, oriented x3 and no apparent distress HEENT head/scalp atraumatic and moist oral mucous membranes Head and Scalp: normocephalic Eyes PERRL, EOMs intact bilaterally and conjunctivae normal Neck no lymphadenopathy, supple and no JVD Resp normal respiratory effort, no retractions, no use of accessory muscles and clear to auscultation bilaterally Cardio regular rate, regular rhythm, no murmurs and no JVD GI normal to inspection, soft, moderate suprapubic tenderness, no guarding or rebound tenderness Extremity normal to inspection, full ROM and no clubbing, cyanosis or edema Skin no rashes or lesions noted, no wounds and skin turgor normal Neuro CN's II-XII intact bilaterally Psych affect normal Assessment and plan #Bladder mass with right sided hydronephrosis * CT of the abdomen and pelvis showed right-sided bladder mass with extension into the ureter right-sided hydronephrosis * He had transurethral resection of a large bladder mass with cystoscopy and right retrograde pyelogram today * Continue IV Zosyn. On IV Dilaudid for pain. * #Dilated biliary and pancreatic duct * Similar to previous imaging from 2019. Per discussion with urology today, it seems patient has been complaining more of left upper quadrant pain though during my review he has always complained of left lower quadrant pain * If pain does not improve after his urologic surgery, will consult gastroenterology for possible ERCP * #Chronic pancreatitis: On Creon #FRAN: * Creatinine has trended up to 1.99 today from 1.96 yesterday. Baseline is around 1. * Continue hydration with IV fluids and trend creatinine. * Consult nephrology if kidney function worsens though and hopefully will improve symptoms as a postobstructive FRAN from hydronephrosis. * #GERD: On PPI #Depression and anxiety: On sertraline #BPH: On oxybutynin #History of prostate cancer: S/p TURP and radiation treatment. Follows with oncology on outpatient basis. DVT prophylaxis: Heparin Rest as per John Jacobson PA-C's notes which I reviewed and endorsed. Patient seen by DESIREE Jacobson and myself. I spent a total of 22 minutes in the care of the patient. Visit Charges Inpatient E&M: 52108 [facility] Hosp L3
[2021-04-26] MEDS: Lactated Ringers 1,000 ML 70 ML IV (12:23)
[2021-04-26] MEDS: 0.9% Saline Lock 10 ML Syringe IV ×3 (14:56→22:16)
[2021-04-26] MEDS: Heparin Injection (Vial) 5,000 UNIT/ML VIAL 5000 UNIT SC ×2 (15:26→22:20)
[2021-04-26] MEDS: Creon 24,000 unit DR Capsule 1 CAP PO (18:26)
[2021-04-26] MEDS: Morphine 2 MG/ML Syringe IV (22:15)
[2021-04-27] VITALS (7 sets, daily range): BP systolic 110–147; BP diastolic 56–74; PULSE 51–103; RESP 16; TEMP 36.4–37.9; O2SAT 95–98
[2021-04-27] MEDS: Lactated Ringers 1,000 ML 70 ML IV ×2 (02:56→17:21)
[2021-04-27 05:43] LABS: Absolute Lymphocyte Count 0.39 X10^3/uL (0.83-4.51); Absolute Neutrophil Count 5.7 X10^3/uL (2.0-7.7); Basophil# 0.02 X10^3/uL; Basophil% 0.3 % (0-1); Eosinophil# 0.01 X10^3/uL; Eosinophils% 0.2 % (0-5); Hematocrit 28.2 % (40-54); Hemoglobin 9.2 g/dL (13.0-16.5); Lymphocyte # 0.39 X10^3/ul (0.83-4.51); Mean Corp Hgb Conc 32.6 g/dL (32-36); Mean Corpuscular Hgb 31.5 pg (27.0-32.0); Mean Corpuscular Volume 96.6 fL (80-94); Mean Platelet Vol. 12.9 fl (6.2-12.0); Monocyte# 0.39 X10^3/uL; NRBC Flagged by Analyzer 0 % (0-5); Neutrophil # 5.66 X10^3/uL (2.7-7.7); Neutrophil % 86.9 % (47-70); POSITIVE DIFFERENTIAL YES; Platelet Count 135 K/mm3 (150-450); RBC Distribution Width CV 12.9 % (11.6-14.6); RBC Distribution Width SD 45.9 fl (35.1-43.9); Red Blood Count 2.92 M/mm3 (4.6-6.2); White Blood Count 6.5 K/mm3 (4.4-11.0)
[2021-04-27 05:51] LABS: Differential Indicated SCAN CRITERIA MET
[2021-04-27 06:05] LABS: Anion Gap 5 (5-15); BUN 25 mg/dL (7-18); BUN/Creat Ratio 14.1 RATIO (10-20); Calcium,Total 8.1 mg/dL (8.5-10.1); Chloride 107 mmol/L (98-107); Creatinine, Serum 1.77 mg/dL (0.70-1.30); EST Glomerular Filtration Rate 40 mL/min (>60); Est Glom Filt Rate - Afr Amer 48 mL/min (>60); Glucose 137 mg/dL (74-106); Potassium 4.6 mmol/L (3.5-5.1); Sodium Level 138 mmol/L (136-145)
[2021-04-27] MEDS: Heparin Injection (Vial) 5,000 UNIT/ML VIAL 5000 UNIT SC ×3 (06:31→21:26)
--- NOTE | 2021-04-27 07:49 | PN.URO_ITS ---
Subjective Subjective 75-year-old male status post resection of a mass in the bladder is causing obstruction of the right kidney I was able to successfully place a stent into the right kidney to help drain the right kidney. At this point is mostly complaining of pain in his bladder which is consistent with most recent resection of mass in the bladder plus he does have a very large catheter 22 [place] three-way catheter the urine is running is fairly clear. Objective Data Objective Data Vital Signs: Vital Signs Temp Pulse Resp BP Pulse Ox 97.6 F L 51 L 16 136/69 H 98 04/27/21 06:26 04/27/21 06:26 04/27/21 06:26 04/27/21 06:26 04/27/21 06:26 Oxygen Flow Rate (L/min) 2 Oxygen Delivery Method Room Air Weight: 67.5 kg Body Mass Index (BMI) 20.2 Intake & Output: Intake and Output for Last 24 Hours 04/25/21 04/26/21 04/27/21 23:59 23:59 23:59 Intake Total 2254.50 / 2254.50 1514.75 / 1514.75 1150 / 1150 Output Total 700 / 700 3275 / 3275 425 / 425 Balance 1554.50 / 1554.50 -1760.25 / -1760.25 725 / 725 Lab / Micro Data Result Diagrams: 04/27/21 05:13 04/27/21 05:13 Labs: Laboratory Results - last 24 hr 04/26/21 05:10: Iron 15 L, TIBC 271, Iron Saturation 5.5 L 04/27/21 05:13: WBC 6.5, RBC 2.92 L, Hgb 9.2 L, Hct 28.2 L, MCV 96.6 H, MCH 3 1.5, MCHC 32.6, RDW Std Deviation 45.9 H, RDW Coeff of Kylie 12.9, Plt Count 135 L , MPV 12.9 H, Immature Gran % (Auto) 0.600, Neut % (Auto) 86.9 H, Lymph % (Auto) 6.0 L, [place] % (Auto) 6.0, Eos % (Auto) 0.2, Baso % (Auto) 0.3, Absolute Neuts (auto) 5.7, Absolute Lymphs (auto) 0.39 L, Nucleated RBC % 0 04/27/21 05:13: Sodium 138, Potassium 4.6, Chloride 107, Carbon Dioxide 26.0, Anion Gap 5, BUN 25 H, Creatinine 1.77 H, Estim Creat Clear Calc 33.90, Est GFR (MDRD) Af Amer 48 L, Est GFR (MDRD) Non-Af 40 L, BUN/Creatinine Ratio 14.1, G lucose 137 H, Calcium 8.1 L Physical Exam Const alert and oriented x3 General Appearance: cooperative HEENT normocephalic, head/scalp atraumatic, EAC's normal and TM's normal bilaterally Eyes PERRL and EOMs intact bilaterally Pupil: sluggish Neck no lymphadenopathy, supple and no JVD General: trachea midline Lymph Lymphatic: no lymphadenopathy noted, lymphedema and lymphadenopathy Resp normal respiratory effort, normal air movement and clear to auscultation bilaterally Cardio regular rate, regular rhythm and peripheral pulses 2+ throughout GI soft to palpation, non-tender and non-distended Extremity normal capillary refill and no clubbing, cyanosis or edema General Extremity: no tenderness to palpation of joints or extremities Skin no rashes or lesions noted General Skin Exam: turgor normal Lesions: no lesions Rashes: no rashes Neuro CN's II-XII intact bilaterally Speech: speech normal Motor Exam: strength 5/5 throughout; Negative for general weakness Psych thought process normal, cooperative and affect normal Appearance: appropriate Assessment & Plan Assessment/Plan (1) Bladder mass: PLAN: Continue with bladder irrigation until urine is clear (2) Hydronephrosis: PLAN: Status post stent placement (3) Prostate cancer: PLAN: Prostate cancer with signs of progression today I discussed with the patient options of management we could consider adding an antiandrogen or consider chemotherapy once I get the tissue results from the pathology and I will see him in the office will decide what the next step of management.
[2021-04-27] MEDS: Morphine 2 MG/ML Syringe IV (08:00)
[2021-04-27] MEDS: 0.9% Saline Lock 10 ML Syringe IV ×2 (08:00→19:50)
[2021-04-27] MEDS: Creon 24,000 unit DR Capsule 1 CAP PO ×3 (08:29→17:21)
[2021-04-27] MEDS: Cyanocobalamin 500 MCG Tablet 1000 MCG PO (08:29)
[2021-04-27] MEDS: Sertraline 50 MG Tablet PO (08:29)
[2021-04-27] MEDS: Pantoprazole Sodium 20 MG Tablet PO (08:31)
--- NOTE | 2021-04-27 11:30 | PN.HOSP_ITS ---
Subjective Subjective Patient seen and examined. He still complaining of some lower abdominal pain and spasms. He has not really had any upper abdominal pain. He had resection of the bladder mass yesterday with placement of stent in this ureter. He denies any nausea, vomiting, fever or chills or shortness of breath. Review of systems otherwise negative Objective Data Objective Data Vital Signs: Vital Signs Temp Pulse Resp BP Pulse Ox 98.4 F 58 L 16 133/74 H 97 04/27/21 08:39 04/27/21 08:39 04/27/21 08:39 04/27/21 08:39 04/27/21 08:39 Oxygen Flow Rate (L/min) 2 Oxygen Delivery Method Room Air Weight: 148 lb 12.992 oz Body Mass Index (BMI) 20.2 Intake & Output: Intake and Output for Last 24 Hours 04/25/21 04/26/21 04/27/21 23:59 23:59 23:59 Intake Total 2254.50 / 2254.50 1514.75 / 1514.75 1650 / 1650 Output Total 700 / 700 3275 / 3275 425 / 425 Balance 1554.50 / 1554.50 -1760.25 / -1760.25 1225 / 1225 Lab / Micro Data Result Diagrams: 04/27/21 05:13 04/27/21 05:13 Labs: Laboratory Results - last 24 hr 04/27/21 05:13: WBC 6.5, RBC 2.92 L, Hgb 9.2 L, Hct 28.2 L, MCV 96.6 H, MCH 31.5, MCHC 32.6, RDW Std Deviation 45.9 H, RDW Coeff of Kylie 12.9, Plt Count 135 L, MPV 12.9 H, Immature Gran % (Auto) 0.600, Neut % (Auto) 86.9 H, Lymph % (Auto) 6.0 L, [place] % (Auto) 6.0, Eos % (Auto) 0.2, Baso % (Auto) 0.3, Absolute Neuts (auto) 5.7, Absolute Lymphs (auto) 0.39 L, Nucleated RBC % 0 04/27/21 05:13: Sodium 138, Potassium 4.6, Chloride 107, Carbon Dioxide 26.0, Anion Gap 5, BUN 25 H, Creatinine 1.77 H, Estim Creat Clear Calc 33.90, Est GFR (MDRD) Af Amer 48 L, Est GFR (MDRD) Non-Af 40 L, BUN/Creatinine Ratio 14.1, Glucose 137 H, Calcium 8.1 L Micro: Microbiology 04/24/21 17:45 Blood Culture (Wb) - Right Forearm Blood Culture - Preliminary No growth in 48 hours. 04/24/21 17:33 Blood Culture (Wb) - Anticubital Right Blood Culture - Preliminary No growth in 48 hours. Physical Exam Const alert, oriented x3 and no apparent distress Exam Limitations: no limitations HEENT head/scalp atraumatic Head and Scalp: normocephalic Eyes PERRL, EOMs intact bilaterally and conjunctivae normal Neck no lymphadenopathy Resp normal respiratory effort, no retractions, no use of accessory muscles and clear to auscultation bilaterally Cardio regular rate, regular rhythm, S1 normal heart sound and no murmurs GI normal to inspection, nondistended, normoactive bowel sounds, soft to palpation, non-tender and non-distended Extremity normal to inspection, full ROM and no clubbing, cyanosis or edema Peripheral Pulses: Yes pulses 2+ throughout Skin no rashes or lesions noted Neuro oriented x3, CN's II-XII intact bilaterally and moves all extremities Sensorium / Orientation: awake and alert Psych affect normal Assessment & Plan Assessment/Plan (1) Bladder mass: (2) FRAN (acute kidney injury): (3) Hydronephrosis: PLAN: #Bladder mass with right sided hydronephrosis * CT of the abdomen and pelvis showed right-sided bladder mass with extension into the ureter right-sided hydronephrosis * He had transurethral resection of a large bladder mass with cystoscopy and right retrograde pyelogram. today is POD 1 * Continue IV Zosyn. On IV Dilaudid for pain. #Dilated biliary and pancreatic duct with probable pancreatic duct stone * Ultrasound done here showed biliary duct dilatation. He did have a CT of the abdomen and pelvis with IV contrast at [facility] on 04/24/2021 which showed diffuse pancreatic parenchymal dystrophic calcification and mild pancreatic ductal dilatation with suspicion of a stone within the pancreatic duct at the head of the pancreas and mild to moderate intrahepatic biliary dilatation and dilatation of the common bile duct. * We will consult gastroenterology in light of suspicion of patient having a stone. * #Chronic pancreatitis: On Creon #FRAN: * Creatinine is down to 1.77 today. Baseline is around 1. * Continue hydration with IV fluids and trend creatinine. #GERD: On PPI #Depression and anxiety: On sertraline #BPH: On oxybutynin #History of prostate cancer: S/p TURP and radiation treatment. Follows with oncology on outpatient basis. DVT prophylaxis: Heparin Charges/Coding Visit Charges Inpatient E&M: 41307 [facility]s Hosp L2
[2021-04-27] MEDS: HYDROmorphone 1 MG/ML Syringe IV ×3 (12:39→19:50)
[2021-04-27] MEDS: Oxybutynin 5 MG Tablet 15 MG PO (13:13)
--- NOTE | 2021-04-27 14:00 | CHAPLAIN ---
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 ___ Other (describe below) Sacrament/Intervention _x__ Active listening ___ Anointing ___ Shinto ___ Bereavement ___ Communion ___ [place] exploration ___ ___ Life review _x__ Prayer ___ Reconciliation ___ Sacrament of Sick _x__ Supportive presence ___ Wedding ___ Other (describe below) Pastoral Comments patient in some obvious pain but does not complain, states he knows when he will get meds, and understands how to ask for help; pt states that others are worse off so I can't complain, I've had a good life; pt asks for prayer for his who worries more about this than I do; pt talks about his new purchase of a tractor; pt welcomes presence and prayers
--- NOTE | 2021-04-27 16:01 | EX.PCM.CON.G ---
HPI Consult Data Date of Consult: 04/27/21 HPI Narrative HPI Narrative: JULISA CARSON, is a 75 M who presents to [facility] emergency room with severe abdominal pain. He has a past medical history of localized prostate cancer status post radiation therapy and on androgen suppression therapy. He also has a past medical history of chronic idiopathic pancreatitis on pancreatic enzymes. Imaging at [facility] emergency room had shown biliary ductal dilation, pancreatic duct dilation and a possible pancreatic duct stone in the ventral duct of the pancreas. I do not have the actual images to review myself. He was diagnosed with acute on chronic pancreatitis back at [facility] multiple years ago. He was also discovered to have a moderate right-sided hydronephrosis with a mass in the right posterior lateral portion of the bladder. He underwent a decompression procedure with a ureteral stent placement and tissue sampling yesterday. I was asked to see him due to his history of chronic pancreatitis and this new finding of a pancreatic duct stone. All 16 review of systems are negative except as per positive mentioned in HPI. [facility] Medical History (Updated 04/27/21 @ 16:[address] Weems Friend, DO) Bladder outlet obstruction Chronic pancreatitis Dilated bile duct GERD (gastroesophageal reflux disease) Hiatal hernia Nicotine dependence Pancreatic duct dilated Pancreatitis Pancytopenia Prostate cancer Septic shock (07/2018) Home Medications [id number] 24,000 PO TIDCM 03/02/13 [History Last Taken 04/24/21 0800] sertraline 50 mg PO DAILY 03/02/13 [History Last Taken 04/24/21] omeprazole 20 mg PO DAILY 08/21/18 [History Last Taken 04/24/21 0800] cyanocobalamin (vitamin B-12) 1,000 mcg PO DAILY 10/01/18 [History Last Taken 04/24/21] cholecalciferol (vitamin D3) 1,000 unit PO QODAY 11/18/19 [History Last Taken 04/24/21 0800] oxycodone-acetaminophen 1 ea PO Q4H PRN PRN 11/18/19 [History Last Taken Unknown] oxybutynin chloride 15 mg PO DAILY 04/24/21 [History Last Taken Unknown] Allergy/AdvReac Type Severity Reaction Status Date / Time No Known Allergies Allergy Verified 11/27/19 07:38 Family History Father Cancer Mother Hypertension Brother Diabetes Surgical History (Updated 04/24/21 @ 16:[address] Carmella Khalil DO) H/O prostate biopsy H/O rectal polypectomy (07/2018) History of inguinal hernia repair History of open reduction and internal fixation (ORIF) procedure History of sphincterotomy of sphincter of Oddi History of tonsillectomy Hx of cholecystectomy S/P TURP Social History (Updated 04/24/21 @ 16:[address] Carmella Khalil DO) Smoking Status: Current every day smoker tobacco type: cigarettes Smoking packs per day: 0.5 Smoking cigarettes per day: 10.0 alcohol intake: former details: Quit in December 1968 substance use type: does not use ROS Review of Systems ROS Unobtainable: other Constitutional Constitutional: Denies fatigue, fever(s), poor appetite, weight gain or weight loss ENT HEENT: Denies mouth lesions Cardiovascular Cardiovascular: Denies abdominal bloating, abdominal edema or abdominal pain Respiratory/Chest Respiratory/Chest: Denies change in mental status, change in phlegm color, chest congestion or chest tightness Gastrointestinal Gastrointestinal: Denies belching, bloating, change in bowel habits, change in stool character, chewing difficulty, coffee ground emesis, constipation, cramping, diarrhea, dyspepsia, dysphagia, early satiety, excessive flatus, fecal incontinence, heartburn, hematemesis, hematochezia, hemorrhoids, loose stools, melena, nausea, odynophagia, rectal bleeding, tenesmus, vomiting or weight changes Genitourinary Genitourinary: Reports abdominal discomfort and contractions; Denies itching Musculoskeletal Musculoskeletal: Reports as per HPI; Denies muscle weakness or myalgias Integumentary Integumentary: Denies jaundice Neurologic Neurologic: Denies lack of coordination or weakness Psychiatric Psychiatric: Denies confusion, depression, memory loss, mood swings, paranoia or suicidal ideation Endocrine Endocrinology: Denies systems reviewed and no addt'l complaints, except as documented Hematologic/Lymphatic Hematologic/Lymphatic: Denies anemia, easy bleeding, easy bruising or lymphadenopathy Allergic/Immunologic Allergic/Immunologic: Denies systems reviewed and no addt'l complaints, except as documented Physical Exam Const alert General Appearance: cooperative Orientation / Consciousness: oriented to person HEENT hearing grossly normal bilaterally Head and Scalp: normal to inspection Face and Sinus: face symmetric Nose: external nose normal Mouth: oral and palatal mucosa normal Eyes conjunctivae normal General Eye: normal appearance of both eyes Neck full ROM General: normal visual inspection Lymph Lymphatic: no lymphadenopathy noted Chest inspection of chest normal and palpation of chest normal Chest: symmetrical chest wall rise Resp normal respiratory effort Effort and Inspection: able to speak in complete sentences Cardio regular rate GI non-distended Percussion: normal to percussion Rectal Exam: deferred Neuro Speech: speech normal Gait (Neuro): normal gait Lab / Micro Data Result Diagrams: 04/27/21 05:13 04/27/21 05:13 Labs: Laboratory Results - last 24 hr 04/27/21 05:13: WBC 6.5, RBC 2.92 L, Hgb 9.2 L, Hct 28.2 L, MCV 96.6 H, MCH 31.5, MCHC 32.6, RDW Std Deviation 45.9 H, RDW Coeff of Kylie 12.9, Plt Count 135 L, MPV 12.9 H, Immature Gran % (Auto) 0.600, Neut % (Auto) 86.9 H, Lymph % (Auto) 6.0 L, [place] % (Auto) 6.0, Eos % (Auto) 0.2, Baso % (Auto) 0.3, Absolute Neuts (auto) 5.7, Absolute Lymphs (auto) 0.39 L, Nucleated RBC % 0 04/27/21 05:13: Sodium 138, Potassium 4.6, Chloride 107, Carbon Dioxide 26.0, Anion Gap 5, BUN 25 H, Creatinine 1.77 H, Estim Creat Clear Calc 33.90, Est GFR (MDRD) Af Amer 48 L, Est GFR (MDRD) Non-Af 40 L, BUN/Creatinine Ratio 14.1, Glucose 137 H, Calcium 8.1 L Micro: Microbiology 04/24/21 17:45 Blood Culture (Wb) - Right Forearm Blood Culture - Preliminary No growth in 48 hours. 04/24/21 17:33 Blood Culture (Wb) - Anticubital Right Blood Culture - Preliminary No growth in 48 hours. Assessment & Plan Assessment/Plan (1) Chronic pancreatitis: PLAN: Chronic pancreatitis from unknown cause. It is not known if he has had a work-up for autoimmune pancreatitis as a cause of his chronic pancreatitis. Is also not known if he has a history of pancreatic divisum. I believe he did have a ERCP in the past and a sphincterotomy was performed. He does not know if he had any stones that were removed that caused pancreatitis at the time. He also does not know if he has had a history of pseudocyst but he knows that he does not had any drainage of any cyst involving his pancreas or outside of the pancreas. He is on pancreatic enzymes and is comfortable taking them at his current dose. He has not had a CA 19-9 to screen for pancreatic cancer. (2) Anemia: PLAN: He says that he has a history of anemia but he does not know how long he has been anemic and what he has done in order to figure out why he is anemic. He was told in the past it was possibly secondary to his kidneys. But he is not sure why he is anemic. (3) Pancreatic duct stones: PLAN: I will get an MR I with MRCP to evaluate the biliary tree and a pancreatic duct to see if this is side branching pancreatitis which we be not amenable to endoscopic intervention for pain relief, except for an EUS with celiac plexus block. Main duct pancreatic stones involving the head, genu or uncinate process may be amenable to endoscopic removal. Thank you very much for allowing me to precipitate in the care of this patient. Charges/Coding Visit Charges Inpatient E&M: 03216 Init Hosp L3
--- NOTE | 2021-04-27 18:22 | NURSING ---
pt to [facility]p
--- NOTE | 2021-04-27 18:35 | MRI_ITS ---
STUDY: MR MRCP WITHOUT CONTRAST REASON FOR EXAM: Male, 75 years old. pancreatic stone and pancreatitis TECHNIQUE: Standard MRCP technique was utilized. 3-D reconstructions were performed. COMPARISON: None. FINDINGS: Gall Bladder: Gall bladder is not visualized, which may reflect contraction or obstruction of the cystic duct. Cystic duct: Cystic duct was not well visualized. Intrahepatic ducts: Normal visualized intrahepatic ducts with no demonstrated fixed filling defect, dilation or stricture. Common hepatic duct: Normal with no demonstrated fixed filling defect, dilation or stricture. Common bile duct: Normal with no demonstrated fixed filling defect, dilation or stricture. Pancreatic duct: Normal with no demonstrated fixed filling defect, dilation or stricture. MRI/MRCP Abdomen without Contrast IMPRESSION: Normal MR Cholangiopancreatography (MRCP). Electronically Signed: Denys Riley MD at 9:25 [facility] ,
[2021-04-28 03:30] VITALS: BP 122/68; PULSE 52; RESP 16; TEMP 37.1; O2SAT 97
[2021-04-28] MEDS: HYDROmorphone 1 MG/ML Syringe IV ×3 (03:37→18:21)
[2021-04-28] MEDS: 0.9% Saline Lock 10 ML Syringe IV (03:37)
[2021-04-28] MEDS: Heparin Injection (Vial) 5,000 UNIT/ML VIAL 5000 UNIT SC ×3 (06:00→21:46)
[2021-04-28] MEDS: Cyanocobalamin 500 MCG Tablet 1000 MCG PO (08:03)
[2021-04-28] MEDS: Creon 24,000 unit DR Capsule 1 CAP PO ×3 (08:03→16:41)
[2021-04-28] MEDS: Oxybutynin 5 MG Tablet 15 MG PO (08:04)
[2021-04-28] MEDS: Sertraline 50 MG Tablet PO (08:04)
[2021-04-28] MEDS: Pantoprazole Sodium 20 MG Tablet PO (08:04)
[2021-04-28] MEDS: Cholecalciferol (VIT D3) 25 MCG TABLET (1,000 UNITS) PO (08:04)
[2021-04-28 08:14] VITALS: BP 146/77; PULSE 50; RESP 16; TEMP 37.2; O2SAT 100
[2021-04-28 08:31] LABS: Absolute Lymphocyte Count 0.74 X10^3/uL (0.83-4.51); Absolute Neutrophil Count 4.1 X10^3/uL (2.0-7.7); Basophil# 0.04 X10^3/uL; Basophil% 0.7 % (0-1); Eosinophil# 0.09 X10^3/uL; Eosinophils% 1.7 % (0-5); Hematocrit 28.4 % (40-54); Hemoglobin 9.2 g/dL (13.0-16.5); Lymphocyte # 0.74 X10^3/ul (0.83-4.51); Lymphocyte % 13.7 % (19-41); Mean Corp Hgb Conc 32.4 g/dL (32-36); Mean Corpuscular Hgb 31.6 pg (27.0-32.0); Mean Corpuscular Volume 97.6 fL (80-94); Mean Platelet Vol. 12.2 fl (6.2-12.0); Monocyte% 7.4 % (0-10); NRBC Flagged by Analyzer 0 % (0-5); Neutrophil # 4.08 X10^3/uL (2.7-7.7); Neutrophil % 75.8 % (47-70); Platelet Count 156 K/mm3 (150-450); Red Blood Count 2.91 M/mm3 (4.6-6.2); White Blood Count 5.4 K/mm3 (4.4-11.0)
[2021-04-28 08:58] LABS: Anion Gap 3 (5-15); BUN 30 mg/dL (7-18); BUN/Creat Ratio 17.4 RATIO (10-20); Calcium,Total 8.5 mg/dL (8.5-10.1); Chloride 105 mmol/L (98-107); Creatinine, Serum 1.72 mg/dL (0.70-1.30); EST Glomerular Filtration Rate 41 mL/min (>60); Est Glom Filt Rate - Afr Amer 50 mL/min (>60); Estimated Creatinine Clearance 34.88 ml/min; Glucose 93 mg/dL (74-106); Potassium 4.7 mmol/L (3.5-5.1); Sodium Level 137 mmol/L (136-145)
--- NOTE | 2021-04-28 09:54 | PN.HOSP_ITS ---
Subjective Subjective Patient seen and examined. He had no acute problems overnight and felt well. He sill had occasional lower abdominal spasms. Review of systems is otherwise negative. He had MRCP of the abdomen yesterday to evaluate for pancreatic duct stone, and read is pending. Objective Data Objective Data Vital Signs: Vital Signs Temp Pulse Resp BP Pulse Ox 98.9 F 50 L 16 146/77 H 100 04/28/21 08:14 04/28/21 08:14 04/28/21 08:14 04/28/21 08:14 04/28/21 08:14 Oxygen Flow Rate (L/min) 2 Oxygen Delivery Method Room Air Weight: 148 lb 12.992 oz Body Mass Index (BMI) 20.2 Intake & Output: Intake and Output for Last 24 Hours 04/26/21 04/27/21 04/28/21 23:59 23:59 23:59 Intake Total 1514.75 / 1514.75 3215.33 / 3365.33 550 / 550 Output Total 3275 / 3275 425 / 425 4300 / 4300 Balance -1760.25 / -1760.25 2790.33 / 2940.33 -3750 / -3750 Lab / Micro Data Result Diagrams: 04/28/21 08:10 04/28/21 08:10 Labs: Laboratory Results - last 24 hr 04/28/21 08:10: WBC 5.4, RBC 2.91 L, Hgb 9.2 L, Hct 28.4 L, MCV 97.6 H, MCH 31 .6, MCHC 32.4, RDW Std Deviation 46.0 H, RDW Coeff of Kylie 13.0, Plt Count 156, MPV 12.2 H, Immature Gran % (Auto) 0.700, Neut % (Auto) 75.8 H, Lymph % (Auto) 13.7 L, [place] % (Auto) 7.4, Eos % (Auto) 1.7, Baso % (Auto) 0.7, Absolute Neuts (auto) 4.1, Absolute Lymphs (auto) 0.74 L, Nucleated RBC % 0 04/28/21 08:10: Sodium 137, Potassium 4.7, Chloride 105, Carbon Dioxide 29.0, Anion Gap 3 L, BUN 30 H, Creatinine 1.72 H, Estim Creat Clear Calc 34.88, Est GFR (MDRD) Af Amer 50 L, Est GFR (MDRD) Non-Af 41 L, BUN/Creatinine Ratio 17.4, Glucose 93, Calcium 8.5 Micro: Microbiology 04/24/21 17:45 Blood Culture (Wb) - Right Forearm Blood Culture - Preliminary No growth in 48 hours. 04/24/21 17:33 Blood Culture (Wb) - Anticubital Right Blood Culture - Preliminary No growth in 48 hours. Radiography Diagnostic Testing: Radiology Impression MRCP 04/27/21 18:35 IMPRESSION: Normal MR Cholangiopancreatography (MRCP). Electronically Signed: Denys Riley MD at 9:25 EST , Physical Exam Const alert, oriented x3, no apparent distress and average body habitus General Appearance: cooperative Exam Limitations: no limitations HEENT normocephalic, head/scalp atraumatic, hearing grossly normal bilaterally and moist oral mucous membranes Head and Scalp: normocephalic Eyes PERRL, EOMs intact bilaterally and conjunctivae normal Neck no lymphadenopathy, supple, no JVD and no carotid bruits Neck Narrative: Trachea midline, no thyroid enlargement Resp normal respiratory effort, no retractions, no use of accessory muscles and clear to auscultation bilaterally Auscultation: Negative for crackles, rales, rhonchi or wheezes Cardio regular rate, regular rhythm, S1 normal heart sound, S2 normal heart sound, no murmurs, no rub, no gallops, no clicks and no JVD Rate: bradycardia Rhythm: regular rhythm GI normal to inspection, nondistended, normoactive bowel sounds, soft to palpation, non-tender and non-distended GI Narrative: mile epigastric tenderness, no guarding or rebound tenderness. Salazar catheter in place Palpation: Negative for hernia Extremity normal to inspection, full ROM and no clubbing, cyanosis or edema Peripheral Pulses: Yes pulses 2+ throughout Skin no rashes or lesions noted, no wounds, skin turgor normal, no jaundice, no petechiae and no mottling Skin Narrative: Sebaceous cyst noted x2 on his back Neuro oriented x3, CN's II-XII intact bilaterally, moves all extremities and no focal motor deficits Sensorium / Orientation: awake and alert Speech: speech normal Motor Exam: strength 5/5 throughout Psych affect normal Assessment & Plan Assessment/Plan (1) Bladder mass: (2) FRAN (acute kidney injury): (3) Hydronephrosis: PLAN: #Bladder mass with right sided hydronephrosis * CT of the abdomen and pelvis showed right-sided bladder mass with extension into the ureter right-sided hydronephrosis * He had transurethral resection of a large bladder mass with cystoscopy and right retrograde pyelogram. today is POD 2 * Continue IV Zosyn. On IV Dilaudid for pain. #Dilated biliary and pancreatic duct with probable pancreatic duct stone * Ultrasound done here showed biliary duct dilatation. He did have a CT of the abdomen and pelvis with IV contrast at [facility] on 04/24/2021 which showed diffuse pancreatic parenchymal dystrophic calcification and mild pancreatic ductal dilatation with suspicion of a stone within the pancreatic duct at the head of the pancreas and mild to moderate intrahepatic biliary dilatation and dilatation of the common bile duct. * gastroenterology on board. MRCP was normal, and showed no evidence of a stone. * await further GI rec's/ * #Chronic pancreatitis: On Creon #FRAN: * Creatinine is down to 1.72 today. Baseline is around 1. Likely a postrenal FRAN in light of patient's bladder mass with hydronephrosis * Continue hydration with IV fluids and trend creatinine. #GERD: On PPI #Depression and anxiety: On sertraline #BPH: On oxybutynin #History of prostate cancer: S/p TURP and radiation treatment. Follows with oncology on outpatient basis. DVT prophylaxis: Heparin Charges/Coding Visit Charges Inpatient E&M: 91898 Subs Hosp L2
[2021-04-28] MEDS: Lactated Ringers 1,000 ML 70 ML IV ×2 (10:10→23:35)
[2021-04-28 10:48] VITALS: O2SAT 98
[2021-04-28 11:17] VITALS: BP 103/56; PULSE 60; RESP 16; TEMP 37.3; O2SAT 95
--- NOTE | 2021-04-28 16:30 | PN_ITS ---
Subjective Subjective Patient ate well without any abdominal pain. He had a normal bowel movement. He is eating without any abdominal pain. He is waiting forTo get his catheter removed for a voiding trial. Objective Data Objective Data Vital Signs: Vital Signs Temp Pulse Resp BP Pulse Ox 99.1 F 60 16 103/56 L 95 04/28/21 11:17 04/28/21 11:17 04/28/21 11:17 04/28/21 11:17 04/28/21 11:17 Oxygen Flow Rate (L/min) 2 Oxygen Delivery Method Room Air Weight: 148 lb 12.992 oz Body Mass Index (BMI) 20.2 Intake & Output: Intake and Output for Last 24 Hours 04/26/21 04/27/21 04/28/21 23:59 23:59 23:59 Intake Total 1514.75 / 1514.75 3215.33 / 3365.33 1878.33 / 1878.33 Output Total 3275 / 3275 425 / 425 5650 / 5650 Balance -1760.25 / -1760.25 2790.33 / 2940.33 -3771.67 / -3771.67 Lab / Micro Data Result Diagrams: 04/28/21 08:10 04/28/21 08:10 Labs: Laboratory Results - last 24 hr 04/28/21 08:10: WBC 5.4, RBC 2.91 L, Hgb 9.2 L, Hct 28.4 L, MCV 97.6 H, MCH 31.6, MCHC 32.4, RDW Std Deviation 46.0 H, RDW Coeff of Kylie 13.0, Plt Count 156, MPV 12.2 H, Immature Gran % (Auto) 0.700, Neut % (Auto) 75.8 H, Lymph % (Auto) 13.7 L, [place] % (Auto) 7.4, Eos % (Auto) 1.7, Baso % (Auto) 0.7, Absolute Neuts (auto) 4.1, Absolute Lymphs (auto) 0.74 L, Nucleated RBC % 0 04/28/21 08:10: Sodium 137, Potassium 4.7, Chloride 105, Carbon Dioxide 29.0, Anion Gap 3 L, BUN 30 H, Creatinine 1.72 H, Estim Creat Clear Calc 34.88, Est GFR (MDRD) Af Amer 50 L, Est GFR (MDRD) Non-Af 41 L, BUN/Creatinine Ratio 17.4, Glucose 93, Calcium 8.5 Micro: Microbiology 04/24/21 17:45 Blood Culture (Wb) - Right Forearm Blood Culture - Preliminary No growth in 48 hours. 04/24/21 17:33 Blood Culture (Wb) - Anticubital Right Blood Culture - Preliminary No growth in 48 hours. Radiography Diagnostic Testing: Radiology Impression MRCP 04/27/21 18:35 IMPRESSION: Normal MR Cholangiopancreatography (MRCP). Electronically Signed: Denys Riley MD at 9:25 EST , Physical Exam Const alert General Appearance: cooperative Orientation / Consciousness: oriented to person HEENT hearing grossly normal bilaterally Head and Scalp: normal to inspection Face and Sinus: face symmetric Nose: external nose normal Mouth: oral and palatal mucosa normal Eyes conjunctivae normal General Eye: normal appearance of both eyes Neck full ROM General: normal visual inspection Lymph Lymphatic: no lymphadenopathy noted Chest inspection of chest normal and palpation of chest normal Chest: symmetrical chest wall rise Resp normal respiratory effort Effort and Inspection: able to speak in complete sentences Cardio regular rate GI non-distended Percussion: normal to percussion Rectal Exam: deferred Neuro Speech: speech normal Gait (Neuro): normal gait Assessment & Plan Assessment/Plan (1) Pancreatic duct stones: PLAN: There were no signs of stones On the MRCP.He does have a history of acute recurrent pancreatitis but it does not seem that he has any signs of chronic pancreatitis. He is not getting any abdominal pain when he eats and he is not having any diarrhea. He denies any oily stools or finesse colored stools.He does not need any endoscopic intervention at this time. (2) Chronic pancreatitis: PLAN: From his imaging there are no calcifications, pseudocyst or strictures in the pancreatic duct. He may need an endoscopic ultrasound as an outpatient to see if he has any swelling criteria for chronic pancreatitis. But as of now he does not need any extra supplementation with pancreatic enzymes. Would recommend to check serum triglycerides and continue work-up for possible chronic pancreatitis as an outpatient with EUS, work-up for autoimmune pancreatitis or possible hereditary pancreatitis Charges/Coding Visit Charges Inpatient E&M: 40301 Subs Hosp L2
--- NOTE | 2021-04-28 16:34 | PCM.PN.GU ---
Subjective Subjective Status post resection of a bladder mass stent placement on the right side, three-way catheter in place irrigation is stopped urine is now crystal-clear no more bleeding. Pain is under control. Objective Data Objective Data Vital Signs: Vital Signs Temp Pulse Resp BP Pulse Ox 99.1 F 60 16 103/56 L 95 04/28/21 11:17 04/28/21 11:17 04/28/21 11:17 04/28/21 11:17 04/28/21 11:17 Oxygen Flow Rate (L/min) 2 Oxygen Delivery Method Room Air Weight: 67.5 kg Body Mass Index (BMI) 20.2 Intake & Output: Intake and Output for Last 24 Hours 04/26/21 04/27/21 04/28/21 23:59 23:59 23:59 Intake Total 1514.75 / 1514.75 3215.33 / 3365.33 1878.33 / 1878.33 Output Total 3275 / 3275 425 / 425 5650 / 5650 Balance -1760.25 / -1760.25 2790.33 / 2940.33 -3771.67 / -3771.67 Lab / Micro Data Result Diagrams: 04/28/21 08:10 04/28/21 08:10 Labs: Laboratory Results - last 24 hr 04/28/21 08:10: WBC 5.4, RBC 2.91 L, Hgb 9.2 L, Hct 28.4 L, MCV 97.6 H, MCH 31.6, MCHC 32.4, RDW Std Deviation 46.0 H, RDW Coeff of Kylie 13.0, Plt Count 156, MPV 12.2 H, Immature Gran % (Auto) 0.700, Neut % (Auto) 75.8 H, Lymph % (Auto) 13.7 L, [place] % (Auto) 7.4, Eos % (Auto) 1.7, Baso % (Auto) 0.7, Absolute Neuts (auto) 4.1, Absolute Lymphs (auto) 0.74 L, Nucleated RBC % 0 04/28/21 08:10: Sodium 137, Potassium 4.7, Chloride 105, Carbon Dioxide 29.0, Anion Gap 3 L, BUN 30 H, Creatinine 1.72 H, Estim Creat Clear Calc 34.88, Est GFR (MDRD) Af Amer 50 L, Est GFR (MDRD) Non-Af 41 L, BUN/Creatinine Ratio 17.4, Glucose 93, Calcium 8.5 Micro: Microbiology 04/24/21 17:45 Blood Culture (Wb) - Right Forearm Blood Culture - Preliminary No growth in 48 hours. 04/24/21 17:33 Blood Culture (Wb) - Anticubital Right Blood Culture - Preliminary No growth in 48 hours. Radiography Diagnostic Testing: Radiology Impression MRCP 04/27/21 18:35 IMPRESSION: Normal MR Cholangiopancreatography (MRCP). Electronically Signed: Denys Riley MD at 9:25 EST , Physical Exam Const alert and oriented x3 General Appearance: cooperative HEENT normocephalic, head/scalp atraumatic, EAC's normal and TM's normal bilaterally Eyes PERRL and EOMs intact bilaterally Pupil: sluggish Neck no lymphadenopathy, supple and no JVD General: trachea midline Lymph Lymphatic: no lymphadenopathy noted, lymphedema and lymphadenopathy Resp normal respiratory effort, normal air movement and clear to auscultation bilaterally Cardio regular rate, regular rhythm and peripheral pulses 2+ throughout GI soft to palpation, non-tender and non-distended Extremity normal capillary refill and no clubbing, cyanosis or edema General Extremity: no tenderness to palpation of joints or extremities Skin no rashes or lesions noted General Skin Exam: turgor normal Lesions: no lesions Rashes: no rashes Neuro CN's II-XII intact bilaterally Speech: speech normal Motor Exam: strength 5/5 throughout; Negative for general weakness Psych thought process normal, cooperative and affect normal Appearance: appropriate Assessment & Plan Assessment/Plan (1) Bladder mass: PLAN: Status post resection no more bleeding urine is clear probably remove the catheter tomorrow for voiding trial (2) Hydronephrosis: PLAN: Status post stent placement (3) Prostate cancer: PLAN: History of prostate cancer I suspect the mass is probably prostate cancer but will awaiting pathology follow-up as an outpatient for further treatment and care.
[2021-04-28 16:44] VITALS: BP 124/73; PULSE 52; RESP 16; TEMP 37.5; O2SAT 98
[2021-04-28] MEDS: Hydrocortisone 25 MG Suppository RC (18:23)
[2021-04-28] MEDS: Acetaminophen 325 MG Tablet 650 MG PO (21:48)
[2021-04-28 21:58] VITALS: BP 134/73; PULSE 53; RESP 18; TEMP 36.8; O2SAT 98
--- NOTE | 2021-04-29 02:58 | PN_ITS ---
DATE OF SERVICE: 04/29/2021 SUBJECTIVE * Patient seen and examined. He has no complaints today and had an uneventful night. He denies any fever, chills, nausea vomiting, abdominal pain, diarrhea or vomiting. Review of systems otherwise negative. He has remained hemodynamically stable. His CBC and BMP unremarkable today. OBJECTIVE Const alert, oriented x3, no apparent distress and average body habitus General Appearance: cooperative Exam Limitations: no limitations HEENT normocephalic, head/scalp atraumatic, hearing grossly normal bilaterally and moist oral mucous membranes Head and Scalp: normocephalic Eyes PERRL, EOMs intact bilaterally and conjunctivae normal Neck no lymphadenopathy, supple, no JVD and no carotid bruits Neck Narrative: Trachea midline, no thyroid enlargement Resp normal respiratory effort, no retractions, no use of accessory muscles and clear to auscultation bilaterally Auscultation: Negative for crackles, rales, rhonchi or wheezes Cardio regular rate, regular rhythm, S1 normal heart sound, S2 normal heart sound, no murmurs, no rub, no gallops, no clicks and no JVD Rate: bradycardia Rhythm: regular rhythm GI normal to inspection, nondistended, normoactive bowel sounds, soft to palpation, non-tender and non-distended GI Narrative: mile epigastric tenderness, no guarding or rebound tenderness. Salazar catheter in place Palpation: Negative for hernia Extremity normal to inspection, full ROM and no clubbing, cyanosis or edema Peripheral Pulses: Yes pulses 2+ throughout Skin no rashes or lesions noted, no wounds, skin turgor normal, no jaundice, no petechiae and no mottling Skin Narrative: Sebaceous cyst noted x2 on his back Neuro oriented x3, CN's II-XII intact bilaterally, moves all extremities and no focal motor deficits Sensorium / Orientation: awake and alert Speech: speech normal Motor Exam: strength 5/5 throughout Psych affect normal ASSESSMENT/PLAN (1) Bladder mass: (2) FRAN (acute kidney injury): (3) Hydronephrosis: #Bladder mass with right sided hydronephrosis CT of the abdomen and pelvis showed right-sided bladder mass with extension into the ureter right-sided hydronephrosis He had transurethral resection of a large bladder mass with cystoscopy and right retrograde pyelogram. today is POD 3 Continue IV Zosyn. On IV Dilaudid for pain. Salazar catheter to be dc?d today per urology. Pathology report still pending #Dilated biliary and pancreatic duct with probable pancreatic duct stone Ultrasound done here showed biliary duct dilatation. He did have a CT of the abdomen and pelvis with IV contrast at [facility] on 04/24/2021 which showed diffuse pancreatic parenchymal dystrophic calcification and mild pancreatic ductal dilatation with suspicion of a stone within the pancreatic duct at the head of the pancreas and mild to moderate intrahepatic biliary dilatation and dilatation of the common bile duct. gastroenterology on board. MRCP was normal and showed no evidence of a stone. To follow up with gastroenterology on outpatient basis #Chronic pancreatitis: On Creon #FRAN: Creatinine is trending downwards. Baseline is around 1. Likely a postrenal FRAN in light of patient's bladder mass with hydronephrosis Encourage oral hydration and continue gentle hydration with IVF and trend. #GERD: On PPI #Depression and anxiety: On sertraline #BPH: On oxybutynin #History of prostate cancer: S/p TURP and radiation treatment. Follows with oncology on outpatient basis. DVT prophylaxis: Heparin BIlling code: Inpatient follow up level 2- [id number]
[2021-04-29] MEDS: Creon 24,000 unit DR Capsule 1 CAP PO ×3 (08:00→17:00)
[2021-04-29] MEDS: Cyanocobalamin 500 MCG Tablet 1000 MCG PO (10:00)
[2021-04-29] MEDS: Sertraline 50 MG Tablet PO (10:00)
[2021-04-29] MEDS: Oxybutynin 5 MG Tablet 15 MG PO (10:00)
[2021-04-29] MEDS: Pantoprazole Sodium 20 MG Tablet PO (10:00)
[2021-04-29] MEDS: Acetaminophen 325 MG Tablet 650 MG PO ×2 (10:10→21:50)
[2021-04-29] MEDS: Heparin Injection (Vial) 5,000 UNIT/ML VIAL 5000 UNIT SC ×2 (14:00→22:00)
[2021-04-29 19:30] VITALS: BP 135/69; PULSE 54; RESP 18; TEMP 36.9; O2SAT 99
[2021-04-29 21:33] LABS: Hematocrit 28.7 % (40-54); Hemoglobin 9.3 g/dL (13.0-16.5); Mean Corp Hgb Conc 32.4 g/dL (32-36); Mean Corpuscular Hgb 31.5 pg (27.0-32.0); Mean Corpuscular Volume 97.3 fL (80-94); Mean Platelet Vol. 12.3 fl (6.2-12.0); Platelet Count 166 K/mm3 (150-450); RBC Distribution Width CV 12.8 % (11.6-14.6); RBC Distribution Width SD 45.7 fl (35.1-43.9); Red Blood Count 2.95 M/mm3 (4.6-6.2); White Blood Count 5.1 K/mm3 (4.4-11.0)
[2021-04-30 01:03] LABS: Anion Gap 7 (5-15); BUN 24 mg/dL (7-18); BUN/Creat Ratio 12.1 RATIO (10-20); Calcium,Total 8.2 mg/dL (8.5-10.1); Chloride 107 mmol/L (98-107); Creatinine, Serum 1.99 mg/dL (0.70-1.30); EST Glomerular Filtration Rate 35 mL/min (>60); Est Glom Filt Rate - Afr Amer 42 mL/min (>60); Estimated Creatinine Clearance 30.15 ml/min; Glucose 206 mg/dL (74-106); Potassium 4.2 mmol/L (3.5-5.1); Sodium Level 139 mmol/L (136-145)
[2021-04-30 03:14] VITALS: BP 134/68; PULSE 56; RESP 18; TEMP 36.6; O2SAT 99
[2021-04-30] MEDS: Heparin Injection (Vial) 5,000 UNIT/ML VIAL 5000 UNIT SC (05:50)
[2021-04-30 06:49] LABS: Absolute Lymphocyte Count 0.66 X10^3/uL (0.83-4.51); Absolute Neutrophil Count 3.9 X10^3/uL (2.0-7.7); Basophil# 0.05 X10^3/uL; Eosinophil# 0.13 X10^3/uL; Eosinophils% 2.5 % (0-5); Hematocrit 30.6 % (40-54); Hemoglobin 9.8 g/dL (13.0-16.5); Lymphocyte # 0.66 X10^3/ul (0.83-4.51); Lymphocyte % 12.8 % (19-41); Mean Corpuscular Hgb 31.4 pg (27.0-32.0); Mean Corpuscular Volume 98.1 fL (80-94); Mean Platelet Vol. 12.2 fl (6.2-12.0); Monocyte# 0.34 X10^3/uL; Monocyte% 6.6 % (0-10); NRBC Flagged by Analyzer 0 % (0-5); Neutrophil # 3.92 X10^3/uL (2.7-7.7); Neutrophil % 75.9 % (47-70); Platelet Count 193 K/mm3 (150-450); RBC Distribution Width CV 12.9 % (11.6-14.6); RBC Distribution Width SD 45.6 fl (35.1-43.9); Red Blood Count 3.12 M/mm3 (4.6-6.2); White Blood Count 5.2 K/mm3 (4.4-11.0)
[2021-04-30 07:12] LABS: Anion Gap 6 (5-15); BUN 25 mg/dL (7-18); BUN/Creat Ratio 13.9 RATIO (10-20); Calcium,Total 8.5 mg/dL (8.5-10.1); Chloride 111 mmol/L (98-107); EST Glomerular Filtration Rate 39 mL/min (>60); Est Glom Filt Rate - Afr Amer 47 mL/min (>60); Estimated Creatinine Clearance 33.33 ml/min; Glucose 108 mg/dL (74-106); Potassium 4.1 mmol/L (3.5-5.1); Sodium Level 140 mmol/L (136-145)
[2021-04-30] MEDS: Creon 24,000 unit DR Capsule 1 CAP PO ×2 (07:41→11:55)
[2021-04-30 07:52] VITALS: O2SAT 96
[2021-04-30 08:59] VITALS: BP 140/89; PULSE 75; RESP 16; TEMP 36.7; O2SAT 100
--- NOTE | 2021-04-30 11:02 | DS.PCM_ITS ---
Providers Date of Admission: 04/24/21 Primary Care Physician: NABEEL Cassidy Consultations 04/24/21 18:43 Consult: Urology Routine Consulting Provider: Steve Farmer Reason for Consult: Bladder mass/Hydronephrosis EMERGENT Consult: No Notified: Yes Date Notified: 04/24/21 Time Notified: 19:00 Method of Notification: Answering Service Method of Consult:: In-Person 04/27/21 11:37 Consult: Gastroenterology Routine Consulting Provider: [facility] Reason for Consult: pancreatic duct stone EMERGENT Consult: No Notified: Yes Date Notified: 04/27/21 Time Notified: 11:37 Method of Notification: Text Reason For Visit: BLADDER MASS, HYDRONEPHROSIS Diagnosis Discharge Diagnosis (1) Bladder mass: Status: Acute Code(s): N32.89 - Other specified disorders of bladder (2) Hydronephrosis: Status: Acute Code(s): N13.30 - Unspecified hydronephrosis (3) Prostate cancer: Status: Chronic Code(s): C61 - Malignant neoplasm of prostate (4) Chronic pancreatitis: Status: Chronic Code(s): K86.1 - Other chronic pancreatitis (5) Pancreatic duct stones: Status: Acute Code(s): K86.89 - Other specified diseases of pancreas Medications at Discharge Home Medications [id number]-yxjarizm-iplvrdg 24,000 PO TIDCM 03/02/13 sertraline 50 mg PO DAILY 03/02/13 omeprazole 20 mg PO DAILY 08/21/18 cyanocobalamin (vitamin B-12) 1,000 mcg PO DAILY 10/01/18 cholecalciferol (vitamin D3) 1,000 unit PO QODAY 11/18/19 oxycodone-acetaminophen 1 ea PO Q4H PRN PRN 11/18/19 oxybutynin chloride 15 mg PO DAILY 04/24/21 Hospital Course Operations None Procedures - (cystoscopy with ureteral stent placement) Summary of Care Provided Minutes Spent on Discharge: 45 Hospital Course: Patient is a 75-year-old male with a past medical history as outlined who originally presented to an outside hospital emergency room with a complaint of severe left and central abdominal pain that started the evening prior to admission. He had had such intermittent pain in the past but had not been this severe. Patient had a history of chronic pancreatitis for which he took Creon. He also has a history of prostate cancer s/p TURP and radiation was following with urology. CT of the abdomen and pelvis done at [facility] showed biliary dilatation concerning for possible biliary obstruction and moderate right-sided hydronephrosis with a large mass at the posterior right lateral bladder that extended into the right ureteral insertion. CT of the chest also showed multiple pulmonary nodules. He was transferred to [facility]. Was admitted and managed for abdominal pain which was thought to be due to a bladder mass and hydronephrosis. Was also noted to have FRAN with creatinine being 2.08. He was started on IV Zosyn due to concerns about infection. Creatinine gradually trended downwards. He had resection of the bladder mass with placement of stent in his right ureter. CT of the abdomen and pelvis done at [facility] showed a probable pancreatic duct stone. Gastroenterology was therefore consulted. Patient had MRCP which did not show any evidence of a stone. There was therefore no intervention planned from gastroenterology standpoint. Patient remained stable and was discharged home on 04/30/2021. He is to follow-up with urology and was referred to oncology as well. Pathology report was still pending at time of discharge and he is to follow-up with urology for this to be reviewed with him. Patient's creatinine was 1.8 at time of discharge. His known baseline from October 2019 was 1.1 and I counseled him that in light of this mass and hydronephrosis which we cannot be sure how long it has been present, his actual baseline might now be a bit higher. He would need follow-up with his PCP for serial BMPs to assess this kidney function to see if it is improving. Patient seen and examined prior to discharge. He had no active complaints. Review of systems otherwise negative. Labs and vitals reviewed. Home medication reviewed and reconciled. Physical Exam Const alert, oriented x3, no apparent distress and average body habitus General Appearance: cooperative and comfortable Orientation / Consciousness: awake Exam Limitations: no limitations HEENT normocephalic, head/scalp atraumatic, hearing grossly normal bilaterally and moist oral mucous membranes Eyes PERRL, EOMs intact bilaterally and conjunctivae normal Neck no lymphadenopathy, supple, no JVD and no carotid bruits Resp normal respiratory effort, no retractions, no use of accessory muscles and clear to auscultation bilaterally Resp Narrative: Diffusely diminished but clear Auscultation: Negative for crackles, rales, rhonchi or wheezes Cardio regular rate, regular rhythm, S1 normal heart sound, S2 normal heart sound, no murmurs, no rub, no gallops, no clicks and no JVD Rate: bradycardia Rhythm: regular rhythm GI normal to inspection, nondistended, normoactive bowel sounds, soft to palpation, non-tender and non-distended GI Narrative: Salazar catheter dc'd Palpation: Negative for hernia Extremity normal to inspection, full ROM and no clubbing, cyanosis or edema Skin no rashes or lesions noted, no wounds, skin turgor normal, no jaundice, no petechiae and no mottling Skin Narrative: Sebaceous cyst noted x2 on his back Neuro oriented x3, CN's II-XII intact bilaterally, moves all extremities and no focal motor deficits Sensorium / Orientation: awake and alert Speech: speech normal Motor Exam: strength 5/5 throughout Psych affect normal Weight / BMI Weight Weight: 148 lb 12.992 oz Body Mass Index (BMI) 20.2 ABG / Lab / Microbiology Data Result Diagrams: 04/30/21 06:15 04/30/21 06:15 Laboratory: Laboratory Results - last 24 hr 04/29/21 09:05: WBC 5.1, RBC 2.95 L, Hgb 9.3 L, Hct 28.7 L, MCV 97.3 H, MCH 31.5, MCHC 32.4, RDW Std Deviation 45.7 H, RDW Coeff of Kylie 12.8, Plt Count 166, MPV 12.3 H 04/29/21 09:05: Sodium 139, Potassium 4.2, Chloride 107, Carbon Dioxide 25.0, Anion Gap 7, BUN 24 H, Creatinine 1.99 H, Estim Creat Clear Calc 30.15, Est GFR (MDRD) Af Amer 42 L, Est GFR (MDRD) Non-Af 35 L, BUN/Creatinine Ratio 12.1, Glucose 206 H, Calcium 8.2 L 04/30/21 06:15: Sodium 140, Potassium 4.1, Chloride 111 H, Carbon Dioxide 23.0, Anion Gap 6, BUN 25 H, Creatinine 1.80 H, Estim Creat Clear Calc 33.33, Est GFR (MDRD) Af Amer 47 L, Est GFR (MDRD) Non-Af 39 L, BUN/Creatinine Ratio 13.9, Glucose 108 H, Calcium 8.5 04/30/21 06:15: WBC 5.2, RBC 3.12 L, Hgb 9.8 L, Hct 30.6 L, MCV 98.1 H, MCH 31.4, MCHC 32.0, RDW Std Deviation 45.6 H, RDW Coeff of Kylie 12.9, Plt Count 193, MPV 12.2 H, Immature Gran % (Auto) 1.200 H, Neut % (Auto) 75.9 H, Lymph % (Auto) 12.8 L, Weber % (Auto) 6.6, Eos % (Auto) 2.5, Baso % (Auto) 1.0, Absolute Neuts (auto) 3.9, Absolute Lymphs (auto) 0.66 L, Nucleated RBC % 0 Microbiology: Microbiology 04/24/21 17:45 Blood Culture (Wb) - Right Forearm Blood Culture - Final No growth in 5 days. 04/24/21 17:33 Blood Culture (Wb) - Anticubital Right Blood Culture - Final No growth in 5 days. D/C Instructions Discharge Diet: Low fat / Low cholesterol Discharge Activity: Return to Normal Activity Weight Bearing Status: Weight bearing as tolerated Call your doctor if you observe: Fever of 101 or Higher, Shortness of breath and Swelling in the ankles Meaningful Use Info Meaningful Use Diagnoses (Choose all that apply): None applicable Discharge Plan Admission Admit Date/Time: 04/24/21 22:22 Primary Reason for Your Visit: bladder mass, hydronephrosis Attending Provider: Zully Ferreira Primary Care Provider: Donita Ramires NP Consulting Providers: Steve Farmer Instructions Patient Instructions: Understanding Bladder Cancer, Treating Bladder Cancer ..., Discharge Instructions for ... Discharge Orders/Prescriptions Prescriptions: Continued krrqde-afakndol-rrddmaz 1 EACH capsule,delayed release(DR/EC) 24,000 PO TIDCM RF: 0 sertraline 50 MG tablet 50 mg PO DAILY RF: 0 omeprazole 20 MG capsule,delayed release(DR/EC) 20 mg PO DAILY RF: 0 cyanocobalamin (vitamin B-12) 1,000 MCG capsule 1,000 mcg PO DAILY RF: 0 oxycodone-acetaminophen 1 EACH tablet 1 ea PO Q4H PRN PRN (Reason: Pain Or Fever) RF: 0 cholecalciferol (vitamin D3) 1,000 UNIT tablet 1,000 unit PO QODAY RF: 0 oxybutynin chloride 15 mg tablet extended release 24hr 15 mg PO DAILY RF: 0 Referrals / Follow Up: Steve Farmer MD [STAFF PHYSICIAN] - Within 1 Week Donita Ramires NP, [facility] [Primary Care Provider] - Within 2 Weeks Disposition Disposition (needs filled in before D/C Order can be placed): Home, Self Care Charges/Coding Visit Charges Inpatient E&M: 12169 Disch Hosp
[2021-04-30 11:40] VITALS: BP 122/69; PULSE 67; RESP 18; TEMP 36.7; O2SAT 95
[2021-04-30] MEDS: Oxybutynin 5 MG Tablet 15 MG PO (11:55)
[2021-04-30] MEDS: Pantoprazole Sodium 20 MG Tablet PO (11:55)
[2021-04-30] MEDS: Sertraline 50 MG Tablet PO (11:56)
[2021-04-30] MEDS: Cholecalciferol (VIT D3) 25 MCG TABLET (1,000 UNITS) PO (11:56)
[2021-04-30] MEDS: Cyanocobalamin 500 MCG Tablet 1000 MCG PO (11:56)
[2021-05-02 16:55] LABS: Carbohydrate AG 19-9 12 U/mL (0-35)
== END 2021-04-30 13:07 | disposition home or self-care (01) | DRG 657 ==
PROVIDERS: Anesthesiology; Internal Medicine Gastroenterology; Physician Assistant; Urology; Admitting Provider Internal Medicine; PCP Nurse Practitioner Primary Care; Visit Provider Student in an Organized Health Care Education/Training Program
PROC: 0TBB8ZZ Excision of Bladder, Via Natural or Artificial Opening Endoscopic (ICD-10-PCS; principal; 2021-04-26 10:45)
PROC: 0T768DZ Dilation of Right Ureter with Intraluminal Device, Via Natural or Artificial Opening Endoscopic (ICD-10-PCS; CPT 52332; 2021-04-26 10:45)
DX: C67.9 Malignant neoplasm of bladder, unspecified (principal); N17.9 Acute kidney failure, unspecified; N13.1 Hydronephrosis with ureteral stricture, not elsewhere classified; K86.1 Other chronic pancreatitis; K83.8 Other specified diseases of biliary tract; K86.89 Other specified diseases of pancreas; J44.9 Chronic obstructive pulmonary disease, unspecified; E55.9 Vitamin D deficiency, unspecified; F17.210 Nicotine dependence, cigarettes, uncomplicated; D64.9 Anemia, unspecified; K21.9 Gastro-esophageal reflux disease without esophagitis; N40.1 Benign prostatic hyperplasia with lower urinary tract symptoms; F41.9 Anxiety disorder, unspecified; N32.9 Bladder disorder, unspecified; Z92.3 Personal history of irradiation; F32.A Depression, unspecified; N28.89 Other specified disorders of kidney and ureter; Z79.899 Other long term (current) drug therapy; R32 Unspecified urinary incontinence; N32.0 Bladder-neck obstruction; Z85.46 Personal history of malignant neoplasm of prostate; R91.8 Other nonspecific abnormal finding of lung field
CPT/HCPCS: 36415; 74181; 76000; 76705; 80048; 80053; 83540; 83550; 83735; 84100; 84443; 85025; 85027; 85730; 86301; 87040; 88307; 88341; 88342; 93005; 97110; 97116; 97161; 97166; 97530; 97535; 99251; 99406; J7050; J7120; A4216; C1769; C2617; G0463; J2405

== ENCOUNTER 2021-06-21 06:58 | Outpatient (CLI) | payer MEDICARE, OTHER, SELFPAY ==
[2021-06-21] VITALS (10 sets, daily range): BP systolic 119–171; BP diastolic 51–92; PULSE 51–63; RESP 12–22; TEMP 36.6; O2SAT 96–100; BMI 20.9
[2021-06-21 07:27] LABS: Platelet Count 191 K/mm3 (150-450)
[2021-06-21 07:37] LABS: Prothrombin Time (Protime)PT. 12.4 SECONDS (11.7-14.9)
--- NOTE | 2021-06-21 08:22 | CT_ITS ---
PROCEDURE: COMPUTERIZED TOMOGRAPHIC GUIDANCE DURING PERCUTANEOUS NEPHROSTOMY PROCEDURE. DATE OF EXAMINATION: 06/21/2021. INDICATION: Male, 75 years old. Bilateral ureteral obstruction. PHYSICIAN: Cabrera Kamara M.D. CONSENT: The patient''s history and physical findings were reviewed. Prior to the procedure the percutaneous nephrostomy and possible complications including bleeding and infection were described to the patient who then signed a consent. SEDATION: 4 mg of VERSED and 125 mcg of FENTANYL intravenously. Conscious sedation was started at 8:28 AM and terminated at 9:27 AM. The patient was independently monitored by department nurse. CTDvol : 18 DLP : 491.65 TECHNIQUE: A 8 Croatian percutaneous right nephrostomy catheter was inserted under CT guidance. Contrast was injected through the right nephrostomy catheter which opacified the right upper collecting system and right ureter. A loop of the pigtail catheter was formed within the right renal pelvis and locked in this position. There is dilatation of the upper collecting system. No contrast passed into the urinary bladder. The catheter was secured to the skin surface and covered with a sterile dressing. The catheter was attached to a drainage bag attached to the patient''s leg. CT/Nephrotube Placement CT IMPRESSION: 1. The percutaneous right nephrostomy catheter is in good position with the pigtail portion located in the right renal pelvis. 2. Conscious sedation protocol was followed. Electronically Signed: Cabrera Kamara MD at 10:15 EDT ,
[2021-06-21] MEDS: fentaNYL 100 MCG/2 ML Ampul IV ×2 (08:28→08:48)
[2021-06-21] MEDS: Midazolam 2 MG/2 ML Syringe IV ×2 (08:28→08:48)
[2021-06-21] MEDS: Lidocaine 2% (20 ml mdv) 20 ML Vial INFILT (08:35)
--- NOTE | 2021-06-21 09:00 | CT_ITS ---
PROCEDURE: COMPUTED TOMOGRAPHIC GUIDANCE DURING PERCUTANEOUS NEPHROSTOMY PROCEDURE. DATE OF EXAMINATION: 06/21/2021. INDICATION: Male, 75 years old. Bilateral ureteral obstruction. PHYSICIAN: Cabrera Kamara M.D. CONSENT: The patient''s history and physical findings were reviewed. Prior to the procedure the percutaneous nephrostomy procedure and possible complications including infection and bleeding were described to the patient who then signed a consent. SEDATION: 4 mg of VERSED and 125 mcg of FENTANYL intravenously. The patient was independently monitored by the department nurse. Conscious sedation was started at 8:28 AM and compared to 9:27 AM. Individualized dose optimization techniques were utilized. CTDvol : 15 DLP : 794.44 TECHNIQUE: A percutaneous left nephrostomy catheter was inserted under CT guidance. . Contrast was injected through the right nephrostomy catheter which opacified the right upper collecting system and right ureter. A loop of the pigtail catheter was formed within the left renal pelvis and locked in this position. There is dilatation of the upper collecting system and dilatation of the right ureter to the bladder. No contrast passed into the urinary bladder. The catheter was secured to the skin surface and covered with a sterile dressing. The catheter was attached to a drainage bag attached to the patient''s leg. CT/Nephrotube Placement CT IMPRESSION: 1. The percutaneous left nephrostomy catheter is in good position with the pigtail portion located in the left renal pelvis. 2. Conscious sedation protocol was followed. Electronically Signed: Cabrera Kamara MD at 9:58 EDT ,
[2021-06-21] MEDS: Ondansetron 4 MG/2 ML Vial IV (09:14)
[2021-06-21] MEDS: fentaNYL 100 MCG/2 ML Ampul 25 MCG IV (09:23)
== END 2021-06-21 23:59 | disposition home or self-care (01) ==
PROVIDERS: PCP Nurse Practitioner Primary Care; Referring Provider Internal Medicine Hematology & Oncology; Visit Provider Internal Medicine Hematology & Oncology
DX: C67.8 Malignant neoplasm of overlapping sites of bladder (principal); Z93.6 Other artificial openings of urinary tract status; C61 Malignant neoplasm of prostate; N13.2 Hydronephrosis with renal and ureteral calculous obstruction; N13.39 Other hydronephrosis; N13.9 Obstructive and reflux uropathy, unspecified; N40.1 Benign prostatic hyperplasia with lower urinary tract symptoms; R91.8 Other nonspecific abnormal finding of lung field
CPT/HCPCS: 36415; 50432; 85049; 85610; 85730; 99156; 99157; J7040; A4216; J2405

== ENCOUNTER 2021-06-26 11:24 | Emergency (ER) | payer MEDICARE, OTHER, SELFPAY ==
[2021-06-26 11:25] VITALS: BP 94/57; PULSE 79; RESP 14; TEMP 35.6; BMI 20.7
--- NOTE | 2021-06-26 11:35 | ED.VIS.GI ---
HPI HPI - GI History of Present Illness Chief Complaint: Abd Pain Informant: patient Abdominal Pain/Flank Pain Onset: Days (2) Context: Gradual Onset Timing: Continuous Quality: Aching Location: - (Right mid abdomen) Worsened by: Nothing Relieved by: Nothing Nausea/Vomiting/Emesis GI Symptom: Positive for Nausea; Negative for Vomiting Diarrhea/Melena/Hematochezia GI Symptom: Negative for Diarrhea, Melena and Hematochezia Narrative Narrative: Patient presents with abdominal pain that has been constant for the past 2 days. Patient states it came on gradually. Patient states his pain is over the right mid abdomen. Patient states nothing makes it worse and nothing makes it better. Patient admits to nausea but denies any vomiting. Patient denies any diarrhea, melena, or hematochezia. Patient states he noted some cloudy urine in the right nephrostomy tube but this is starting to clear up. Patient states he had bilateral nephrostomy tubes placed 5 days ago. PFSH [facility] Medical History Anemia Bladder mass Bladder outlet obstruction Chronic pancreatitis Dilated bile duct GERD (gastroesophageal reflux disease) Hiatal hernia Hydronephrosis Nicotine dependence Pancreatic duct dilated Pancreatic duct stones Pancreatitis Pancytopenia Prostate cancer Septic shock (07/2018) Home Medications [id number] 24,000 PO TIDCM 03/02/13 [History Last Taken 06/20/21] sertraline 50 mg PO DAILY 03/02/13 [History Last Taken 06/20/21] omeprazole 20 mg PO DAILY 08/21/18 [History Last Taken 06/20/21] cyanocobalamin (vitamin B-12) 1,000 mcg PO DAILY 10/01/18 [History Last Taken 06/20/21] cholecalciferol (vitamin D3) 1,000 unit PO QODAY 11/18/19 [History Last Taken 06/20/21] oxycodone-acetaminophen 1 ea PO Q4H PRN PRN 11/18/19 [History Last Taken 06/06/21] trospium 20 mg PO BID 06/20/21 [History Last Taken 06/20/21] ciprofloxacin HCl 500 mg PO BID #14 tablet 06/26/21 [Rx Last Taken Unknown] hydrocodone-acetaminophen 1 tab PO Q6H PRN PRN 3 Days #10 tablet 06/26/21 [Rx Last Taken Unknown] Allergy/AdvReac Type Severity Reaction Status Date / Time No Known Allergies Allergy Verified 06/26/21 11:25 Family History Father Cancer Mother Hypertension Brother Diabetes Surgical History H/O prostate biopsy H/O rectal polypectomy (07/2018) History of inguinal hernia repair History of open reduction and internal fixation (ORIF) procedure History of sphincterotomy of sphincter of Oddi History of tonsillectomy Hx of cholecystectomy S/P TURP Social History Smoking Status: Current every day smoker tobacco type: cigarettes alcohol intake: former details: Quit in December 1968 substance use type: does not use ROS ROS ED Constitutional Constitutional ED: Reports fever(s); Denies chills Eyes Eyes: Denies blurry vision or change in vision ENT ENT ED: Denies rhinorrhea or sore throat Cardiovascular Cardiovascular: Denies chest pain or palpitations Respiratory/Chest Respiratory/Chest: Denies cough or dyspnea Gastrointestinal Gastrointestinal: Reports abdominal pain and nausea; Denies vomiting Musculoskeletal Musculoskeletal: Denies back pain or neck pain Integumentary Denies abscess or rash Neurologic Neurologic: Denies headache(s) or weakness Allergic/Immunologic Allergic/Immunologic ED: Denies mouth swelling or urticaria EXAM Physical Exam Const Vital Signs: 06/26/21 11:25 06/26/21 12:00 06/26/21 13:24 Temperature 96.1 F L 99.2 F H Temperature Source Temporal Oral Pulse Rate 79 68 67 Respiratory Rate 14 14 Blood Pressure 94/57 L 127/75 H 131/60 H Blood Pressure Mean 69 92 83 06/26/21 14:00 06/26/21 15:00 Temperature 99.3 F H 99.6 F H Temperature Source Oral Oral Pulse Rate 68 67 Respiratory Rate 14 12 Blood Pressure 134/59 H 122/64 H Blood Pressure Mean 84 83 Positive well nourished and well developed General Appearance ED: well developed HEENT Reports moist mucous membranes Neck supple and no JVD Resp normal respiratory effort and clear to auscultation bilaterally Cardio regular rate, regular rhythm and no murmurs GI normal to inspection, nondistended, normoactive bowel sounds and non-distended Auscultation: normoactive bowel sounds Palpation: soft and tender RLQ and RUQ; Negative for guarding or rebound tenderness present Extremity normal to inspection General Extremety ED: Negative for edema or tenderness General Extremity: Negative for edema Neuro oriented x3, CN's II-XII intact bilaterally and no sensory deficits noted Sensorium / Orientation: alert Motor Exam: strength 5/5 throughout Psych mental status grossly normal Skin no rashes or lesions noted MDM MDM MDM Narrative Medical decision making narrative: Patient was given IV fluids. CBC was within normal limits. Comprehensive metabolic profile was obtained. BUN was 26 and creatinine was 1.69. These are consistent with prior results. PT with INR and PTT were normal. Urinalysis from the left nephrostomy tube was obtained. There were 25-50 red blood cells with occult blood of 250. Leukocyte esterase was 100 with 10-[address] scan of the abdomen and pelvis was obtained. There is a bladder mass with enlargement of the prostate. Radiation seeds are seen within the prostate. There are bilateral percutaneous nephrostomy tubes as well as a right ureteral stent. There is no significant hydronephrosis. There are diffuse pancreatic calcifications. This was interpreted by the radiologist and reviewed by myself. Urinalysis was also ordered from the right nephrostomy tube. There is leukocyte Estrace of 500 with greater than 100 white blood cells from the right nephrostomy tube. Urine cultures were ordered on both specimens. Case was discussed with Dr. Farmer. He does not want to remove the ureteral stent while there is an infection. Patient was given a dose of Rocephin. Patient was given a prescription for Cipro. Patient was instructed to follow-up with Dr. Farmer in 3 to 5 days. Patient was also given a prescription for [place]. Patient understood and was agreeable with the plan. All questions were answered. Lab Data Attestation: I reviewed the patient's lab results. Labs: Laboratory Results - last 24 hr 06/26/21 06/26/21 06/26/21 11:53 12:30 12:30 WBC 8.1 RBC 3.32 L Hgb 10.5 L Hct 31.4 L MCV 94.6 H MCH 31.6 MCHC 33.4 RDW Std Deviation 45.1 H RDW Coeff of Kylie 13.0 Plt Count 169 MPV 12.3 H Immature Gran % (Auto) 0.400 Neut % (Auto) 85.7 H Lymph % (Auto) 6.0 L Rhea % (Auto) 7.1 Eos % (Auto) 0.4 Baso % (Auto) 0.4 Absolute Neuts (auto) 7.0 Absolute Lymphs (auto) 0.49 L Nucleated RBC % 0 Differential Comment Platelet Estimate ADEQUATE RBC Morphology NORM C+C PT 13.9 INR 1.1 APTT 34.1 Sodium Potassium Chloride Carbon Dioxide Anion Gap BUN Creatinine Estim Creat Clear Calc Est GFR (MDRD) Af Amer Est GFR (MDRD) Non-Af BUN/Creatinine Ratio Glucose Calcium Total Bilirubin AST ALT Alkaline Phosphatase Total Protein Albumin Globulin Albumin/Globulin Ratio Lipase Urine Color Yellow Urine Clarity Sl. Cloudy Urine pH 5.0 Ur Specific [place] 1.020 Urine Protein 100 H Urine Glucose (UA) Normal Urine Ketones Negative Urine Occult Blood 250 H Urine Nitrite Negative Urine Bilirubin Negative Urine Urobilinogen Normal Ur Leukocyte Esterase 100 H Urine RBC 25-50 SEEN Urine WBC 10-25 SEEN Ur Squamous Epith Cells 0-5 SEEN Urine Bacteria 1+ Urine Mucus 0 SEEN 06/26/21 06/26/21 12:30 12:34 WBC RBC Hgb Hct MCV MCH MCHC RDW Std Deviation RDW Coeff of Kylie Plt Count MPV Immature Gran % (Auto) Neut % (Auto) Lymph % (Auto) Rhea % (Auto) Eos % (Auto) Baso % (Auto) Absolute Neuts (auto) Absolute Lymphs (auto) Nucleated RBC % Differential Comment Platelet Estimate RBC Morphology PT INR APTT Sodium 134 L Potassium 4.1 Chloride 103 Carbon Dioxide 24.0 Anion Gap 7 BUN 26 H Creatinine 1.69 H Estim Creat Clear Calc 36.61 Est GFR (MDRD) Af Amer 51 L Est GFR (MDRD) Non-Af 42 L BUN/Creatinine Ratio 15.4 Glucose 113 H Calcium 8.0 L Total Bilirubin 0.80 AST 6 L ALT 12 L Alkaline Phosphatase 80 Total Protein 7.0 Albumin 2.8 L Globulin 4.2 Albumin/Globulin Ratio 0.7 L Lipase 12 L Urine Color Yellow Urine Clarity Sl. Cloudy Urine pH 6.5 Ur Specific [place] 1.010 Urine Protein 500 H Urine Glucose (UA) Normal Urine Ketones Negative Urine Occult Blood 250 H Urine Nitrite Negative Urine Bilirubin Negative Urine Urobilinogen Normal Ur Leukocyte Esterase 500 H Urine RBC 0 SEEN Urine WBC >100 SEEN Ur Squamous Epith Cells 0 SEEN Urine Bacteria 0 SEEN Urine Mucus 0 SEEN Radiography Diagnostic Testing: Clinical Impression(s) from Imaging Studies Abdomen/Pelvis CT 06/26/21 11:39 IMPRESSION: Mild increased markings at the lung bases suggestive of atelectasis and/or scarring. Bladder mass with enlargement of the prostate. Radiation seeds are seen within the prostate. Bilateral percutaneous nephrostomy tubes as well as a right sided ureteral catheter. No significant hydronephrosis seen. Dilatation of the intra and extrahepatic biliary ducts. Diffuse pancreatic calcifications. Electronically Signed: Cabrera Kamara MD at 14:09 EDT , Discharge Plan Triage Chief Complaint: Abd Pain ED Provider: Dereck Bauman Dx/Rx/DC Orders Clinical Impression: Urinary tract infection, Bladder cancer Instructions: ED Bladder Infection, Male (Adult) Prescriptions: New hydrocodone-acetaminophen [hydrocodone-acetaminophen] 1 TABLET tablet 1 tab PO Q6H PRN PRN (Reason: Pain) 3 Days Qty: 10 RF: 0 ciprofloxacin HCl [ciprofloxacin HCl] 500 MG tablet 500 mg PO BID Qty: 14 RF: 0 No Action [id number] 1 EACH capsule,delayed release(DR/EC) 24,000 PO TIDCM RF: 0 sertraline 50 MG tablet 50 mg PO DAILY RF: 0 omeprazole 20 MG capsule,delayed release(DR/EC) 20 mg PO DAILY RF: 0 cyanocobalamin (vitamin B-12) 1,000 MCG capsule 1,000 mcg PO DAILY RF: 0 oxycodone-acetaminophen 1 EACH tablet 1 ea PO Q4H PRN PRN (Reason: Pain Or Fever) RF: 0 cholecalciferol (vitamin D3) 1,000 UNIT tablet 1,000 unit PO QODAY RF: 0 trospium 20 mg Tablet 20 mg PO BID RF: 0 Primary Care Provider: Donita Ramires NP Referrals: Steve Farmer MD [STAFF PHYSICIAN] - 3-5 Days Donita Ramires NP, [employer] [Primary Care Provider] - Disposition Disposition: Home, Self Care
--- NOTE | 2021-06-26 11:39 | CT_ITS ---
STUDY: CT ABDOMEN AND PELVIS WITH CONTRAST REASON FOR EXAM: Male, 75 years old. Abdominal pain -- IV PO Contrast. History of bilateral percutaneous nephrostomy tube placements. RADIATION DOSAGE (If Supplied By Facility): CTDIvol = ( 12.70 ) mGy, DLP = ( 1046.06 ) mGycm TECHNIQUE: Transaxial images were obtained from the dome of the diaphragm to the symphysis pubis with oral contrast. Oral and amp; IV Gastrografin and amp; 100mL Isovue-300 was administered. Sagittal and coronal images were reconstructed. Individualized dose optimization techniques were used for this CT. COMPARISON: None. FINDINGS: Minimal degree of increased linear markings at the lung bases suggestive of atelectasis. Coronary artery calcification. There is evidence of the central intrahepatic biliary ductal dilatation. The common bile duct is dilated down to the level of the duodenum. There are surgical clips in the gallbladder fossa consistent with a prior cholecystectomy. Normal spleen. There are pancreatic calcifications in the distribution of the ducts consistent with chronic pancreatitis. Normal bilateral adrenal glands. There is evidence of bilateral percutaneous nephrostomy tubes as well as right ureteral stent catheterization. Mild degree of right perinephric stranding. There is a 2.1 cm cyst in the mid lateral aspect of the right kidney. Normal visualized stomach. Normal small intestine. Normal colon. Mild degree of increased markings in the right paracolic gutters. The appendix is visualized and appears normal. There is diffuse atherosclerotic calcification of the abdominal aorta, without a demonstrated aneurysm. Normal inferior vena cava. Normal retroperitoneum. Diffuse bladder wall thickening worse on the right side. Soft tissue masses seen along the bladder base extension to the right side of midline. There is enlargement of the prostate. The prostate measures 4.7 cm x 5.1 cm. Normal abdominal wall. There are mild degenerative changes of the visualized lumbar spine. Straightening of the normal lumbar lordosis. CT/Abdomen/Pelvis WITH Contrast IMPRESSION: Mild increased markings at the lung bases suggestive of atelectasis and/or scarring. Bladder mass with enlargement of the prostate. Radiation seeds are seen within the prostate. Bilateral percutaneous nephrostomy tubes as well as a right sided ureteral catheter. No significant hydronephrosis seen. Dilatation of the intra and extrahepatic biliary ducts. Diffuse pancreatic calcifications. Electronically Signed: Cabrera Kamara MD at 14:09 EDT ,
[2021-06-26 12:00] VITALS: BP 127/75; PULSE 68; RESP 14; TEMP 37.3
[2021-06-26] MEDS: Ondansetron 4 MG/2 ML Vial IV ×2 (12:04→13:17)
[2021-06-26] MEDS: Morphine 4 MG/ML Syringe IV ×2 (12:04→13:12)
[2021-06-26 12:22] LABS: Mucous, Urine 0 SEEN /hpf (<or=2+)
[2021-06-26 12:42] LABS: Absolute Lymphocyte Count 0.49 X10^3/uL (0.83-4.51); Basophil# 0.03 X10^3/uL; Basophil% 0.4 % (0-1); Eosinophil# 0.03 X10^3/uL; Eosinophils% 0.4 % (0-5); Hematocrit 31.4 % (40-54); Hemoglobin 10.5 g/dL (13.0-16.5); Lymphocyte # 0.49 X10^3/ul (0.83-4.51); Mean Corp Hgb Conc 33.4 g/dL (32-36); Mean Corpuscular Hgb 31.6 pg (27.0-32.0); Mean Corpuscular Volume 94.6 fL (80-94); Mean Platelet Vol. 12.3 fl (6.2-12.0); Monocyte# 0.58 X10^3/uL; Monocyte% 7.1 % (0-10); NRBC Flagged by Analyzer 0 % (0-5); Neutrophil # 6.97 X10^3/uL (2.7-7.7); Neutrophil % 85.7 % (47-70); POSITIVE DIFFERENTIAL YES; Platelet Count 169 K/mm3 (150-450); RBC Distribution Width SD 45.1 fl (35.1-43.9); Red Blood Count 3.32 M/mm3 (4.6-6.2); White Blood Count 8.1 K/mm3 (4.4-11.0)
[2021-06-26 12:51] LABS: Differential Indicated SCAN CRITERIA MET
[2021-06-26 12:51] LABS: Color, Urine Yellow (Yellow); Glucose, Dipstick Normal (Normal); Ketone-Dipstick Negative (Negative); Leukocyte Esterase-Dipstick 100 /ul (Negative); Nitrite-Dipstick Negative (Negative); Occult Blood-Urine 250 /ul (Negative); Protein-Dipstick 100 mg/dl (Negative); Urine Bilirubin Dipstick Negative (Negative); Urine Clarity Sl. Cloudy (Clear); Urine Urobilinogen Normal (Normal)
[2021-06-26 12:56] LABS: ALB/GLOB Ratio 0.7 RATIO (0.9-2.4); AST(SGOT) 6 U/L (15-37); Alanine Aminotransfer ALT/SGPT 12 U/L (16-61); Albumin, Serum 2.8 g/dL (3.2-5.0); Alkaline Phosphatase 80 U/L (45-117); Anion Gap 7 (5-15); BUN 26 mg/dL (7-18); BUN/Creat Ratio 15.4 RATIO (10-20); Chloride 103 mmol/L (98-107); Creatinine, Serum 1.69 mg/dL (0.70-1.30); EST Glomerular Filtration Rate 42 mL/min (>60); Est Glom Filt Rate - Afr Amer 51 mL/min (>60); Estimated Creatinine Clearance 36.61 ml/min; Globulin 4.2 g/dL (2.2-4.2); Glucose 113 mg/dL (74-106); Lipase 12 U/L (73-393); Potassium 4.1 mmol/L (3.5-5.1); Sodium Level 134 mmol/L (136-145)
[2021-06-26 12:57] LABS: International Normalized Ratio 1.1; Partial Thromboplast Time 34.1 Seconds (24.1-36.2); Prothrombin Time (Protime)PT. 13.9 SECONDS (11.7-14.9)
[2021-06-26 13:04] LABS: Bacteria 1+ /hpf (None Seen); Red Blood Cells-Urine 25-50 SEEN /hpf (0-5); Squamous Epithelial Cells - UA 0-5 SEEN /hpf (0-5); White Blood Cells 10-25 SEEN /hpf (0-5)
[2021-06-26 13:09] LABS: Platelet Estimate ADEQUATE (ADEQ); Red Cell Morphology NORM C+C NORMAL (NORM C&C)
[2021-06-26 13:24] VITALS: BP 131/60; PULSE 67
[2021-06-26 14:00] VITALS: BP 134/59; PULSE 68; RESP 14; TEMP 37.4
[2021-06-26 15:00] VITALS: BP 122/64; PULSE 67; RESP 12; TEMP 37.6
[2021-06-26 15:22] LABS: Bacteria 0 SEEN /hpf (None Seen); Mucous, Urine 0 SEEN /hpf (<or=2+); Red Blood Cells-Urine 0 SEEN /hpf (0-5); Squamous Epithelial Cells - UA 0 SEEN /hpf (0-5)
[2021-06-26 15:31] LABS: Color, Urine Yellow (Yellow); Glucose, Dipstick Normal (Normal); Ketone-Dipstick Negative (Negative); Leukocyte Esterase-Dipstick 500 /ul (Negative); Nitrite-Dipstick Negative (Negative); Occult Blood-Urine 250 /ul (Negative); Protein-Dipstick 500 mg/dl (Negative); Urine Bilirubin Dipstick Negative (Negative); Urine Clarity Sl. Cloudy (Clear); Urine Urobilinogen Normal (Normal); Urine pH 6.5 (5.0 - 8.0)
[2021-06-26 16:02] LABS: White Blood Cells >100 SEEN /hpf (0-5)
[2021-06-26] MEDS: Ceftriaxone 1 GM/50 ML BAG IV (17:01)
[2021-06-26 17:08] VITALS: BP 132/81; PULSE 71; RESP 18; O2SAT 99
== END 2021-06-26 17:51 | disposition home or self-care (01) ==
PROVIDERS: Emergency Provider Emergency Medicine; PCP Nurse Practitioner Primary Care; Visit Provider Emergency Medicine
DX: N39.0 Urinary tract infection, site not specified (principal); C67.9 Malignant neoplasm of bladder, unspecified; F17.210 Nicotine dependence, cigarettes, uncomplicated; K86.89 Other specified diseases of pancreas; R10.9 Unspecified abdominal pain
CPT/HCPCS: 74177; 80053; 81001; 83690; 85025; 85610; 85730; 87077; 87086; 87088; 87186; 96365; 96375; 96376; 99283; Q9967; A4216; J2405

== ENCOUNTER 2021-07-02 20:14 | Emergency (ER) | payer MEDICARE, OTHER, SELFPAY ==
[2021-07-02 20:15] VITALS: BP 120/70; PULSE 69; RESP 16; TEMP 36.9; O2SAT 98; BMI 20.9
--- NOTE | 2021-07-02 20:48 | EDS_ITS ---
HPI History of Present Illness Chief Complaint: Other, Pain/Inj Detail of Chief Complaint: Left nephrostomy tube pulled out Informant: patient Narrative Narrative: Patient had bilateral nephrostomy tubes placed 10 days ago. believes the left side is pulled out slightly tonight. She states she cannot see the black lines on the nephrostomy tube. Patient states he has not been having output from that side. PFSH PFS Medical History Anemia Bladder mass Bladder outlet obstruction Chronic pancreatitis Dilated bile duct GERD (gastroesophageal reflux disease) Hiatal hernia Hydronephrosis Nicotine dependence Pancreatic duct dilated Pancreatic duct stones Pancreatitis Pancytopenia Prostate cancer Septic shock (07/2018) Home Medications [id number] 24,000 PO TIDCM 03/02/13 [History Last Taken 06/20/21] sertraline 50 mg PO DAILY 03/02/13 [History Last Taken 06/20/21] omeprazole 20 mg PO DAILY 08/21/18 [History Last Taken 06/20/21] cyanocobalamin (vitamin B-12) 1,000 mcg PO DAILY 10/01/18 [History Last Taken 06/20/21] cholecalciferol (vitamin D3) 1,000 unit PO QODAY 11/18/19 [History Last Taken 06/20/21] oxycodone-acetaminophen 1 ea PO Q4H PRN PRN 11/18/19 [History Last Taken 06/06/21] trospium 20 mg PO BID 06/20/21 [History Last Taken 06/20/21] ciprofloxacin HCl 500 mg PO BID #14 tablet 06/26/21 [Rx Last Taken Unknown] hydrocodone-acetaminophen 1 tab PO Q6H PRN PRN 3 Days #10 tablet 06/26/21 [Rx Last Taken Unknown] Allergy/AdvReac Type Severity Reaction Status Date / Time No Known Allergies Allergy Verified 07/02/21 20:18 Family History Father Cancer Mother Hypertension Brother Diabetes Surgical History H/O prostate biopsy H/O rectal polypectomy (07/2018) History of inguinal hernia repair History of open reduction and internal fixation (ORIF) procedure History of sphincterotomy of sphincter of Oddi History of tonsillectomy Hx of cholecystectomy S/P TURP Social History Smoking Status: Current every day smoker tobacco type: cigarettes alcohol intake: former details: Quit in December 1968 substance use type: does not use ROS ROS ED Constitutional Constitutional ED: Denies chills or fever(s) Eyes Eyes: Denies change in vision ENT ENT ED: Denies sore throat Cardiovascular Cardiovascular: Denies chest pain Respiratory/Chest Respiratory/Chest: Denies cough or dyspnea Gastrointestinal Gastrointestinal: Denies abdominal pain, nausea or vomiting Genitourinary Genitourinary ED: Denies dysuria Musculoskeletal Musculoskeletal: Denies back pain Integumentary Denies rash Neurologic Neurologic: Denies headache(s) Allergic/Immunologic Allergic/Immunologic ED: Denies urticaria EXAM Physical Exam Const Vital Signs: 07/02/21 20:15 Temperature 98.5 F Temperature Source Temporal Pulse Rate 69 Respiratory Rate 16 Blood Pressure 120/70 Blood Pressure Mean 86 Pulse Ox 98 Oxygen Delivery Method Room Air Positive well nourished and well developed General Appearance ED: well developed HEENT Reports moist mucous membranes Eyes PERRL and EOMs intact bilaterally Neck supple Chest Wall inspection of chest normal and palpation of chest normal Resp normal respiratory effort and clear to auscultation bilaterally Cardio regular rate and regular rhythm GI non-tender Palpation: soft Back/Spine Back/Spine Narrative: When dressing is taken down left nephrostomy tube is now completely pulled out of the skin. Site is clean with no sign of surrounding infection. Neuro oriented x3 Sensorium / Orientation: alert Psych mental status grossly normal Skin no rashes or lesions noted MDM [facility] Treatment and Re-Evaluation Narrative: I spoke with Dr. Farmer. He states she is to place a clean dressing over the site tonight. His office will arrange for the patient to come in as an outpatient to have a left nephrostomy tube replaced. Patient voices understanding and agreement with plan. Discharge Plan Triage Chief Complaint: Other, Pain/Inj ED Provider: Maddie Morgan Dx/Rx/DC Orders Clinical Impression: Displacement of nephrostomy tube Prescriptions: No Action [id number] 1 EACH capsule,delayed release(DR/EC) 24,000 PO TIDCM RF: 0 sertraline 50 MG tablet 50 mg PO DAILY RF: 0 omeprazole 20 MG capsule,delayed release(DR/EC) 20 mg PO DAILY RF: 0 cyanocobalamin (vitamin B-12) 1,000 MCG capsule 1,000 mcg PO DAILY RF: 0 oxycodone-acetaminophen 1 EACH tablet 1 ea PO Q4H PRN PRN (Reason: Pain Or Fever) RF: 0 cholecalciferol (vitamin D3) 1,000 UNIT tablet 1,000 unit PO QODAY RF: 0 trospium 20 mg Tablet 20 mg PO BID RF: 0 hydrocodone-acetaminophen [hydrocodone-acetaminophen] 1 TABLET tablet 1 tab PO Q6H PRN PRN (Reason: Pain) 3 Days Qty: 10 RF: 0 ciprofloxacin HCl [ciprofloxacin HCl] 500 MG tablet 500 mg PO BID Qty: 14 RF: 0 Primary Care Provider: Donita Ramires NP Referrals: Steve Farmer MD [STAFF PHYSICIAN] - As soon as possible Donita Ramires NP, [employer] [Primary Care Provider] - Activity Restrictions/Additional Instructions: As discussed, Dr. Farmer's office will arrange for outpatient procedure to have the nephrostomy tube replaced. They should be calling you tomorrow with these instructions. Disposition Disposition: Home, Self Care
== END 2021-07-02 21:02 | disposition home or self-care (01) ==
LOC: ED 21:01
PROVIDERS: Emergency Provider Emergency Medicine; PCP Nurse Practitioner Primary Care; Visit Provider Emergency Medicine
DX: T83.022A Displacement of nephrostomy catheter, initial encounter (principal); F17.210 Nicotine dependence, cigarettes, uncomplicated
CPT/HCPCS: 99282

== ENCOUNTER 2021-07-06 19:06 | Emergency (ER) | payer MEDICARE, OTHER, SELFPAY ==
[2021-07-06 19:07] VITALS: BP 131/65; PULSE 63; RESP 18; TEMP 36.3; O2SAT 100; BMI 20.9
[2021-07-06] MEDS: Morphine 4 MG/ML Syringe IV ×2 (20:00→20:50)
[2021-07-06] MEDS: Ondansetron 4 MG/2 ML Vial IV (20:00)
[2021-07-06 20:06] LABS: Absolute Lymphocyte Count 0.84 X10^3/uL (0.83-4.51); Absolute Neutrophil Count 5.1 X10^3/uL (2.0-7.7); Basophil# 0.01 X10^3/uL; Basophil% 0.2 % (0-1); Eosinophils% 1.5 % (0-5); Hematocrit 25.2 % (40-54); Hemoglobin 8.4 g/dL (13.0-16.5); Lymphocyte # 0.84 X10^3/ul (0.83-4.51); Lymphocyte % 12.8 % (19-41); Mean Corp Hgb Conc 33.3 g/dL (32-36); Mean Corpuscular Hgb 31.8 pg (27.0-32.0); Mean Corpuscular Volume 95.5 fL (80-94); Mean Platelet Vol. 9.9 fl (6.2-12.0); Monocyte# 0.38 X10^3/uL; Monocyte% 5.8 % (0-10); NRBC Flagged by Analyzer 0 % (0-5); Neutrophil # 5.14 X10^3/uL (2.7-7.7); Neutrophil % 78.2 % (47-70); Platelet Count 171 K/mm3 (150-450); RBC Distribution Width CV 12.8 % (11.6-14.6); RBC Distribution Width SD 43.8 fl (35.1-43.9); Red Blood Count 2.64 M/mm3 (4.6-6.2); White Blood Count 6.6 K/mm3 (4.4-11.0)
[2021-07-06 20:20] LABS: Anion Gap 4 (5-15); BUN 21 mg/dL (7-18); BUN/Creat Ratio 10.3 RATIO (10-20); Calcium,Total 8.3 mg/dL (8.5-10.1); Chloride 112 mmol/L (98-107); Creatinine, Serum 2.04 mg/dL (0.70-1.30); EST Glomerular Filtration Rate 34 mL/min (>60); Est Glom Filt Rate - Afr Amer 41 mL/min (>60); Estimated Creatinine Clearance 30.63 ml/min; Glucose 115 mg/dL (74-106); Potassium 3.9 mmol/L (3.5-5.1); Sodium Level 141 mmol/L (136-145)
--- NOTE | 2021-07-06 20:31 | EX.ED.DYSGE1 ---
HPI History of Present Illness Chief Complaint: Complaint Detail of Chief Complaint: Abrupt right flank pain Informant: patient and spouse/S.O. Onset/Context/Timing Onset: Hours (Proxy 1 hour prior to presentation) Context: Sudden Onset Timing: Continuous Quality: Pain Location: Right flank Current Severity: Moderate Maximum Severity: Severe Worsened by: Nothing Relieved by: Nothing Associated Symptoms Associated Symptoms: Nausea Narrative Narrative: Patient is a 75-year-old male with history of bladder cancer with bilateral hydronephrosis. He had nephrostomy tubes placed. The left nephrostomy tube has fallen out. He has had minimal urine output from the right nephrostomy tube. is not not evaluated the right nephrostomy tube placement. He makes minimal urine. He is scheduled for placement of left nephrostomy tube tomorrow morning at 08 100. Will contact radiology to assure that a right and left can be placed and will speak with his urologist. He denies fever, chills night sweats. He has no other complaints. Prior similar symptoms: Yes Recent Illness/Hospitalization: Yes [facility] Medical History Anemia Bladder mass Bladder outlet obstruction Chronic pancreatitis Dilated bile duct GERD (gastroesophageal reflux disease) Hiatal hernia Hydronephrosis Nicotine dependence Pancreatic duct dilated Pancreatic duct stones Pancreatitis Pancytopenia Prostate cancer Septic shock (07/2018) Home Medications [id number]-[id number] 24,000 PO TIDCM 03/02/13 [History Last Taken 06/20/21] sertraline 50 mg PO DAILY 03/02/13 [History Last Taken 06/20/21] omeprazole 20 mg PO DAILY 08/21/18 [History Last Taken 06/20/21] cyanocobalamin (vitamin B-12) 1,000 mcg PO DAILY 10/01/18 [History Last Taken 06/20/21] cholecalciferol (vitamin D3) 1,000 unit PO QODAY 11/18/19 [History Last Taken 06/20/21] oxycodone-acetaminophen 1 ea PO Q4H PRN PRN 11/18/19 [History Last Taken 06/06/21] trospium 20 mg PO BID 06/20/21 [History Last Taken 06/20/21] ciprofloxacin HCl 500 mg PO BID #14 tablet 06/26/21 [Rx Last Taken Unknown] hydrocodone-acetaminophen 1 tab PO Q6H PRN PRN 3 Days #10 tablet 06/26/21 [Rx Last Taken Unknown] Allergy/AdvReac Type Severity Reaction Status Date / Time No Known Allergies Allergy Verified 07/06/21 19:09 Family History Father Cancer Mother Hypertension Brother Diabetes Surgical History H/O prostate biopsy H/O rectal polypectomy (07/2018) History of inguinal hernia repair History of open reduction and internal fixation (ORIF) procedure History of sphincterotomy of sphincter of Oddi History of tonsillectomy Hx of cholecystectomy S/P TURP Social History (Updated 07/06/21 @ 20:[address] Edy Luna MD) household members: spouse Smoking Status: Current every day smoker tobacco type: cigarettes alcohol intake: former details: Quit in December 1968 substance use type: does not use ROS ROS ED Constitutional Constitutional ED: Denies chills, fever(s), subjective or sweats Eyes Eyes: Denies blurry vision or change in vision ENT ENT ED: Denies rhinorrhea or sore throat Cardiovascular Cardiovascular: Denies chest pain or palpitations Respiratory/Chest Respiratory/Chest: Denies dyspnea or dyspnea on exertion Gastrointestinal Gastrointestinal: Reports nausea and vomiting; Denies abdominal pain, constipation or diarrhea Genitourinary Genitourinary ED: Denies dysuria, hematuria or urinary frequency Musculoskeletal Musculoskeletal: Reports back pain; Denies arthralgias, myalgias or neck pain Integumentary Denies rash Neurologic Neurologic: Denies paresthesias or weakness EXAM Physical Exam Const Vital Signs: 07/06/21 19:07 Temperature 97.3 F L Temperature Source Temporal Pulse Rate 63 Respiratory Rate 18 Blood Pressure 131/65 H Blood Pressure Mean 87 Pulse Ox 100 Positive well nourished and well developed General Appearance ED: well developed and pallor; Negative for cyanotic, diaphoretic or NAD HEENT Reports moist mucous membranes Negative for trauma or tenderness Eyes PERRL and EOMs intact bilaterally General Eye ED: Negative for pale conjunctiva or scleral icterus Neck no lymphadenopathy, supple and no JVD Resp normal respiratory effort and clear to auscultation bilaterally Cardio regular rate, regular rhythm, S1 normal heart sound, S2 normal heart sound and no murmurs GI normal to inspection, nondistended, normoactive bowel sounds, non-tender and non-distended Palpation: soft Narrative: Right nephrostomy tube has been displaced. It is no longer sutured in place. Will have this removed. Contacted radiology to inform them that a right and left nephrostomy tube will need to be placed. Back/Spine General Back: CVA tenderness right Extremity normal to inspection General Extremety ED: Negative for edema or tenderness General Extremity: Negative for edema Neuro oriented x3 and CN's II-XII intact bilaterally Sensorium / Orientation: alert Motor Exam: strength 5/5 throughout Psych Mood & Affect: depressed Skin no rashes or lesions noted and no wounds General Skin Exam: pallor; Negative for jaundice MDM MDM MDM Narrative Medical decision making narrative: Will obtain CBC to assess H&H since he looks pale. Basic metabolic panel to assess renal function. Patient was medicated. He was reassessed at 2030. He reports marked improvement. Will discharge with pain medicine if needed and arrangements were made to inform radiologist that he will need a left and right nephrostomy tube. Lab Data Attestation: I reviewed the patient's lab results. Lab results narrative: One-pointPatient's had a 1.5 g drop in his hemoglobin from prior. Pain has been creased from 6-2.0. Labs: Laboratory Results - last 24 hr 07/06/21 07/06/21 20:00 20:00 WBC 6.6 RBC 2.64 L Hgb 8.4 L Hct 25.2 L MCV 95.5 H MCH 31.8 MCHC 33.3 RDW Std Deviation 43.8 RDW Coeff of Kylie 12.8 Plt Count 171 MPV 9.9 Immature Gran % (Auto) 1.500 H Neut % (Auto) 78.2 H Lymph % (Auto) 12.8 L Upton % (Auto) 5.8 Eos % (Auto) 1.5 Baso % (Auto) 0.2 Absolute Neuts (auto) 5.1 Absolute Lymphs (auto) 0.84 Nucleated RBC % 0 Sodium 141 Potassium 3.9 Chloride 112 H Carbon Dioxide 25.0 Anion Gap 4 L BUN 21 H Creatinine 2.04 H Estim Creat Clear Calc 30.63 Est GFR (MDRD) Af Amer 41 L Est GFR (MDRD) Non-Af 34 L BUN/Creatinine Ratio 10.3 Glucose 115 H Calcium 8.3 L Discharge Plan Triage Chief Complaint: Complaint ED Provider: Edy Luna Dx/Rx/DC Orders Clinical Impression: Acute right flank pain, Displacement of nephrostomy tube, Anemia, Bladder cancer Instructions: ED Flank Pain, Uncertain Cause Prescriptions: No Action [id number] 1 EACH capsule,delayed release(DR/EC) 24,000 PO TIDCM RF: 0 sertraline 50 MG tablet 50 mg PO DAILY RF: 0 omeprazole 20 MG capsule,delayed release(DR/EC) 20 mg PO DAILY RF: 0 cyanocobalamin (vitamin B-12) 1,000 MCG capsule 1,000 mcg PO DAILY RF: 0 oxycodone-acetaminophen 1 EACH tablet 1 ea PO Q4H PRN PRN (Reason: Pain Or Fever) RF: 0 cholecalciferol (vitamin D3) 1,000 UNIT tablet 1,000 unit PO QODAY RF: 0 trospium 20 mg Tablet 20 mg PO BID RF: 0 hydrocodone-acetaminophen [hydrocodone-acetaminophen] 1 TABLET tablet 1 tab PO Q6H PRN PRN (Reason: Pain) 3 Days Qty: 10 RF: 0 ciprofloxacin HCl [ciprofloxacin HCl] 500 MG tablet 500 mg PO BID Qty: 14 RF: 0 Primary Care Provider: Donita Ramires NP Referrals: Steve Farmer MD [STAFF PHYSICIAN] - 5-7 Days Donita Ramires NP, [facility] [Primary Care Provider] - Disposition Disposition: Home, Self Care
--- NOTE | 2021-07-06 21:04 | ED.RN ---
STERILE GAUZE WITH OCCLUSIVE DRESSING COVERING PLACED OVER NEPHROSTOMY SITE PER MD.
== END 2021-07-06 21:04 | disposition home or self-care (01) ==
PROVIDERS: Emergency Provider Emergency Medicine; PCP Nurse Practitioner Primary Care; Visit Provider Emergency Medicine
DX: R10.9 Unspecified abdominal pain (principal); N99.522 Malfunction of incontinent external stoma of urinary tract; C67.9 Malignant neoplasm of bladder, unspecified; F17.210 Nicotine dependence, cigarettes, uncomplicated; R11.0 Nausea; D64.9 Anemia, unspecified; Y82.8 Other medical devices associated with adverse incidents; K21.9 Gastro-esophageal reflux disease without esophagitis
CPT/HCPCS: 80048; 85025; 96374; 96375; 96376; 99282; A4216; J2405

== ENCOUNTER 2021-07-07 08:01 | Outpatient (CLI) | payer MEDICARE, OTHER, SELFPAY ==
[2021-07-07] VITALS (9 sets, daily range): BP systolic 101–145; BP diastolic 57–72; PULSE 53–64; RESP 12–18; TEMP 37.1; O2SAT 96–100; BMI 20.9
--- NOTE | 2021-07-07 09:00 | CT_ITS ---
PROCEDURE: Left percutaneous nephrostomy catheter placement. DATE OF EXAMINATION: 07/07/2021 INDICATION: Male, 75 years old. Bilateral ureteral obstruction. PHYSICIAN: Dr. YESY Brambila RADIATION DOSAGE (If Supplied By Facility): CTDIvol = ( 20 ) mGy, DLP = ( 510.98 ) mGycm. Individualized dose augmentation techniques were utilized. CONSENT: The risks, including infection and bleeding, benefits and alternatives to the procedure were explained to the patient, and the patient agreed to the procedure and signed the consent. SEDATION: Conscious sedation was performed. The patient received 3 mg of VERSED and 75 mcg of FENTANYL intravenously. Conscious sedation was started at 9:50 AM and terminated at 10:23 AM. The patient was monitored by the department nurse. STERILE BARRIER TECHNIQUE: The following sterile barrier precautions were used during the procedure: hand hygiene; use of 2% chlorhexidine aseptic; use of a cap, mask, sterile gown, sterile gloves, sterile full body drape, and a large sterile sheet. PROCEDURE/TECHNIQUE: (All elements of maximal sterile barrier technique followed, including US elements as applicable) The risks, benefits, and alternatives to the procedure were explained to patient, and the patient agreed to the procedure and signed a consent form for the procedure. A timeout was performed to confirm the patient''s identity, the type of procedure, to be performed and the site of entry. The patient was in the prone position. The overlying skin was prepped and draped. Following local anesthetic application, percutaneous puncture of the collecting system was performed with an 8 Khmer nephrostomy catheter. The catheter was left in place and secured. The patient tolerated the procedure well. CT/Nephrotube Placement CT IMPRESSION: Successful left cutaneous nephrostomy catheter placement. Electronically Signed: Cabrera Kamara MD at 12:54 EDT ,
--- NOTE | 2021-07-07 09:00 | CT_ITS ---
PROCEDURE: Right percutaneous nephrostomy tube placement. DATE OF EXAMINATION: 07/07/2021. INDICATION: Male, 75 years old. Bilateral ureteral obstruction. PHYSICIAN: Dr. YESY Brambila RADIATION DOSAGE (If Supplied By Facility): CTDIvol = ( 9.94 ) mGy, DLP = ( 458.64 ) mGycm. Individualized meditation techniques were utilized. CONSENT: The risks, including infection and possible bleeding, benefits and alternatives to the procedure were explained to the patient, and the patient agreed to the procedure and signed the consent. SEDATION: Conscious sedation was performed. The patient received 3 mg of VERSED and 75 mcg of FENTANYL intravenously. Conscious sedation was started at 9:50 AM and terminated at 10:23 AM. The patient was independently monitored by the department nurse. STERILE BARRIER TECHNIQUE: The following sterile barrier precautions were used during the procedure: hand hygiene; use of 2% chlorhexidine aseptic; use of a cap, mask, sterile gown, sterile gloves, sterile full body drape, and a large sterile sheet. PROCEDURE/TECHNIQUE: (All elements of maximal sterile barrier technique followed, including US elements as applicable) The risks, benefits, and alternatives to the procedure were explained to patient, and the patient agreed to the procedure and signed a consent form for the procedure. A timeout was performed to confirm the patient''s identity, the type of procedure, to be performed and the site of entry. The patient was in the prone position. The overlying skin was prepped and draped in usual sterile fashion. Following local anesthetic application, percutaneous puncture of the right renal collecting system was performed. An 8 Malawian percutaneous nephrostomy catheter was placed into position. The patient tolerated the procedure well. CT/Nephrotube Placement CT IMPRESSION: Successful right percutaneous nephrostomy catheter placement. Conscious sedation protocol was followed. The patient tolerated the procedure well. Electronically Signed: Cabrera Kamara MD at 12:57 EDT ,
[2021-07-07] MEDS: fentaNYL 100 MCG/2 ML Ampul IV ×2 (09:50→10:15)
[2021-07-07] MEDS: Midazolam 2 MG/2 ML Syringe IV ×2 (09:50→10:15)
[2021-07-07] MEDS: Lidocaine 2% (20 ml mdv) 20 ML Vial INFILT (10:05)
== END 2021-07-07 23:59 | disposition home or self-care (01) ==
LOC: CT 08:01
PROVIDERS: PCP Nurse Practitioner Primary Care; Referring Provider Urology; Visit Provider Urology
DX: N13.39 Other hydronephrosis (principal); Z93.6 Other artificial openings of urinary tract status
CPT/HCPCS: 50432; 99156; 99157; J7040; A4216